=== PATIENT | female | born 1950 | race Caucasian/White ===

== ENCOUNTER 2022-03-05 09:06 | Outpatient (REF) | payer MEDICARE, SELFPAY ==
[2022-03-05 11:32] LABS: Hematocrit 40.9 % (37.0-47.0); Mean Corpuscular HGB Conc 34.2 g/dl (31.0-35.0); Mean Corpuscular Volume 93.4 fL (80.0-98.0); Mean Platelet Volume 10.5 fL (9.4-12.3); Platelet Count 145 X10*3/uL (160-400); Red Blood Count 4.38 X10*6/uL (4.20-5.50); Red Cell Distribution Width 16.1 % (11.0-16.0); White Blood Count 5.5 X10*3/uL (4.8-10.8)
[2022-03-05 11:57] LABS: Alanine Aminotransferase 27 U/L (0-31); Albumin Level 4.1 g/dL (3.5-5.0); Alkaline Phosphatase 74 U/L (39-117); Anion Gap 16 (12-20); Aspartate Amino Transferase 61 U/L (5-31); Bilirubin Direct 0.4 mg/dL (0.0-0.5); Bilirubin Total 0.9 mg/dL (0.0-1.0); Blood Urea Nitrogen 10 mg/dL (9-16); Carbon Dioxide 22 mmol/L (22-29); Chloride 100 mmol/L (96-108); Cholesterol 147 mg/dL; Estimated Glomerular Filt Rate 54; Glucose Random 136 mg/dL (60-115); HDL Cholesterol 63 mg/dL; LDL Cholesterol Calculated 70 mg/dl; Sodium 134 mmol/L (135-145); Total Protein 7.6 g/dL (6.5-8.0); Triglycerides 74 mg/dL
[2022-03-05 12:01] LABS: Estimated Average Glucose 108 mg/dL; Hemoglobin A1c % 5.4 %
== END 2022-03-05 09:07 | disposition home or self-care (01) ==
LOC: HO.HMGCLDS 09:06
PROVIDERS: Visit Provider Internal Medicine
DX: L40.9 Psoriasis, unspecified (principal)
CPT/HCPCS: 36415; 80048; 80061; 80076; 83036; 85027

== ENCOUNTER 2022-03-26 10:10 | Inpatient (IN) | payer MEDICARE, SELFPAY ==
--- NOTE | ~2022-03-26 | US_ITS ---
EXAMINATION: ULTRASOUND-GUIDED DRAINAGE, RIGHT BREAST ABSCESS CLINICAL INFORMATION: Abscess, right breast. COMPARISON: None TECHNIQUE: Following explaining right breast abscess drainage and catheter placement procedure, benefits and risks, a written consent was obtained. Patient was placed supine on ultrasound stretcher and preliminary ultrasound imaging was obtained. An optimal site was selected, marked and draped in usual sterile manner. 1% lidocaine was injected at the puncture site. Through a small skin incision a 5 [place] Yueh catheter was advanced into the abscess cavity. The stylet was withdrawn and abscess was withdrawn in a syringe for confirmation. Subsequently 0.035 J-wire was advanced through the sheath and the sheath was removed. A 8.5 [place] APD catheter with stiffener was advanced over the guidewire and placed in the right breast abscess. The guidewire and the stiffener was removed and a pigtail was formed by pulling the thread. The catheter was attached to the skin with 3-0 nylon sutures. The tip of the catheter was connected to a drainage bag to gravity. Sterile dressing was placed over the catheter incision and drainage place. Patient tolerated procedure extremely well. FINDINGS: Approximately 50 mL of fluid was drawn into a vacuum bottle. 2 mL of pus was withdrawn with a 10 mL syringe. An 8.5 [place] pigtail catheter was placed within the abscess which was connected to drainage bag. US/US drain soft tissue w imaging IMPRESSION: Successful fluoroscopy-guided right breast abscess drainage catheter placement without immediate complications.
--- NOTE | ~2022-03-26 | US_ITS ---
EXAMINATION: ULTRASOUND GUIDED RIGHT LATERAL BREAST ASPIRATION. CLINICAL INFORMATION: Lateral breast abscess. COMPARISON: Ultrasound breast performed earlier today. TECHNIQUE: Following explaining ultrasound-guided right breast abscess drainage procedure, benefits and risk, a written consent was obtained. Preliminary ultrasound imaging was performed through the right breast an optimal site was selected along the right anterolateral breast and marked. The marked site was cleaned and draped in usual sterile manner. 1% lidocaine was injected puncture site. Through a small skin incision 18-gauge regular needle and a spinal needle was advanced into the right breast abscess and aspirated with syringe as well as vacuum bottle. After obtaining almost all abscess and visualizing no more return, the needles were withdrawn and complete hemostasis achieved at puncture site. Sterile Band-Aid applied postprocedure. Repeat ultrasound imaging revealed significant improvement in the fluctuant abscess collection. FINDINGS: Preliminary ultrasound revealed fluctuant fluid collection/abscess in the upper outer quadrant of the right breast adjacent to the axilla. Approximately 100 mL of brownish-green, bloody fluid was drained from the collection. Fluid was sent to lab for further analysis as requested by referring physician. This was sent to lab for further analysis. Patient tolerated procedure extremely well. US/US drain soft tissue w imaging IMPRESSION: Successful ultrasound-guided right upper outer quadrant breast abscess drainage without immediate complications.
--- NOTE | ~2022-03-26 | US_ITS ---
EXAMINATION: US DIAGNOSTIC ULTRASOUND BREAST, RIGHT CLINICAL INFORMATION: 71-year-old female in emergency department with pain, swelling, erythema upper outer right breast near axilla. Family history breast cancer, sister. COMPARISON: None. TECHNIQUE: Ultrasound of the right breast is performed at the hospital and reviewed remotely. Case discussed with digital analytics manager. Grayscale imaging and color Doppler are performed. Imaging is targeted to the area of clinical concern upper outer right breast. FINDINGS: There is a macrolobulated fluid collection in the area clinical concern posterior upper outer right breast with overall dimensions approximately 3 x 3 x 6 cm. There is mild surrounding hyperemia on color Doppler. With transducer compression, there is swirling echogenicity in the area of involvement. Findings are most suggestive of an abscess. Results are discussed with Emergency Department provider Eboni Aguilar PA-C at time of imaging. Ultrasound-guided aspiration is recommended and appropriate clinical and imaging follow-up as usual. US/US breast RT limited IMPRESSION: Findings suggest abscess posterior upper outer right breast measuring approximately 3 x 3 x 6 cm. ASSESSMENT: BI-RADS 3: Probably Benign RECOMMENDATION: Ultrasound-guided aspiration and appropriate short-term clinical and imaging follow-up as usual. This patient's information was entered into a reminder system with a target due date for their next mammogram.
--- NOTE | ~2022-03-26 | US_ITS ---
EXAMINATION: US DIAGNOSTIC ULTRASOUND BREAST, RIGHT CLINICAL INFORMATION: Indication for follow-up abscess posterior upper outer right breast status post ultrasound-guided drainage 100 mL purulent fluid on 03/26/2022. COMPARISON: Diagnostic right breast ultrasound 03/26/2022, ultrasound-guided drainage 03/26/2022. TECHNIQUE: Ultrasound of the right breast is targeted to the posterior upper outer quadrant in area of known abscess and recent ultrasound-guided drainage. Grayscale imaging and color Doppler are performed without and with harmonics. FINDINGS: There is macrolobulated fluid collection again seen in the posterior upper outer right breast with mild surrounding hyperemia on color Doppler. The overall dimensions are 4.2 x 6.2 x 7.7 cm compared with prior measurements prior to aspiration of 3 x 3 x 6 cm. With transducer compression, there is internal swirling echogenicity within the collection predominantly superficial and central portion of the collection. There may be isoechoic granulation tissue that is not drainable in the total measured area. Results called and discussed with Dr. Rodriguez at 0925 hours. US/US breast RT limited IMPRESSION: -Abscess posterior upper outer right breast, overall dimensions 4 x 6 x 8 cm compared with prior pre-aspiration dimensions 3 x 3 x 6 cm. -Swirling echogenicity within the collection is predominantly superficial and central. There may be isoechoic granulation tissue that is not drainable in the total measured area. ASSESSMENT: BI-RADS 3: Probably Benign RECOMMENDATION: -Continue with clinical management plans. -Consider attempt at re-aspiration under ultrasound guidance if not planning surgical drainage. This patient's information was entered into a reminder system with a target due date for their next mammogram.
--- NOTE | ~2022-03-26 | CT_ITS ---
EXAMINATION: CT HEAD WITH CONTRAST CLINICAL INFORMATION: Metastatic breast cancer. COMPARISON: None TECHNIQUE: Contiguous axial imaging was performed from the skull base to vertex following intravenous administration of 85 mL of Omnipaque [address] examination was performed using dose optimization techniques as appropriate, variously including the following: *Automated exposure control *Adjustment of mA and/or kV according to patient size (this includes techniques or standardized protocols for targeted exams where dose is matched to indication/reason for exam; i.e. extremities or head) *Use of iterative reconstruction technique DLP: 650 mGy-cm FINDINGS: There is no evidence of acute intracranial hemorrhage or territorial infarction. No abnormal mass effect or midline shift is seen. Mancia to white matter differentiation is well preserved. No extra-axial fluid collections are identified. There is no abnormal enhancement. Moderate generalized parenchymal volume loss noted with mild chronic white matter microangiopathy. No imaging findings suspicious for hydrocephalus. The osseous structures and soft tissues are normal. There is mild mucosal thickening in the maxillary sinuses and right sphenoid sinus. The mastoid air cells are well aerated. CT/CT head/brain w con IMPRESSION: No acute intracranial pathology. No CT evidence of intracranial metastatic disease.
--- NOTE | ~2022-03-26 | CT_ITS ---
EXAMINATION: CT CHEST, ABDOMEN AND PELVIS WITH CONTRAST CLINICAL INFORMATION: Metastatic invasive lobular carcinoma of the breast. COMPARISON: No pertinent prior studies are available for comparison. TECHNIQUE: Multidetector volumetric imaging was performed from the thoracic inlet through the pubic symphysis following administration of 85 mL of Omnipaque 350 intravenous contrast. Sagittal and coronal reformatted images were obtained on the technologist workstation. This CT examination was performed using dose optimization techniques as appropriate, variously including the following: *Automated exposure control *Adjustment of mA and/or kV according to patient size (this includes techniques or standardized protocols for targeted exams where dose is matched to indication/reason for exam; i.e. extremities or head) *Use of iterative reconstruction technique DLP: 1159 mGy-cm FINDINGS: CHEST: Lungs: The central airways are patent. No bronchial wall thickening or bronchiectasis is appreciated. No confluent parenchymal disease. There are mild changes of centrilobular emphysema within the upper lobes bilaterally. There are a few scattered sub-4 mm densities present. There is a calcified granuloma seen within the left upper lobe. Within the left upper lobe laterally there is a subpleural 7 mm density on image 175 of 521 in series #15. Mediastinum: The left thyroid lobe is prominent and appears to contain a few nodular densities. The heart is mildly enlarged. There are minimal coronary artery calcifications present. There is a small pericardial effusion. No hilar or mediastinal lymphadenopathy is appreciated. There is a left upper extremity PICC line in place. Pleura: There is a trace left pleural effusion present. Chest Wall/Axilla: The left axilla appears unremarkable. Within the right breast and axilla there appears to be postsurgical change with some soft tissue and fluid being present with a dorsal axillary fluid collection measuring approximately 7.7 x 3.0 x 6.0 cm in size. There is a smaller anterior mixed fluid and soft tissue density region containing some air bubbles likely related to recent surgery or drainage. The more anterior fluid collection and soft tissue densities are adjacent with loss of fat planes between the lateral aspects of the pectoralis major and minor muscles as well as the right lateral chest wall musculature. There are a few enlarged and enhancing lymph nodes present with the largest measuring 1.6 x 1.3 cm in size and 1.3 x 1.1 cm in size. ABDOMEN/PELVIS: Liver, Gallbladder, Biliary Tree: There appears be a 1 cm low-density lesion seen within segment 7 of the liver. No intrahepatic bile duct dilatation is seen. The gallbladder wall appears a little thickened or with small amount of pericholecystic fluid within or adjacent to the wall. No radiopaque calculi identified. Pancreas: Unremarkable. Spleen: Unremarkable. Adrenal Glands: Unremarkable. Kidneys and Ureters: The kidneys are normal in size, shape, and attenuation. No hydronephrosis or hydroureter or calculi seen. No perinephric stranding. Bladder: Decompressed. Gastrointestinal Tract: No dilated loops of large or small bowel are evident. No free intra-abdominal air is seen. There is a small amount of free fluid seen about the pelvis. No significant pericolonic inflammatory change. The appendix is visualized and appears unremarkable. Within the mid right abdomen mesentery there is a 2.4 x 2.6 cm fluid density structure. Abdominal Wall: No hernia is demonstrated. Lymph Nodes: No intraperitoneal lymphadenopathy is appreciated. Vascular: Unremarkable. Pelvic Viscera: No abnormal mass appreciated. Small amount of free fluid. Osseous Structures: There are mixed lytic and sclerotic lesions seen throughout the skeleton. No definite acute fractures are identified. Multilevel degenerative disc disease most significant at the L5-S1 level. CT/CT abdomen pelvis w con IMPRESSION: Postsurgical change about the right axilla as described with soft tissue and fluid density. There are a few enlarged abnormal-appearing lymph nodes in this region. Left thyroid abnormality. 7 mm left upper lobe lung nodule. Diffuse bony metastases throughout the skeleton. Trace left pleural effusion, pericardial effusion, and free fluid within the pelvis. 1 cm low-density region within the liver which may represent a cyst.
[2022-03-26 10:51] VITALS: BP 157/84; PULSE 119; RESP 16; O2SAT 98; BMI 37.8
--- NOTE | 2022-03-26 14:57 | ED_ITS ---
HPI - General Adult General Chief complaint: Skin/Abscess/Foreign Body Stated complaint: arm infection Time Seen by Provider: 03/26/22 14:56 Source: patient and family Mode of arrival: ambulatory Limitations: no limitations History of Present Illness HPI narrative: 71 y/o female with history of psoriasis, former drinker (quit March 05) who presents to the ER with 3 weeks of worsening right breast pain, redness and swelling since middle of February. She reports the pain started after she lifted a heavy bag of trash and carried it out to the garbage. A few days later she started having pain in the right breast and chest and figured she pulled a muscle. She used ice and heat with no relief. She noticed redness a few days later and over the last few weeks it has gotten worse. She reports subjective fevers at home, decreased appetite and generally not feeling well. She denies rigors, chills, nausea, vomiting. No history of abscess in the past. Not diabetic. Unknown when last mammogram was. Her sister has history of breast cancer. MD complaint: right breast redness, swelling and pain Onset (ago): week(s) (2-3) Location: chest Radiation: extremity (right axilla) Severity: severe Severity scale (1-10): 8 Quality: aching and sharp Pain Consistency: constant Relieving factors: none Exacerbating factors: movement Associated symptoms: fever/chills, loss of appetite and malaise Treatments prior to arrival: none Related Data Home Medications Medication Instructions Recorded Confirmed carboxymethylcellulose sodium 1 % 1 drp OPHTHALMIC (EYE) QID PRN 03/26/22 03/26/22 eye drops (Artificial Tears (carboxymethylcellulose)) glucosamine 750 dl-[id number]-[id number] 1 tab PO Q2D 03/26/22 03/26/22 no1 644 mg-C 30 mg-brendan 1 mg tablet Allergies Allergy/AdvReac Type Severity Reaction Status Date / Time latex Allergy Mild Rash Verified 03/26/22 09:26 Review of Systems 2 Review of Systems: Constitutional: + Fever, No Chills ENT/Mouth: No sore throat, No Rhinorrhea, No Swallowing Difficulty Cardiovascular: No Chest Pain, No SOB, No Orthopnea, No Edema Respiratory: No Cough, No Sputum, No Wheezing, No dyspnea Gastrointestinal: No Nausea, No Vomiting, No Diarrhea, No abdominal Pain Genitourinary: No Dysuria, No Urinary Frequency, No Hematuria Musculoskeletal: + joint pain, + Myalgias Skin: + Skin Lesions, + rash Neuro: No Weakness, No Numbness, No Dizziness, No Headache Psych: No Anxiety/Panic, No Depression Heme/Lymph: No Bruising, No Lymphadenopathy Endocrine: No Polyuria, No Polydipsia [facility] Past Medical History Medical History (Updated 03/26/22 @ 18:11 by KIMBERLY Toscano) Psoriasis Social History Social History Advance Directives: No Advance Directives Information Provided: No Physical Exam ED Vital Signs: Vital Signs - 24 hr 03/26/22 10:51 03/26/22 17:35 03/26/22 17:54 Temperature 99.0 F Pulse Rate 119 H 109 H Respiratory Rate 16 18 Blood Pressure 157/84 H 149/73 H Pulse Oximetry 98 97 BMI result Body Mass Index 37.8 Appearance: Alert. Oriented X3. No acute distress. Head: normocephalic, atraumatic, dry, flakey rash along scalp/hairline Eyes: Pupils equal, round and reactive to light. ENT: Pharynx normal. Neck: Normal inspection. Neck supple. CVS: Normal heart rate and rhythm. Pulses normal. Chest: right upper and outer quadrant of the right breast with moderate erythema and tenderness with 2-3 cm area of fluctuance superiorly. significant induration extending down into the breast and up into the right axilla. Respiratory: No respiratory distress. Breath sounds normal. Abdomen: Soft and nontender. +BS x4 Skin: Skin warm and dry. Normal skin color. Normal skin turgor. No rashes. Extremities: No lower extremity edema. Neuro: Oriented X 3. No motor deficit. No sensory deficit. Course Course Course Narrative: 71 y/o female with history of psoriasis, former drinker who presents to the ER wtih 2-3 weeks of an evolving right upper breast abscess and cellulitis after lifting a heavy trash bag. On arrival she is tachycardic 119, BP stable 150s systolic and afebrile. Will get breast U/S to further assess, labs including cultures and coags. Reevaluation(s) Reevaluation #1: US showing 3 x3 x 6cm complex abscess of the right breast - spoke with Dr. Luna Radiologist [facility] - recommending IR needle aspiration. Dr. Aleman aware and will drain via US guidance. Patient updated on plan of care. Reevaluation #2: Patient with significant leukocytosis 19.7K, lactic acid normal. Patient meets sepsis criteria, no evidence of severe sepsis at this time. She is getting Rocephin, will add Vanco for MRSA coverage as well. Culture sent. H/H now anemic, 08/21 from less than one month ago. She denies signs and symptoms of GI bleed but reports her usually dark brown because of a chocolate protein shake she drinks. She has been taking Aleve for her breast pain. Last ETOH was March 05. Discussed with the patient concern for GI bleeding and recommendation for rectal exam but she declined. Will plan to heme + stool once she has a bowel movement. Will plan for admission for IV abx, follow up culture and monitoring. She has poor outpatient follow up with no PCP. Dr. Larios TT for admission. Patient agrees with plan. Medical Decision Making Lab Data Result diagrams: 03/26/22 16:54 03/26/22 17:25 Labs: Lab Results 03/26/22 03/26/22 03/26/22 Range/Units 16:43 16:53 16:53 WBC (4.8-10.8) X10*3/uL RBC (4.20-5.50) X10*6/uL Hgb (12.0-16.0) g/dl Hct (37.0-47.0) % MCV (80.0-98.0) fL MCH (27.0-33.0) pg MCHC (31.0-35.0) g/dl RDW (11.0-16.0) % Plt Count (160-400) X10*3/uL MPV (9.4-12.3) fL Immature Gran % (Auto) Neut % (Auto) Lymph % (Auto) Collier % (Auto) Eos % (Auto) Baso % (Auto) Lymph # (Auto) Collier # (Auto) Eos # (Auto) Baso # (Auto) Abs Immat Gran (auto) Absolute Neuts (auto) Absolute Nucleated RBC (0.0-0.012) X10*3/uL Nucleated RBC % (auto) (0.0-0.2) /100WBC Neutrophils % (Manual) (45-73) % Band Neutrophils % (3-5) % Lymphocytes % (Manual) (20-40) % Monocytes % (Manual) (2-11) % Abs Neuts (Manual) (2.0-8.3) X10*3/uL Lymphocytes # (Manual) (1.2-4.9) X10*3/uL Monocytes # (Manual) (0.1-1.2) X10*3/uL Toxic Vacuolation Platelet Estimate (NORMAL) Plt Morphology Comment RBC Morphology ESR 109 H (0-20) MM/HR PT INR APTT Sodium (135-145) mmol/L Potassium (3.3-5.1) mmol/L Chloride (96-108) mmol/L Carbon Dioxide (22-29) mmol/L Anion Gap (12-20) BUN (9-16) mg/dL Creatinine (0.5-1.4) mg/dL Estim Creat Clear Calc Estimated GFR Random Glucose (60-115) mg/dL Lactic Acid 1.8 (0.5-2.0) mmol/L Calcium (8.4-10.2) mg/dL Magnesium (1.6-2.6) mg/dL Total Bilirubin (0.0-1.0) mg/dL Direct Bilirubin (0.0-0.5) mg/dL AST (5-31) U/L ALT (0-31) U/L Alkaline Phosphatase (39-117) U/L C-Reactive Protein (< or = 0.50) mg/dL Total Protein (6.5-8.0) g/dL Albumin (3.5-5.0) g/dL Urine Color Urine Appearance Urine pH (5.0-8.0) Ur Specific [place] (1.005-1.025) Urine Protein (NEG-TRACE) MG/DL Urine Glucose (UA) (NEG) MG/DL Urine Ketones (NEG) MG/DL Urine Blood (NEG) Urine Nitrite (NEG) Ur Leukocyte Esterase (NEG) Urine RBC (0) /HPF Urine WBC (0-4) /HPF Ur Squamous Epith Cells /LPF Urine Bacteria /LPF Hyaline Casts /LPF Urine Mucus /LPF COVID-19 (COURTNEY) Negative (Negative) COVID-19 Clin Com See Note 03/26/22 03/26/22 03/26/22 Range/Units 16:54 16:54 17:25 WBC 19.7 H (4.8-10.8) X10*3/uL RBC 2.95 L D (4.20-5.50) X10*6/uL Hgb 9.1 L D (12.0-16.0) g/dl Hct 27.7 L D (37.0-47.0) % MCV 93.9 (80.0-98.0) fL MCH 30.8 (27.0-33.0) pg MCHC 32.9 (31.0-35.0) g/dl RDW 15.7 (11.0-16.0) % Plt Count 253 D (160-400) X10*3/uL MPV 9.6 (9.4-12.3) fL Immature Gran % (Auto) Cancelled Neut % (Auto) Cancelled Lymph % (Auto) Cancelled Collier % (Auto) Cancelled Eos % (Auto) Cancelled Baso % (Auto) Cancelled Lymph # (Auto) Cancelled Collier # (Auto) Cancelled Eos # (Auto) Cancelled Baso # (Auto) Cancelled Abs Immat Gran (auto) Cancelled Absolute Neuts (auto) Cancelled Absolute Nucleated RBC 0.030 H (0.0-0.012) X10*3/uL Nucleated RBC % (auto) 0.2 (0.0-0.2) /100WBC Neutrophils % (Manual) 77 H (45-73) % Band Neutrophils % 6 H (3-5) % Lymphocytes % (Manual) 9 L (20-40) % Monocytes % (Manual) 8 (2-11) % Abs Neuts (Manual) 16.4 H (2.0-8.3) X10*3/uL Lymphocytes # (Manual) 1.8 (1.2-4.9) X10*3/uL Monocytes # (Manual) 1.6 H (0.1-1.2) X10*3/uL Toxic Vacuolation PRESENT Platelet Estimate NORMAL (NORMAL) Plt Morphology Comment NORMAL RBC Morphology NORMAL ESR (0-20) MM/HR PT Cancelled INR Cancelled APTT Cancelled Sodium 136 (135-145) mmol/L Potassium 4.1 (3.3-5.1) mmol/L Chloride 103 (96-108) mmol/L Carbon Dioxide 22 (22-29) mmol/L Anion Gap 15 (12-20) BUN 10 (9-16) mg/dL Creatinine 0.69 (0.5-1.4) mg/dL Estim Creat Clear Calc 83.3 Estimated GFR > 60 Random Glucose 102 (60-115) mg/dL Lactic Acid (0.5-2.0) mmol/L Calcium 8.1 L D (8.4-10.2) mg/dL Magnesium 2.2 (1.6-2.6) mg/dL Total Bilirubin 0.8 (0.0-1.0) mg/dL Direct Bilirubin 0.5 (0.0-0.5) mg/dL AST 39 H (5-31) U/L ALT 42 H (0-31) U/L Alkaline Phosphatase 174 H D (39-117) U/L C-Reactive Protein 17.83 H (< or = 0.50) mg/dL Total Protein 6.2 L (6.5-8.0) g/dL Albumin 2.9 L D (3.5-5.0) g/dL Urine Color Urine Appearance Urine pH (5.0-8.0) Ur Specific [place] (1.005-1.025) Urine Protein (NEG-TRACE) MG/DL Urine Glucose (UA) (NEG) MG/DL Urine Ketones (NEG) MG/DL Urine Blood (NEG) Urine Nitrite (NEG) Ur Leukocyte Esterase (NEG) Urine RBC (0) /HPF Urine WBC (0-4) /HPF Ur Squamous Epith Cells /LPF Urine Bacteria /LPF Hyaline Casts /LPF Urine Mucus /LPF COVID-19 (COURTNEY) (Negative) COVID-19 Clin Com 03/26/22 Range/Units 17:39 WBC (4.8-10.8) X10*3/uL RBC (4.20-5.50) X10*6/uL Hgb (12.0-16.0) g/dl Hct (37.0-47.0) % MCV (80.0-98.0) fL MCH (27.0-33.0) pg MCHC (31.0-35.0) g/dl RDW (11.0-16.0) % Plt Count (160-400) X10*3/uL MPV (9.4-12.3) fL Immature Gran % (Auto) Neut % (Auto) Lymph % (Auto) Collier % (Auto) Eos % (Auto) Baso % (Auto) Lymph # (Auto) Collier # (Auto) Eos # (Auto) Baso # (Auto) Abs Immat Gran (auto) Absolute Neuts (auto) Absolute Nucleated RBC (0.0-0.012) X10*3/uL Nucleated RBC % (auto) (0.0-0.2) /100WBC Neutrophils % (Manual) (45-73) % Band Neutrophils % (3-5) % Lymphocytes % (Manual) (20-40) % Monocytes % (Manual) (2-11) % Abs Neuts (Manual) (2.0-8.3) X10*3/uL Lymphocytes # (Manual) (1.2-4.9) X10*3/uL Monocytes # (Manual) (0.1-1.2) X10*3/uL Toxic Vacuolation Platelet Estimate (NORMAL) Plt Morphology Comment RBC Morphology ESR (0-20) MM/HR PT INR APTT Sodium (135-145) mmol/L Potassium (3.3-5.1) mmol/L Chloride (96-108) mmol/L Carbon Dioxide (22-29) mmol/L Anion Gap (12-20) BUN (9-16) mg/dL Creatinine (0.5-1.4) mg/dL Estim Creat Clear Calc Estimated GFR Random Glucose (60-115) mg/dL Lactic Acid (0.5-2.0) mmol/L Calcium (8.4-10.2) mg/dL Magnesium (1.6-2.6) mg/dL Total Bilirubin (0.0-1.0) mg/dL Direct Bilirubin (0.0-0.5) mg/dL AST (5-31) U/L ALT (0-31) U/L Alkaline Phosphatase (39-117) U/L C-Reactive Protein (< or = 0.50) mg/dL Total Protein (6.5-8.0) g/dL Albumin (3.5-5.0) g/dL Urine Color DK YELLOW Urine Appearance CLEAR Urine pH 5.5 (5.0-8.0) Ur Specific [place] >= 1.030 H (1.005-1.025) Urine Protein 1+ H (NEG-TRACE) MG/DL Urine Glucose (UA) NEG (NEG) MG/DL Urine Ketones 40 (NEG) MG/DL Urine Blood TRACE (NEG) Urine Nitrite NEG (NEG) Ur Leukocyte Esterase NEG (NEG) Urine RBC 0-2 (0) /HPF Urine WBC 1-4 (0-4) /HPF Ur Squamous Epith Cells 3+ /LPF Urine Bacteria 2+ /LPF Hyaline Casts 0-2 /LPF Urine Mucus 2+ /LPF COVID-19 (COURTNEY) (Negative) COVID-19 Clin Com Critical Care Time Critical Care Time Critical Care Time: Yes Total Critical Care Time: 35 Attestation: I have personally provided critical care time exclusive of time spent on separately billable procedures. Time includes review of lab data, radiology results, discussion with consultants, and monitoring for potential decompe nsation. Intervention performed as documented. Discharge Plan Discharge Clinical Impression: Sepsis, Abscess of breast, right, Cellulitis of breast, Anemia Patient Disposition: Admitted As Inpatient
--- NOTE | 2022-03-26 15:04 | ECG_ITS ---
Test Reason : breast pain Blood Pressure : / mmHG Vent. Rate : 112 BPM Atrial Rate : 112 BPM P-R Int : 140 ms QRS Dur : 082 ms QT Int : 346 ms P-R-T Axes : 048 -07 037 degrees QTc Int : 472 ms Sinus tachycardia Inferior infarct , age undetermined Cannot rule out Anterior infarct , age undetermined Abnormal ECG No previous ECGs available Referred By: Eboni Aguilar Electronically Signed By:JOSSELINE YU MD
--- NOTE | 2022-03-26 16:40 | PHA.MEDREC ---
Pharmacy Consult ? Medication Reconciliation Pharmacy has completed the medication reconciliation.
[2022-03-26] MEDS: Lidocaine HCl 1 % MPF 5 ML VIAL SUBCUT (16:43)
[2022-03-26 17:01] LABS: Hematocrit 27.7 % (37.0-47.0); Hemoglobin 9.1 g/dl (12.0-16.0); Mean Corpuscular HGB Conc 32.9 g/dl (31.0-35.0); Mean Corpuscular Hemoglobin 30.8 pg (27.0-33.0); Mean Corpuscular Volume 93.9 fL (80.0-98.0); Mean Platelet Volume 9.6 fL (9.4-12.3); NRBC Pct Auto 0.2 /100WBC (0.0-0.2); Platelet Count 253 X10*3/uL (160-400); Red Blood Count 2.95 X10*6/uL (4.20-5.50); Red Cell Distribution Width 15.7 % (11.0-16.0); White Blood Count 19.7 X10*3/uL (4.8-10.8)
[2022-03-26 17:12] LABS: Lactic Acid 1.8 mmol/L (0.5-2.0)
[2022-03-26 17:19] LABS: COVID-19 Test Negative (Negative); IDNOW Serial# 16C4AD1C
[2022-03-26 17:35] VITALS: BP 149/73
[2022-03-26 17:41] LABS: Band Neutrophils Percent 6 % (3-5); Lymphocytes Absolute Manual 1.8 X10*3/uL (1.2-4.9); Lymphocytes Percent Manual 9 % (20-40); Monocytes Absolute Manual 1.6 X10*3/uL (0.1-1.2); Monocytes Percent Manual 8 % (2-11); Neutrophils Absolute Manual 16.4 X10*3/uL (2.0-8.3); Neutrophils Percent Manual 77 % (45-73)
[2022-03-26 17:43] LABS: Toxic Vacuolation PRESENT
[2022-03-26 17:53] LABS: RBC Morphology NORMAL
[2022-03-26 17:54] VITALS: PULSE 109; RESP 18; TEMP 37.2; O2SAT 97
[2022-03-26] MEDS: cefTRIAXone sodium 1 GM in 0.9 % Sodium Chloride 50 ML IV (17:55)
[2022-03-26] MEDS: 0.9 % Sodium Chloride 1,000 ML 999 ML IVCONT ×2 (17:55→21:13)
[2022-03-26 17:56] LABS: Alanine Aminotransferase 42 U/L (0-31); Albumin Level 2.9 g/dL (3.5-5.0); Alkaline Phosphatase 174 U/L (39-117); Anion Gap 15 (12-20); Aspartate Amino Transferase 39 U/L (5-31); Bilirubin Direct 0.5 mg/dL (0.0-0.5); Bilirubin Total 0.8 mg/dL (0.0-1.0); Blood Urea Nitrogen 10 mg/dL (9-16); Calcium 8.1 mg/dL (8.4-10.2); Carbon Dioxide 22 mmol/L (22-29); Chloride 103 mmol/L (96-108); Creatinine Clr Calc Pharmacy 83.3; Estimated Glomerular Filt Rate > 60; Glucose Random 102 mg/dL (60-115); Magnesium 2.2 mg/dL (1.6-2.6); Potassium 4.1 mmol/L (3.3-5.1); Sodium 136 mmol/L (135-145); Total Protein 6.2 g/dL (6.5-8.0)
[2022-03-26 17:58] LABS: Appearance Urine CLEAR; Color Urine DK YELLOW; Glucose Urine UA NEG (NEG); Leukocyte Esterase Urine NEG (NEG); Nitrite Urine NEG (NEG); PH 5.5 (5.0-8.0); Specific Gravity - Urine >= 1.030 (1.005-1.025); UACC Culture Trigger NO; Urine Blood TRACE (NEG); Urine Ketones 40 MG/DL (NEG); Urine Protein 1+ MG/DL (NEG-TRACE)
[2022-03-26 18:00] LABS: Platelet Estimate NORMAL (NORMAL); Platelet Morphology Comment NORMAL
[2022-03-26 18:12] LABS: Hyaline Casts Urine 0-2 /LPF; Mucus Urine 2+ /LPF; Squamous Epithelial Cell Urine 3+ /LPF
[2022-03-26 18:14] LABS: Bacteria Urine 2+ /LPF; RBC Urine 0-2 /HPF (0)
[2022-03-26 18:17] LABS: C Reactive Protein 17.83 mg/dL (< or = 0.50)
[2022-03-26 18:41] LABS: Erythrocyte Sedimentation Rate 109 MM/HR (0-20)
[2022-03-26] MEDS: vancomycin HCL 1,250 MG in 0.9 % Sodium Chloride 250 ML 166.67 MG IV (19:03)
--- NOTE | 2022-03-26 19:26 | PM.IMHP ---
History of Present Illness Date of Service: 03/26/22 Chief Complaint: Right breast pain redness and swelling 71-year-old female with a past medical history of psoriasis presented to the hospital with a chief complaint of right breast pain redness and swelling for about a month. Reported that her symptoms started after she lifted rash about a month ago and has been gradually worsening; Lately complaint of generalized weakness, malaise; subjective fevers. Denies any nausea vomiting or diarrhea. Denies any chest pain or palpitations. Denies any blood in the stool. Patient reported that she was started on prednisone about 3 days ago for her so reassess. Denies taking any medications for her so reassess. Review of all other systems is negative except mentioned above ER course: Per ER team patient noted to have right upper quadrant of the right breast warm, indurated-ultrasound showed 3x3x6 cm abscess. Status post IR guided drainage of 100 cc of the PA's. Sent for cultures. Patient started on IV vancomycin and ceftriaxone. On the labs noted to have leukocytosis; Also noted to have hemoglobin of 9.1 dropped from 14.5 about a month ago. Patient refused guaiac test. But patient denied any signs of bleeding. [facility] Medical History (Updated 03/26/22 @ 18:11 by KIMBERLY Toscano) Psoriasis Pertinent family history: Reviewed Social History Advance Directives: No Advance Directives Information Provided: No Meds Allergies Allergy/AdvReac Type Severity Reaction Status Date / Time latex Allergy Mild Rash Verified 03/26/22 09:26 Active Medications: Current Medications Vancomycin HCl 1,250 mg/ (Sodium Chloride) 250 mls @ 166.667 mls/hr IV ONCE ONE Stop: 03/26/22 19:28 Last Admin: 03/26/22 19:03 Dose: 166.67 mls/hr Documented by: Pharmacy Consult (Consult Rx Perform Med Rec) 1 each MISCELLANE ONCE PRN PRN Reason: Consult order Home Medications Medication Instructions Recorded Confirmed Last Taken Type carboxymethylcellulose sodium 1 % 1 drp OPHTHALMIC (EYE) QID PRN 03/26/22 03/26/22 Unknown History eye drops (Artificial Tears (carboxymethylcellulose)) glucosamine 750 dq-uejjswxmvee-umn 1 tab PO Q2D 03/26/22 03/26/22 Unknown History no1 644 mg-C 30 mg-brendan 1 mg tablet Physical Exam Vital Signs and Narrative: Vital Signs: Last Vital Signs Temp 99.0 F 03/26/22 17:54 Pulse 109 H 03/26/22 17:54 Resp 18 03/26/22 17:54 BP 149/73 H 03/26/22 17:35 Pulse Ox 97 03/26/22 17:54 BMI result Body Mass Index 37.8 Gen: Appears be in no acute distress HEENT: NCAT, Moist mucosa. Pulmonary: Vesicular breath sounds, fair air entry CVS: Normal S1-S2 Abdomen: BS+, Soft, Nontender Extremities: Warm well perfused Neuro: Alert and awake. Breast exam: Examined along with the RN at bedside. Noted to have right upper outer quadrant of the right breast is warm tender; Results Labs CBC and Chem 7: 03/26/22 16:54 03/26/22 17:25 Labs: Laboratory Results - last 24 hr 03/26/22 03/26/22 03/26/22 16:43 16:53 16:53 MCV MCH MCHC RDW Plt Count MPV Immature Gran % (Auto) Neut % (Auto) Lymph % (Auto) Maury % (Auto) Eos % (Auto) Baso % (Auto) Lymph # (Auto) Maury # (Auto) Eos # (Auto) Baso # (Auto) Abs Immat Gran (auto) Absolute Neuts (auto) Absolute Nucleated RBC Nucleated RBC % (auto) Neutrophils % (Manual) Band Neutrophils % Lymphocytes % (Manual) Monocytes % (Manual) Abs Neuts (Manual) Lymphocytes # (Manual) Monocytes # (Manual) Toxic Vacuolation Platelet Estimate Plt Morphology Comment RBC Morphology ESR 109 H PT INR APTT Anion Gap Estim Creat Clear Calc Estimated GFR Random Glucose Lactic Acid 1.8 Calcium Magnesium Total Bilirubin Direct Bilirubin AST ALT Alkaline Phosphatase C-Reactive Protein Total Protein Albumin Urine Color Urine Appearance Urine pH Ur Specific Richardson Urine Protein Urine Glucose (UA) Urine Ketones Urine Blood Urine Nitrite Ur Leukocyte Esterase Urine RBC Urine WBC Ur Squamous Epith Cells Urine Bacteria Hyaline Casts Urine Mucus COVID-19 (COURTNEY) Negative COVID-19 Clin Com See Note 03/26/22 03/26/22 03/26/22 16:54 16:54 17:25 MCV 93.9 MCH 30.8 MCHC 32.9 RDW 15.7 Plt Count 253 D MPV 9.6 Immature Gran % (Auto) Cancelled Neut % (Auto) Cancelled Lymph % (Auto) Cancelled Maury % (Auto) Cancelled Eos % (Auto) Cancelled Baso % (Auto) Cancelled Lymph # (Auto) Cancelled Maury # (Auto) Cancelled Eos # (Auto) Cancelled Baso # (Auto) Cancelled Abs Immat Gran (auto) Cancelled Absolute Neuts (auto) Cancelled Absolute Nucleated RBC 0.030 H Nucleated RBC % (auto) 0.2 Neutrophils % (Manual) 77 H Band Neutrophils % 6 H Lymphocytes % (Manual) 9 L Monocytes % (Manual) 8 Abs Neuts (Manual) 16.4 H Lymphocytes # (Manual) 1.8 Monocytes # (Manual) 1.6 H Toxic Vacuolation PRESENT Platelet Estimate NORMAL Plt Morphology Comment NORMAL RBC Morphology NORMAL ESR PT Cancelled INR Cancelled APTT Cancelled Anion Gap 15 Estim Creat Clear Calc 83.3 Estimated GFR > 60 Random Glucose 102 Lactic Acid Calcium 8.1 L D Magnesium 2.2 Total Bilirubin 0.8 Direct Bilirubin 0.5 AST 39 H ALT 42 H Alkaline Phosphatase 174 H D C-Reactive Protein 17.83 H Total Protein 6.2 L Albumin 2.9 L D Urine Color Urine Appearance Urine pH Ur Specific Richardson Urine Protein Urine Glucose (UA) Urine Ketones Urine Blood Urine Nitrite Ur Leukocyte Esterase Urine RBC Urine WBC Ur Squamous Epith Cells Urine Bacteria Hyaline Casts Urine Mucus COVID-19 (COURTNEY) COVID-19 Clin Com 03/26/22 17:39 MCV MCH MCHC RDW Plt Count MPV Immature Gran % (Auto) Neut % (Auto) Lymph % (Auto) Maury % (Auto) Eos % (Auto) Baso % (Auto) Lymph # (Auto) Maury # (Auto) Eos # (Auto) Baso # (Auto) Abs Immat Gran (auto) Absolute Neuts (auto) Absolute Nucleated RBC Nucleated RBC % (auto) Neutrophils % (Manual) Band Neutrophils % Lymphocytes % (Manual) Monocytes % (Manual) Abs Neuts (Manual) Lymphocytes # (Manual) Monocytes # (Manual) Toxic Vacuolation Platelet Estimate Plt Morphology Comment RBC Morphology ESR PT INR APTT Anion Gap Estim Creat Clear Calc Estimated GFR Random Glucose Lactic Acid Calcium Magnesium Total Bilirubin Direct Bilirubin AST ALT Alkaline Phosphatase C-Reactive Protein Total Protein Albumin Urine Color DK YELLOW Urine Appearance CLEAR Urine pH 5.5 Ur Specific Richardson >= 1.030 H Urine Protein 1+ H Urine Glucose (UA) NEG Urine Ketones 40 Urine Blood TRACE Urine Nitrite NEG Ur Leukocyte Esterase NEG Urine RBC 0-2 Urine WBC 1-4 Ur Squamous Epith Cells 3+ Urine Bacteria 2+ Hyaline Casts 0-2 Urine Mucus 2+ COVID-19 (COURTNEY) COVID-19 Clin Com Imaging Radiologist's Impressions: Impressions Breast Ultrasound 03/26/22 15:18 IMPRESSION: Findings suggest abscess posterior upper outer right breast measuring approximately 3 x 3 x 6 cm. ASSESSMENT: BI-RADS 3: Probably Benign RECOMMENDATION: Ultrasound-guided aspiration and appropriate short-term clinical and imaging follow-up as usual. This patient's information was entered into a reminder system with a target due date for their next mammogram. Fluid Drainage 03/26/22 16:44 IMPRESSION: Successful ultrasound-guided right upper outer quadrant breast abscess drainage without immediate complications. Assessment and Plan (1) Abscess of breast, right: Status: Acute (2) Cellulitis of breast: Status: Acute (3) Anemia: Status: Acute (4) Psoriasis: Status: Acute Plan 71-year-old female with a past medical history of psoriasis presented to the hospital with a chief complaint of right breast pain redness and swelling for about a month. Noted to have right breast cellulitis/abscess. Admitted for further management. Right breast cellulitis/abscess: Status post IR guided drainage of the abscess. Continue IV ceftriaxone and vancomycin Follow-up cultures Pain control Will consult ID and General surgery for further recommendations Anemia: Normocytic. Patient denies any signs of bleeding. Refused bedside stool guaiac test. Will obtain in stool guaiac. Will also obtain iron studies, folate B12 and TSH. Will also obtain a CT abdomen to rule out any retroperitoneal hemorrhage. History of psoriasis: Patient on prednisone started 3 days ago. Will hold for now. Recommended outpatient dermatology follow-up DVT prophylaxis: Lovenox Code status: Full code Quality Stroke Does the patient have a stroke diagnosis?: No VTE Prior VTE?: No VTE Risk Level:: Medical - moderate - high VTE Device Contraindication: Treatment Not Indicated VTE Drug Contraindication: N/A - Med Ordered
[2022-03-26 19:41] VITALS: BMI 30.2
[2022-03-26 19:51] LABS: Iron 23 mcg/dL (30-160); Percent Iron Saturation 15 % (15-50); Total Iron Binding Capacity 149 mcg/dL (228-428); Unsaturated Iron Binding 126 ug/dL
--- NOTE | 2022-03-26 20:00 | PHA.PROG ---
Admission Date/Time: March 26, 2022 19:23 Indication: Skin Weight in k kg Adjusted body weight in Kg: [place] body weight in K.7 Obesity Dosing Indication % IBW: 46% Serum Creatinine - Last 168 Hours 03/26/22 17:25 Creatinine 0.69 Estimated CrCl and GFR - Last 168 Hours 03/26/22 17:25 Estim Creat Clear Calc 83.3 Estimated GFR > 60 Vancomycin Loading Dose: 1250mg x 1 Current Vancomycin Dosing Regimen: 1250mg Q24H Vancomycin Monitoring using AUC goal of 400 - 600 range with trough as surrogate marker: 443mg/L Date and Time for next Vancomycin Level to be drawn: 03/28/22 @1700 Pharmacist Comments on Vancomycin Plan: Using obese model; will continue to monitor renal function Vancomycin dosing will take advantage of Logan as a clinical decision support tool that uses Bayesian modeling to calculate individual patient's pharmacokinetic parameters and forecast the patient's drug concentration time course with the target goal AUC 24 range of 400 - 600 mg/L/hr.
--- NOTE | 2022-03-26 20:51 | PC.NURSE ---
PT REFUSED CT OF ABD/PELVIS. DR MO AWARE.
[2022-03-26 20:53] LABS: Ferritin 1869 ng/mL (10-250)
[2022-03-26] MEDS: Dextrose 5 % and 0.9 % NaCl 1,000 ML 50 ML IVCONT (21:06)
[2022-03-26 21:07] VITALS: BP 134/70; PULSE 117; RESP 18; O2SAT 97
[2022-03-26 22:26] VITALS: BP 146/67; PULSE 114; RESP 18; TEMP 36.1; O2SAT 98
[2022-03-26 22:51] VITALS: BMI 29.8
[2022-03-26] MEDS: Enoxaparin Sodium 40 MG/0.4 ML SYRINGE SUBCUT (23:03)
[2022-03-26 23:43] VITALS: BP 140/62; PULSE 95; RESP 16; TEMP 37; O2SAT 95
[2022-03-27 03:20] VITALS: BP 145/59; PULSE 97; RESP 16; TEMP 37; O2SAT 96
--- NOTE | 2022-03-27 03:20 | PC.NURSE ---
Assumed care around 2300, alert and oriented, claimed mild discomfort on the right breast, noted right breast as swollen with redness on the outer upper side, IVF maintained, needs met.
[2022-03-27 06:27] LABS: Hematocrit 25.1 % (37.0-47.0); Hemoglobin 8.3 g/dl (12.0-16.0); Mean Corpuscular HGB Conc 33.1 g/dl (31.0-35.0); Mean Corpuscular Hemoglobin 30.6 pg (27.0-33.0); Mean Corpuscular Volume 92.6 fL (80.0-98.0); Mean Platelet Volume 9.3 fL (9.4-12.3); NRBC Pct Auto 0.2 /100WBC (0.0-0.2); Platelet Count 215 X10*3/uL (160-400); Red Blood Count 2.71 X10*6/uL (4.20-5.50); Red Cell Distribution Width 15.7 % (11.0-16.0); White Blood Count 17.8 X10*3/uL (4.8-10.8)
[2022-03-27 06:55] LABS: Anion Gap 14 (12-20); Blood Urea Nitrogen 8 mg/dL (9-16); Calcium 7.4 mg/dL (8.4-10.2); Carbon Dioxide 21 mmol/L (22-29); Chloride 106 mmol/L (96-108); Estimated Glomerular Filt Rate > 60; Glucose Random 105 mg/dL (60-115); Potassium 3.5 mmol/L (3.3-5.1); Sodium 137 mmol/L (135-145)
[2022-03-27 06:58] LABS: Band Neutrophils Percent 13 % (3-5); Lymphocytes Absolute Manual 0.9 X10*3/uL (1.2-4.9); Lymphocytes Percent Manual 5 % (20-40); Metamyelocytes Absolute 0.7 X10*3/uL; Metamyelocytes Percent 4 %; Monocytes Absolute Manual 2.1 X10*3/uL (0.1-1.2); Monocytes Percent Manual 12 % (2-11); Neutrophils Absolute Manual 14.1 X10*3/uL (2.0-8.3); Neutrophils Percent Manual 66 % (45-73)
[2022-03-27 07:02] LABS: Platelet Estimate NORMAL (NORMAL); Platelet Morphology Comment NORMAL; RBC Morphology NORMAL
[2022-03-27 07:08] VITALS: BP 156/65; PULSE 105; RESP 18; TEMP 36.6; O2SAT 97
--- NOTE | 2022-03-27 07:58 | PM.CNGS ---
History of Present Illness Consult details Consult date: 03/27/22 Narrative: 71-year-old female patient with a recent diagnosis of anemia and a long history of psoriasis presenting to the emergency department with 3 week history of pain in the right upper outer quadrant of the right breast. Pain was associated with an area of redness and swelling which she initially thought was due to a muscle injury after lifting a heavy bag of trash. She subsequently developed an area of redness which increased in size and pain. She subsequent presented to the emergency department and was found to have an abscess in the upper outer quadrant of the right breast. She underwent ultrasound-guided aspiration of 100 mL of green bloody fluid. Cultures are pending at this time. She was also found to have an elevated WBC and subsequently admitted to the hospitalist service for IV antibiotics. She denies a prior history of breast infections. Her last mammogram was many years ago. Family history is significant for her sister developing breast cancer at a young age. She never underwent genetic testing. Patient also denies a prior history of colonoscopy. Review of Systems Constitutional: Constitutional: Denies chills, Denies fever(s), Denies headache(s) and Denies poor appetite ENT: Denies dizziness and Denies headache(s) Cardiovascular: Cardiovascular: Denies chest pain, Denies rapid heart rate, Denies palpitations and Denies slow heart rate Respiratory: Respiratory: Denies chest congestion, Denies cough, Denies pain on inspiration and Denies wheezing Gastrointestinal: Gastrointestinal: Denies abdominal pain, Denies bloating, Denies change in stool character, Denies constipation, Denies diarrhea, Denies nausea, Denies vomiting and Denies hematemesis Musculoskeletal: Musculoskeletal: Denies back pain, Denies arthralgias, Denies joint swelling and Denies numbness Integumentary/Breasts: Skin/Breast: Reports as per HPI, Reports breast swelling, Reports breast skin changes, Reports breast pain, Reports breast mass, Denies change in pigmentation, Reports erythema and Reports rash Neurologic: Denies dizziness, Denies headache(s) and Denies numbness Psychiatric: Psychiatric: Denies anxiety and Denies depression Endocrine: Endocrine: Denies palpitations Hematologic/Lymphatic: Hematologic/Lymphatic: Denies easy bleeding, Denies easy bruising and Denies lymphadenopathy Allergic/Immunologic: Allergic/Immunologic: Denies wheezing PMFSH Past Medical History Medical History Psoriasis Social History Social History Household Members: Family Housing: Apartment Patient Tobacco Use Status: Never used Tobacco Use of substances other than those prescribed or required for medical reasons: No Currently Displaying Signs/Symptoms of Drug Intoxication Withdrawal: No Have you been hit, kicked, punched, or otherwise hurt by someone within the past year? If so, by whom?: No Do you feel safe in your current relationship?: No Is there a partner from a previous relationship who is making you feel unsafe now?: No Are you made to feel afraid or neglected: No Advance Directives: No Advance Directives Information Provided: No Do you have thoughts of harming others: None Do you have a plan to hurt others: No Plan Recently lost weight without trying: Yes How much weight loss: 2-13 pounds Eating poorly because of decreased appetite: Yes Nutrition screen score: 4 Nutrition Risks: No Nutritional Risk Patient : No : No Poor oral hygiene: No Meds Allergies Allergy/AdvReac Type Severity Reaction Status Date / Time latex Allergy Mild Rash Verified 03/26/22 09:26 Active Medications: Current Medications Acetaminophen (Acetaminophen 325 Mg Tablet) 650 mg PO Q6H PRN PRN Reason: Pain, Mild (Pain Scale 1-3) Enoxaparin Sodium (Enoxaparin Sodium 40 Mg/0.4 Ml Syringe) 40 mg SUBCUT Q24H [facility] Last Admin: 03/26/22 23:03 Dose: 40 mg Documented by: Hydromorphone HCl (Hydromorphone Hcl 1 Mg/Ml Syringe) 0.5 mg IVPUSH Q4H PRN; Protocol PRN Reason: Pain, Severe (Pain Scale 7-10) Dextrose/Sodium Chloride (D5ns) 1,000 mls @ 50 mls/hr IVCONT .Q20H [facility] Last Admin: 03/26/22 21:06 Dose: 50 mls/hr Documented by: Ceftriaxone Sodium 1 gm/ (Sodium Chloride) 50 mls @ 100 mls/hr IV Q24H [facility] Vancomycin HCl 1,250 mg/ (Sodium Chloride) 250 mls @ 166.667 mls/hr IV Q24H [facility] Melatonin (Melatonin 3 Mg Tablet) 6 mg PO BEDTIME PRN PRN Reason: Insomnia Pharmacy Consult (Consult Rx Perform Med Rec) 1 each MISCELLANE ONCE PRN PRN Reason: Consult order Pharmacy Consult (Consult Rx Vancomycin Dosing) 1 each MISCELLANE DAILY PRN PRN Reason: Consult order Sodium Chloride (0.9 % Sodium Chloride Flush 3 Ml Syringe) 3 ml IVFLUSH QSHIFT [facility] Last Admin: 03/26/22 23:05 Dose: Not Given Documented by: Home Medications Medication Instructions Recorded Confirmed Last Taken Type carboxymethylcellulose sodium 1 % 1 drp OPHTHALMIC (EYE) QID PRN 03/26/22 03/26/22 Unknown History eye drops (Artificial Tears (carboxymethylcellulose)) glucosamine 750 [id number] 1 tab PO Q2D 03/26/22 03/26/22 Unknown History no1 644 mg-C 30 mg-brendan 1 mg tablet Physical Exam Vital Signs: Vital Signs: Last Vital Signs Temp 97.9 F 03/27/22 07:08 Pulse 105 H 03/27/22 07:08 Resp 18 03/27/22 07:08 BP 156/65 H 03/27/22 07:08 Pulse Ox 97 03/27/22 07:08 BMI result Body Mass Index 29.8 Const: General: cooperative, comfortable and well developed Nutritional Appearance: well nourished Orientation/consciousness: patient oriented x3 Eyes: Sclerae: sclerae normal EOM: EOMs intact bilaterally Neck: Neck: Yes normal visual inspection Chest: Other: Right breast with a wide area of redness in the upper outer quadrant extending to the anterior axilla measuring at least 4 cm in diameter. Area is hard/indurated without evidence of fluctuance. There is tenderness to light palpation. No other palpable mass is appreciated within the right breast. Examination of the axilla is difficult due to the area inflammation. Chest/axillae images: 1. Site of inflammation/abscess Resp: Effort & Inspection: normal respiratory effort, no cough, no respiratory distress and no stridor Cardio: Jugular venous distension: no JVD GI: Inspection: Yes normal to inspection Palpation (GI): Soft to palpation, nontender, no guarding and not rigid Skin: Other: Breast as noted above General skin exam: dry skin Neuro: General: patient oriented x3 and no focal motor deficits Extrem: General: Yes full ROM and Yes no clubbing, cyanosis or edema Psych: Appearance: grossly normal Results Labs Result diagrams: 03/27/22 05:27 03/27/22 05:27 Labs: Abnormal lab results 03/26/22 03/26/22 03/26/22 Range/Units 16:53 16:54 17:25 WBC 19.7 H (4.8-10.8) X10*3/uL RBC 2.95 L D (4.20-5.50) X10*6/uL Hgb 9.1 L D (12.0-16.0) g/dl Hct 27.7 L D (37.0-47.0) % MPV (9.4-12.3) fL Absolute Nucleated RBC 0.030 H (0.0-0.012) X10*3/uL Neutrophils % (Manual) 77 H (45-73) % Band Neutrophils % 6 H (3-5) % Lymphocytes % (Manual) 9 L (20-40) % Monocytes % (Manual) (2-11) % Abs Neuts (Manual) 16.4 H (2.0-8.3) X10*3/uL Lymphocytes # (Manual) (1.2-4.9) X10*3/uL Monocytes # (Manual) 1.6 H (0.1-1.2) X10*3/uL ESR 109 H (0-20) MM/HR Carbon Dioxide (22-29) mmol/L BUN (9-16) mg/dL Calcium 8.1 L D (8.4-10.2) mg/dL Iron 23 L (30-160) mcg/dL TIBC 149 L (228-428) mcg/dL Ferritin 1869 H (10-250) ng/mL AST 39 H (5-31) U/L ALT 42 H (0-31) U/L Alkaline Phosphatase 174 H D (39-117) U/L C-Reactive Protein 17.83 H (< or = 0.50) mg/dL Total Protein 6.2 L (6.5-8.0) g/dL Albumin 2.9 L D (3.5-5.0) g/dL Ur Specific [place] (1.005-1.025) Urine Protein (NEG-TRACE) MG/DL 03/26/22 03/27/22 03/27/22 Range/Units 17:39 05:27 05:27 WBC 17.8 H (4.8-10.8) X10*3/uL RBC 2.71 L (4.20-5.50) X10*6/uL Hgb 8.3 L (12.0-16.0) g/dl Hct 25.1 L (37.0-47.0) % MPV 9.3 L (9.4-12.3) fL Absolute Nucleated RBC 0.030 H (0.0-0.012) X10*3/uL Neutrophils % (Manual) (45-73) % Band Neutrophils % 13 H (3-5) % Lymphocytes % (Manual) 5 L (20-40) % Monocytes % (Manual) 12 H (2-11) % Abs Neuts (Manual) 14.1 H (2.0-8.3) X10*3/uL Lymphocytes # (Manual) 0.9 L (1.2-4.9) X10*3/uL Monocytes # (Manual) 2.1 H (0.1-1.2) X10*3/uL ESR (0-20) MM/HR Carbon Dioxide 21 L (22-29) mmol/L BUN 8 L (9-16) mg/dL Calcium 7.4 L D (8.4-10.2) mg/dL Iron (30-160) mcg/dL TIBC (228-428) mcg/dL Ferritin (10-250) ng/mL AST (5-31) U/L ALT (0-31) U/L Alkaline Phosphatase (39-117) U/L C-Reactive Protein (< or = 0.50) mg/dL Total Protein (6.5-8.0) g/dL Albumin (3.5-5.0) g/dL Ur Specific [place] >= 1.030 H (1.005-1.025) Urine Protein 1+ H (NEG-TRACE) MG/DL Short CBC 03/26/22 03/27/22 Range/Units 16:54 05:27 WBC 19.7 H 17.8 H (4.8-10.8) X10*3/uL Hgb 9.1 L D 8.3 L (12.0-16.0) g/dl Hct 27.7 L D 25.1 L (37.0-47.0) % Plt Count 253 D 215 (160-400) X10*3/uL BMP 03/26/22 03/27/22 17:25 05:27 Sodium 136 137 Potassium 4.1 3.5 Chloride 103 106 Carbon Dioxide 22 21 L BUN 10 8 L Creatinine 0.69 0.62 Calcium 8.1 L D 7.4 L D Liver Function 03/26/22 Range/Units 17:25 Total Bilirubin 0.8 (0.0-1.0) mg/dL Direct Bilirubin 0.5 (0.0-0.5) mg/dL AST 39 H (5-31) U/L ALT 42 H (0-31) U/L Alkaline Phosphatase 174 H D (39-117) U/L Albumin 2.9 L D (3.5-5.0) g/dL Urine 03/26/22 Range/Units 17:39 Urine Color DK YELLOW Urine Appearance CLEAR Urine pH 5.5 (5.0-8.0) Ur Specific [place] >= 1.030 H (1.005-1.025) Urine Protein 1+ H (NEG-TRACE) MG/DL Urine Glucose (UA) NEG (NEG) MG/DL All other labs normal. Assessment and Plan (1) Abscess of breast, right: Status: Acute Plan 71-year-old female patient presenting with a large abscess of the right axilla/tail of the breast, s/p needle aspiration in Radiology yesterday. Site remains hard and red non fluctuant. Wound cultures are pending however Gram stain does reveal 4+ Gram-positive cocci. Patient currently on ceftriaxone and vancomycin. Recommend continuing the antibiotics as prescribed. Repeat ultrasound in 1-2 days if no improvement in the erythema/cellulitis. May need repeat aspiration if abscess has reaccumulated. Patient will need mammogram once infection has settled. Patient could be evaluated with genetic testing as an outpatient as well. Will follow along with you during this hospitalization and as an outpatient once discharged. Procedures Date of Service Date of Service: 03/27/22
[2022-03-27 08:23] LABS: Folate 4.5 ng/mL (> or = 4.0); Vitamin B12 > 2000 pg/mL (200-900)
[2022-03-27 11:55] VITALS: BP 143/72; PULSE 94; RESP 18; TEMP 37.2; O2SAT 99
--- NOTE | 2022-03-27 13:30 | MHC.CM.PN ---
nurse case manage note electronic medical record reviewed , met with patient she was admitted for right breast abscess pain and swelling s/p ultra sound , in it drained 100cc of fluids , patient is now on iv abx she reported she is active , independent in all adls and mobility and has no vna , no dme services in the home , she lives with her son and would like to make out a hcp. she confirmed she hasd two doses of the pfzier vacination in nov 2021 , she has no pxcp but has been going to the [facility] walk in clinic , i gave the patient the list of [facility] associated to chose a pcp so as we can get her seen sooner for post hospitla discharge . completed health care proxy naming her son camden as her agent , original and copies gibven to her one placed in the hard chrt and one uploaded to [facility] discharge plan home no services transportation her son pcp patient to choose one at the [facility] new hcp completed covid vaccinations
--- NOTE | 2022-03-27 14:16 | MHC.CM.PN ---
nurse case folder note electronic medical record reviewed along with case discussed with staff nurse and hospitalist , met with patient she is employed and plans on returning back to work on with her surgeon permission, she is active , independent in all adls and mobility with out any equipment needs, she lives with her family. she was active with the [facility] since her initial surgery for perforated diverticulitis and colostomy and now with reverrsale of colostomy. she reported she feels much better than her after her first surgery and does not feel she will need the hvna back and declined for me to make any referrals at this time . confirmed pcp and covid vacinations x3 pfzier. educated about the importance of completing hcp on this admission, discharge plan home 1-2 days with family transportation family pcp dr debra noel patient instructed to call for appointment to be seen for post op assessment surgical follow up per d/c instructions
--- NOTE | 2022-03-27 14:33 | P.PNIM_ITS ---
Subjective Subjective Date of Service: 03/28/22 Interval History: No acute issues overnight. No complaints of pain Review of Systems Denies chest pain Denies shortness of breath Denies nausea vomiting diarrhea Denies fever chills Physical Exam Vital Signs: Vital Signs: Last Vital Signs Temp 99.0 F 03/27/22 11:55 Pulse 94 03/27/22 11:55 Resp 18 03/27/22 11:55 BP 143/72 H 03/27/22 11:55 Pulse Ox 99 03/27/22 11:55 BMI result Body Mass Index 29.8 Const: Other: Awake alert oriented x3 no acute distress Chest: Other: Right lateral breast with erythematous indurated area into axilla no fluctuance noted Resp: Other: Clear to auscultation bilaterally no rales rhonchi or wheezes Cardio: Other: No S4; positive S1-S2; no S3 murmurs rubs gallops GI: Other: Soft nontender and nondistended with normoactive bowel sounds Extrem: Other: No edema bilaterally Objective Data Active Medications Acetaminophen (Acetaminophen 325 Mg Tablet) 650 mg PO Q6H PRN PRN Reason: Pain, Mild (Pain Scale 1-3) Enoxaparin Sodium (Enoxaparin Sodium 40 Mg/0.4 Ml Syringe) 40 mg SUBCUT Q24H [facility] Last Admin: 03/26/22 23:03 Dose: 40 mg Documented by: TRISHA Hydromorphone HCl (Hydromorphone Hcl 1 Mg/Ml Syringe) 0.5 mg IVPUSH Q4H PRN; Protocol PRN Reason: Pain, Severe (Pain Scale 7-10) Dextrose/Sodium Chloride (D5ns) 1,000 mls @ 50 mls/hr IVCONT .Q20H [facility] Last Admin: 03/26/22 21:06 Dose: 50 mls/hr Documented by: HARDEEP Ceftriaxone Sodium 1 gm/ (Sodium Chloride) 50 mls @ 100 mls/hr IV Q24H [facility] Vancomycin HCl 1,250 mg/ (Sodium Chloride) 250 mls @ 166.667 mls/hr IV Q24H [facility] Melatonin (Melatonin 3 Mg Tablet) 6 mg PO BEDTIME PRN PRN Reason: Insomnia Pharmacy Consult (Consult Rx Perform Med Rec) 1 each MISCELLANE ONCE PRN PRN Reason: Consult order Pharmacy Consult (Consult Rx Vancomycin Dosing) 1 each MISCELLANE DAILY PRN PRN Reason: Consult order Sodium Chloride (0.9 % Sodium Chloride Flush 3 Ml Syringe) 3 ml IVFLUSH QSHIFT [facility] Last Admin: 03/27/22 10:10 Dose: Not Given Documented by: LYNN Non-Admin Reason: IV Running Labs CBC & Chem 7: 03/28/22 05:22 03/28/22 05:22 Labs: Laboratory Results - last 24 hr 03/26/22 03/26/22 03/26/22 16:43 16:53 16:53 MCV MCH MCHC RDW Plt Count MPV Immature Gran % (Auto) Neut % (Auto) Lymph % (Auto) [place] % (Auto) Eos % (Auto) Baso % (Auto) Lymph # (Auto) [place] # (Auto) Eos # (Auto) Baso # (Auto) Abs Immat Gran (auto) Absolute Neuts (auto) Absolute Nucleated RBC Nucleated RBC % (auto) Neutrophils % (Manual) Band Neutrophils % Lymphocytes % (Manual) Monocytes % (Manual) Metamyelocytes % Abs Neuts (Manual) Lymphocytes # (Manual) Monocytes # (Manual) Metamyelocytes # Toxic Vacuolation Platelet Estimate Plt Morphology Comment RBC Morphology ESR 109 H PT INR APTT Anion Gap Estim Creat Clear Calc Estimated GFR Random Glucose Lactic Acid 1.8 Calcium Magnesium Iron TIBC % Saturation Unsat Iron Binding Ferritin Total Bilirubin Direct Bilirubin AST ALT Alkaline Phosphatase C-Reactive Protein Total Protein Albumin Vitamin B12 Folate Urine Color Urine Appearance Urine pH Ur Specific [place] Urine Protein Urine Glucose (UA) Urine Ketones Urine Blood Urine Nitrite Ur Leukocyte Esterase Urine RBC Urine WBC Ur Squamous Epith Cells Urine Bacteria Hyaline Casts Urine Mucus COVID-19 (COURTNEY) Negative COVID-19 Clin Com See Note 03/26/22 03/26/22 03/26/22 16:54 16:54 17:25 MCV 93.9 MCH 30.8 MCHC 32.9 RDW 15.7 Plt Count 253 D MPV 9.6 Immature Gran % (Auto) Cancelled Neut % (Auto) Cancelled Lymph % (Auto) Cancelled [place] % (Auto) Cancelled Eos % (Auto) Cancelled Baso % (Auto) Cancelled Lymph # (Auto) Cancelled [place] # (Auto) Cancelled Eos # (Auto) Cancelled Baso # (Auto) Cancelled Abs Immat Gran (auto) Cancelled Absolute Neuts (auto) Cancelled Absolute Nucleated RBC 0.030 H Nucleated RBC % (auto) 0.2 Neutrophils % (Manual) 77 H Band Neutrophils % 6 H Lymphocytes % (Manual) 9 L Monocytes % (Manual) 8 Metamyelocytes % Abs Neuts (Manual) 16.4 H Lymphocytes # (Manual) 1.8 Monocytes # (Manual) 1.6 H Metamyelocytes # Toxic Vacuolation PRESENT Platelet Estimate NORMAL Plt Morphology Comment NORMAL RBC Morphology NORMAL ESR PT Cancelled INR Cancelled APTT Cancelled Anion Gap 15 Estim Creat Clear Calc 83.3 Estimated GFR > 60 Random Glucose 102 Lactic Acid Calcium 8.1 L D Magnesium 2.2 Iron 23 L TIBC 149 L % Saturation 15 Unsat Iron Binding 126 Ferritin 1869 H Total Bilirubin 0.8 Direct Bilirubin 0.5 AST 39 H ALT 42 H Alkaline Phosphatase 174 H D C-Reactive Protein 17.83 H Total Protein 6.2 L Albumin 2.9 L D Vitamin B12 Folate Urine Color Urine Appearance Urine pH Ur Specific [place] Urine Protein Urine Glucose (UA) Urine Ketones Urine Blood Urine Nitrite Ur Leukocyte Esterase Urine RBC Urine WBC Ur Squamous Epith Cells Urine Bacteria Hyaline Casts Urine Mucus COVID-19 (COURTNEY) COVID-19 Clin Com 03/26/22 03/26/22 03/27/22 17:25 17:39 05:27 MCV 92.6 MCH 30.6 MCHC 33.1 RDW 15.7 Plt Count 215 MPV 9.3 L Immature Gran % (Auto) Cancelled Neut % (Auto) Cancelled Lymph % (Auto) Cancelled [place] % (Auto) Cancelled Eos % (Auto) Cancelled Baso % (Auto) Cancelled Lymph # (Auto) Cancelled [place] # (Auto) Cancelled Eos # (Auto) Cancelled Baso # (Auto) Cancelled Abs Immat Gran (auto) Cancelled Absolute Neuts (auto) Cancelled Absolute Nucleated RBC 0.030 H Nucleated RBC % (auto) 0.2 Neutrophils % (Manual) 66 Band Neutrophils % 13 H Lymphocytes % (Manual) 5 L Monocytes % (Manual) 12 H Metamyelocytes % 4 Abs Neuts (Manual) 14.1 H Lymphocytes # (Manual) 0.9 L Monocytes # (Manual) 2.1 H Metamyelocytes # 0.7 Toxic Vacuolation Platelet Estimate NORMAL Plt Morphology Comment NORMAL RBC Morphology NORMAL ESR PT INR APTT Anion Gap Estim Creat Clear Calc Estimated GFR Random Glucose Lactic Acid Calcium Magnesium Iron TIBC % Saturation Unsat Iron Binding Ferritin Total Bilirubin Direct Bilirubin AST ALT Alkaline Phosphatase C-Reactive Protein Total Protein Albumin Vitamin B12 > 2000 H Folate 4.5 Urine Color DK YELLOW Urine Appearance CLEAR Urine pH 5.5 Ur Specific [place] >= 1.030 H Urine Protein 1+ H Urine Glucose (UA) NEG Urine Ketones 40 Urine Blood TRACE Urine Nitrite NEG Ur Leukocyte Esterase NEG Urine RBC 0-2 Urine WBC 1-4 Ur Squamous Epith Cells 3+ Urine Bacteria 2+ Hyaline Casts 0-2 Urine Mucus 2+ COVID-19 (COURTNEY) COVID-19 [employer] Com 03/27/22 05:27 MCV MCH MCHC RDW Plt Count MPV Immature Gran % (Auto) Neut % (Auto) Lymph % (Auto) [place] % (Auto) Eos % (Auto) Baso % (Auto) Lymph # (Auto) [place] # (Auto) Eos # (Auto) Baso # (Auto) Abs Immat Gran (auto) Absolute Neuts (auto) Absolute Nucleated RBC Nucleated RBC % (auto) Neutrophils % (Manual) Band Neutrophils % Lymphocytes % (Manual) Monocytes % (Manual) Metamyelocytes % Abs Neuts (Manual) Lymphocytes # (Manual) Monocytes # (Manual) Metamyelocytes # Toxic Vacuolation Platelet Estimate Plt Morphology Comment RBC Morphology ESR PT INR APTT Anion Gap 14 Estim Creat Clear Calc 82.0 Estimated GFR > 60 Random Glucose 105 Lactic Acid Calcium 7.4 L D Magnesium Iron TIBC % Saturation Unsat Iron Binding Ferritin Total Bilirubin Direct Bilirubin AST ALT Alkaline Phosphatase C-Reactive Protein Total Protein Albumin Vitamin B12 Folate Urine Color Urine Appearance Urine pH Ur Specific [place] Urine Protein Urine Glucose (UA) Urine Ketones Urine Blood Urine Nitrite Ur Leukocyte Esterase Urine RBC Urine WBC Ur Squamous Epith Cells Urine Bacteria Hyaline Casts Urine Mucus COVID-19 (COURTNEY) COVID-19 Clin Com Microbiology Microbiology Results: Microbiology 03/26/22 17:02 Blood Culture - Preliminary Blood - Venous Prelim: GPC Gram Stain only 03/26/22 16:52 Blood Culture - Preliminary Blood - Venous Prelim: GPC Gram Stain only 03/26/22 16:15 Gram Stain - Final Breast Right Routine Culture - Preliminary Staphylococcus aureus Assessment and Plan (1) Cellulitis of breast: Status: Acute (2) Anemia: Status: Acute (3) Psoriasis: Status: Acute Plan 71-year-old female with a past medical history of psoriasis presented to the hospital with a chief complaint of right breast pain redness and swelling for about a month. Noted to have right breast cellulitis/abscess. Admitted for further management. 1.Right breast cellulitis/abscess: -ceftriaxone and vancomycin -follow-up cultures -as per surgery; will follow clinically over the next 48 hours. If no improvement will recheck ultrasound to look for fluid accumulation 2.Anemia -CBC in a.m. -occult blood and hematological studies pending 3.Psoriasis -restart prednisone on discharge -treat as clinically indicated DVT prophylaxis: Lovenox Code status: Full code Will require ongoing hospitalization for IV treatment of right breast cellulitis pending culture and sensitivities Quality Stroke Does the patient have a stroke diagnosis?: No VTE Prior VTE?: No VTE Risk Level:: Medical - moderate - high VTE Device Contraindication: Treatment Not Indicated VTE Drug Contraindication: N/A - Med Ordered
--- NOTE | 2022-03-27 14:34 | P.CNID_ITS ---
History of Present Illness Data of Consult Service Date: 03/27/22 Requesting physician: Bartolome Carr Primary Care Provider: None Physician HPI Reason for consult: bacteremia,sepsis,abscess She presents with reddened right axilla area about three weeks after discomfort in area started and patient thought had boil. She has chills and felt poorly. WBC is 17.8 and heart rate elevated. She has psoriasis and sometimes has skin irritation. Review of Systems Review of Systems: Yes all other systems are reviewed and are negative PMFSH Past Medical History Medical History Psoriasis Family History Family history: reviewed and not pertinent Social History Social History Household Members: Family Housing: Apartment Patient Tobacco Use Status: Never used Tobacco Use of substances other than those prescribed or required for medical reasons: No Currently Displaying Signs/Symptoms of Drug Intoxication Withdrawal: No Have you been hit, kicked, punched, or otherwise hurt by someone within the past year? If so, by whom?: No Do you feel safe in your current relationship?: No Is there a partner from a previous relationship who is making you feel unsafe now?: No Are you made to feel afraid or neglected: No Advance Directives: No Advance Directives Information Provided: No Do you have thoughts of harming others: None Do you have a plan to hurt others: No Plan Recently lost weight without trying: Yes How much weight loss: 2-13 pounds Eating poorly because of decreased appetite: Yes Nutrition screen score: 4 Nutrition Risks: No Nutritional Risk Patient : No : No Poor oral hygiene: No service: No Current occupational status: unemployed Meds Allergies Allergy/AdvReac Type Severity Reaction Status Date / Time latex Allergy Mild Rash Verified 03/26/22 09:26 Active Medications: Current Medications Acetaminophen (Acetaminophen 325 Mg Tablet) 650 mg PO Q6H PRN PRN Reason: Pain, Mild (Pain Scale 1-3) Enoxaparin Sodium (Enoxaparin Sodium 40 Mg/0.4 Ml Syringe) 40 mg SUBCUT Q24H [facility] Last Admin: 03/26/22 23:03 Dose: 40 mg Documented by: Hydromorphone HCl (Hydromorphone Hcl 1 Mg/Ml Syringe) 0.5 mg IVPUSH Q4H PRN; Protocol PRN Reason: Pain, Severe (Pain Scale 7-10) Dextrose/Sodium Chloride (D5ns) 1,000 mls @ 50 mls/hr IVCONT .Q20H [facility] Last Admin: 03/26/22 21:06 Dose: 50 mls/hr Documented by: Ceftriaxone Sodium 1 gm/ (Sodium Chloride) 50 mls @ 100 mls/hr IV Q24H [facility] Vancomycin HCl 1,250 mg/ (Sodium Chloride) 250 mls @ 166.667 mls/hr IV Q24H [facility] Melatonin (Melatonin 3 Mg Tablet) 6 mg PO BEDTIME PRN PRN Reason: Insomnia Pharmacy Consult (Consult Rx Perform Med Rec) 1 each MISCELLANE ONCE PRN PRN Reason: Consult order Pharmacy Consult (Consult Rx Vancomycin Dosing) 1 each MISCELLANE DAILY PRN PRN Reason: Consult order Sodium Chloride (0.9 % Sodium Chloride Flush 3 Ml Syringe) 3 ml IVFLUSH QSHIFT [facility] Last Admin: 03/27/22 10:10 Dose: Not Given Documented by: Home Medications Medication Instructions Recorded Confirmed Last Taken Type carboxymethylcellulose sodium 1 % 1 drp OPHTHALMIC (EYE) QID PRN 03/26/22 03/26/22 Unknown History eye drops (Artificial Tears (carboxymethylcellulose)) glucosamine 750 [id number] 1 tab PO Q2D 03/26/22 03/26/22 Unknown History no1 644 mg-C 30 mg-brendan 1 mg tablet Physical Exam Vital Signs: Vital Signs: Last Vital Signs Temp 99.0 F 03/27/22 11:55 Pulse 94 03/27/22 11:55 Resp 18 03/27/22 11:55 BP 143/72 H 03/27/22 11:55 Pulse Ox 99 03/27/22 11:55 BMI result Body Mass Index 29.8 Const: General: cooperative HEENT: Head: Yes normal to inspection Mouth: Normal oral and palatal mucosa present Resp: Effort & Inspection: normal respiratory effort Cardio: Rate: regular rate Rhythm: regular rhythm GI: Palpation (GI): Soft to palpation and nontender Skin: General skin exam: no rashes or lesions noted Extrem: Other: right axilla reddened and swollen Results Labs CBC & Chem 7: 03/27/22 05:27 03/27/22 05:27 Labs: Short CBC 03/26/22 03/27/22 Range/Units 16:54 05:27 WBC 19.7 H 17.8 H (4.8-10.8) X10*3/uL Hgb 9.1 L D 8.3 L (12.0-16.0) g/dl Hct 27.7 L D 25.1 L (37.0-47.0) % Plt Count 253 D 215 (160-400) X10*3/uL BMP 03/26/22 03/27/22 17:25 05:27 Sodium 136 137 Potassium 4.1 3.5 Chloride 103 106 Carbon Dioxide 22 21 L BUN 10 8 L Creatinine 0.69 0.62 Calcium 8.1 L D 7.4 L D Liver Function 03/26/22 Range/Units 17:25 Total Bilirubin 0.8 (0.0-1.0) mg/dL Direct Bilirubin 0.5 (0.0-0.5) mg/dL AST 39 H (5-31) U/L ALT 42 H (0-31) U/L Alkaline Phosphatase 174 H D (39-117) U/L Albumin 2.9 L D (3.5-5.0) g/dL Urine 03/26/22 Range/Units 17:39 Urine Color DK YELLOW Urine Appearance CLEAR Urine pH 5.5 (5.0-8.0) Ur Specific [place] >= 1.030 H (1.005-1.025) Urine Protein 1+ H (NEG-TRACE) MG/DL Urine Glucose (UA) NEG (NEG) MG/DL Microbiology Microbiology Results: Microbiology 03/26/22 17:02 Blood - Venous Blood Culture - Preliminary Prelim: GPC Gram Stain only 03/26/22 16:52 Blood - Venous Blood Culture - Preliminary Prelim: GPC Gram Stain only 03/26/22 16:15 Breast Right Gram Stain - Final 03/26/22 16:15 Breast Right Routine Culture - Preliminary Staphylococcus aureus Assessment and Plan (1) Sepsis: Status: Acute (2) Abscess of breast, right: Status: Acute Likely source of bacteremia is right abscess /cellulitis axilla. This is possible MRSA or MSSA Plan Continue Vancomycin and change Ceftriaxone to Kefzol pending results. She will likely need 4 weeks IV antibiotics Would check echo evaluate endocarditis.
[2022-03-27 15:32] VITALS: BP 171/77; PULSE 100; RESP 18; TEMP 36.8; O2SAT 98
[2022-03-27] MEDS: ceFAZolin Sodium/Dextrose,Iso 2 GM/50 ML PIGGYBACK IV ×2 (16:05→23:23)
[2022-03-27] MEDS: vancomycin HCL 1,250 MG in 0.9 % Sodium Chloride 250 ML 166.67 MG IV (19:57)
[2022-03-27 20:00] VITALS: BP 151/67; PULSE 95; RESP 18; TEMP 36.9; O2SAT 98
[2022-03-27 23:30] VITALS: BP 148/71; PULSE 91; RESP 18; TEMP 37.2; O2SAT 97
[2022-03-28] MEDS: Dextrose 5 % and 0.9 % NaCl 1,000 ML 50 ML IVCONT ×2 (00:32→19:48)
[2022-03-28 03:29] VITALS: BP 125/60; PULSE 91; RESP 18; TEMP 36.9; O2SAT 96
[2022-03-28] MEDS: ceFAZolin Sodium/Dextrose,Iso 2 GM/50 ML PIGGYBACK IV ×3 (06:11→22:40)
[2022-03-28 06:19] LABS: Hematocrit 23.7 % (37.0-47.0); Hemoglobin 7.9 g/dl (12.0-16.0); Mean Corpuscular HGB Conc 33.3 g/dl (31.0-35.0); Mean Corpuscular Hemoglobin 31.2 pg (27.0-33.0); Mean Corpuscular Volume 93.7 fL (80.0-98.0); Mean Platelet Volume 9.6 fL (9.4-12.3); NRBC Pct Auto 0.2 /100WBC (0.0-0.2); Platelet Count 205 X10*3/uL (160-400); Red Blood Count 2.53 X10*6/uL (4.20-5.50); Red Cell Distribution Width 15.7 % (11.0-16.0); White Blood Count 17.2 X10*3/uL (4.8-10.8)
[2022-03-28 06:58] LABS: Alanine Aminotransferase 22 U/L (0-31); Albumin Level 2.4 g/dL (3.5-5.0); Alkaline Phosphatase 141 U/L (39-117); Anion Gap 12 (12-20); Aspartate Amino Transferase 22 U/L (5-31); Bilirubin Total 0.7 mg/dL (0.0-1.0); Blood Urea Nitrogen 6 mg/dL (9-16); Calcium 7.4 mg/dL (8.4-10.2); Carbon Dioxide 21 mmol/L (22-29); Chloride 103 mmol/L (96-108); Estimated Glomerular Filt Rate > 60; Glucose Fasting 104 mg/dL (60-99); Potassium 3.3 mmol/L (3.3-5.1); Sodium 133 mmol/L (135-145); Total Protein 5.2 g/dL (6.5-8.0)
[2022-03-28 07:35] LABS: Band Neutrophils Percent 12 % (3-5); Lymphocytes Absolute Manual 0.7 X10*3/uL (1.2-4.9); Lymphocytes Percent Manual 4 % (20-40); Metamyelocytes Absolute 0.2 X10*3/uL; Metamyelocytes Percent 1 %; Monocytes Absolute Manual 1.4 X10*3/uL (0.1-1.2); Monocytes Percent Manual 8 % (2-11); Neutrophils Percent Manual 75 % (45-73)
[2022-03-28 07:42] LABS: RBC Morphology NOTED
[2022-03-28 07:45] LABS: Hypochromasia 2+ (15-30) /OIF; Ovalocytes 1+ (5-14) /OIF; Platelet Estimate NORMAL (NORMAL); Platelet Morphology Comment NORMAL
[2022-03-28 08:00] VITALS: BP 118/60; PULSE 95; RESP 18; TEMP 36.9; O2SAT 97
--- NOTE | 2022-03-28 09:58 | PM.PNGS ---
Subjective Subjective Date of Service: 03/28/22 Interval history: Feeling better this morning. Was able to eat a little. Pain at breast/axilla improved. Physical Exam Vital Signs: Vital Signs: Last Vital Signs Temp 98.4 F 03/28/22 08:00 Pulse 95 03/28/22 08:00 Resp 18 03/28/22 08:00 BP 118/60 03/28/22 08:00 Pulse Ox 97 03/28/22 08:00 BMI result Body Mass Index 29.8 Const: General: comfortable, no acute distress and alert Orientation/consciousness: patient oriented x3 Chest: Other: right breast with deep erythema and surrounding induration at 10-11 o clock area- erythema extends into the axilla and right upper back but lightens significantly, edema also extends into right back, no palpable mass or fluctuance appreciated Resp: Effort & Inspection: normal respiratory effort Neuro: General: patient oriented x3 Objective Data Active Medications Acetaminophen (Acetaminophen 325 Mg Tablet) 650 mg PO Q6H PRN PRN Reason: Pain, Mild (Pain Scale 1-3) Enoxaparin Sodium (Enoxaparin Sodium 40 Mg/0.4 Ml Syringe) 40 mg SUBCUT Q24H [facility] Last Admin: 03/27/22 20:06 Dose: Not Given Documented by: LYNN Non-Admin Reason: Patient Refused Hydromorphone HCl (Hydromorphone Hcl 1 Mg/Ml Syringe) 0.5 mg IVPUSH Q4H PRN; Protocol PRN Reason: Pain, Severe (Pain Scale 7-10) Dextrose/Sodium Chloride (D5ns) 1,000 mls @ 50 mls/hr IVCONT .Q20H [facility] Last Admin: 03/28/22 00:32 Dose: 50 mls/hr Documented by: ROBYN Vancomycin HCl 1,250 mg/ (Sodium Chloride) 250 mls @ 166.667 mls/hr IV Q24H [facility] Last Infusion: 03/27/22 21:38 Dose: 0 mls/hr Documented by: LYNN Cefazolin Sodium/Dextrose (Ancef) 2 gm in 50 mls @ 100 mls/hr IV Q8H [facility] Last Infusion: 03/28/22 06:42 Dose: 0 mls/hr Documented by: ROBYN Melatonin (Melatonin 3 Mg Tablet) 6 mg PO BEDTIME PRN PRN Reason: Insomnia Pharmacy Consult (Consult Rx Perform Med Rec) 1 each MISCELLANE ONCE PRN PRN Reason: Consult order Pharmacy Consult (Consult Rx Vancomycin Dosing) 1 each MISCELLANE DAILY PRN PRN Reason: Consult order Sodium Chloride (0.9 % Sodium Chloride Flush 3 Ml Syringe) 3 ml IVFLUSH QSHIFT [facility] Last Admin: 03/28/22 07:32 Dose: Not Given Documented by: LEONIE Non-Admin Reason: IV Running Labs CBC & Chem 7: 03/28/22 05:22 03/28/22 05:22 Labs: Laboratory Results - last 24 hr 03/28/22 03/28/22 05:22 05:22 MCV 93.7 MCH 31.2 MCHC 33.3 RDW 15.7 Plt Count 205 MPV 9.6 Immature Gran % (Auto) Cancelled Neut % (Auto) Cancelled Lymph % (Auto) Cancelled [place] % (Auto) Cancelled Eos % (Auto) Cancelled Baso % (Auto) Cancelled Lymph # (Auto) Cancelled [place] # (Auto) Cancelled Eos # (Auto) Cancelled Baso # (Auto) Cancelled Abs Immat Gran (auto) Cancelled Absolute Neuts (auto) Cancelled Absolute Nucleated RBC 0.030 H Nucleated RBC % (auto) 0.2 Neutrophils % (Manual) 75 H Band Neutrophils % 12 H Lymphocytes % (Manual) 4 L Monocytes % (Manual) 8 Metamyelocytes % 1 Abs Neuts (Manual) 15.0 H Lymphocytes # (Manual) 0.7 L Monocytes # (Manual) 1.4 H Metamyelocytes # 0.2 Platelet Estimate NORMAL Plt Morphology Comment NORMAL RBC Morphology NOTED Hypochromasia 2+ (15-30) Ovalocytes 1+ (5-14) Anion Gap 12 Estim Creat Clear Calc 82.0 Estimated GFR > 60 Fasting Glucose 104 H Calcium 7.4 L Total Bilirubin 0.7 AST 22 D ALT 22 Alkaline Phosphatase 141 H Total Protein 5.2 L Albumin 2.4 L Microbiology Microbiology Results: Microbiology 03/26/22 16:15 Gram Stain - Final Breast Right Routine Culture - Final Staphylococcus aureus 03/26/22 17:02 Blood Culture - Preliminary Blood - Venous Prelim: GPC Gram Stain only 03/26/22 16:52 Blood Culture - Preliminary Blood - Venous Prelim: GPC Gram Stain only Procedures Date of Service Date of Service: 03/28/22 Progress Note: A&P Assessment and plan (1) Sepsis: Status: Acute (2) Abscess of breast, right: Status: Acute Plan 71-year-old female patient presenting with a large abscess of the right axilla/tail of the breast, s/p needle aspiration in Radiology 03/26/22. Abscess cx positive for Staph, blood cultures pending but gram stain positive. Feels improved but still with significant induration of the right breast/axilla and WBC remains elevated. Cont current plan of IV abx- will need longer course due to bacteremia, ID following. If WBC remains elevated without much improvement in exam over the next 1-2 days, repeat US would be warranted to reassess for abscess reaccumulation. Time Spent With Patient Time: Total time spent is greater than 50% in coordination of care (as documented) at patient's floor/unit and/or counseling patient: Quality Stroke Does the patient have a stroke diagnosis?: No VTE Prior VTE?: No VTE Risk Level:: Medical - moderate - high VTE Device Contraindication: Treatment Not Indicated VTE Drug Contraindication: N/A - Med Ordered
--- NOTE | 2022-03-28 10:24 | P.PNIM_ITS ---
Subjective Subjective Date of Service: 03/28/22 Interval History: No acute issues overnight. States pain has markedly improved since starting antibiotics Review of Systems Denies chest pain Denies shortness of breath Denies nausea vomiting diarrhea Denies fever chills Physical Exam Vital Signs: Vital Signs: Last Vital Signs Temp 98.4 F 03/28/22 08:00 Pulse 95 03/28/22 08:00 Resp 18 03/28/22 08:00 BP 118/60 03/28/22 08:00 Pulse Ox 97 03/28/22 08:00 BMI result Body Mass Index 29.8 Const: Other: Awake alert oriented x3 no acute distress Chest: Other: Right lateral breast with erythematous indurated area into axilla no fluctuance noted Resp: Other: Clear to auscultation bilaterally no rales rhonchi or wheezes Cardio: Other: No S4; positive S1-S2; no S3 murmurs rubs gallops GI: Other: Soft nontender and nondistended with normoactive bowel sounds Extrem: Other: No edema bilaterally Objective Data Active Medications Acetaminophen (Acetaminophen 325 Mg Tablet) 650 mg PO Q6H PRN PRN Reason: Pain, Mild (Pain Scale 1-3) Enoxaparin Sodium (Enoxaparin Sodium 40 Mg/0.4 Ml Syringe) 40 mg SUBCUT Q24H [facility] Last Admin: 03/27/22 20:06 Dose: Not Given Documented by: LYNN Non-Admin Reason: Patient Refused Hydromorphone HCl (Hydromorphone Hcl 1 Mg/Ml Syringe) 0.5 mg IVPUSH Q4H PRN; Protocol PRN Reason: Pain, Severe (Pain Scale 7-10) Dextrose/Sodium Chloride (D5ns) 1,000 mls @ 50 mls/hr IVCONT .Q20H [facility] Last Admin: 03/28/22 00:32 Dose: 50 mls/hr Documented by: ROBYN Vancomycin HCl 1,250 mg/ (Sodium Chloride) 250 mls @ 166.667 mls/hr IV Q24H [facility] Last Infusion: 03/27/22 21:38 Dose: 0 mls/hr Documented by: LYNN Cefazolin Sodium/Dextrose (Ancef) 2 gm in 50 mls @ 100 mls/hr IV Q8H [facility] Last Infusion: 03/28/22 06:42 Dose: 0 mls/hr Documented by: ROBYN Melatonin (Melatonin 3 Mg Tablet) 6 mg PO BEDTIME PRN PRN Reason: Insomnia Pharmacy Consult (Consult Rx Perform Med Rec) 1 each MISCELLANE ONCE PRN PRN Reason: Consult order Pharmacy Consult (Consult Rx Vancomycin Dosing) 1 each MISCELLANE DAILY PRN PRN Reason: Consult order Sodium Chloride (0.9 % Sodium Chloride Flush 3 Ml Syringe) 3 ml IVFLUSH QSHIFT [facility] Last Admin: 03/28/22 07:32 Dose: Not Given Documented by: LEONIE Non-Admin Reason: IV Running Labs CBC & Chem 7: 03/28/22 05:22 03/28/22 05:22 Labs: Laboratory Results - last 24 hr 03/28/22 03/28/22 05:22 05:22 MCV 93.7 MCH 31.2 MCHC 33.3 RDW 15.7 Plt Count 205 MPV 9.6 Immature Gran % (Auto) Cancelled Neut % (Auto) Cancelled Lymph % (Auto) Cancelled Ward % (Auto) Cancelled Eos % (Auto) Cancelled Baso % (Auto) Cancelled Lymph # (Auto) Cancelled Ward # (Auto) Cancelled Eos # (Auto) Cancelled Baso # (Auto) Cancelled Abs Immat Gran (auto) Cancelled Absolute Neuts (auto) Cancelled Absolute Nucleated RBC 0.030 H Nucleated RBC % (auto) 0.2 Neutrophils % (Manual) 75 H Band Neutrophils % 12 H Lymphocytes % (Manual) 4 L Monocytes % (Manual) 8 Metamyelocytes % 1 Abs Neuts (Manual) 15.0 H Lymphocytes # (Manual) 0.7 L Monocytes # (Manual) 1.4 H Metamyelocytes # 0.2 Platelet Estimate NORMAL Plt Morphology Comment NORMAL RBC Morphology NOTED Hypochromasia 2+ (15-30) Ovalocytes 1+ (5-14) Anion Gap 12 Estim Creat Clear Calc 82.0 Estimated GFR > 60 Fasting Glucose 104 H Calcium 7.4 L Total Bilirubin 0.7 AST 22 D ALT 22 Alkaline Phosphatase 141 H Total Protein 5.2 L Albumin 2.4 L Microbiology Microbiology Results: Microbiology 03/26/22 16:15 Gram Stain - Final Breast Right Routine Culture - Final Staphylococcus aureus 03/26/22 17:02 Blood Culture - Preliminary Blood - Venous Prelim: GPC Gram Stain only 03/26/22 16:52 Blood Culture - Preliminary Blood - Venous Prelim: GPC Gram Stain only Assessment and Plan (1) Abscess of breast, right: Status: Acute (2) Anemia: Status: Acute (3) Psoriasis: Status: Acute Plan 71-year-old female with a past medical history of psoriasis presented to the hospital with a chief complaint of right breast pain redness and swelling for about a month. Noted to have right breast cellulitis/abscess. Admitted for further management. 1.Right breast cellulitis/abscess: -ceftriaxone and vancomycin -follow-up cultures ....2/2GPC awaiting ID/SS. -ID recommendations noted... Will repeat blood cultures x2 today as patient will need PICC line 2.Anemia -CBC in a.m....slow downward trend -occult blood and hematological studies pending 3.Psoriasis -restart prednisone on discharge -treat as clinically indicated DVT prophylaxis: Lovenox Code status: Full code Will require ongoing hospitalization for IV treatment of right breast cellulitis pending culture and sensitivities Quality Stroke Does the patient have a stroke diagnosis?: No VTE Prior VTE?: No VTE Risk Level:: Medical - moderate - high VTE Device Contraindication: Treatment Not Indicated VTE Drug Contraindication: N/A - Med Ordered
--- NOTE | 2022-03-28 11:16 | MHC.CM.PN ---
Addendum entered by Suri Brar RN 03/28/22 11:49: PT NOT ACTIVE W/PCP, CM HAS REQUESTED [facility] FOR PT. Original Note: EM REVIEWED, PT + FOR STAPH A BACTEREMIA, PER HOSPITALIST PT WILL NEED 4 WKS IV ABX, CM MET W/PT WHO REPORTS SHE PREFERS TO DO THIS AT HOME, PT REPORTS HAVING NO PREFERENCE OF [facility] OR HOME INFUSION COMPANY, CM WILL PLACE REFERRALS, ANTIC PT WILL REMAIN INPT ANOTHER 2 DAYS WILL NEED NEW BC'S DRAWN. CM WILL CONT TO FOLLOW.
[2022-03-28 12:00] VITALS: BP 140/67; PULSE 88; RESP 18; TEMP 36.6; O2SAT 96
[2022-03-28 15:33] VITALS: BP 134/65; PULSE 89; RESP 18; TEMP 36.8; O2SAT 96
[2022-03-28 18:28] LABS: Vancomycin Trough 6.2 mcg/mL (10.0-20.0)
--- NOTE | 2022-03-28 18:52 | PHA.PROG ---
Admission Date/Time: March 26, 2022 19:23 Indication: Weight in k.8 kg Adjusted body weight in Kg: [place] body weight in Kg: Obesity Dosing Indication % IBW: Serum Creatinine - Last 168 Hours 03/26/22 03/27/22 03/28/22 17:25 05: 05: Creatinine 0.69 0.62 0.62 Estimated CrCl and GFR - Last 168 Hours 03/26/22 03/27/22 03/28/22 17:25 05: 05: Estim Creat Clear Calc 83.3 82.0 82.0 Estimated GFR > 60 > 60 > 60 Vancomycin Loading Dose: Current Vancomycin Dosing Regimen: Vancomycin Monitoring using AUC goal of 400 - 600 range with trough as surrogate marker: Date and Time for next Vancomycin Level to be drawn: Vancomycin Trough 6.2 mcg/mL (10.0-20.0) L 03/28/22 17:14 Pharmacist Comments on Vancomycin Plan: changed to 1gm q12h to reach optimal AUC quicker, made need to adjust dose after trough on 03/29/22 Vancomycin dosing will take advantage of [employer] as a clinical decision support tool that uses Bayesian modeling to calculate individual patient's pharmacokinetic parameters and forecast the patient's drug concentration time course with the target goal AUC 24 range of 400 - 600 mg/L/hr.
[2022-03-28] MEDS: Enoxaparin Sodium 40 MG/0.4 ML SYRINGE SUBCUT (19:44)
[2022-03-28] MEDS: vancomycin HCL 1,000 MG in 0.9 % Sodium Chloride 250 ML 270 MG IV (19:45)
[2022-03-28 20:00] VITALS: BP 134/60; PULSE 97; RESP 18; TEMP 36.8; O2SAT 99
[2022-03-28 23:23] VITALS: BP 135/62; PULSE 93; RESP 16; TEMP 37; O2SAT 97
[2022-03-29] VITALS (14 sets, daily range): BP systolic 126–180; BP diastolic 58–76; PULSE 84–100; RESP 16–20; TEMP 36.3–37.3; O2SAT 96–98
[2022-03-29] MEDS: HYDROmorphone HCl 1 MG/ML SYRINGE 0.5 MG IVPUSH ×2 (00:14→21:00)
[2022-03-29] MEDS: 0.9 % Sodium Chloride Flush 3 ML SYRINGE IVFLUSH ×2 (00:17→19:08)
[2022-03-29 05:45] LABS: Hematocrit 22.7 % (37.0-47.0); Hemoglobin 7.5 g/dl (12.0-16.0); Mean Corpuscular Hemoglobin 30.9 pg (27.0-33.0); Mean Corpuscular Volume 93.4 fL (80.0-98.0); Mean Platelet Volume 9.4 fL (9.4-12.3); NRBC Pct Auto 0.1 /100WBC (0.0-0.2); Platelet Count 199 X10*3/uL (160-400); Red Blood Count 2.43 X10*6/uL (4.20-5.50); Red Cell Distribution Width 15.8 % (11.0-16.0); White Blood Count 15.5 X10*3/uL (4.8-10.8)
[2022-03-29 06:04] LABS: Alanine Aminotransferase 14 U/L (0-31); Albumin Level 2.2 g/dL (3.5-5.0); Alkaline Phosphatase 123 U/L (39-117); Anion Gap 12 (12-20); Aspartate Amino Transferase 18 U/L (5-31); Bilirubin Total 0.6 mg/dL (0.0-1.0); Blood Urea Nitrogen 5 mg/dL (9-16); Calcium 7.6 mg/dL (8.4-10.2); Carbon Dioxide 23 mmol/L (22-29); Chloride 105 mmol/L (96-108); Creatinine Clr Calc Pharmacy 84.7; Estimated Glomerular Filt Rate > 60; Glucose Fasting 101 mg/dL (60-99); Potassium 3.7 mmol/L (3.3-5.1); Sodium 136 mmol/L (135-145); Total Protein 4.9 g/dL (6.5-8.0)
[2022-03-29 06:28] LABS: Band Neutrophils Percent 10 % (3-5); Lymphocytes Absolute Manual 0.5 X10*3/uL (1.2-4.9); Lymphocytes Percent Manual 3 % (20-40); Metamyelocytes Absolute 0.5 X10*3/uL; Metamyelocytes Percent 3 %; Monocytes Absolute Manual 1.1 X10*3/uL (0.1-1.2); Monocytes Percent Manual 7 % (2-11); Neutrophils Absolute Manual 13.5 X10*3/uL (2.0-8.3); Neutrophils Percent Manual 77 % (45-73); RBC Morphology NORMAL
[2022-03-29 06:29] LABS: Platelet Estimate NORMAL (NORMAL); Platelet Morphology Comment NORMAL; Toxic Vacuolation PRESENT
[2022-03-29] MEDS: ceFAZolin Sodium/Dextrose,Iso 2 GM/50 ML PIGGYBACK IV ×3 (06:30→22:40)
[2022-03-29 06:31] LABS: Nucleated Red Blood Cells 1 /100WBC (0-0)
[2022-03-29] MEDS: vancomycin HCL 1,000 MG in 0.9 % Sodium Chloride 250 ML 270 MG IV (07:19)
--- NOTE | 2022-03-29 07:26 | P.PNGS_ITS ---
Subjective Subjective Date of Service: 03/29/22 Interval history: Overall patient feels improved this morning with decreased pain and redness in the right breast at the upper outer quadrant. Denies any new complaints. Physical Exam Vital Signs: Vital Signs: Last Vital Signs Temp 97.7 F 03/29/22 03:14 Pulse 89 03/29/22 03:14 Resp 17 03/29/22 03:14 BP 139/61 03/29/22 03:14 Pulse Ox 96 03/29/22 03:14 BMI result Body Mass Index 29.8 Const: General: comfortable and no acute distress Nutritional Appearance: well nourished Orientation/consciousness: patient oriented x3 Limitations: no limitations Chest: Other: Right breast decreased redness however area below previous needle aspiration site appears more fluctuant today with surrounding inflammation. Chest/axillae images: 1. ? Fluctuant area in upper outer quadrant, tail of breast Resp: Effort & Inspection: normal respiratory effort, no audible wheezes, no cough and no respiratory distress Skin: Other: Erythema right breast as noted above Neuro: General: patient oriented x3 Extrem: Other: No upper extremity edema Objective Data Active Medications Acetaminophen (Acetaminophen 325 Mg Tablet) 650 mg PO Q6H PRN PRN Reason: Pain, Mild (Pain Scale 1-3) Enoxaparin Sodium (Enoxaparin Sodium 40 Mg/0.4 Ml Syringe) 40 mg SUBCUT Q24H [facility] Last Admin: 03/28/22 19:44 Dose: 40 mg Documented by: ARIANA Hydromorphone HCl (Hydromorphone Hcl 1 Mg/Ml Syringe) 0.5 mg IVPUSH Q4H PRN; Protocol PRN Reason: Pain, Severe (Pain Scale 7-10) Last Admin: 03/29/22 00:14 Dose: 0.5 mg Documented by: JYOTI Cefazolin Sodium/Dextrose (Ancef) 2 gm in 50 mls @ 100 mls/hr IV Q8H [facility] Last Infusion: 03/29/22 07:22 Dose: 0 mls/hr Documented by: JONATHON Vancomycin HCl 1,000 mg/ (Sodium Chloride) 270 mls @ 270 mls/hr IV Q12H [facility] Last Admin: 03/29/22 07:19 Dose: 270 mls/hr Documented by: HO.BOURQC Melatonin (Melatonin 3 Mg Tablet) 6 mg PO BEDTIME PRN PRN Reason: Insomnia Pharmacy Consult (Consult Rx Perform Med Rec) 1 each MISCELLANE ONCE PRN PRN Reason: Consult order Pharmacy Consult (Consult Rx Vancomycin Dosing) 1 each MISCELLANE DAILY PRN PRN Reason: Consult order Sodium Chloride (0.9 % Sodium Chloride Flush 3 Ml Syringe) 3 ml IVFLUSH QSHIFT [facility] Last Admin: 03/29/22 07:20 Dose: Not Given Documented by: JONATHON Non-Admin Reason: IV Running Labs CBC & Chem 7: 03/29/22 05:25 03/29/22 05:25 Labs: Laboratory Results - last 24 hr 03/28/22 03/28/22 03/29/22 05:22 17:14 05:25 MCV 93.4 MCH 30.9 MCHC 33.0 RDW 15.8 Plt Count 199 MPV 9.4 Immature Gran % (Auto) Cancelled Neut % (Auto) Cancelled Lymph % (Auto) Cancelled Foster % (Auto) Cancelled Eos % (Auto) Cancelled Baso % (Auto) Cancelled Lymph # (Auto) Cancelled Foster # (Auto) Cancelled Eos # (Auto) Cancelled Baso # (Auto) Cancelled Abs Immat Gran (auto) Cancelled Absolute Neuts (auto) Cancelled Absolute Nucleated RBC 0.020 H Nucleated RBC % (auto) 0.1 Neutrophils % (Manual) 75 H 77 H Band Neutrophils % 12 H 10 H Lymphocytes % (Manual) 4 L 3 L Monocytes % (Manual) 8 7 Metamyelocytes % 1 3 Abs Neuts (Manual) 15.0 H 13.5 H Lymphocytes # (Manual) 0.7 L 0.5 L Monocytes # (Manual) 1.4 H 1.1 Metamyelocytes # 0.2 0.5 Nucleated RBCs 1 H Toxic Vacuolation PRESENT Platelet Estimate NORMAL NORMAL Plt Morphology Comment NORMAL NORMAL RBC Morphology NOTED NORMAL Hypochromasia 2+ (15-30) Ovalocytes 1+ (5-14) Anion Gap Estim Creat Clear Calc Estimated GFR Fasting Glucose Calcium Total Bilirubin AST ALT Alkaline Phosphatase Total Protein Albumin Vancomycin Trough 6.2 L 03/29/22 05:25 MCV MCH MCHC RDW Plt Count MPV Immature Gran % (Auto) Neut % (Auto) Lymph % (Auto) Foster % (Auto) Eos % (Auto) Baso % (Auto) Lymph # (Auto) Foster # (Auto) Eos # (Auto) Baso # (Auto) Abs Immat Gran (auto) Absolute Neuts (auto) Absolute Nucleated RBC Nucleated RBC % (auto) Neutrophils % (Manual) Band Neutrophils % Lymphocytes % (Manual) Monocytes % (Manual) Metamyelocytes % Abs Neuts (Manual) Lymphocytes # (Manual) Monocytes # (Manual) Metamyelocytes # Nucleated RBCs Toxic Vacuolation Platelet Estimate Plt Morphology Comment RBC Morphology Hypochromasia Ovalocytes Anion Gap 12 Estim Creat Clear Calc 84.7 Estimated GFR > 60 Fasting Glucose 101 H Calcium 7.6 L Total Bilirubin 0.6 AST 18 ALT 14 Alkaline Phosphatase 123 H Total Protein 4.9 L Albumin 2.2 L Vancomycin Trough Microbiology Microbiology Results: Microbiology 03/26/22 17:02 Blood Culture - Preliminary Blood - Venous Staphylococcus aureus 03/26/22 16:52 Blood Culture - Preliminary Blood - Venous Staphylococcus aureus 03/26/22 16:15 Gram Stain - Final Breast Right Routine Culture - Final Staphylococcus aureus Procedures Date of Service Date of Service: 03/29/22 Progress Note: A&P Assessment and plan (1) Abscess of breast, right: Status: Acute (2) Cellulitis of breast: Status: Acute Plan Overall patient does feel improved with decreased redness. The white blood cell count remains elevated but is trending downward. Examination does reveal decreased redness for possible area of fluctuance at the tail of the breast. I will check a repeat ultrasound; the fluid has reaccumulated recommend repeat needle aspiration. Time Spent With Patient Time: Total time spent is greater than 50% in coordination of care (as documented) at patient's floor/unit and/or counseling patient: Quality Stroke Does the patient have a stroke diagnosis?: No VTE Prior VTE?: No VTE Risk Level:: Medical - moderate - high VTE Device Contraindication: Treatment Not Indicated VTE Drug Contraindication: N/A - Med Ordered
--- NOTE | 2022-03-29 11:52 | HO.PM.IMPN ---
Subjective Subjective Date of Service: 03/29/22 Interval History: No acute issues overnight. States pain has markedly improved since starting antibiotics...increasing activity Review of Systems Denies chest pain Denies shortness of breath Denies nausea vomiting diarrhea Denies fever chills Physical Exam Vital Signs: Vital Signs: Last Vital Signs Temp 97.3 F 03/29/22 11:16 Pulse 84 03/29/22 11:16 Resp 17 03/29/22 11:16 BP 148/63 H 03/29/22 11:16 Pulse Ox 97 03/29/22 11:16 BMI result Body Mass Index 29.8 Const: Other: Awake alert oriented x3 no acute distress Chest: Other: Right lateral breast with erythematous indurated area into axilla no fluctuance noted Resp: Other: Clear to auscultation bilaterally no rales rhonchi or wheezes Cardio: Other: No S4; positive S1-S2; no S3 murmurs rubs gallops GI: Other: Soft nontender and nondistended with normoactive bowel sounds Extrem: Other: No edema bilaterally Objective Data Active Medications Acetaminophen (Acetaminophen 325 Mg Tablet) 650 mg PO Q6H PRN PRN Reason: Pain, Mild (Pain Scale 1-3) Enoxaparin Sodium (Enoxaparin Sodium 40 Mg/0.4 Ml Syringe) 40 mg SUBCUT Q24H [facility] Last Admin: 03/28/22 19:44 Dose: 40 mg Documented by: ARIANA Hydromorphone HCl (Hydromorphone Hcl 1 Mg/Ml Syringe) 0.5 mg IVPUSH Q4H PRN; Protocol PRN Reason: Pain, Severe (Pain Scale 7-10) Last Admin: 03/29/22 00:14 Dose: 0.5 mg Documented by: JYOTI Cefazolin Sodium/Dextrose (Ancef) 2 gm in 50 mls @ 100 mls/hr IV Q8H [facility] Last Infusion: 03/29/22 07:22 Dose: 0 mls/hr Documented by: JONATHON Vancomycin HCl 1,000 mg/ (Sodium Chloride) 270 mls @ 270 mls/hr IV Q12H [facility] Last Infusion: 03/29/22 08:24 Dose: 0 mls/hr Documented by: JONATHON Melatonin (Melatonin 3 Mg Tablet) 6 mg PO BEDTIME PRN PRN Reason: Insomnia Pharmacy Consult (Consult Rx Perform Med Rec) 1 each MISCELLANE ONCE PRN PRN Reason: Consult order Pharmacy Consult (Consult Rx Vancomycin Dosing) 1 each MISCELLANE DAILY PRN PRN Reason: Consult order Sodium Chloride (0.9 % Sodium Chloride Flush 3 Ml Syringe) 3 ml IVFLUSH QSHIFT [facility] Last Admin: 03/29/22 07:20 Dose: Not Given Documented by: JONATHON Non-Admin Reason: IV Running Labs CBC & Chem 7: 03/29/22 05:25 03/29/22 05:25 Labs: Laboratory Results - last 24 hr 03/28/22 03/29/22 03/29/22 17:14 05:25 05:25 MCV 93.4 MCH 30.9 MCHC 33.0 RDW 15.8 Plt Count 199 MPV 9.4 Immature Gran % (Auto) Cancelled Neut % (Auto) Cancelled Lymph % (Auto) Cancelled [place] % (Auto) Cancelled Eos % (Auto) Cancelled Baso % (Auto) Cancelled Lymph # (Auto) Cancelled [place] # (Auto) Cancelled Eos # (Auto) Cancelled Baso # (Auto) Cancelled Abs Immat Gran (auto) Cancelled Absolute Neuts (auto) Cancelled Absolute Nucleated RBC 0.020 H Nucleated RBC % (auto) 0.1 Neutrophils % (Manual) 77 H Band Neutrophils % 10 H Lymphocytes % (Manual) 3 L Monocytes % (Manual) 7 Metamyelocytes % 3 Abs Neuts (Manual) 13.5 H Lymphocytes # (Manual) 0.5 L Monocytes # (Manual) 1.1 Metamyelocytes # 0.5 Nucleated RBCs 1 H Toxic Vacuolation PRESENT Platelet Estimate NORMAL Plt Morphology Comment NORMAL RBC Morphology NORMAL Smear Path Review SEE NOTE Anion Gap 12 Estim Creat Clear Calc 84.7 Estimated GFR > 60 Fasting Glucose 101 H Calcium 7.6 L Total Bilirubin 0.6 AST 18 ALT 14 Alkaline Phosphatase 123 H Total Protein 4.9 L Albumin 2.2 L Vancomycin Trough 6.2 L Microbiology Microbiology Results: Microbiology 03/26/22 17:02 Blood Culture - Final Blood - Venous Staphylococcus aureus 03/26/22 16:52 Blood Culture - Final Blood - Venous Staphylococcus aureus 03/26/22 16:15 Gram Stain - Final Breast Right Routine Culture - Final Staphylococcus aureus Assessment and Plan (1) Cellulitis of breast: Status: Acute (2) Anemia: Status: Acute (3) Psoriasis: Status: Acute Plan 71-year-old female with a past medical history of psoriasis presented to the hospital with a chief complaint of right breast pain redness and swelling for about a month. Noted to have right breast cellulitis/abscess. Admitted for further management. 1.Right breast cellulitis/abscess: -US drainage today -switched Kefzol 2 g IV Q 8 for MSSA -follow-up cultures ....2/2GPC awaiting ID/SS. -Will repeat blood cultures x2 today as patient will need PICC line 2.Anemia -CBC in a.m....slow downward trend -occult blood and hematological studies pending 3.Psoriasis -restart prednisone on discharge -treat as clinically indicated DVT prophylaxis: Lovenox Code status: Full code Will require ongoing hospitalization for IV treatment of right breast cellulitis pending culture and sensitivities Quality Stroke Does the patient have a stroke diagnosis?: No VTE Prior VTE?: No VTE Risk Level:: Medical - moderate - high VTE Device Contraindication: Treatment Not Indicated VTE Drug Contraindication: N/A - Med Ordered
--- NOTE | 2022-03-29 14:51 | MHC.CM.PN ---
nurse caseworker protective services note electronic medical record reviewed along with case discssed with staff nurse and navjot updated clinicals to [facility] they reported to me that patient does not have medicare part d insurance which pays for the iv abx and supplies patient would be responsible for this as well as firts initial vist $90:00 and each visit there after $45.:00 informed hospitlaist , he is still waiting for cultures to come back before placing pic line , called to [facility] at short stay, they can take qd iv abx , but would have to get surpervisor au5h for bid iv abx administration , will check with her tomorrow reagrding fianllized medication
--- NOTE | 2022-03-29 15:21 | PM.GICN ---
History of Present Illness Data of Consult Service Date: 03/29/22 Requesting physician: Bartolome Carr Primary Care Provider: None Physician HPI Reason for consult: worsening anemia 71 YF admitted to [facility] on 03/26/22 with right breast pain redness and swelling and diagnosed to have an abscess. 71-year-old female with a past medical history of psoriasis presented to the hospital with a chief complaint of right breast pain redness and swelling for about a month.? Reported that her symptoms started after she lifted trash about a month ago and has been gradually worsening; Lately complaint of generalized weakness, malaise; subjective fevers.? Denies any nausea vomiting or diarrhea.? Denies any chest pain or palpitations.? Denies any blood in the stool. Patient reported that she was started on prednisone about 3 days ago for her so reassess.? Denies taking any medications for her so reassess. ER course: Per ER team patient noted to have right upper quadrant of the right breast warm, indurated-ultrasound showed 3x3x6 cm abscess.? Status post IR guided drainage of 100 cc of the PA's.? Sent for cultures.? Patient started on IV vancomycin and ceftriaxone.? On the labs noted to have leukocytosis; H & H of 9.1 & 27.7 (decreased from 14.5 & 40.9 on 03/05/22).? Patient denied any signs of bleeding and refused guaiac test. Repeat H & H today was 7.5 & 22.7 Patient denies abdominal pain, heartburn, dysphagia, nausea, vomiting> She notes a poor appetite for the past several weeks associated with some weight loss. She noted self limited diarrhea 2 days ago with darker stool. Patient denies major cardiac or pulmonary problems, loud snoring or sleep apnea. Patient is a nonsmoker. She was drinking 1 glass of wine with dinner with which she discontinued a month ago. Denies being on chronic anticoagulation. Patient is a and has 4 children and lives with her youngest son. 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 Patient denies known family history of colon polyps, colon cancer or other GI malignancies. PAST EGD/COLONOSCOPY: Patient denies having an upper endoscopy or colonoscopy in the past. Review of Systems Review of Systems: Yes all other systems are reviewed and are negative Constitutional: Constitutional: Reports fatigue, Reports poor appetite and Reports weight loss Endocrine: Endocrine: Reports fatigue [facility] Past Medical History Medical History Psoriasis Family History Family history: reviewed and not pertinent Social History Social History Household Members: Family Housing: Apartment Patient Tobacco Use Status: Never used Tobacco Use of substances other than those prescribed or required for medical reasons: No Currently Displaying Signs/Symptoms of Drug Intoxication Withdrawal: No Have you been hit, kicked, punched, or otherwise hurt by someone within the past year? If so, by whom?: No Do you feel safe in your current relationship?: No Is there a partner from a previous relationship who is making you feel unsafe now?: No Are you made to feel afraid or neglected: No Advance Directives: No Advance Directives Information Provided: No Do you have thoughts of harming others: None Do you have a plan to hurt others: No Plan Recently lost weight without trying: Yes How much weight loss: 2-13 pounds Eating poorly because of decreased appetite: Yes Nutrition screen score: 4 Nutrition Risks: No Nutritional Risk Patient : No : No Poor oral hygiene: No service: No Current occupational status: unemployed Meds Allergies Allergy/AdvReac Type Severity Reaction Status Date / Time latex Allergy Mild Rash Verified 03/26/22 09:26 Active Medications: Current Medications Acetaminophen (Acetaminophen 325 Mg Tablet) 650 mg PO Q6H PRN PRN Reason: Pain, Mild (Pain Scale 1-3) Enoxaparin Sodium (Enoxaparin Sodium 40 Mg/0.4 Ml Syringe) 40 mg SUBCUT Q24H [facility] Last Admin: 03/28/22 19:44 Dose: 40 mg Documented by: Hydromorphone HCl (Hydromorphone Hcl 1 Mg/Ml Syringe) 0.5 mg IVPUSH Q4H PRN; Protocol PRN Reason: Pain, Severe (Pain Scale 7-10) Last Admin: 03/29/22 00:14 Dose: 0.5 mg Documented by: Cefazolin Sodium/Dextrose (Ancef) 2 gm in 50 mls @ 100 mls/hr IV Q8H [facility] Last Infusion: 03/29/22 07:22 Dose: Infused Documented by: Melatonin (Melatonin 3 Mg Tablet) 6 mg PO BEDTIME PRN PRN Reason: Insomnia Pharmacy Consult (Consult Rx Perform Med Rec) 1 each MISCELLANE ONCE PRN PRN Reason: Consult order Pharmacy Consult (Consult Rx Vancomycin Dosing) 1 each MISCELLANE DAILY PRN PRN Reason: Consult order Sodium Chloride (0.9 % Sodium Chloride Flush 3 Ml Syringe) 3 ml IVFLUSH QSHIFT [facility] Last Admin: 03/29/22 07:20 Dose: Not Given Documented by: Home Medications Medication Instructions Recorded Confirmed Last Taken Type carboxymethylcellulose sodium 1 % 1 drp OPHTHALMIC (EYE) QID PRN 03/26/22 03/26/22 Unknown History eye drops (Artificial Tears (carboxymethylcellulose)) glucosamine 750 [id number] 1 tab PO Q2D 03/26/22 03/26/22 Unknown History no1 644 mg-C 30 mg-brendan 1 mg tablet Physical Exam Vital Signs: Vital Signs: Last Vital Signs Temp 99 F 03/29/22 14:48 Pulse 92 03/29/22 14:48 Resp 20 03/29/22 14:48 BP 166/73 H 03/29/22 14:48 Pulse Ox 97 03/29/22 11:16 BMI result Body Mass Index 29.8 Const: General: healthy appearing and no acute distress Nutritional Appearance: average body habitus Orientation/consciousness: patient oriented x3 Limitations: no limitations HEENT: Head: Yes normal to inspection Ears: hearing grossly normal bilaterally Eyes: Sclerae: sclerae normal Pupils: Equal, round and reactive pupils present Neck: Neck: Yes normal visual inspection Chest: Chest palpation & inspection: normal inspection of the chest Resp: Effort & Inspection: normal respiratory effort Auscultation: clear to auscultation bilaterally Cardio: Palpation: normal PMI Rate: regular rate Rhythm: regular rhythm Heart sounds: S1 normal heart sound present, S2 normal heart sound present and no murmurs GI: Palpation (GI): Soft to palpation, nontender and No hepatosplenomegaly present Auscultation: normal bowel sounds Rectal Exam - Female: deferred Skin: General skin exam: no rashes or lesions noted Neuro: General: patient oriented x3, gait normal and moves all extremities Cranial nerves: Yes Equal, round and reactive pupils present Psych: Appearance: grossly normal Mental Status: mental status grossly normal Results Labs CBC & Chem 7: 03/29/22 05:25 03/29/22 05:25 Labs: Short CBC 03/29/22 Range/Units 05:25 WBC 15.5 H (4.8-10.8) X10*3/uL Hgb 7.5 L (12.0-16.0) g/dl Hct 22.7 L (37.0-47.0) % Plt Count 199 (160-400) X10*3/uL BMP 03/29/22 05:25 Sodium 136 Potassium 3.7 Chloride 105 Carbon Dioxide 23 BUN 5 L Creatinine 0.60 Calcium 7.6 L Liver Function 03/29/22 Range/Units 05:25 Total Bilirubin 0.6 (0.0-1.0) mg/dL AST 18 (5-31) U/L ALT 14 (0-31) U/L Alkaline Phosphatase 123 H (39-117) U/L Albumin 2.2 L (3.5-5.0) g/dL Microbiology Microbiology Results: Microbiology 03/28/22 10:45 Blood - Venous Blood Culture - Preliminary No growth after 24 hours. 03/28/22 10:45 Blood - Venous Blood Culture - Preliminary No growth after 24 hours. 03/26/22 17:02 Blood - Venous Blood Culture - Final Staphylococcus aureus 03/26/22 16:52 Blood - Venous Blood Culture - Final Staphylococcus aureus 03/26/22 16:15 Breast Right Gram Stain - Final 03/26/22 16:15 Breast Right Routine Culture - Final Staphylococcus aureus Assessment and Plan (1) Anemia: Status: Acute Plan 71 YF with psoriasis admitted to [facility] with right breast pain redness and swelling due to an abscess for about a month.? Pt admits to taking advil for a few days earlier this week. She reports poor appetite for the past several weeks and noted self limited diarrhea containing darker stools 2 days ago. H & H of 9.1 & 27.7 (decreased from 14.5 & 40.9 on 03/05/22).? Patient denied any signs of bleeding and refused guaiac test. Repeat H & H today was 7.5 & 22.7 and pt was transfused 1 U PRBC and 2nd unit is planned for later today. Anemia can be due to upper versus lower GI source. RECOMMENDATIONS: 1. Monitor H & H daily. 2. IV Pantoprazole twice a day 3. Proceed with EGD tomorrow - procedure reviewed with the patient. She will need a colonoscopy - can be performed as an outpatient or on 04/02/22 if pt is still hoapitalized Procedures Date of Service Date of Service: 03/29/22
--- NOTE | 2022-03-29 18:09 | PC.NURSE ---
Patient received firt unit of PRBCs , transfused from 1420 pm to 1543 pm, unable to complete documentation due to notice stating blocked by BBK. BB called and supervisor vacuum metalizing called, no solution to fixing documentation issues. Jaky ALY able to complete documentation of infusion. Patient tolerated infusion well. No signs of reaction. Pt is hypertensive but states is worried about having Upper endoscopy done. MD notified of elevated BP.
[2022-03-29 18:38] LABS: Vancomycin Trough 11.4 mcg/mL (10.0-20.0)
[2022-03-29] MEDS: Pantoprazole Sodium 40 MG/10 ML VIAL IVPUSH (21:00)
--- NOTE | 2022-03-29 22:56 | PC.NURSE ---
BP 170/74. Patient states she is having pain and anxious about procedures tomorrow. Medicated with dilaudid and room darkened for relaxation. BP 126/58 1/2 hour after dilaudid administered.
[2022-03-30] VITALS (10 sets, daily range): BP systolic 97–168; BP diastolic 49–82; PULSE 82–100; RESP 14–18; TEMP 35.8–37; O2SAT 94–100
[2022-03-30] MEDS: 0.9 % Sodium Chloride Flush 3 ML SYRINGE IVFLUSH ×3 (01:09→16:26)
[2022-03-30] MEDS: Pantoprazole Sodium 40 MG/10 ML VIAL IVPUSH ×2 (06:05→16:27)
[2022-03-30] MEDS: ceFAZolin Sodium/Dextrose,Iso 2 GM/50 ML PIGGYBACK IV ×3 (06:08→22:28)
[2022-03-30 06:23] LABS: Hematocrit 30.8 % (37.0-47.0); Hemoglobin 10.5 g/dl (12.0-16.0); Mean Corpuscular HGB Conc 34.1 g/dl (31.0-35.0); Mean Corpuscular Hemoglobin 30.9 pg (27.0-33.0); Mean Corpuscular Volume 90.6 fL (80.0-98.0); Mean Platelet Volume 9.2 fL (9.4-12.3); NRBC Pct Auto 0.1 /100WBC (0.0-0.2); Platelet Count 190 X10*3/uL (160-400); Red Cell Distribution Width 14.6 % (11.0-16.0); White Blood Count 14.6 X10*3/uL (4.8-10.8)
[2022-03-30 06:55] LABS: Alanine Aminotransferase 7 U/L (0-31); Albumin Level 2.3 g/dL (3.5-5.0); Alkaline Phosphatase 119 U/L (39-117); Anion Gap 12 (12-20); Aspartate Amino Transferase 16 U/L (5-31); Blood Urea Nitrogen 5 mg/dL (9-16); Calcium 7.6 mg/dL (8.4-10.2); Carbon Dioxide 23 mmol/L (22-29); Chloride 103 mmol/L (96-108); Creatinine Clr Calc Pharmacy 92.5; Estimated Glomerular Filt Rate > 60; Glucose Fasting 88 mg/dL (60-99); Sodium 135 mmol/L (135-145); Total Protein 5.1 g/dL (6.5-8.0)
[2022-03-30 07:03] LABS: Band Neutrophils Percent 22 % (3-5); Lymphocytes Absolute Manual 0.9 X10*3/uL (1.2-4.9); Lymphocytes Percent Manual 6 % (20-40); Metamyelocytes Absolute 0.6 X10*3/uL; Metamyelocytes Percent 4 %; Monocytes Absolute Manual 0.4 X10*3/uL (0.1-1.2); Monocytes Percent Manual 3 % (2-11); Neutrophils Absolute Manual 12.7 X10*3/uL (2.0-8.3); Neutrophils Percent Manual 65 % (45-73)
[2022-03-30 07:04] LABS: Platelet Estimate NORMAL (NORMAL); Platelet Morphology Comment NORMAL; RBC Morphology NORMAL
--- NOTE | 2022-03-30 08:24 | P.PNGS_ITS ---
Subjective Subjective Date of Service: 03/30/22 <Simran Hall PA-C - Last Filed: 03/30/22 08:34> 03/30/22 <Moe Rodriguez MD - Last Filed: 03/30/22 09:44> Interval history: Continues to feel better overall. No new complaints. Was supposed to have US guided drainage yesterday following imaging but did not occur. Wondering when drainage will occur. <Simran Hall PA-C - Last Filed: 03/30/22 08:34> Physical Exam Vital Signs: Vital Signs: Last Vital Signs Temp 98.1 F 03/30/22 07:23 Pulse 89 03/30/22 07:23 Resp 18 03/30/22 07:23 BP 153/69 H 03/30/22 07:23 Pulse Ox 97 03/30/22 07:23 BMI result Body Mass Index 29.8 <Simran Hall PA-C - Last Filed: 03/30/22 08:34> Const: General: comfortable, no acute distress and alert <Simran Hall PA-C - Last Filed: 03/30/22 08:34> Orientation/consciousness: patient oriented x3 <Simran Hall PA-C - Last Filed: 03/30/22 08:34> Chest: Other: right breast/axilla with worsening erythema, edema and induration, ?small area of fluctuance superficially in tail of watts- erythema and edema extend into right mid back; site remains very tender <Simran Hall PA-C - Last Filed: 03/30/22 08:34> Chest/axillae images: 1. centralized area of erythema/induration <Simran Hall PA-C - Last Filed: 03/30/22 08:34> Resp: Effort & Inspection: normal respiratory effort <GILLES Shah Last Filed: 03/30/22 08:34> Neuro: General: patient oriented x3 and moves all extremities <GILLES Shah Last Filed: 03/30/22 08:34> Extrem: General: Yes no clubbing, cyanosis or edema <Simran Hall PA-C - Last Filed: 03/30/22 08:34> Objective Data Active Medications Acetaminophen (Acetaminophen 325 Mg Tablet) 650 mg PO Q6H PRN PRN Reason: Pain, Mild (Pain Scale 1-3) Enoxaparin Sodium (Enoxaparin Sodium 40 Mg/0.4 Ml Syringe) 40 mg SUBCUT Q24H [facility] Last Admin: 03/29/22 21:01 Dose: Not Given Documented by: ALEC Non-Admin Reason: hold per md for drop in h&h Hydromorphone HCl (Hydromorphone Hcl 1 Mg/Ml Syringe) 0.5 mg IVPUSH Q4H PRN; Protocol PRN Reason: Pain, Severe (Pain Scale 7-10) Last Admin: 03/29/22 21:00 Dose: 0.5 mg Documented by: ALEC Cefazolin Sodium/Dextrose (Ancef) 2 gm in 50 mls @ 100 mls/hr IV Q8H [facility] Last Infusion: 03/30/22 06:50 Dose: 0 mls/hr Documented by: SHERRELL Melatonin (Melatonin 3 Mg Tablet) 6 mg PO BEDTIME PRN PRN Reason: Insomnia Pantoprazole Sodium (Pantoprazole Sodium 40 Mg/10 Ml Vial) 40 mg IVPUSH BID@0630,1630 [facility] Last Admin: 03/30/22 06:05 Dose: 40 mg Documented by: SHERRELL Pharmacy Consult (Consult Rx Perform Med Rec) 1 each MISCELLANE ONCE PRN PRN Reason: Consult order Pharmacy Consult (Consult Rx Vancomycin Dosing) 1 each MISCELLANE DAILY PRN PRN Reason: Consult order Sodium Chloride (0.9 % Sodium Chloride Flush 3 Ml Syringe) 3 ml IVFLUSH QSHIFT [facility] Last Admin: 03/30/22 07:39 Dose: 3 ml Documented by: DANIELLE <Simran Hall PA-C - Last Filed: 03/30/22 08:34> Labs CBC & Chem 7: : 03/30/22 05:47 03/30/22 05:47 <Simran Hall PA-C - Last Filed: 03/30/22 08:34> Labs: Laboratory Results - last 24 hr 03/29/22 03/29/22 03/29/22 05:25 12:55 18:03 MCV MCH MCHC RDW Plt Count MPV Immature Gran % (Auto) Neut % (Auto) Lymph % (Auto) [place] % (Auto) Eos % (Auto) Baso % (Auto) Lymph # (Auto) [place] # (Auto) Eos # (Auto) Baso # (Auto) Abs Immat Gran (auto) Absolute Neuts (auto) Absolute Nucleated RBC Nucleated RBC % (auto) Neutrophils % (Manual) Band Neutrophils % Lymphocytes % (Manual) Monocytes % (Manual) Metamyelocytes % Abs Neuts (Manual) Lymphocytes # (Manual) Monocytes # (Manual) Metamyelocytes # Platelet Estimate Plt Morphology Comment RBC Morphology Smear Path Review SEE NOTE Anion Gap Estim Creat Clear Calc Estimated GFR Fasting Glucose Calcium Total Bilirubin AST ALT Alkaline Phosphatase Total Protein Albumin Vancomycin Trough 11.4 Blood Type A Positive Antibody Screen NEGATIVE Crossmatch See Detail 03/30/22 03/30/22 05:47 05:47 MCV 90.6 MCH 30.9 MCHC 34.1 RDW 14.6 Plt Count 190 MPV 9.2 L Immature Gran % (Auto) Cancelled Neut % (Auto) Cancelled Lymph % (Auto) Cancelled [place] % (Auto) Cancelled Eos % (Auto) Cancelled Baso % (Auto) Cancelled Lymph # (Auto) Cancelled [place] # (Auto) Cancelled Eos # (Auto) Cancelled Baso # (Auto) Cancelled Abs Immat Gran (auto) Cancelled Absolute Neuts (auto) Cancelled Absolute Nucleated RBC 0.020 H Nucleated RBC % (auto) 0.1 Neutrophils % (Manual) 65 Band Neutrophils % 22 H Lymphocytes % (Manual) 6 L Monocytes % (Manual) 3 Metamyelocytes % 4 Abs Neuts (Manual) 12.7 H Lymphocytes # (Manual) 0.9 L Monocytes # (Manual) 0.4 Metamyelocytes # 0.6 Platelet Estimate NORMAL Plt Morphology Comment NORMAL RBC Morphology NORMAL Smear Path Review Anion Gap 12 Estim Creat Clear Calc 92.5 Estimated GFR > 60 Fasting Glucose 88 Calcium 7.6 L Total Bilirubin 1.0 AST 16 ALT 7 Alkaline Phosphatase 119 H Total Protein 5.1 L Albumin 2.3 L Vancomycin Trough Blood Type Antibody Screen Crossmatch <Simran Hall PA-C - Last Filed: 03/30/22 08:34> Microbiology Microbiology Results: Microbiology 03/28/22 10:45 Blood Culture - Preliminary Blood - Venous No growth after 24 hours. 03/28/22 10:45 Blood Culture - Preliminary Blood - Venous No growth after 24 hours. 03/26/22 17:02 Blood Culture - Final Blood - Venous Staphylococcus aureus 03/26/22 16:52 Blood Culture - Final Blood - Venous Staphylococcus aureus <Simran Hall PA-C - Last Filed: 03/30/22 08:34> Procedures Date of Service Date of Service: 03/30/22 <Simran Hall PA-C - Last Filed: 03/30/22 08:34> Progress Note: A&P Assessment and plan (1) Abscess of breast, right: Status: Acute <Simran Hall PA-C - Last Filed: 03/30/22 08:34> Plan 71 year old female admitted with abscess of right breast with US guided drainage of 100cc fluid on 03/26/22. Repeat US yesterday revealed larger abscess. She does feel improved however WBC remains elevated and examination this morning reveals increasing erythema, induration and edema. Repeat US guided drainage has been ordered. Continue IV abx. If no further improvement following, may need surgical drainage. <Simran Hall PA-C - Last Filed: 03/30/22 08:34> 71 year old female admitted with abscess of right breast with US guided drainage of 100cc fluid on 03/26/22. Repeat US yesterday revealed larger abscess. She does feel improved however WBC remains elevated and examination this morning reveals increasing erythema, induration and edema. Repeat US guided drainage has been ordered. Continue IV abx. If no further improvement following, may need surgical drainage. Drainage of abscess apparently was held because of blood transfusion. Patient now has EGD scheduled for today. Hopefully IR drainage of abscess will also be performed today as of redness does appear increased. Patient expressed understanding and agrees with the plan. <Moe Rodriguez MD - Last Filed: 03/30/22 09:44> Time Spent With Patient Time: Total time spent is greater than 50% in coordination of care (as documented) at patient's floor/unit and/or counseling patient: <Simran Hall PA-C - Last Filed: 03/30/22 08:34> Quality Stroke Does the patient have a stroke diagnosis?: No <Simran Hall PA-C - Last Filed: 03/30/22 08:34> VTE Prior VTE?: No <Simran Hall PA-C - Last Filed: 03/30/22 08:34> VTE Risk Level:: Medical - moderate - high <Simran Hall PA-C - Last Filed: 03/30/22 08:34> VTE Device Contraindication: Treatment Not Indicated <Simran Hall PA-C - Last Filed: 03/30/22 08:34> VTE Drug Contraindication: N/A - Med Ordered <Simran Hall PA-C - Last Filed: 03/30/22 08:34>
[2022-03-30] MEDS: HYDROmorphone HCl 1 MG/ML SYRINGE 0.5 MG IVPUSH ×2 (10:39→21:20)
[2022-03-30] MEDS: Lactated Ringers 1,000 ML 100 ML IVCONT ×2 (12:18→22:28)
[2022-03-30] MEDS: Potassium Chloride/H20 10 MEQ/100 ML PIGGYBACK 100 MEQ IV ×4 (12:29→20:21)
[2022-03-30 12:36] LABS: INTERNATIONAL NORM RATIO 1.4 (0.9-1.1)
--- NOTE | 2022-03-30 13:33 | HO.ANESPROP2 ---
[facility] Active Problems Active Problems: All Active Problems (Updated 03/26/22 @ 18:11 by KIMBERLY Toscano) Sepsis (Acute) Abscess of breast, right (Acute) Cellulitis of breast (Acute) Anemia (Acute) Psoriasis (Acute) Past Medical History Medical History Psoriasis Family History Family history of problems with anesthesia: No Surgical History History of Problems with Anesthesia: No Social History Social History Household Members: Family Housing: Apartment Patient Tobacco Use Status: Never used Tobacco Use of substances other than those prescribed or required for medical reasons: No Currently Displaying Signs/Symptoms of Drug Intoxication Withdrawal: No Have you been hit, kicked, punched, or otherwise hurt by someone within the past year? If so, by whom?: No Do you feel safe in your current relationship?: No Is there a partner from a previous relationship who is making you feel unsafe now?: No Are you made to feel afraid or neglected: No Are you DNR?: No Advance Directives: No Advance Directives Information Provided: No Do you have thoughts of harming others: None Do you have a plan to hurt others: No Plan Recently lost weight without trying: Yes How much weight loss: 2-13 pounds Eating poorly because of decreased appetite: Yes Nutrition screen score: 4 Nutrition Risks: No Nutritional Risk Patient : No : No Poor oral hygiene: No service: No Current occupational status: unemployed Meds Allergies Allergy/AdvReac Type Severity Reaction Status Date / Time latex Allergy Mild Rash Verified 03/26/22 09:26 Active Medications: Current Medications Acetaminophen (Acetaminophen 325 Mg Tablet) 650 mg PO Q6H PRN PRN Reason: Pain, Mild (Pain Scale 1-3) Enoxaparin Sodium (Enoxaparin Sodium 40 Mg/0.4 Ml Syringe) 40 mg SUBCUT Q24H OSMAR Last Admin: 03/29/22 21:01 Dose: Not Given Documented by: Hydromorphone HCl (Hydromorphone Hcl 1 Mg/Ml Syringe) 0.5 mg IVPUSH Q4H PRN; Protocol PRN Reason: Pain, Severe (Pain Scale 7-10) Last Admin: 03/30/22 10:39 Dose: 0.5 mg Documented by: Cefazolin Sodium/Dextrose (Ancef) 2 gm in 50 mls @ 100 mls/hr IV Q8H [facility] Last Infusion: 03/30/22 06:50 Dose: Infused Documented by: Lactated Ringer's (Lr) 1,000 mls @ 100 mls/hr IVCONT .Q10H [facility] Last Admin: 03/30/22 12:18 Dose: 100 mls/hr Documented by: Potassium Chloride () 10 meq in 100 mls @ 100 mls/hr IV Q1H [facility] Stop: 03/30/22 15:59 Last Admin: 03/30/22 12:29 Dose: 100 mls/hr Documented by: Melatonin (Melatonin 3 Mg Tablet) 6 mg PO BEDTIME PRN PRN Reason: Insomnia Pantoprazole Sodium (Pantoprazole Sodium 40 Mg/10 Ml Vial) 40 mg IVPUSH BID@0630,1630 [facility] Last Admin: 03/30/22 06:05 Dose: 40 mg Documented by: Pharmacy Consult (Consult Rx Perform Med Rec) 1 each MISCELLANE ONCE PRN PRN Reason: Consult order Pharmacy Consult (Consult Rx Vancomycin Dosing) 1 each MISCELLANE DAILY PRN PRN Reason: Consult order Sodium Chloride (0.9 % Sodium Chloride Flush 3 Ml Syringe) 3 ml IVFLUSH QSHIFT [facility] Last Admin: 03/30/22 07:39 Dose: 3 ml Documented by: Home Medications Medication Instructions Recorded Confirmed Last Taken Type carboxymethylcellulose sodium 1 % 1 drp OPHTHALMIC (EYE) QID PRN 03/26/22 03/26/22 Unknown History eye drops (Artificial Tears (carboxymethylcellulose)) glucosamine 750 [id number] 1 tab PO Q2D 03/26/22 03/26/22 Unknown History no1 644 mg-C 30 mg-brendan 1 mg tablet Exam Exam Date and Time: March 30, 2022 1333 Height,Weight and Vital Signs: Height 5 ft 4 in Weight 78.8 kg Last Vital Signs Temp 98.6 F 03/30/22 10:51 Pulse 88 03/30/22 10:51 Resp 18 03/30/22 10:51 BP 149/72 H 03/30/22 10:51 Pulse Ox 95 03/30/22 10:51 Pertinent Lab Results Pertinent Lab Results: Laboratory Tests 03/26/22 03/26/2203/26/22 16:43 16:53 16:53 WBC RBC Hgb Hct MCV MCH MCHC RDW Plt Count MPV Immature Gran % (Auto) Neut % (Auto) Lymph % (Auto) [place] % (Auto) Eos % (Auto) Baso % (Auto) Lymph # (Auto) [place] # (Auto) Eos # (Auto) Baso # (Auto) Abs Immat Gran (auto) Absolute Neuts (auto) Absolute Nucleated RBC Nucleated RBC % (auto) Neutrophils % (Manual) Band Neutrophils % Lymphocytes % (Manual) Monocytes % (Manual) Metamyelocytes % Abs Neuts (Manual) Lymphocytes # (Manual) Monocytes # (Manual) Metamyelocytes # Nucleated RBCs Toxic Vacuolation Platelet Estimate Plt Morphology Comment RBC Morphology Hypochromasia Ovalocytes Smear Path Review ESR 109 H PT INR APTT Sodium Potassium Chloride Carbon Dioxide Anion Gap BUN Creatinine Estim Creat Clear Calc Estimated GFR Random Glucose Fasting Glucose Lactic Acid 1.8 Calcium Magnesium Iron TIBC % Saturation Unsat Iron Binding Ferritin Total Bilirubin Direct Bilirubin AST ALT Alkaline Phosphatase C-Reactive Protein Total Protein Albumin Vitamin B12 Folate Urine Color Urine Appearance Urine pH Ur Specific [place] Urine Protein Urine Glucose (UA) Urine Ketones Urine Blood Urine Nitrite Ur Leukocyte Esterase Urine RBC Urine WBC Ur Squamous Epith Cells Urine Bacteria Hyaline Casts Urine Mucus Vancomycin Trough COVID-19 (COURTNEY) Negative COVID-19 Clin Com See Note Blood Type Antibody Screen Crossmatch 03/26/22 03/26/22 03/26/22 16:54 16:54 17:25 WBC 19.7 H RBC 2.95 L D Hgb 9.1 L D Hct 27.7 L D MCV 93.9 MCH 30.8 MCHC 32.9 RDW 15.7 Plt Count 253 D MPV 9.6 Immature Gran % (Auto) Cancelled Neut % (Auto) Cancelled Lymph % (Auto) Cancelled [place] % (Auto) Cancelled Eos % (Auto) Cancelled Baso % (Auto) Cancelled Lymph # (Auto) Cancelled [place] # (Auto) Cancelled Eos # (Auto) Cancelled Baso # (Auto) Cancelled Abs Immat Gran (auto) Cancelled Absolute Neuts (auto) Cancelled Absolute Nucleated RBC 0.030 H Nucleated RBC % (auto) 0.2 Neutrophils % (Manual) 77 H Band Neutrophils % 6 H Lymphocytes % (Manual) 9 L Monocytes % (Manual) 8 Metamyelocytes % Abs Neuts (Manual) 16.4 H Lymphocytes # (Manual) 1.8 Monocytes # (Manual) 1.6 H Metamyelocytes # Nucleated RBCs Toxic Vacuolation PRESENT Platelet Estimate NORMAL Plt Morphology Comment NORMAL RBC Morphology NORMAL Hypochromasia Ovalocytes Smear Path Review ESR PT Cancelled INR Cancelled APTT Cancelled Sodium 136 Potassium 4.1 Chloride 103 Carbon Dioxide 22 Anion Gap 15 BUN 10 Creatinine 0.69 Estim Creat Clear Calc 83.3 Estimated GFR > 60 Random Glucose 102 Fasting Glucose Lactic Acid Calcium 8.1 L D Magnesium 2.2 Iron 23 L TIBC 149 L % Saturation 15 Unsat Iron Binding 126 Ferritin 1869 H Total Bilirubin 0.8 Direct Bilirubin 0.5 AST 39 H ALT 42 H Alkaline Phosphatase 174 H D C-Reactive Protein 17.83 H Total Protein 6.2 L Albumin 2.9 L D Vitamin B12 Folate Urine Color Urine Appearance Urine pH Ur Specific [place] Urine Protein Urine Glucose (UA) Urine Ketones Urine Blood Urine Nitrite Ur Leukocyte Esterase Urine RBC Urine WBC Ur Squamous Epith Cells Urine Bacteria Hyaline Casts Urine Mucus Vancomycin Trough COVID-19 (COURTNEY) COVID-19 Clin Com Blood Type Antibody Screen Crossmatch 03/26/22 03/26/22 03/27/22 17:25 17:39 05:27 WBC 17.8 H RBC 2.71 L Hgb 8.3 L Hct 25.1 L MCV 92.6 MCH 30.6 MCHC 33.1 RDW 15.7 Plt Count 215 MPV 9.3 L Immature Gran % (Auto) Cancelled Neut % (Auto) Cancelled Lymph % (Auto) Cancelled [place] % (Auto) Cancelled Eos % (Auto) Cancelled Baso % (Auto) Cancelled Lymph # (Auto) Cancelled [place] # (Auto) Cancelled Eos # (Auto) Cancelled Baso # (Auto) Cancelled Abs Immat Gran (auto) Cancelled Absolute Neuts (auto) Cancelled Absolute Nucleated RBC 0.030 H Nucleated RBC % (auto) 0.2 Neutrophils % (Manual) 66 Band Neutrophils % 13 H Lymphocytes % (Manual) 5 L Monocytes % (Manual) 12 H Metamyelocytes % 4 Abs Neuts (Manual) 14.1 H Lymphocytes # (Manual) 0.9 L Monocytes # (Manual) 2.1 H Metamyelocytes # 0.7 Nucleated RBCs Toxic Vacuolation Platelet Estimate NORMAL Plt Morphology Comment NORMAL RBC Morphology NORMAL Hypochromasia Ovalocytes Smear Path Review ESR PT INR APTT Sodium Potassium Chloride Carbon Dioxide Anion Gap BUN Creatinine Estim Creat Clear Calc Estimated GFR Random Glucose Fasting Glucose Lactic Acid Calcium Magnesium Iron TIBC % Saturation Unsat Iron Binding Ferritin Total Bilirubin Direct Bilirubin AST ALT Alkaline Phosphatase C-Reactive Protein Total Protein Albumin Vitamin B12 > 2000 H Folate 4.5 Urine Color DK YELLOW Urine Appearance CLEAR Urine pH 5.5 Ur Specific [place] >= 1.030 H Urine Protein 1+ H Urine Glucose (UA) NEG Urine Ketones 40 Urine Blood TRACE Urine Nitrite NEG Ur Leukocyte Esterase NEG Urine RBC 0-2 Urine WBC 1-4 Ur Squamous Epith Cells 3+ Urine Bacteria 2+ Hyaline Casts 0-2 Urine Mucus 2+ Vancomycin Trough COVID-19 (COURTNEY) COVID-19 Clin Com Blood Type Antibody Screen Crossmatch 03/27/22 03/28/22 03/28/22 05:27 05:22 05:22 WBC 17.2 H RBC 2.53 L Hgb 7.9 L Hct 23.7 L MCV 93.7 MCH 31.2 MCHC 33.3 RDW 15.7 Plt Count 205 MPV 9.6 Immature Gran % (Auto) Cancelled Neut % (Auto) Cancelled Lymph % (Auto) Cancelled [place] % (Auto) Cancelled Eos % (Auto) Cancelled Baso % (Auto) Cancelled Lymph # (Auto) Cancelled [place] # (Auto) Cancelled Eos # (Auto) Cancelled Baso # (Auto) Cancelled Abs Immat Gran (auto) Cancelled Absolute Neuts (auto) Cancelled Absolute Nucleated RBC 0.030 H Nucleated RBC % (auto) 0.2 Neutrophils % (Manual) 75 H Band Neutrophils % 12 H Lymphocytes % (Manual) 4 L Monocytes % (Manual) 8 Metamyelocytes % 1 Abs Neuts (Manual) 15.0 H Lymphocytes # (Manual) 0.7 L Monocytes # (Manual) 1.4 H Metamyelocytes # 0.2 Nucleated RBCs Toxic Vacuolation Platelet Estimate NORMAL Plt Morphology Comment NORMAL RBC Morphology NOTED Hypochromasia 2+ (15-30) Ovalocytes 1+ (5-14) Smear Path Review ESR PT INR APTT Sodium 137 133 L Potassium 3.5 3.3 Chloride 106 103 Carbon Dioxide 21 L 21 L Anion Gap 14 12 BUN 8 L 6 L Creatinine 0.62 0.62 Estim Creat Clear Calc 82.0 82.0 Estimated GFR > 60 > 60 Random Glucose 105 Fasting Glucose 104 H Lactic Acid Calcium 7.4 L D 7.4 L Magnesium Iron TIBC % Saturation Unsat Iron Binding Ferritin Total Bilirubin 0.7 Direct Bilirubin AST 22 D ALT 22 Alkaline Phosphatase 141 H C-Reactive Protein Total Protein 5.2 L Albumin 2.4 L Vitamin B12 Folate Urine Color Urine Appearance Urine pH Ur Specific [place] Urine Protein Urine Glucose (UA) Urine Ketones Urine Blood Urine Nitrite Ur Leukocyte Esterase Urine RBC Urine WBC Ur Squamous Epith Cells Urine Bacteria Hyaline Casts Urine Mucus Vancomycin Trough COVID-19 (COURTNEY) COVID-19 Clin Com Blood Type Antibody Screen Crossmatch 03/28/22 03/29/22 03/29/22 17:14 05:25 05:25 WBC 15.5 H RBC 2.43 L Hgb 7.5 L Hct 22.7 L MCV 93.4 MCH 30.9 MCHC 33.0 RDW 15.8 Plt Count 199 MPV 9.4 Immature Gran % (Auto) Cancelled Neut % (Auto) Cancelled Lymph % (Auto) Cancelled [place] % (Auto) Cancelled Eos % (Auto) Cancelled Baso % (Auto) Cancelled Lymph # (Auto) Cancelled [place] # (Auto) Cancelled Eos # (Auto) Cancelled Baso # (Auto) Cancelled Abs Immat Gran (auto) Cancelled Absolute Neuts (auto) Cancelled Absolute Nucleated RBC 0.020 H Nucleated RBC % (auto) 0.1 Neutrophils % (Manual) 77 H Band Neutrophils % 10 H Lymphocytes % (Manual) 3 L Monocytes % (Manual) 7 Metamyelocytes % 3 Abs Neuts (Manual) 13.5 H Lymphocytes # (Manual) 0.5 L Monocytes # (Manual) 1.1 Metamyelocytes # 0.5 Nucleated RBCs 1 H Toxic Vacuolation PRESENT Platelet Estimate NORMAL Plt Morphology Comment NORMAL RBC Morphology NORMAL Hypochromasia Ovalocytes Smear Path Review SEE NOTE ESR PT INR APTT Sodium 136 Potassium 3.7 Chloride 105 Carbon Dioxide 23 Anion Gap 12 BUN 5 L Creatinine 0.60 Estim Creat Clear Calc 84.7 Estimated GFR > 60 Random Glucose Fasting Glucose 101 H Lactic Acid Calcium 7.6 L Magnesium Iron TIBC % Saturation Unsat Iron Binding Ferritin Total Bilirubin 0.6 Direct Bilirubin AST 18 ALT 14 Alkaline Phosphatase 123 H C-Reactive Protein Total Protein 4.9 L Albumin 2.2 L Vitamin B12 Folate Urine Color Urine Appearance Urine pH Ur Specific [place] Urine Protein Urine Glucose (UA) Urine Ketones Urine Blood Urine Nitrite Ur Leukocyte Esterase Urine RBC Urine WBC Ur Squamous Epith Cells Urine Bacteria Hyaline Casts Urine Mucus Vancomycin Trough 6.2 L COVID-19 (COURTNEY) COVID-19 Clin Com Blood Type Antibody Screen Crossmatch 03/29/22 03/29/22 03/30/22 12:55 18:03 05:47 WBC 14.6 H RBC 3.40 L D Hgb 10.5 L D Hct 30.8 L D MCV 90.6 MCH 30.9 MCHC 34.1 RDW 14.6 Plt Count 190 MPV 9.2 L Immature Gran % (Auto) Cancelled Neut % (Auto) Cancelled Lymph % (Auto) Cancelled [place] % (Auto) Cancelled Eos % (Auto) Cancelled Baso % (Auto) Cancelled Lymph # (Auto) Cancelled [place] # (Auto) Cancelled Eos # (Auto) Cancelled Baso # (Auto) Cancelled Abs Immat Gran (auto) Cancelled Absolute Neuts (auto) Cancelled Absolute Nucleated RBC 0.020 H Nucleated RBC % (auto) 0.1 Neutrophils % (Manual) 65 Band Neutrophils % 22 H Lymphocytes % (Manual) 6 L Monocytes % (Manual) 3 Metamyelocytes % 4 Abs Neuts (Manual) 12.7 H Lymphocytes # (Manual) 0.9 L Monocytes # (Manual) 0.4 Metamyelocytes # 0.6 Nucleated RBCs Toxic Vacuolation Platelet Estimate NORMAL Plt Morphology Comment NORMAL RBC Morphology NORMAL Hypochromasia Ovalocytes Smear Path Review ESR PT INR APTT Sodium Potassium Chloride Carbon Dioxide Anion Gap BUN Creatinine Estim Creat Clear Calc Estimated GFR Random Glucose Fasting Glucose Lactic Acid Calcium Magnesium Iron TIBC % Saturation Unsat Iron Binding Ferritin Total Bilirubin Direct Bilirubin AST ALT Alkaline Phosphatase C-Reactive Protein Total Protein Albumin Vitamin B12 Folate Urine Color Urine Appearance Urine pH Ur Specific [place] Urine Protein Urine Glucose (UA) Urine Ketones Urine Blood Urine Nitrite Ur Leukocyte Esterase Urine RBC Urine WBC Ur Squamous Epith Cells Urine Bacteria Hyaline Casts Urine Mucus Vancomycin Trough 11.4 COVID-19 (COURTNEY) COVID-19 Clin Com Blood Type A Positive Antibody Screen NEGATIVE Crossmatch See Detail 03/30/22 03/30/22 05:47 12:11 WBC RBC Hgb Hct MCV MCH MCHC RDW Plt Count MPV Immature Gran % (Auto) Neut % (Auto) Lymph % (Auto) [place] % (Auto) Eos % (Auto) Baso % (Auto) Lymph # (Auto) [place] # (Auto) Eos # (Auto) Baso # (Auto) Abs Immat Gran (auto) Absolute Neuts (auto) Absolute Nucleated RBC Nucleated RBC % (auto) Neutrophils % (Manual) Band Neutrophils % Lymphocytes % (Manual) Monocytes % (Manual) Metamyelocytes % Abs Neuts (Manual) Lymphocytes # (Manual) Monocytes # (Manual) Metamyelocytes # Nucleated RBCs Toxic Vacuolation Platelet Estimate Plt Morphology Comment RBC Morphology Hypochromasia Ovalocytes Smear Path Review ESR PT 16.0 H INR 1.4 H APTT Sodium 135 Potassium 3.0 L Chloride 103 Carbon Dioxide 23 Anion Gap 12 BUN 5 L Creatinine 0.55 Estim Creat Clear Calc 92.5 Estimated GFR > 60 Random Glucose Fasting Glucose 88 Lactic Acid Calcium 7.6 L Magnesium Iron TIBC % Saturation Unsat Iron Binding Ferritin Total Bilirubin 1.0 Direct Bilirubin AST 16 ALT 7 Alkaline Phosphatase 119 H C-Reactive Protein Total Protein 5.1 L Albumin 2.3 L Vitamin B12 Folate Urine Color Urine Appearance Urine pH Ur Specific [place] Urine Protein Urine Glucose (UA) Urine Ketones Urine Blood Urine Nitrite Ur Leukocyte Esterase Urine RBC Urine WBC Ur Squamous Epith Cells Urine Bacteria Hyaline Casts Urine Mucus Vancomycin Trough COVID-19 (COURTNEY) COVID-19 Clin Com Blood Type Antibody Screen Crossmatch Airway Mallampati Class: II (Cap upper right) TM Dist: >3cm Neck ROM: Full Heart: rrr Lungs: cta Assessment and Plan Assessment Anesthesia Assessment: Anesthesia Plan Discussed and Chart Reviewed Final Anesthetic Review Family History of Problems with Anesthesia: No History of Problems with Anesthesia: No NPO: Yes ASA Class: II Final Preanesthetic Review: No Changes in Pt Med Stat, Meds/Allgs Chart Reviewed and Consent Obtained/Reviewed Patient Risk: Intermediate Anesthetic Plan Anesthetic Plan: MAC: Disposition: Standard PACU
[2022-03-30] MEDS: Lactated Ringers 1,000 ML 50 ML IVCONT (13:43)
--- NOTE | 2022-03-30 13:46 | PM.OP ---
Brief Operative Note Date of Service: 03/30/22 Pre-op diagnosis: Anemia, decreased appetite with poor Po intake Post-op diagnosis: other (Gerd, esophageal nodule, gastritis) Procedure: FLEXIBLE TRANSORAL UPPER GASTROINTESTINAL ENDOSCOPY WITH BIOPSIES Consent: Indications for the procedure and potential complications of bleeding, perforation, reaction to medications and missed diagnosis were discussed with the patient and informed consent was obtained. Instrument: Olympus GIF H 190 mid size upper endoscope Monitoring: Vital signs and clinical assessment, continuous EKG monitoring, Pulse oximetry, Carbon Dioxide monitoring and blood pressure monitoring were done throughout the procedure. Procedure: The patient was placed in the left lateral decubitis position and pre-procedure medications were administered and a bite block was placed. The endoscope was inserted into the mouth and advanced under direct vision to the third part of duodenum. A careful inspection was made as the upper endoscope was withdrawn including a retroflexed examination of the proximal stomach; Findings and interventions are described below. Findings: Larynx: Normal Esophagus: GE junction at 35 cms. Friable appearing mucosa from 33 to 35 cms with a 1 cms benign appearing nodule - biopsied. Irregular Z line - biopsied to check for Queen's. Stomach: Moderate diffuse gastric erythema with nodular appearing mucosa and prominent gastric folds in the fundus and body of the stomach. Biopsies were obtained from the body and antrum. Multiple scars of ? past ulcers in the distal body. Grade 2 flap valve on retroflexed examination of the cardia. Duodenum: Normal bulb and descending duodenum. Biopsies were obtained from 3rd part of the duodenum to check for celiac sprue Intervention: Biopsies as noted above Impression and Post Procedure Diagnosis: Endoscopy Findings: ESOPHAGUS: GE junction at 35 cms. Friable appearing mucosa from 33 to 35 cms with a 1 cms benign appearing nodule - biopsied. Irregular Z line - biopsied to check for Queen's. STOMACH: Moderate diffuse gastric erythema with nodular appearing mucosa and prominent gastric folds in the fundus and body of the stomach. Biopsies were obtained from the body and antrum. Multiple scars of ? past ulcers in the distal body. No clear source found for anemia. Poor PO intake likely related to gastritis and breast abscess. Plan: Await pathology results. Pt can be switched to PO PPI twice daily for gastritis Patient is scheduled for a colonoscopy on 04/02/22. Discussed this with the patient and she prefers to schedule the colonoscopy as an outpatient after the breast infection has resolved. Above findings were reviewed with the patient. Surgeon: Terrence Issa MD Anesthesia: MAC (Dr Lester) Was an Staff Development Manager used for this Procedure?: Yes Staff Development Manager: Tammy De La Rosa Estimated blood loss (mL): 0 Pathology: other (A. SMALL BOWEL BIOPSIES B. GASTRIC ANTRUM C. GASTRIC BODY D. NODULE GE JUNCTION E. GE JUNCTION R/O BARRETTS) Condition: stable Disposition: PACU
--- NOTE | 2022-03-30 13:46 | W.PM.OPN ---
Operative Note Operative Note Date of Service: 03/30/22 Narrative: Pre-op diagnosis: Anemia, decreased appetite with poor Po intake Post-op diagnosis:?other (Gerd, esophageal nodule, gastritis) Procedure: FLEXIBLE TRANSORAL UPPER GASTROINTESTINAL ENDOSCOPY WITH BIOPSIES Consent:?Indications for the procedure and potential complications of bleeding, perforation, reaction to medications and missed diagnosis were discussed with the patient and informed consent was obtained. Instrument:?Olympus GIF H 190 mid size upper endoscope Monitoring: Vital signs and clinical assessment, continuous EKG monitoring, Pulse oximetry, Carbon Dioxide monitoring and blood pressure monitoring were done throughout the procedure. Procedure:?The patient was placed in the left lateral decubitis position and pre-procedure medications were administered and a bite block was placed. The endoscope was inserted into the mouth and advanced under direct vision to the third part of duodenum. A careful inspection was made as the upper endoscope was withdrawn including a retroflexed examination of the proximal stomach; Findings and interventions are described below. Findings: Larynx:? Normal Esophagus: GE junction at 35 cms.? Friable appearing mucosa from 33 to 35 cms with a 1 cms benign appearing nodule - biopsied.? Irregular Z line - biopsied to check for Queen's. Stomach: Moderate diffuse gastric erythema with nodular appearing mucosa and prominent gastric folds in the fundus and body of the stomach. Biopsies were obtained from the body and antrum. Multiple scars of ? past ulcers in the distal body. Grade 2 flap? valve on retroflexed examination of the cardia. Duodenum: Normal bulb and descending duodenum.? Biopsies were obtained from 3rd part of the duodenum to check for celiac sprue Intervention: Biopsies as noted above Impression and Post Procedure Diagnosis: Endoscopy Findings: ESOPHAGUS: GE junction at 35 cms.? Friable appearing mucosa from 33 to 35 cms with a 1 cms benign appearing nodule - biopsied.? Irregular Z line - biopsied to check for Queen's. STOMACH:? Moderate diffuse gastric erythema with nodular appearing mucosa and prominent gastric folds in the fundus and body of the stomach. Biopsies were obtained from the body and antrum. Multiple scars of ? past ulcers in the distal body. No clear source found for anemia.? Poor PO intake likely related to gastritis and breast abscess. Plan: Await pathology results. Pt can be switched to PO PPI twice daily for gastritis Patient is scheduled for a colonoscopy on 04/02/22.? Discussed this with the patient and she prefers to schedule the colonoscopy as an outpatient after the breast infection has resolved. Above findings were reviewed with the patient. Surgeon: Terrence Issa MD Anesthesia:?MAC (Dr Lester) Was an Guyline Operator used for this Procedure?:?Yes Guyline Operator:?Tammy De La Rosa Estimated blood loss (mL):?0 Pathology:?other (A. SMALL BOWEL BIOPSIES? B. GASTRIC ANTRUM? C. GASTRIC BODY? D. NODULE GE JUNCTION? E. GE JUNCTION R/O BARRETTS) Condition:?stable Disposition:?PACU
--- NOTE | 2022-03-30 15:10 | HO.PM.IMPN ---
Subjective Subjective Date of Service: 03/31/22 Interval History: Feels much better today after blood. Scheduled for endoscopy this afternoon. Review of Systems Denies chest pain Denies shortness of breath Denies nausea vomiting diarrhea Denies fever chills Physical Exam Vital Signs: Vital Signs: Last Vital Signs Temp 97.6 F 03/30/22 14:20 Pulse 95 03/30/22 14:35 Resp 16 03/30/22 14:35 BP 163/82 H 03/30/22 14:35 Pulse Ox 97 03/30/22 14:35 BMI result Body Mass Index 29.8 Const: Other: Awake alert oriented x3 no acute distress Chest: Other: Right lateral breast with erythematous indurated area into axilla no fluctuance noted Resp: Other: Clear to auscultation bilaterally no rales rhonchi or wheezes Cardio: Other: No S4; positive S1-S2; no S3 murmurs rubs gallops GI: Other: Soft nontender and nondistended with normoactive bowel sounds Extrem: Other: No edema bilaterally Objective Data Active Medications Acetaminophen (Acetaminophen 325 Mg Tablet) 650 mg PO Q6H PRN PRN Reason: Pain, Mild (Pain Scale 1-3) Enoxaparin Sodium (Enoxaparin Sodium 40 Mg/0.4 Ml Syringe) 40 mg SUBCUT Q24H [facility] Last Admin: 03/29/22 21:01 Dose: Not Given Documented by: ALEC Non-Admin Reason: hold per md for drop in h&h Hydromorphone HCl (Hydromorphone Hcl 1 Mg/Ml Syringe) 0.5 mg IVPUSH Q4H PRN; Protocol PRN Reason: Pain, Severe (Pain Scale 7-10) Last Admin: 03/30/22 10:39 Dose: 0.5 mg Documented by: DANIELLE Cefazolin Sodium/Dextrose (Ancef) 2 gm in 50 mls @ 100 mls/hr IV Q8H [facility] Last Infusion: 03/30/22 06:50 Dose: 0 mls/hr Documented by: SHERRELL Lactated Ringer's (Lr) 1,000 mls @ 100 mls/hr IVCONT .Q10H [facility] Last Admin: 03/30/22 12:18 Dose: 100 mls/hr Documented by: DANIELLE Potassium Chloride () 10 meq in 100 mls @ 100 mls/hr IV Q1H [facility] Stop: 03/30/22 15:59 Last Infusion: 03/30/22 13:42 Dose: 0 mls/hr Documented by: DANIELLE Lactated Ringer's (Lr) 1,000 mls @ 50 mls/hr IVCONT .Q20H [facility] Last Admin: 03/30/22 13:43 Dose: 50 mls/hr Documented by: FEDERICA Melatonin (Melatonin 3 Mg Tablet) 6 mg PO BEDTIME PRN PRN Reason: Insomnia Pantoprazole Sodium (Pantoprazole Sodium 40 Mg/10 Ml Vial) 40 mg IVPUSH BID@0630,1630 [facility] Last Admin: 03/30/22 06:05 Dose: 40 mg Documented by: SHERRELL Pharmacy Consult (Consult Rx Perform Med Rec) 1 each MISCELLANE ONCE PRN PRN Reason: Consult order Pharmacy Consult (Consult Rx Vancomycin Dosing) 1 each MISCELLANE DAILY PRN PRN Reason: Consult order Sodium Chloride (0.9 % Sodium Chloride Flush 3 Ml Syringe) 3 ml IVFLUSH QSHIFT [facility] Last Admin: 03/30/22 07:39 Dose: 3 ml Documented by: DANIELLE Labs CBC & Chem 7: 03/31/22 05:33 03/31/22 05:33 Labs: Laboratory Results - last 24 hr 03/29/22 03/29/22 03/30/22 12:55 18:03 05:47 MCV 90.6 MCH 30.9 MCHC 34.1 RDW 14.6 Plt Count 190 MPV 9.2 L Immature Gran % (Auto) Cancelled Neut % (Auto) Cancelled Lymph % (Auto) Cancelled Burt % (Auto) Cancelled Eos % (Auto) Cancelled Baso % (Auto) Cancelled Lymph # (Auto) Cancelled Burt # (Auto) Cancelled Eos # (Auto) Cancelled Baso # (Auto) Cancelled Abs Immat Gran (auto) Cancelled Absolute Neuts (auto) Cancelled Absolute Nucleated RBC 0.020 H Nucleated RBC % (auto) 0.1 Neutrophils % (Manual) 65 Band Neutrophils % 22 H Lymphocytes % (Manual) 6 L Monocytes % (Manual) 3 Metamyelocytes % 4 Abs Neuts (Manual) 12.7 H Lymphocytes # (Manual) 0.9 L Monocytes # (Manual) 0.4 Metamyelocytes # 0.6 Platelet Estimate NORMAL Plt Morphology Comment NORMAL RBC Morphology NORMAL PT INR Anion Gap Estim Creat Clear Calc Estimated GFR Fasting Glucose Calcium Total Bilirubin AST ALT Alkaline Phosphatase Total Protein Albumin Vancomycin Trough 11.4 Blood Type A Positive Antibody Screen NEGATIVE Crossmatch See Detail 03/30/22 03/30/22 05:47 12:11 MCV MCH MCHC RDW Plt Count MPV Immature Gran % (Auto) Neut % (Auto) Lymph % (Auto) Burt % (Auto) Eos % (Auto) Baso % (Auto) Lymph # (Auto) Burt # (Auto) Eos # (Auto) Baso # (Auto) Abs Immat Gran (auto) Absolute Neuts (auto) Absolute Nucleated RBC Nucleated RBC % (auto) Neutrophils % (Manual) Band Neutrophils % Lymphocytes % (Manual) Monocytes % (Manual) Metamyelocytes % Abs Neuts (Manual) Lymphocytes # (Manual) Monocytes # (Manual) Metamyelocytes # Platelet Estimate Plt Morphology Comment RBC Morphology PT 16.0 H INR 1.4 H Anion Gap 12 Estim Creat Clear Calc 92.5 Estimated GFR > 60 Fasting Glucose 88 Calcium 7.6 L Total Bilirubin 1.0 AST 16 ALT 7 Alkaline Phosphatase 119 H Total Protein 5.1 L Albumin 2.3 L Vancomycin Trough Blood Type Antibody Screen Crossmatch Microbiology Microbiology Results: Microbiology 03/28/22 10:45 Blood Culture - Preliminary Blood - Venous No growth after 48 hours. 03/28/22 10:45 Blood Culture - Preliminary Blood - Venous No growth after 48 hours. Assessment and Plan (1) Abscess of breast, right: Status: Acute (2) Anemia: Status: Acute (3) Psoriasis: Status: Acute Plan 71-year-old female with a past medical history of psoriasis presented to the hospital with a chief complaint of right breast pain redness and swelling for about a month. Noted to have right breast cellulitis/abscess. Admitted for further management. 1.Right breast cellulitis/abscess: -US drainage rescheduled for today -switched Kefzol 2 g IV Q 8 for MSSA; will discuss dapsone with ID -follow-up cultures ....2/2GPC awaiting ID/SS. -cultures negative times 48 hours. . . PICC line at IR discretion 2.Anemia -hemoglobin stable post transfusion -EGD results reviewed -for colonoscopy on Saturday 3.Psoriasis -restart prednisone on discharge -treat as clinically indicated DVT prophylaxis: Lovenox Code status: Full code Will require ongoing hospitalization for IV treatment of right breast cellulitis pending culture and sensitivities Quality Stroke Does the patient have a stroke diagnosis?: No VTE Prior VTE?: No VTE Risk Level:: Medical - moderate - high VTE Device Contraindication: Treatment Not Indicated VTE Drug Contraindication: N/A - Med Ordered
--- NOTE | 2022-03-30 15:55 | MHC.CM.PN ---
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 electronic medical record reviewed along with case discussed with staff nurse and hospitlaist , patient received prbc transfusion today , EGD ( done see abnormalities and bx taken in gi report), PLAN FOR COLONOSCOPY 04/02/22, FOR IR VS SURGICAL BREAST ABSCESS DRAINAGE WILL NEED PIC LINE PLACEMENT , AWAITING FINAL CULTURE REPORTS IF NEGATIVE WLL HAVE IR PLACE PIC LINE FOR IV ABX FOR 4 WEEKS , PATIENT HAS NO MEDICACRE PART D THUS NOT ELIGEABLE FOR COVERAGE FOR HOME IV ABX WITH INFUSION CO AND NO PAYRMENT FOR INDFUSION CO NURSE , PATIENT REPORTED SHE COULD NOT SELF PAY FOR THIS , NEXT PLAN WOULD BE TO SEE IF SHE CAN BE PLACED ON IV ABX X1 QD FOR FOUR WEEKS IN [facility] [place] HER SON WOULD BE ABLE TO BE ABLE TO PROIVDE TRANSPORTATION QD, ( HE WILL TAKE FAMILY LEAVE FROM WORK ) EDUCATED THE PATIENT ABOUT THE IMPORTANCE OF HAVING A PCP AND THE H;IST OF THE [facility] GIVEN TO HER , SHE t this time is not willing to make any decisions until after being out of the hospital . educated about the importance of getting medicare part d for prescription drug coverage , patient was not intersted in hearing about this or contacting medicare at 1-800-medicare or via computer for medicaregiov.com to find out about eligeability and medicare d information , she reported she does not have the money for this (she is on a fixed income and share all expenses with her son) i wanted to explore [employer] eligeability with her and she reported to me she did not want to hear anymore and that she needed to preapre for her proceudres today hospitlais tplan to remain hospitlaiszed for iv abx treatment q8hrs for right breast abscess, elevated wbc and pending culture report and sensativities m, consult with id to poonamze abx for qd administration , case packer and sealer to follow up,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
[2022-03-30] MEDS: Enoxaparin Sodium 40 MG/0.4 ML SYRINGE SUBCUT (20:18)
[2022-03-31] VITALS (7 sets, daily range): BP systolic 125–166; BP diastolic 58–77; PULSE 90–106; RESP 17–20; TEMP 36.5–37.7; O2SAT 92–99
[2022-03-31] MEDS: Lactated Ringers 1,000 ML 100 ML IVCONT ×2 (02:46→17:24)
[2022-03-31 05:47] LABS: Hematocrit 33.2 % (37.0-47.0); Hemoglobin 11.1 g/dl (12.0-16.0); Mean Corpuscular HGB Conc 33.4 g/dl (31.0-35.0); Mean Corpuscular Hemoglobin 30.7 pg (27.0-33.0); Mean Platelet Volume 9.3 fL (9.4-12.3); NRBC Pct Auto 0.3 /100WBC (0.0-0.2); Platelet Count 196 X10*3/uL (160-400); Red Blood Count 3.61 X10*6/uL (4.20-5.50); Red Cell Distribution Width 14.7 % (11.0-16.0); White Blood Count 15.7 X10*3/uL (4.8-10.8)
[2022-03-31 06:12] LABS: Alanine Aminotransferase 9 U/L (0-31); Albumin Level 2.5 g/dL (3.5-5.0); Alkaline Phosphatase 142 U/L (39-117); Anion Gap 14 (12-20); Aspartate Amino Transferase 24 U/L (5-31); Bilirubin Total 0.8 mg/dL (0.0-1.0); Blood Urea Nitrogen 5 mg/dL (9-16); Calcium 7.8 mg/dL (8.4-10.2); Carbon Dioxide 23 mmol/L (22-29); Chloride 102 mmol/L (96-108); Creatinine Clr Calc Pharmacy 87.7; Estimated Glomerular Filt Rate > 60; Glucose Fasting 91 mg/dL (60-99); Potassium 3.7 mmol/L (3.3-5.1); Sodium 135 mmol/L (135-145); Total Protein 5.5 g/dL (6.5-8.0)
[2022-03-31 06:17] LABS: Band Neutrophils Percent 18 % (3-5); Lymphocytes Absolute Manual 0.8 X10*3/uL (1.2-4.9); Lymphocytes Percent Manual 5 % (20-40); Monocytes Absolute Manual 0.9 X10*3/uL (0.1-1.2); Monocytes Percent Manual 6 % (2-11); Neutrophils Percent Manual 71 % (45-73)
[2022-03-31] MEDS: ceFAZolin Sodium/Dextrose,Iso 2 GM/50 ML PIGGYBACK IV ×3 (06:18→22:30)
[2022-03-31 06:19] LABS: Burr Cells 1+ (0-2) /OIF; Ovalocytes 1+ (5-14) /OIF; RBC Morphology NOTED
[2022-03-31 06:20] LABS: Platelet Estimate NORMAL (NORMAL); Platelet Morphology Comment NORMAL; Smudge Cells PRESENT
[2022-03-31] MEDS: Pantoprazole Sodium 40 MG/10 ML VIAL IVPUSH ×2 (06:22→16:37)
[2022-03-31] MEDS: 0.9 % Sodium Chloride Flush 3 ML SYRINGE IVFLUSH ×2 (08:51→15:14)
[2022-03-31] MEDS: traMADoL HCL 50 MG TABLET 25 MG PO (11:49)
--- NOTE | 2022-03-31 13:28 | P.PNIM_ITS ---
Subjective Subjective Date of Service: 03/31/22 Interval History: Feels much better today .... I and D done yesterday afternoon without incident Review of Systems Denies chest pain Denies shortness of breath Denies nausea vomiting diarrhea Denies fever chills Physical Exam Vital Signs: Vital Signs: Last Vital Signs Temp 98.2 F 03/31/22 12:00 Pulse 98 03/31/22 12:00 Resp 18 03/31/22 12:00 BP 144/71 H 03/31/22 12:00 Pulse Ox 99 03/31/22 12:00 BMI result Body Mass Index 29.8 Const: Other: Awake alert oriented x3 no acute distress Chest: Other: Right lateral breast with erythematous indurated area into axilla no fluctuance noted Resp: Other: Clear to auscultation bilaterally no rales rhonchi or wheezes Cardio: Other: No S4; positive S1-S2; no S3 murmurs rubs gallops GI: Other: Soft nontender and nondistended with normoactive bowel sounds Extrem: Other: No edema bilaterally Objective Data Active Medications Acetaminophen (Acetaminophen 325 Mg Tablet) 650 mg PO Q6H PRN PRN Reason: Pain, Mild (Pain Scale 1-3) Enoxaparin Sodium (Enoxaparin Sodium 40 Mg/0.4 Ml Syringe) 40 mg SUBCUT Q24H [facility] Last Admin: 03/30/22 20:18 Dose: 40 mg Documented by: YOANNA Hydromorphone HCl (Hydromorphone Hcl 1 Mg/Ml Syringe) 0.5 mg IVPUSH Q4H PRN; Protocol PRN Reason: Pain, Severe (Pain Scale 7-10) Last Admin: 03/30/22 21:20 Dose: 0.5 mg Documented by: YOANNA Cefazolin Sodium/Dextrose (Ancef) 2 gm in 50 mls @ 100 mls/hr IV Q8H [facility] Last Infusion: 03/31/22 07:12 Dose: 0 mls/hr Documented by: YOANNA Lactated Ringer's (Lr) 1,000 mls @ 100 mls/hr IVCONT .Q10H [facility] Last Infusion: 03/31/22 10:25 Dose: 0 mls/hr Documented by: ALEC Melatonin (Melatonin 3 Mg Tablet) 6 mg PO BEDTIME PRN PRN Reason: Insomnia Pantoprazole Sodium (Pantoprazole Sodium 40 Mg/10 Ml Vial) 40 mg IVPUSH BID @4845,3560 [facility] Last Admin: 03/31/22 06:22 Dose: 40 mg Documented by: YOANNA Pharmacy Consult (Consult Rx Perform Med Rec) 1 each MISCELLANE ONCE PRN PRN Reason: Consult order Pharmacy Consult (Consult Rx Vancomycin Dosing) 1 each MISCELLANE DAILY PRN PRN Reason: Consult order Sodium Chloride (0.9 % Sodium Chloride Flush 3 Ml Syringe) 3 ml IVFLUSH QSHIFT [facility] Last Admin: 03/31/22 08:51 Dose: 3 ml Documented by: ALEC Tramadol HCl (Tramadol Hcl 50 Mg Tablet) 25 mg PO Q6H PRN PRN Reason: Pain, Moderate (Pain Scale 4-6 Last Admin: 03/31/22 11:49 Dose: 25 mg Documented by: ALEC Labs CBC & Chem 7: 03/31/22 05:33 03/31/22 05:33 Labs: Laboratory Results - last 24 hr 03/26/22 03/27/22 03/28/22 16:54 05:27 05:22 WBC 19.7 H 17.8 H 17.2 H MCV MCH MCHC RDW Plt Count MPV Immature Gran % (Auto) Neut % (Auto) Lymph % (Auto) Owen % (Auto) Eos % (Auto) Baso % (Auto) Lymph # (Auto) Owen # (Auto) Eos # (Auto) Baso # (Auto) Abs Immat Gran (auto) Absolute Neuts (auto) Absolute Nucleated RBC Nucleated RBC % (auto) Neutrophils % (Manual) Band Neutrophils % Lymphocytes % (Manual) Monocytes % (Manual) Abs Neuts (Manual) Lymphocytes # (Manual) Monocytes # (Manual) Smudge Cells Platelet Estimate Plt Morphology Comment RBC Morphology Ovalocytes Novi Cells Anion Gap Estim Creat Clear Calc Estimated GFR Fasting Glucose Calcium Total Bilirubin AST ALT Alkaline Phosphatase Total Protein Albumin 03/29/22 03/30/22 03/31/22 05:25 05:47 05:33 WBC 15.5 H 14.6 H 15.7 H MCV 92.0 MCH 30.7 MCHC 33.4 RDW 14.7 Plt Count 196 MPV 9.3 L Immature Gran % (Auto) Cancelled Neut % (Auto) Cancelled Lymph % (Auto) Cancelled Owen % (Auto) Cancelled Eos % (Auto) Cancelled Baso % (Auto) Cancelled Lymph # (Auto) Cancelled Owen # (Auto) Cancelled Eos # (Auto) Cancelled Baso # (Auto) Cancelled Abs Immat Gran (auto) Cancelled Absolute Neuts (auto) Cancelled Absolute Nucleated RBC 0.040 H Nucleated RBC % (auto) 0.3 H Neutrophils % (Manual) 71 Band Neutrophils % 18 H Lymphocytes % (Manual) 5 L Monocytes % (Manual) 6 Abs Neuts (Manual) 14.0 H Lymphocytes # (Manual) 0.8 L Monocytes # (Manual) 0.9 Smudge Cells PRESENT Platelet Estimate NORMAL Plt Morphology Comment NORMAL RBC Morphology NOTED Ovalocytes 1+ (5-14) Novi Cells 1+ (0-2) Anion Gap Estim Creat Clear Calc Estimated GFR Fasting Glucose Calcium Total Bilirubin AST ALT Alkaline Phosphatase Total Protein Albumin 03/31/22 05:33 WBC MCV MCH MCHC RDW Plt Count MPV Immature Gran % (Auto) Neut % (Auto) Lymph % (Auto) Owen % (Auto) Eos % (Auto) Baso % (Auto) Lymph # (Auto) Owen # (Auto) Eos # (Auto) Baso # (Auto) Abs Immat Gran (auto) Absolute Neuts (auto) Absolute Nucleated RBC Nucleated RBC % (auto) Neutrophils % (Manual) Band Neutrophils % Lymphocytes % (Manual) Monocytes % (Manual) Abs Neuts (Manual) Lymphocytes # (Manual) Monocytes # (Manual) Smudge Cells Platelet Estimate Plt Morphology Comment RBC Morphology Ovalocytes Novi Cells Anion Gap 14 Estim Creat Clear Calc 87.7 Estimated GFR > 60 Fasting Glucose 91 Calcium 7.8 L Total Bilirubin 0.8 AST 24 D ALT 9 Alkaline Phosphatase 142 H Total Protein 5.5 L Albumin 2.5 L Microbiology Microbiology Results: Microbiology 03/28/22 10:45 Blood Culture - Preliminary Blood - Venous No growth after 48 hours. 03/28/22 10:45 Blood Culture - Preliminary Blood - Venous No growth after 48 hours. Assessment and Plan (1) Abscess of breast, right: Status: Acute (2) Anemia: Status: Acute (3) Psoriasis: Status: Acute Plan 71-year-old female with a past medical history of psoriasis presented to the hospital with a chief complaint of right breast pain redness and swelling for about a month. Noted to have right breast cellulitis/abscess. Admitted for further management. 1.Right breast cellulitis/abscess: -US drainage done 03/30 without issue. Minimal drainage thus far -switched Kefzol 2 g IV Q 8 for MSSA; will discuss dapsone with ID -follow-up cultures ....MSSA -cultures negative times 48 hours. . . PICC line 04/02/22 2.Anemia -hemoglobin stable post transfusion -EGD ... Moderate diffuse gastritis. Oral PPI -for colonoscopy on Saturday 3.Psoriasis -restart prednisone on discharge -treat as clinically indicated DVT prophylaxis: Lovenox Code status: Full code Will require ongoing hospitalization for IV treatment of right breast cellulitis pending culture and sensitivities Quality Stroke Does the patient have a stroke diagnosis?: No VTE Prior VTE?: No VTE Risk Level:: Medical - moderate - high VTE Device Contraindication: Treatment Not Indicated VTE Drug Contraindication: N/A - Med Ordered
--- NOTE | 2022-03-31 15:34 | PC.NURSE ---
Right breast abscess drain with no drainage in bag. Purulent drainage in tubing. Area around drain red, warm, edema.
--- NOTE | 2022-03-31 16:34 | HO.POSTANES ---
Post Anesthesia Evaluation Post Anesthesia Evaluation Vital Signs: Vital Signs Temp Pulse Resp BP Pulse Ox 03/31/22 15:28 98.3 F 94 17 153/72 H 95 03/31/22 12:00 98.2 F 98 18 144/71 H 99 03/31/22 07:34 97.7 F 106 H 18 125/69 97 Anesthesia: Monitored Mental Status: Awake Pain Control: Satisfactory Nausea/Vomiting: None Hydration: Adequate Anesthesia-Related Issues: No Anes. Related Issues
[2022-03-31] MEDS: Acetaminophen 325 MG TABLET 650 MG PO (22:29)
[2022-03-31] MEDS: Enoxaparin Sodium 40 MG/0.4 ML SYRINGE SUBCUT (22:37)
[2022-04-01 03:41] VITALS: BP 159/71; PULSE 82; RESP 16; TEMP 36.4; O2SAT 98
[2022-04-01 05:38] LABS: Hematocrit 30.6 % (37.0-47.0); Hemoglobin 10.2 g/dl (12.0-16.0); Mean Corpuscular HGB Conc 33.3 g/dl (31.0-35.0); Mean Corpuscular Hemoglobin 30.6 pg (27.0-33.0); Mean Corpuscular Volume 91.9 fL (80.0-98.0); Mean Platelet Volume 9.3 fL (9.4-12.3); Platelet Count 180 X10*3/uL (160-400); Red Blood Count 3.33 X10*6/uL (4.20-5.50); Red Cell Distribution Width 14.9 % (11.0-16.0)
[2022-04-01 05:49] LABS: Alanine Aminotransferase < 6 U/L (0-31); Albumin Level 2.3 g/dL (3.5-5.0); Alkaline Phosphatase 118 U/L (39-117); Anion Gap 12 (12-20); Aspartate Amino Transferase 20 U/L (5-31); Bilirubin Total 0.6 mg/dL (0.0-1.0); Blood Urea Nitrogen 4 mg/dL (9-16); Calcium 7.6 mg/dL (8.4-10.2); Carbon Dioxide 24 mmol/L (22-29); Chloride 103 mmol/L (96-108); Estimated Glomerular Filt Rate > 60; Glucose Fasting 99 mg/dL (60-99); Potassium 3.2 mmol/L (3.3-5.1); Sodium 136 mmol/L (135-145); Total Protein 5.2 g/dL (6.5-8.0)
[2022-04-01 06:00] LABS: Band Neutrophils Percent 14 % (3-5); Lymphocytes Absolute Manual 1.4 X10*3/uL (1.2-4.9); Lymphocytes Percent Manual 10 % (20-40); Metamyelocytes Absolute 0.4 X10*3/uL; Metamyelocytes Percent 3 %; Monocytes Absolute Manual 0.7 X10*3/uL (0.1-1.2); Monocytes Percent Manual 5 % (2-11); Neutrophils Absolute Manual 11.5 X10*3/uL (2.0-8.3); Neutrophils Percent Manual 68 % (45-73)
[2022-04-01 06:01] LABS: RBC Morphology NOTED
[2022-04-01 06:02] LABS: Burr Cells 1+ (0-2) /OIF; Ovalocytes 1+ (5-14) /OIF; Platelet Estimate NORMAL (NORMAL); Platelet Morphology Comment NORMAL
[2022-04-01 06:03] LABS: Toxic Vacuolation PRESENT
[2022-04-01] MEDS: Lactated Ringers 1,000 ML 100 ML IVCONT ×2 (06:03→14:54)
[2022-04-01] MEDS: Pantoprazole Sodium 40 MG/10 ML VIAL IVPUSH (06:08)
[2022-04-01] MEDS: ceFAZolin Sodium/Dextrose,Iso 2 GM/50 ML PIGGYBACK IV ×3 (06:10→22:08)
[2022-04-01 07:24] VITALS: BP 172/76; PULSE 95; RESP 18; TEMP 37.1; O2SAT 97
[2022-04-01] MEDS: Potassium Chloride/H20 10 MEQ/100 ML PIGGYBACK 100 MEQ IV ×4 (08:40→12:00)
[2022-04-01 12:00] VITALS: BP 177/80; PULSE 98; RESP 20; TEMP 38; O2SAT 97
--- NOTE | 2022-04-01 12:35 | HO.PM.IMPN ---
Subjective Subjective Date of Service: 04/01/22 Interval History: Voices no complaints today. Remains afebrile. Minimal drainage in back Review of Systems Denies chest pain Denies shortness of breath Denies nausea vomiting diarrhea Denies fever chills Physical Exam Vital Signs: Vital Signs: Last Vital Signs Temp 100.4 F 04/01/22 12:00 Pulse 98 04/01/22 12:00 Resp 20 04/01/22 12:00 BP 177/80 H 04/01/22 12:00 Pulse Ox 97 04/01/22 12:00 BMI result Body Mass Index 29.8 Const: Other: Awake alert oriented x3 no acute distress Chest: Other: Right lateral breast with erythematous indurated area into axilla no fluctuance noted Resp: Other: Clear to auscultation bilaterally no rales rhonchi or wheezes Cardio: Other: No S4; positive S1-S2; no S3 murmurs rubs gallops GI: Other: Soft nontender and nondistended with normoactive bowel sounds Extrem: Other: No edema bilaterally Objective Data Active Medications Acetaminophen (Acetaminophen 325 Mg Tablet) 650 mg PO Q6H PRN PRN Reason: Pain, Mild (Pain Scale 1-3) Last Admin: 03/31/22 22:29 Dose: 650 mg Documented by: YOANNA Enoxaparin Sodium (Enoxaparin Sodium 40 Mg/0.4 Ml Syringe) 40 mg SUBCUT Q24H [facility] Last Admin: 03/31/22 22:37 Dose: 40 mg Documented by: YOANNA Cefazolin Sodium/Dextrose (Ancef) 2 gm in 50 mls @ 100 mls/hr IV Q8H [facility] Last Infusion: 04/01/22 07:12 Dose: 0 mls/hr Documented by: YOANNA Lactated Ringer's (Lr) 1,000 mls @ 100 mls/hr IVCONT .Q10H [facility] Last Admin: 04/01/22 06:03 Dose: 100 mls/hr Documented by: YOANNA Melatonin (Melatonin 3 Mg Tablet) 6 mg PO BEDTIME PRN PRN Reason: Insomnia Pharmacy Consult (Consult Rx Perform Med Rec) 1 each MISCELLANE ONCE PRN PRN Reason: Consult order Pharmacy Consult (Consult Rx Vancomycin Dosing) 1 each MISCELLANE DAILY PRN PRN Reason: Consult order Sodium Chloride (0.9 % Sodium Chloride Flush 3 Ml Syringe) 3 ml IVFLUSH QSHIFT [facility] Last Admin: 04/01/22 09:51 Dose: Not Given Documented by: BERNARD Non-Admin Reason: IV Running Tramadol HCl (Tramadol Hcl 50 Mg Tablet) 25 mg PO Q6H PRN PRN Reason: Pain, Moderate (Pain Scale 4-6 Last Admin: 03/31/22 11:49 Dose: 25 mg Documented by: ALEC Labs CBC & Chem 7: 04/01/22 05:23 04/01/22 05:23 Labs: Laboratory Results - last 24 hr 03/29/22 04/01/22 04/01/22 12:55 05:23 05:23 MCV 91.9 MCH 30.6 MCHC 33.3 RDW 14.9 Plt Count 180 MPV 9.3 L Immature Gran % (Auto) Cancelled Neut % (Auto) Cancelled Lymph % (Auto) Cancelled Cochran % (Auto) Cancelled Eos % (Auto) Cancelled Baso % (Auto) Cancelled Lymph # (Auto) Cancelled Cochran # (Auto) Cancelled Eos # (Auto) Cancelled Baso # (Auto) Cancelled Abs Immat Gran (auto) Cancelled Absolute Neuts (auto) Cancelled Absolute Nucleated RBC 0.000 Nucleated RBC % (auto) 0.0 Neutrophils % (Manual) 68 Band Neutrophils % 14 H Lymphocytes % (Manual) 10 L Monocytes % (Manual) 5 Metamyelocytes % 3 Abs Neuts (Manual) 11.5 H Lymphocytes # (Manual) 1.4 Monocytes # (Manual) 0.7 Metamyelocytes # 0.4 Toxic Vacuolation PRESENT Platelet Estimate NORMAL Plt Morphology Comment NORMAL RBC Morphology NOTED Ovalocytes 1+ (5-14) Elmer Cells 1+ (0-2) Anion Gap 12 Estim Creat Clear Calc 96.0 Estimated GFR > 60 Fasting Glucose 99 Calcium 7.6 L Total Bilirubin 0.6 AST 20 ALT < 6 Alkaline Phosphatase 118 H Total Protein 5.2 L Albumin 2.3 L Crossmatch See Detail Assessment and Plan (1) Cellulitis of breast: Status: Acute (2) Anemia: Status: Acute (3) Psoriasis: Status: Acute Plan 71-year-old female with a past medical history of psoriasis presented to the hospital with a chief complaint of right breast pain redness and swelling for about a month. Noted to have right breast cellulitis/abscess. Admitted for further management. 1.Right breast cellulitis/abscess: -switched Kefzol 2 g IV Q 8 for MSSA(06/21); will discuss dapsone with ID -follow-up cultures ....MSSA -cultures negative times 48 hours. . . PICC line 04/02/22 2.Anemia -hemoglobin stable post transfusion -EGD ... Moderate diffuse gastritis. Oral PPI -patient declines colonoscopy at this time. Wishes to wait till outpatient 3.Psoriasis -restart prednisone on discharge -treat as clinically indicated DVT prophylaxis: Lovenox Code status: Full code Will require ongoing hospitalization for IV treatment of right breast cellulitis pending culture and sensitivities Quality Stroke Does the patient have a stroke diagnosis?: No VTE Prior VTE?: No VTE Risk Level:: Medical - moderate - high VTE Device Contraindication: Treatment Not Indicated VTE Drug Contraindication: N/A - Med Ordered
[2022-04-01] MEDS: Potassium Chloride Packet 20 MEQ PACKET 40 MEQ PO (14:50)
[2022-04-01 15:25] VITALS: BP 154/76; PULSE 94; RESP 18; TEMP 37.3; O2SAT 98
[2022-04-01 18:57] VITALS: BP 176/75; PULSE 93; RESP 17; TEMP 37.2; O2SAT 95
[2022-04-01] MEDS: Enoxaparin Sodium 40 MG/0.4 ML SYRINGE SUBCUT (21:37)
[2022-04-01] MEDS: Acetaminophen 325 MG TABLET 650 MG PO (22:15)
--- NOTE | 2022-04-01 22:57 | PC.NURSE ---
P patient refused potassium dose I Dr. Bullard notified E will monitor
[2022-04-01] MEDS: Artificial Tears 15 ML DROPS 1 DROP EYE-BOTH (23:00)
[2022-04-02] VITALS: BP 155/68; PULSE 90; RESP 18; TEMP 36.5; O2SAT 97
[2022-04-02] MEDS: Lactated Ringers 1,000 ML 100 ML IVCONT ×2 (01:29→18:12)
[2022-04-02 04:00] VITALS: BP 163/72; PULSE 83; RESP 18; TEMP 36.5; O2SAT 98
[2022-04-02 06:10] LABS: Hematocrit 29.6 % (37.0-47.0); Mean Corpuscular HGB Conc 33.8 g/dl (31.0-35.0); Mean Corpuscular Hemoglobin 31.3 pg (27.0-33.0); Mean Corpuscular Volume 92.5 fL (80.0-98.0); Mean Platelet Volume 9.7 fL (9.4-12.3); Platelet Count 184 X10*3/uL (160-400); Red Cell Distribution Width 14.8 % (11.0-16.0); White Blood Count 12.1 X10*3/uL (4.8-10.8)
[2022-04-02 06:27] LABS: Alanine Aminotransferase 6 U/L (0-31); Albumin Level 2.1 g/dL (3.5-5.0); Alkaline Phosphatase 106 U/L (39-117); Anion Gap 14 (12-20); Aspartate Amino Transferase 21 U/L (5-31); Bilirubin Total 0.3 mg/dL (0.0-1.0); Blood Urea Nitrogen 4 mg/dL (9-16); Calcium 7.6 mg/dL (8.4-10.2); Carbon Dioxide 23 mmol/L (22-29); Chloride 103 mmol/L (96-108); Creatinine Clr Calc Pharmacy 103.8; Estimated Glomerular Filt Rate > 60; Glucose Fasting 79 mg/dL (60-99); Potassium 3.3 mmol/L (3.3-5.1); Sodium 137 mmol/L (135-145); Total Protein 4.8 g/dL (6.5-8.0)
[2022-04-02] MEDS: ceFAZolin Sodium/Dextrose,Iso 2 GM/50 ML PIGGYBACK IV (06:39)
[2022-04-02 06:44] LABS: Band Neutrophils Percent 15 % (3-5); Lymphocytes Percent Manual 8 % (20-40); Metamyelocytes Absolute 0.4 X10*3/uL; Metamyelocytes Percent 3 %; Monocytes Absolute Manual 0.6 X10*3/uL (0.1-1.2); Monocytes Percent Manual 5 % (2-11); Myelocytes Absolute 0.1 X10*/uL; Myelocytes Percent 1 %; Neutrophils Percent Manual 68 % (45-73)
[2022-04-02 06:46] LABS: Burr Cells 1+ (0-2) /OIF; Ovalocytes 1+ (5-14) /OIF; RBC Morphology NOTED
[2022-04-02 06:47] LABS: Platelet Estimate NORMAL (NORMAL); Platelet Morphology Comment NORMAL
[2022-04-02 07:23] VITALS: BP 158/72; PULSE 88; RESP 18; TEMP 36.4; O2SAT 97
[2022-04-02 11:23] VITALS: BP 131/82; PULSE 99; RESP 18; TEMP 36.6; O2SAT 98
--- NOTE | 2022-04-02 14:52 | MHC.CM.PN ---
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 discharge plan home with her son whom will bring her back to the [facility] [place] short stay daily for iv antibiotic administrqtion lab draws and pic line dressing changes weekly f/u with dr hannah dey id specialist who will be following her appointments date time and address transportation family no vna ordered as patient does not have A PCP NOR WILL SHE CALL FOR ONE ON THIS HOSPITAL ADMISSION) FINALIZING IV ANTIBIOITC ADMINISTRATION S LABS , [place] WITH [place] [facility] [place]
--- NOTE | 2022-04-02 15:51 | HO.PICC ---
PICC Line Insertion NPICC Diagnosis: [Bacteremia] Indication: [shelter antibiotics needed] Pertinent Labs: [reviewed] Technique: Following informed consent including risks, benefits and alternatives and using sterile technique including cap and mask, sterile gown, glove and drape, the [left] arm was prepped and draped in the usual sterile fashion of full barrier technique with CHG. Following completion of [place] Protocol the skin and soft tissues were anesthetized with 1% Lidocaine plain. Using ultrasound guidance, [left basilic] vein access was obtained by Gisselle Chavis RN, but unable to advance guidewire. Left Brachial vein access was attempted unsuccessfully by Gisselle Chavis RN. Left Basilic vein was accessed on first attempt by John Tate RN. Over an 0.018 wire through peel-away sheath, a [4FR single lumen] PICC line was positioned. Catheter length is [42 CM] internal length, [0 CM] external length, for a total trimmed length of [42 CM]. The procedure was performed in [S272]. Tip verification was performed by Sierra Canales with Cabrera 3CG. Tip located in SVC. Ultrasound was used to document vein patency and for needle entry. A formal ultrasound picture and cardiac rhythm strip was recorded. Vascular Mechanical Engineering Technologist has released the line for use and it is currently dressed with a StatLock, Tegaderm, and CHG disc. Verification has been performed for blood return and line patency. Arm Circumference: [28 CM] Equipment: [Friend[employer] App Power PICC SOLO] Catheter Type: [4FR single lumen PICC] Lot #: [[id number]]
[2022-04-02] MEDS: 0.9 % Sodium Chloride Flush 3 ML SYRINGE IVFLUSH (16:24)
[2022-04-02] MEDS: cefTRIAXone sodium 2 GM in 0.9 % Sodium Chloride 50 ML IV (16:25)
--- NOTE | 2022-04-02 17:54 | HO.PM.IMPN ---
Subjective Subjective Date of Service: 04/02/22 Interval History: Feels better overall. PICC line inserted today without issue. States appetite increasing Review of Systems Denies chest pain Denies shortness of breath Denies nausea vomiting diarrhea Denies fever chills Physical Exam Vital Signs: Vital Signs: Last Vital Signs Temp 97.8 F 04/02/22 11:23 Pulse 99 04/02/22 11:23 Resp 18 04/02/22 11:23 BP 131/82 04/02/22 11:23 Pulse Ox 98 04/02/22 11:23 BMI result Body Mass Index 29.8 Const: Other: Awake alert oriented x3 no acute distress Chest: Other: Right lateral breast with erythematous indurated area into axilla no fluctuance noted Resp: Other: Clear to auscultation bilaterally no rales rhonchi or wheezes Cardio: Other: No S4; positive S1-S2; no S3 murmurs rubs gallops GI: Other: Soft nontender and nondistended with normoactive bowel sounds Extrem: Other: No edema bilaterally Objective Data Active Medications Acetaminophen (Acetaminophen 325 Mg Tablet) 650 mg PO Q6H PRN PRN Reason: Pain, Mild (Pain Scale 1-3) Last Admin: 04/01/22 22:15 Dose: 325 mg Documented by: STEFAN Comments: patient requested 1 tablet only Artificial Tears (Artificial Tears 15 Ml Drops) 1 drop EYE-BOTH Q4H PRN PRN Reason: Dry Eyes Last Admin: 04/01/22 23:00 Dose: 1 drop Documented by: STEFAN Enoxaparin Sodium (Enoxaparin Sodium 40 Mg/0.4 Ml Syringe) 40 mg SUBCUT Q24H [facility] Last Admin: 04/01/22 21:37 Dose: 40 mg Documented by: STEFAN Lactated Ringer's (Lr) 1,000 mls @ 100 mls/hr IVCONT .Q10H [facility] Last Infusion: 04/02/22 11:40 Dose: 100 mls/hr Documented by: BERNARD Ceftriaxone Sodium 2 gm/ (Sodium Chloride) 50 mls @ 100 mls/hr IV Q24H [facility] Last Admin: 04/02/22 16:25 Dose: 100 mls/hr Documented by: STEFAN Melatonin (Melatonin 3 Mg Tablet) 6 mg PO BEDTIME PRN PRN Reason: Insomnia Pharmacy Consult (Consult Rx Perform Med Rec) 1 each MISCELLANE ONCE PRN PRN Reason: Consult order Pharmacy Consult (Consult Rx Vancomycin Dosing) 1 each MISCELLANE DAILY PRN PRN Reason: Consult order Sodium Chloride (0.9 % Sodium Chloride Flush 3 Ml Syringe) 3 ml IVFLUSH QSHIFT [facility] Last Admin: 04/02/22 16:24 Dose: 3 ml Documented by: STEFAN Tramadol HCl (Tramadol Hcl 50 Mg Tablet) 25 mg PO Q6H PRN PRN Reason: Pain, Moderate (Pain Scale 4-6 Last Admin: 03/31/22 11:49 Dose: 25 mg Documented by: ALEC Labs CBC & Chem 7: 04/02/22 05:22 04/02/22 05:22 Labs: Laboratory Results - last 24 hr 04/02/22 04/02/22 05:22 05:22 MCV 92.5 MCH 31.3 MCHC 33.8 RDW 14.8 Plt Count 184 MPV 9.7 Immature Gran % (Auto) Cancelled Neut % (Auto) Cancelled Lymph % (Auto) Cancelled [place] % (Auto) Cancelled Eos % (Auto) Cancelled Baso % (Auto) Cancelled Lymph # (Auto) Cancelled [place] # (Auto) Cancelled Eos # (Auto) Cancelled Baso # (Auto) Cancelled Abs Immat Gran (auto) Cancelled Absolute Neuts (auto) Cancelled Absolute Nucleated RBC 0.000 Nucleated RBC % (auto) 0.0 Neutrophils % (Manual) 68 Band Neutrophils % 15 H Lymphocytes % (Manual) 8 L Monocytes % (Manual) 5 Metamyelocytes % 3 Myelocytes % 1 Abs Neuts (Manual) 10.0 H Lymphocytes # (Manual) 1.0 L Monocytes # (Manual) 0.6 Metamyelocytes # 0.4 Myelocytes # 0.1 Platelet Estimate NORMAL Plt Morphology Comment NORMAL RBC Morphology NOTED Ovalocytes 1+ (5-14) Cutler Cells 1+ (0-2) Anion Gap 14 Estim Creat Clear Calc 103.8 Estimated GFR > 60 Fasting Glucose 79 Calcium 7.6 L Total Bilirubin 0.3 AST 21 ALT 6 Alkaline Phosphatase 106 Total Protein 4.8 L Albumin 2.1 L Microbiology Microbiology Results: Microbiology 03/28/22 10:45 Blood Culture - Final Blood - Venous No growth after 5 days. 03/28/22 10:45 Blood Culture - Final Blood - Venous No growth after 5 days. Assessment and Plan (1) Cellulitis of breast: Status: Acute (2) Anemia: Status: Acute (3) Psoriasis: Status: Acute Plan 71-year-old female with a past medical history of psoriasis presented to the hospital with a chief complaint of right breast pain redness and swelling for about a month. Noted to have right breast cellulitis/abscess. Recent EGD done for anemia. 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 Issa/Mariposa..... Patient aware of diagnosis. -Dr. Rodriguez will care for drain -ultrasound right breast -consult Dr. Gonzalez 2.Anemia -hemoglobin stable post transfusion -EGD ... Moderate diffuse gastritis. Oral PPI 3.Psoriasis -restart prednisone on discharge -treat as clinically indicated DVT prophylaxis: Lovenox Code status: Full code Will require ongoing hospitalization for IV treatment of right breast cellulitis pending culture and sensitivities Quality Stroke Does the patient have a stroke diagnosis?: No VTE Prior VTE?: No VTE Risk Level:: Medical - moderate - high VTE Device Contraindication: Treatment Not Indicated VTE Drug Contraindication: N/A - Med Ordered
[2022-04-02 19:39] VITALS: BP 179/82; PULSE 91; RESP 18; TEMP 36.6; O2SAT 98
[2022-04-02] MEDS: Enoxaparin Sodium 40 MG/0.4 ML SYRINGE SUBCUT (20:49)
[2022-04-02 20:50] VITALS: BP 162/73; PULSE 85
[2022-04-03] VITALS: BP 168/78; PULSE 87; RESP 18; TEMP 36.5; O2SAT 97
[2022-04-03 03:37] VITALS: BP 153/69; PULSE 87; RESP 18; TEMP 36.3; O2SAT 97
[2022-04-03] MEDS: Lactated Ringers 1,000 ML 100 ML IVCONT (03:40)
[2022-04-03 06:35] LABS: Hematocrit 29.2 % (37.0-47.0); Hemoglobin 9.8 g/dl (12.0-16.0); Mean Corpuscular HGB Conc 33.6 g/dl (31.0-35.0); Mean Corpuscular Hemoglobin 31.1 pg (27.0-33.0); Mean Corpuscular Volume 92.7 fL (80.0-98.0); Mean Platelet Volume 9.3 fL (9.4-12.3); Platelet Count 171 X10*3/uL (160-400); Red Blood Count 3.15 X10*6/uL (4.20-5.50); White Blood Count 9.3 X10*3/uL (4.8-10.8)
[2022-04-03 07:02] LABS: Alanine Aminotransferase 10 U/L (0-31); Albumin Level 2.2 g/dL (3.5-5.0); Alkaline Phosphatase 108 U/L (39-117); Anion Gap 13 (12-20); Aspartate Amino Transferase 27 U/L (5-31); Bilirubin Total 0.3 mg/dL (0.0-1.0); Blood Urea Nitrogen 4 mg/dL (9-16); Calcium 7.5 mg/dL (8.4-10.2); Carbon Dioxide 24 mmol/L (22-29); Chloride 102 mmol/L (96-108); Creatinine Clr Calc Pharmacy 101.7; Estimated Glomerular Filt Rate > 60; Glucose Fasting 90 mg/dL (60-99); Potassium 3.3 mmol/L (3.3-5.1); Sodium 136 mmol/L (135-145); Total Protein 4.9 g/dL (6.5-8.0)
[2022-04-03 07:12] VITALS: BP 162/74; PULSE 85; RESP 18; TEMP 36.2; O2SAT 98
[2022-04-03 07:31] LABS: Band Neutrophils Percent 6 % (3-5); Lymphocytes Absolute Manual 0.7 X10*3/uL (1.2-4.9); Lymphocytes Percent Manual 7 % (20-40); Metamyelocytes Absolute 0.1 X10*3/uL; Metamyelocytes Percent 1 %; Monocytes Absolute Manual 0.6 X10*3/uL (0.1-1.2); Monocytes Percent Manual 6 % (2-11); Neutrophils Percent Manual 80 % (45-73); Nucleated Red Blood Cells 1 /100WBC (0-0)
[2022-04-03 07:33] LABS: Acanthocytes 1+ (0-2) /OIF; Macrocytosis 1+ (5-14) /OIF; Ovalocytes 1+ (5-14) /OIF; Platelet Estimate NORMAL (NORMAL); Platelet Morphology Comment NORMAL; RBC Morphology NOTED
[2022-04-03 07:34] LABS: Hypochromasia 1+ (5-14) /OIF; Polychromasia 1+ (0-2) /OIF; Tear Drop Cells 1+ (0-2) /OIF
--- NOTE | 2022-04-03 08:01 | PM.PNGS ---
Subjective Subjective Date of Service: 04/03/22 Interval history: Patient continues to have soreness in the right axilla but does feel somewhat improved. IR drain is producing thick foul-smelling discharge. A 2nd blister opened and is draining more pus. Not interested in talking about cancer at this time. Physical Exam Vital Signs: Vital Signs: Last Vital Signs Temp 97.2 F 04/03/22 07:12 Pulse 85 04/03/22 07:12 Resp 18 04/03/22 07:12 BP 162/74 H 04/03/22 07:12 Pulse Ox 98 04/03/22 07:12 BMI result Body Mass Index 29.8 Chest: Other: Erythema remains in the upper outer quadrant of the right breast. IR drain using purulence material. Located just below the drain location is producing thick foul-smelling purulence discharge. I was able to express a large collection. Dressings changed and covered with paper tape. Skin: Other: Erythema of right breast as noted above Objective Data Active Medications Acetaminophen (Acetaminophen 325 Mg Tablet) 650 mg PO Q6H PRN PRN Reason: Pain, Mild (Pain Scale 1-3) Last Admin: 04/01/22 22:15 Dose: 325 mg Documented by: STEFAN Comments: patient requested 1 tablet only Artificial Tears (Artificial Tears 15 Ml Drops) 1 drop EYE-BOTH Q4H PRN PRN Reason: Dry Eyes Last Admin: 04/01/22 23:00 Dose: 1 drop Documented by: STEFAN Enoxaparin Sodium (Enoxaparin Sodium 40 Mg/0.4 Ml Syringe) 40 mg SUBCUT Q24H [facility] Last Admin: 04/02/22 20:49 Dose: 40 mg Documented by: STEFAN Lactated Ringer's (Lr) 1,000 mls @ 100 mls/hr IVCONT .Q10H [facility] Last Admin: 04/03/22 03:40 Dose: 100 mls/hr Documented by: SHERRELL Ceftriaxone Sodium 2 gm/ (Sodium Chloride) 50 mls @ 100 mls/hr IV Q24H [facility] Last Infusion: 04/02/22 18:13 Dose: 0 mls/hr Documented by: STEFAN Melatonin (Melatonin 3 Mg Tablet) 6 mg PO BEDTIME PRN PRN Reason: Insomnia Pharmacy Consult (Consult Rx Perform Med Rec) 1 each MISCELLANE ONCE PRN PRN Reason: Consult order Sodium Chloride (0.9 % Sodium Chloride Flush 3 Ml Syringe) 3 ml IVFLUSH QSHIFT [facility] Last Admin: 04/03/22 00:25 Dose: Not Given Documented by: SHERRELL Non-Admin Reason: IV Running Tramadol HCl (Tramadol Hcl 50 Mg Tablet) 25 mg PO Q6H PRN PRN Reason: Pain, Moderate (Pain Scale 4-6 Last Admin: 03/31/22 11:49 Dose: 25 mg Documented by: ALEC Labs CBC & Chem 7: 04/03/22 06:26 04/03/22 06:26 Labs: Laboratory Results - last 24 hr 04/03/22 04/03/22 06:26 06:26 MCV 92.7 MCH 31.1 MCHC 33.6 RDW 15.0 Plt Count 171 MPV 9.3 L Immature Gran % (Auto) Cancelled Neut % (Auto) Cancelled Lymph % (Auto) Cancelled [place] % (Auto) Cancelled Eos % (Auto) Cancelled Baso % (Auto) Cancelled Lymph # (Auto) Cancelled [place] # (Auto) Cancelled Eos # (Auto) Cancelled Baso # (Auto) Cancelled Abs Immat Gran (auto) Cancelled Absolute Neuts (auto) Cancelled Absolute Nucleated RBC 0.000 Nucleated RBC % (auto) 0.0 Neutrophils % (Manual) 80 H Band Neutrophils % 6 H Lymphocytes % (Manual) 7 L Monocytes % (Manual) 6 Metamyelocytes % 1 Abs Neuts (Manual) 8.0 Lymphocytes # (Manual) 0.7 L Monocytes # (Manual) 0.6 Metamyelocytes # 0.1 Nucleated RBCs 1 H Platelet Estimate NORMAL Plt Morphology Comment NORMAL RBC Morphology NOTED Polychromasia 1+ (0-2) Hypochromasia 1+ (5-14) Macrocytosis 1+ (5-14) Tear Drop Cells 1+ (0-2) Ovalocytes 1+ (5-14) Acanthocytes (Spur) 1+ (0-2) Anion Gap 13 Estim Creat Clear Calc 101.7 Estimated GFR > 60 Fasting Glucose 90 Calcium 7.5 L Total Bilirubin 0.3 AST 27 ALT 10 Alkaline Phosphatase 108 Total Protein 4.9 L Albumin 2.2 L Microbiology Microbiology Results: Microbiology 03/28/22 10:45 Blood Culture - Final Blood - Venous No growth after 5 days. 05/04/22 10:45 Blood Culture - Final Blood - Venous No growth after 5 days. Procedures Date of Service Date of Service: 04/03/22 Progress Note: A&P Assessment and plan (1) Abscess of breast, right: Status: Acute Plan 71-year-old female patient presenting with a persistent abscess of the right breast in the axilla. Patient is S/P IR drainage for any evening. Drain continues to produce purulence discharge. Second opening is now draining purulence fluid as well. Was able to express a large collection this morning. WBC is normalized. Will continue with the current drain but if no improvement may need surgical drainage with biopsy. Awaiting final pathology from gastric biopsies. Patient may need further imaging of breast, possibly CT chest abdomen pelvis. Will continue to monitor drain output. Time Spent With Patient Time: Total time spent is greater than 50% in coordination of care (as documented) at patient's floor/unit and/or counseling patient: Quality Stroke Does the patient have a stroke diagnosis?: No VTE Prior VTE?: No VTE Risk Level:: Medical - moderate - high VTE Device Contraindication: Treatment Not Indicated VTE Drug Contraindication: N/A - Med Ordered
[2022-04-03 11:04] VITALS: BP 164/77; PULSE 87; RESP 18; TEMP 36.5; O2SAT 98
[2022-04-03] MEDS: cefTRIAXone sodium 2 GM in 0.9 % Sodium Chloride 50 ML IV (13:19)
--- NOTE | 2022-04-03 15:10 | P.PNIM_ITS ---
Subjective Subjective Date of Service: 04/03/22 Interval History: Purulent drainage in R breast abscess drain; a 2nd area opened up and is also draining spontaneously Does not want to discuss her CA diagnosis No fever/chills Review of Systems Review of Systems: Yes all other systems are reviewed and are negative Physical Exam Vital Signs: Vital Signs: Last Vital Signs Temp 97.7 F 04/03/22 11:04 Pulse 87 04/03/22 11:04 Resp 18 04/03/22 11:04 BP 164/77 H 04/03/22 11:04 Pulse Ox 98 04/03/22 11:04 BMI result Body Mass Index 29.8 Gen: in no acute distress HEENT: sclera anicteric, moist mucus membranes Neck: supple Lungs: clear to auscultation bilaterally Heart: regular rate and rhythm, no murmurs Abd: soft, non-tender, non-distended Ext: no edema, LUE PICC Skin: warm/well-perfused, erythema R breast UOQ, IR with purulent liquid Neuro: alert and oriented x3, no focal findings Psych: appropriate affect Objective Data Active Medications Acetaminophen (Acetaminophen 325 Mg Tablet) 650 mg PO Q6H PRN PRN Reason: Pain, Mild (Pain Scale 1-3) Last Admin: 04/01/22 22:15 Dose: 325 mg Documented by: STEFAN Comments: patient requested 1 tablet only Artificial Tears (Artificial Tears 15 Ml Drops) 1 drop EYE-BOTH Q4H PRN PRN Reason: Dry Eyes Last Admin: 04/01/22 23:00 Dose: 1 drop Documented by: STEFAN Enoxaparin Sodium (Enoxaparin Sodium 40 Mg/0.4 Ml Syringe) 40 mg SUBCUT Q24H [facility] Last Admin: 04/02/22 20:49 Dose: 40 mg Documented by: STEFAN Ceftriaxone Sodium 2 gm/ (Sodium Chloride) 50 mls @ 100 mls/hr IV Q24H [facility] Last Infusion: 04/03/22 13:59 Dose: 0 mls/hr Documented by: DAVIE Melatonin (Melatonin 3 Mg Tablet) 6 mg PO BEDTIME PRN PRN Reason: Insomnia Pharmacy Consult (Consult Rx Perform Med Rec) 1 each MISCELLANE ONCE PRN PRN Reason: Consult order Sodium Chloride (0.9 % Sodium Chloride Flush 3 Ml Syringe) 3 ml IVFLUSH QSHIFT [facility] Last Admin: 04/03/22 08:52 Dose: Not Given Documented by: DAVIE Non-Admin Reason: IV Running Tramadol HCl (Tramadol Hcl 50 Mg Tablet) 25 mg PO Q6H PRN PRN Reason: Pain, Moderate (Pain Scale 4-6 Last Admin: 03/31/22 11:49 Dose: 25 mg Documented by: ALEC Labs CBC & Chem 7: 04/03/22 06:26 04/03/22 06:26 Labs: Laboratory Results - last 24 hr 04/03/22 04/03/22 06:26 06:26 MCV 92.7 MCH 31.1 MCHC 33.6 RDW 15.0 Plt Count 171 MPV 9.3 L Immature Gran % (Auto) Cancelled Neut % (Auto) Cancelled Lymph % (Auto) Cancelled [place] % (Auto) Cancelled Eos % (Auto) Cancelled Baso % (Auto) Cancelled Lymph # (Auto) Cancelled [place] # (Auto) Cancelled Eos # (Auto) Cancelled Baso # (Auto) Cancelled Abs Immat Gran (auto) Cancelled Absolute Neuts (auto) Cancelled Absolute Nucleated RBC 0.000 Nucleated RBC % (auto) 0.0 Neutrophils % (Manual) 80 H Band Neutrophils % 6 H Lymphocytes % (Manual) 7 L Monocytes % (Manual) 6 Metamyelocytes % 1 Abs Neuts (Manual) 8.0 Lymphocytes # (Manual) 0.7 L Monocytes # (Manual) 0.6 Metamyelocytes # 0.1 Nucleated RBCs 1 H Platelet Estimate NORMAL Plt Morphology Comment NORMAL RBC Morphology NOTED Polychromasia 1+ (0-2) Hypochromasia 1+ (5-14) Macrocytosis 1+ (5-14) Tear Drop Cells 1+ (0-2) Ovalocytes 1+ (5-14) Acanthocytes (Spur) 1+ (0-2) Anion Gap 13 Estim Creat Clear Calc 101.7 Estimated GFR > 60 Fasting Glucose 90 Calcium 7.5 L Total Bilirubin 0.3 AST 27 ALT 10 Alkaline Phosphatase 108 Total Protein 4.9 L Albumin 2.2 L Microbiology Microbiology Results: Microbiology 03/28/22 10:45 Blood Culture - Final Blood - Venous No growth after 5 days. 03/28/22 10:45 Blood Culture - Final Blood - Venous No growth after 5 days. Assessment and Plan (1) Cellulitis of breast: Status: Acute (2) Anemia: Status: Acute (3) Psoriasis: Status: Acute Plan hospital d#9 71yo F with psoriasis, no PCP presenting with R breast pain/redness/swelling, admitted for cellulitis with abscess and found to have MSSA bacteremia EGD done for anemia, found to have likely metastatic breast adenoCA # MSSA bacteremia - IV ceftriaxone d#7 from 1st negative BCx (03/28), total 28d, PICC line in place, no VNA since no PCP so will need to come to [facility] daily for IV ABX - TTE to assess for IE - ID following # breast abscess - Gen Surg following. IR drain placed 03/30/22. may need definitive operative d rainage. # possible metastatic breast adenoCA - final pathology pending then will likely need Oncology consult and CT C/A/P # anemia of chronic disease- - transfused 2u pRBCs 03/29 with appropriate response - EGD with moderate diffuse gastritis, on PPI # VTE ppx - LMWH Quality Stroke Does the patient have a stroke diagnosis?: No VTE Prior VTE?: No VTE Risk Level:: Medical - moderate - high VTE Device Contraindication: Treatment Not Indicated VTE Drug Contraindication: N/A - Med Ordered
--- NOTE | 2022-04-03 15:13 | MHC.CM.PN ---
nurse briefcase sewer note electronic medical record refiewed along with case disucssed with staff [facility] with patient ans with her don,, 1.gave her information on [facility] eligeability rquirements and the name , number of the [facility] financial counselors to assit her with this application, 2 again gave her a endoscopy registered nurse[y of the [facility] , she ws interested in the [facility] [address] i storngly encourage her to call and chhose a physician or pa , and that we could call and get her a appointment soonwr post hospitla discharge . 3/. no meduciare part d thuis not eligeable for hoime iv abx instead she will be coming to [facility] short stY FOR IV CEFERTRIAXONE 2 GMS QD FOR TOATL OF 4 WEEKS , THIS PAPERWORK NOT FINALIZED PATIENT NOW NEEDS TO STAY HERE A LITTLE LONGER , PER SURGICAL DOCUMANETATION PATIENT PERSISTS TO HAVE SORENSS IN THE RIGHT AXILA IR DRAINAGE X2 AND NOW PRODUCING THICK FOUL SMELLING DISCHARGE AND SECOND BLISTER HAS OPEND AND DRAINING PER DOPCUIMENTATION (CONTINUE WITH CURRENT PIGTAIL DRAIN IF NO IMPROVEMENT MAY NEED SURGIUCAL DRAINAGE WITH BIOPSY, PATIENT IS AWAITING FINAL PATHOLOGY GASTRIC BIOPSIES AWAITIN HEMATOLOGY CONSULT . DISCHARGE PLAQN 1. COMPLETED NEW HCP UPLOADED TO [employer] 2, OBTAIN PCP ENCOURAGE HER TO CHOSE ONE AND WE CAN MAKE APPT. GIVEN THE [facility] BOOKLET TO CHOOSE 3 INFORMATION GHANDOUT ON WHAT IS NEED TO APPLY FOR [facility]IG[facility] AND THE NAMES AND NUMBERS OF THE [facility] FINANCIAL COUNSELOT[facility] , ALSO REFERRAL WAS MADFE TO THEM YESTERDAY (PATIENT HAS NOLY MEDICARE A AND B AND OPTED OUT OF MEDICARE D PRESCRIPTION COVERAGE BECAUSE OF ITS COST . ONCE BALE TO GO HOME NEED TO COMPLETE SHORT STAY IV ABX DISCHAGRE PAERWORK MEDICAREIMM UPDATED
[2022-04-03 15:22] VITALS: BP 186/82; PULSE 91; RESP 18; TEMP 36.6; O2SAT 97
[2022-04-03] MEDS: 0.9 % Sodium Chloride Flush 3 ML SYRINGE IVFLUSH (17:37)
[2022-04-03] MEDS: Artificial Tears 15 ML DROPS 1 DROP EYE-BOTH (17:50)
[2022-04-03 19:40] VITALS: BP 167/83; PULSE 85; RESP 18; TEMP 36.4; O2SAT 97
[2022-04-03] MEDS: Enoxaparin Sodium 40 MG/0.4 ML SYRINGE SUBCUT (20:39)
[2022-04-03] MEDS: Acetaminophen 325 MG TABLET 650 MG PO (20:45)
[2022-04-04] VITALS: BP 151/68; PULSE 81; RESP 18; TEMP 36.6; O2SAT 97
[2022-04-04 04:00] VITALS: BP 160/74; PULSE 81; RESP 18; TEMP 36.1; O2SAT 96
[2022-04-04 06:05] LABS: Alanine Aminotransferase 17 U/L (0-31); Albumin Level 2.5 g/dL (3.5-5.0); Alkaline Phosphatase 127 U/L (39-117); Anion Gap 14 (12-20); Aspartate Amino Transferase 41 U/L (5-31); Bilirubin Total 0.4 mg/dL (0.0-1.0); Blood Urea Nitrogen 3 mg/dL (9-16); Carbon Dioxide 27 mmol/L (22-29); Chloride 103 mmol/L (96-108); Estimated Glomerular Filt Rate > 60; Glucose Fasting 86 mg/dL (60-99); Potassium 3.6 mmol/L (3.3-5.1); Sodium 140 mmol/L (135-145); Total Protein 5.7 g/dL (6.5-8.0)
--- NOTE | 2022-04-04 07:00 | CA_ITS ---
Transthoracic Echocardiogram Patient (Last, First, Middle): Minna Knight, Gender: Female Date of : 1950 Age: 71 Procedure Date: 04/04/2022 Procedure Type: Transthoracic Echocardiogram Location: S3E Height: 162.56 cm Weight: 78.47 kg BSA: 1.84 m2 Heart Rate: bpm BP: 162 / 74 mmHg Payment Manager: Referring MD: Vikki Thompson MD Mushroom Packer: Brodie Self MD Symptoms: mssa bacteremia Study Quality: Fair ECG Rhythm: Sinus Conclusions: - 1. Normal LV systolic function with LVEF of 60 65% with impaired relaxation filling pattern 2. Trivial aortic regurgitation 3. Vegetations cannot be entirely ruled out on this study 4. Normal RV systolic pressure 5. Small circumferential pericardial effusion Findings Left Ventricle Normal left ventricular size, thickness, and systolic function. The visually estimated ejection fraction is between 60-65%. Spectral Doppler is indicative of an impaired relaxation filling pattern. E/E prime ratio is between 8 and 15 consistent with indeterminate filling pressures. Right Ventricle Normal right ventricular cavity size and systolic function. Atria The left atrium is likely dilated. Interatrial shunt cannot be excluded. The right atrium is normal in size. Aortic Valve There is mild thickening of the aortic valve. There is no aortic valve stenosis. There is trace (trivial) aortic valve regurgitation. Mitral Valve There is mild anterior and posterior mitral leaflet thickening. There is trace mitral valve regurgitation. There is no mitral valve stenosis. Pulmonic Valve The pulmonic valve was not well visualized. Tricuspid Valve There is trace tricuspid valve regurgitation. Normal right atrial pressure. There is no evidence of pulmonary hypertension. Great Vessels All visible segments of the aorta are normal in size. The pulmonary artery was not well visualized. Venous The inferior vena cava is normal in size and collapses greater than 50% with inspiration. Pericardium/Pleural There is a small circumferential pericardial effusion. Prior Study Comparison No prior study available for comparison. Recommendations, Care & Conclusions Consider a HAN if clinically appropriate. Measurements 2D Linear Measurements IVSd: 1.09 0.6-0.9/0.6-1.0 cm LVIDd: 4.15 3.9-5.3/4.2-5.9 cm LVIDd Index: 2.26 2.4-3.2/2.2-3.1 cm/m2 LVIDs: 2.64 2.0-3.6 cm LVPWd: 1.12 0.7-1.1 cm Ao Root: 2.90 2.1-3.5 cm LA Diam: 3.80 2.7-3.8/3.0-4.0 cm LAIDs Index: 2.07 1.5-2.3 cm/m2 LV Mass: 193.22 67-162/88-224 g LV Mass Index: 105.01 43-95/49-115 g/m2 LVOT Diam: 2.00 3.0+(-)1.3 cm Mitral Valve MV Pk E: 0.83 MV PK A: 1.09 MV Decel Time: 90.00 E/A: 0.80 E'Lateral: 7.18 E'Medial: 9.03 E/E' Med: 9.10 E/E' Lat: 11.50 PHT: 26.00 MVA PHT: 8.46 Decel Preston: 9.13 Aortic Valve AoV Pk Osvaldo: 1.71 AoV Mn Osvaldo: 1.07 AoV VTI: 0.31 AoV Pk Grad: 12.00 Aov Mn Grad: 6.00 GIA Cont.VTI: 3.10 LVOT LVOT Pk Osvaldo: 1.45 LVOT Mn Osvaldo: 1.04 LVOT VTI: 0.31 LVOT Pk Grad: 8.00 LVOT Mn Grad: 5.00 LVOT Diam: 2.00 LVOT Area: 3.14 Diastolic Function MV Pk E: 0.83 MV Pk A: 1.09 E/A: 0.80 E'Medial: 9.03 E/E' Med: 9.10 E' Laterial: 7.18 E/E' Lat: 11.50 Tricuspid Valve TR Pk Osvaldo: 1.96 TR Pk Grad: 15.00 RA Press: 3.00 RVSP: 18.00 Great Vessels Aorta Ao Root-2D: 2.90 2.0-3.7 cm Ao Asc: 3.40 2.1-3.4 cm Pulmonary Valve PV Pk Osvaldo: 1.10 Peak PV Grad: 5.00 Updated in Other Vendor System with Status of Final Brodie Self MD electronically signed on 04/04/2022 5:26:26 PM with status of Final
[2022-04-04 07:55] VITALS: BP 196/77; PULSE 86; RESP 18; TEMP 37.4; O2SAT 97
--- NOTE | 2022-04-04 11:12 | MHC.CM.PN ---
Per ROUNDS discussion, Patient is not yet medically cleared for dc (IV Ceftriaxone, purulent drainage in (R) Breast abscess drain);[facility] Short Stay for LT IVABT is the goal and CM will follow for possible need to adjust the dc plan.
[2022-04-04 11:30] VITALS: BP 177/80; PULSE 88; RESP 18; TEMP 36.8; O2SAT 98
--- NOTE | 2022-04-04 11:38 | PC.NURSE ---
Dr. Thompson notified at 0835 of high blood pressure, noting that patient is not on any blood pressure medication.
--- NOTE | 2022-04-04 12:31 | P.PNIM_ITS ---
Subjective Subjective Date of Service: 04/04/22 Interval History: Less drainage from breast abscess catheter No fever/chills Review of Systems Review of Systems: Yes all other systems are reviewed and are negative Physical Exam Vital Signs: Vital Signs: Last Vital Signs Temp 98.3 F 04/04/22 11:30 Pulse 88 04/04/22 11:30 Resp 18 04/04/22 11:30 BP 177/80 H 04/04/22 11:30 Pulse Ox 98 04/04/22 11:30 BMI result Body Mass Index 29.8 Gen: in no acute distress HEENT: sclera anicteric, moist mucus membranes Neck: supple Lungs: clear to auscultation bilaterally Heart: regular rate and rhythm, no murmurs Abd: soft, non-tender, non-distended Ext: no edema, LUE PICC Skin: warm/well-perfused, erythema R breast UOQ, IR drain with purulent liquid Neuro: alert and oriented x3, no focal findings Psych: appropriate affect Objective Data Active Medications Acetaminophen (Acetaminophen 325 Mg Tablet) 650 mg PO Q6H PRN PRN Reason: Pain, Mild (Pain Scale 1-3) Last Admin: 04/03/22 20:45 Dose: 650 mg Documented by: STEFAN Artificial Tears (Artificial Tears 15 Ml Drops) 1 drop EYE-BOTH Q4H PRN PRN Reason: Dry Eyes Last Admin: 04/03/22 17:50 Dose: 1 drop Documented by: STEFAN Enoxaparin Sodium (Enoxaparin Sodium 40 Mg/0.4 Ml Syringe) 40 mg SUBCUT Q24H [facility] Last Admin: 04/03/22 20:39 Dose: 40 mg Documented by: STEFAN Ceftriaxone Sodium 2 gm/ (Sodium Chloride) 50 mls @ 100 mls/hr IV Q24H [facility] Last Infusion: 04/03/22 13:59 Dose: 0 mls/hr Documented by: DAVIE Melatonin (Melatonin 3 Mg Tablet) 6 mg PO BEDTIME PRN PRN Reason: Insomnia Pharmacy Consult (Consult Rx Perform Med Rec) 1 each MISCELLANE ONCE PRN PRN Reason: Consult order Sodium Chloride (0.9 % Sodium Chloride Flush 3 Ml Syringe) 3 ml IVFLUSH QSHIFT [facility] Last Admin: 04/04/22 08:40 Dose: Not Given Documented by: MERLYN Non-Admin Reason: No Access Tramadol HCl (Tramadol Hcl 50 Mg Tablet) 25 mg PO Q6H PRN PRN Reason: Pain, Moderate (Pain Scale 4-6 Last Admin: 03/31/22 11:49 Dose: 25 mg Documented by: ALEC Labs CBC & Chem 7: 04/03/22 06:26 04/04/22 05:31 Labs: Laboratory Results - last 24 hr 04/04/22 05:31 Anion Gap 14 Estim Creat Clear Calc 96.0 Estimated GFR > 60 Fasting Glucose 86 Calcium 8.0 L D Total Bilirubin 0.4 AST 41 H D ALT 17 Alkaline Phosphatase 127 H Total Protein 5.7 L Albumin 2.5 L Assessment and Plan (1) Cellulitis of breast: Status: Acute (2) Anemia: Status: Acute (3) Psoriasis: Status: Acute Plan hospital d#9 71yo F with psoriasis, no PCP presenting with R breast pain/redness/swelling, admitted for cellulitis with abscess and found to have MSSA bacteremia EGD done for anemia, found to have 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 IR drain placed 03/30/22. bedside drainage today by Gen Surg with likely removal of IR cathter. # possible metastatic breast adenoCA - final pathology pending then will likely need Oncology consult and CT C/A/P # anemia of chronic disease- - transfused 2u pRBCs 03/29 with appropriate response - EGD with moderate diffuse gastritis, on PPI - Hb stable # VTE ppx - LMWH In my clinical judgment, the patient requires continued hospitalization for the following reasons: IV ABX, breast abscess drainage Quality Stroke Does the patient have a stroke diagnosis?: No VTE Prior VTE?: No VTE Risk Level:: Medical - moderate - high VTE Device Contraindication: Treatment Not Indicated VTE Drug Contraindication: N/A - Med Ordered
--- NOTE | 2022-04-04 14:15 | PM.PNGS ---
Subjective Subjective Date of Service: 04/04/22 Interval history: Patient feels improved and denies any breast pain. Physical Exam Vital Signs: Vital Signs: Last Vital Signs Temp 98.3 F 04/04/22 11:30 Pulse 88 04/04/22 11:30 Resp 18 04/04/22 11:30 BP 177/80 H 04/04/22 11:30 Pulse Ox 98 04/04/22 11:30 BMI result Body Mass Index 29.8 Const: General: alert and awake Nutritional Appearance: well nourished Orientation/consciousness: patient oriented x3 Limitations: no limitations Chest: Other: Increased erythema and induration involving the right breast with some blistering of skin. Persistent discharge from secondary opening with the axilla. Minimal tenderness to palpation. Chest/axillae images: 1. Site of erythema right breast Resp: Effort & Inspection: normal respiratory effort GI: Inspection: Yes normal to inspection Skin: General skin exam: erythema and induration Neuro: General: patient oriented x3 Extrem: General: No edema Objective Data Active Medications Acetaminophen (Acetaminophen 325 Mg Tablet) 650 mg PO Q6H PRN PRN Reason: Pain, Mild (Pain Scale 1-3) Last Admin: 04/03/22 20:45 Dose: 650 mg Documented by: STEFAN Artificial Tears (Artificial Tears 15 Ml Drops) 1 drop EYE-BOTH Q4H PRN PRN Reason: Dry Eyes Last Admin: 04/03/22 17:50 Dose: 1 drop Documented by: STEFAN Enoxaparin Sodium (Enoxaparin Sodium 40 Mg/0.4 Ml Syringe) 40 mg SUBCUT Q24H [facility] Last Admin: 04/03/22 20:39 Dose: 40 mg Documented by: STEFAN Ceftriaxone Sodium 2 gm/ (Sodium Chloride) 50 mls @ 100 mls/hr IV Q24H [facility] Last Infusion: 04/03/22 13:59 Dose: 0 mls/hr Documented by: DAVIE Melatonin (Melatonin 3 Mg Tablet) 6 mg PO BEDTIME PRN PRN Reason: Insomnia Pharmacy Consult (Consult Rx Perform Med Rec) 1 each MISCELLANE ONCE PRN PRN Reason: Consult order Sodium Chloride (0.9 % Sodium Chloride Flush 3 Ml Syringe) 3 ml IVFLUSH QSHIFT [facility] Last Admin: 04/04/22 08:40 Dose: Not Given Documented by: MERLYN Non-Admin Reason: No Access Tramadol HCl (Tramadol Hcl 50 Mg Tablet) 25 mg PO Q6H PRN PRN Reason: Pain, Moderate (Pain Scale 4-6 Last Admin: 03/31/22 11:49 Dose: 25 mg Documented by: ALEC Labs CBC & Chem 7: 04/03/22 06:26 04/04/22 05:31 Labs: Laboratory Results - last 24 hr 04/04/22 05:31 Anion Gap 14 Estim Creat Clear Calc 96.0 Estimated GFR > 60 Fasting Glucose 86 Calcium 8.0 L D Total Bilirubin 0.4 AST 41 H D ALT 17 Alkaline Phosphatase 127 H Total Protein 5.7 L Albumin 2.5 L Procedures Date of Service Date of Service: 04/04/22 Abscess I/D Consent for Procedure: Elective - informed consent obtained Site: chest (Right breast/axilla) Side (if applicable): right Sedation/analgesia: none Anesthetic used: lidocaine 2% Technique: incised with #11 blade Amount of fluid (mL): 50 Irrigation: No Packing used?: plain (1/2 in) Progress Note: A&P Assessment and plan (1) Abscess of breast, right: Status: Acute Plan 71-year-old female patient with a new onset right breast abscess, status post IR drainage now with increased redness and swelling. Patient will require incision and drainage as the fluid is quite thick and inadequately drained with the IR tubing. I recommended incision and drainage which can be performed under local anesthesia at the bedside or in the operating room. After discussion of the procedure, risks, and alternatives, patient consented to incision and drainage at the bedside under local anesthesia. The pigtail IR drain was removed prior to performance of the incision and drainage. A large purulent collection was encountered during the procedure and the wounds packed with plain gauze. Patient tolerated the procedure very well. Patient will need dressing changes 2-3 times daily. Time Spent With Patient Time: Total time spent is greater than 50% in coordination of care (as documented) at patient's floor/unit and/or counseling patient: Quality Stroke Does the patient have a stroke diagnosis?: No VTE Prior VTE?: No VTE Risk Level:: Medical - moderate - high VTE Device Contraindication: Treatment Not Indicated VTE Drug Contraindication: N/A - Med Ordered
[2022-04-04] MEDS: cefTRIAXone sodium 2 GM in 0.9 % Sodium Chloride 50 ML IV (15:39)
[2022-04-04 15:51] VITALS: BP 187/85; PULSE 93; RESP 17; TEMP 36.7; O2SAT 98
--- NOTE | 2022-04-04 17:12 | P.CNHO_ITS ---
Subjective - Subjective Chief complaint: Right breast pain and swelling Patient: new to practice Consult date: 04/04/22 Primary Care Provider: None Physician HPI - Consult Narrative Reason for consult: Metastatic breast cancer Narrative: Minna Knight is a 71 year old woman who has just been diagnosed with metastatic breast cancer. She presented with redness and swelling of the right breast. She was diagnosed with cellulitis, abscess and MSSA bacteremia. She has been on IV antibiotics. Because of microcytic anemia, she had an EGD which unfortunately revealed a nodular mucosa with diffuse gastric erythema. Multiple biopsies were obtained and 1 of the biopsy confirmed breast cancer. There is family history of breast cancer with her mother having had it. She has not had any routine healthcare for many years. Her recently of lung cancer. In fact, patient did not want to talk today about her cancer diagnosis. Her son who was at the bedside was the main historian. Review of Systems - Constitutional Reports as per HPI - Neurologic Denies dizziness, Denies headache(s), Denies numbness PMFSH Medical History: Medical History (Last Reviewed 03/27/22 @ 14:38 by Kimberley Zavaleta MD) Psoriasis Family history: reviewed and not pertinent Social History: Social History (Last Reviewed 03/27/22 @ 14:38 by Kimberley Zavaleta MD) Living Situation History: Household Members: Family Housing: Apartment Tobacco History: Patient Tobacco Use Status: Never used Tobacco Occupation Assessmet: service: No Current occupational status: unemployed Home Medications and Allergies Current Medications: Current Medications Acetaminophen (Acetaminophen 325 Mg Tablet) 650 mg PO Q6H PRN PRN Reason: Pain, Mild (Pain Scale 1-3) Last Admin: 04/03/22 20:45 Dose: 650 mg Documented by: Artificial Tears (Artificial Tears 15 Ml Drops) 1 drop EYE-BOTH Q4H PRN PRN Reason: Dry Eyes Last Admin: 04/03/22 17:50 Dose: 1 drop Documented by: Enoxaparin Sodium (Enoxaparin Sodium 40 Mg/0.4 Ml Syringe) 40 mg SUBCUT Q24H [facility] Last Admin: 04/03/22 20:39 Dose: 40 mg Documented by: Ceftriaxone Sodium 2 gm/ (Sodium Chloride) 50 mls @ 100 mls/hr IV Q24H [facility] Last Infusion: 04/04/22 16:11 Dose: Infused Documented by: Melatonin (Melatonin 3 Mg Tablet) 6 mg PO BEDTIME PRN PRN Reason: Insomnia Pharmacy Consult (Consult Rx Perform Med Rec) 1 each MISCELLANE ONCE PRN PRN Reason: Consult order Sodium Chloride (0.9 % Sodium Chloride Flush 3 Ml Syringe) 3 ml IVFLUSH QSHIFT [facility] Last Admin: 04/04/22 16:06 Dose: Not Given Documented by: Tramadol HCl (Tramadol Hcl 50 Mg Tablet) 25 mg PO Q6H PRN PRN Reason: Pain, Moderate (Pain Scale 4-6 Last Admin: 03/31/22 11:49 Dose: 25 mg Documented by: Home Medications Medication Instructions Recorded Confirmed Type carboxymethylcellulose sodium 1 % 1 drp OPHTHALMIC (EYE) QID PRN 03/26/22 03/26/22 History eye drops (Artificial Tears (carboxymethylcellulose)) glucosamine 750 [id number] 1 tab PO Q2D 03/26/22 03/26/22 History no1 644 mg-C 30 mg-brendan 1 mg tablet Allergies Allergy/AdvReac Type Severity Reaction Status Date / Time latex Allergy Mild Rash Verified 03/26/22 09:26 Physical Exam Vital signs: Vital Signs Temp 98.0 F 04/04/22 15:51 Pulse 93 04/04/22 15:51 Resp 17 04/04/22 15:51 BP 187/85 H 04/04/22 15:51 Pulse Ox 98 04/04/22 15:51 Intake & Output 04/03/22 04/04/22 04/04/22 18:59 06:59 18:59 Intake Total 1430 / 2090 660 / 2090 350 / 350 Output Total Balance 1415 / 2065 650 / 2065 350 / 350 Intake: Intake, Oral Amount 380 / 1040 660 / 1040 300 / 300 Intake, IV Amount 1050 / 1050 50 / 50 cefTRIAXone sodium 2 gm In 0.9 50 / 50 50 / 50 % Sodium Chloride 50 ml @ 100 mls/hr IV Q24H [facility] Rx#: [id number] Lactated Ringers 1,000 ml @ 100 1000 / 1000 mls/hr IVCONT .Q10H [facility] Rx#: [id number] Output: Output, Drainage Amount Right Chest Other: Meal Refused No No NPO No No Breakfast % Eaten 100% 25% Lunch % Eaten 100% 25% Dinner % Eaten 75% Number of Unmeasured Voids 5 2 3 Urine Bathroom Bathroom Bathroom Last Bowel Movement 04/03/22 Stool Bathroom Bathroom Stool Amount Small Weight 78.8 kg Narrative: Patient appeared rather anxious. She was tearful at times. - Routine HEENT Exam Eye: Present: normal appearance, conjunctivae pale - Routine Neck Exam Present: supple - Routine Respiratory Exam Absent: respiratory distress - Routine Cardiovascular Exam Cardiovascular: Present: S1, S2 Hem/Onc Consult Result - Labs CBC & Chem 7: 04/05/22 05:42 04/05/22 05:42 Labs: BMP 04/04/22 05:31 Sodium 140 Potassium 3.6 Chloride 103 Carbon Dioxide 27 BUN 3 L Creatinine 0.53 Calcium 8.0 L D Liver Function 04/04/22 Range/Units 05:31 Total Bilirubin 0.4 (0.0-1.0) mg/dL AST 41 H D (5-31) U/L ALT 17 (0-31) U/L Alkaline Phosphatase 127 H (39-117) U/L Albumin 2.5 L (3.5-5.0) g/dL Assessment and Plan Patient Active problem list reviewed?: Yes (1) Metastatic breast cancer Status: Acute Assessment and plan: 1. This is a 71-year-old woman diagnosed with metastatic invasive lobular carcinoma involving stomach, probably originating from right breast. She presented with redness and swelling of the right breast, ultrasound performed 03/26/2022 revealed macro lobulated fluid collection in the upper outer right breast measuring 3 x 6 cm. This was read as abscess. She underwent EGD on 03/30/2022 because of microcytic anemia. Biopsy of body of stomach revealed metastatic invasive lobular carcinoma, ER positive 100% CO negative and HER2 negative. She has had staging scans, CT chest/abdomen and pelvis with contrast was reviewed with radiologist. The shows a nodule in the left lung but widespread metastatic involvement of bones. I was unable to have a detailed conversation with the patient as she was very distraught, did not want to talk about her cancer diagnosis or treatment at this time. Based on stage of cancer and phenotype, she is a candidate for palliative hormonal/chemotherapy as well as bone strengthening therapy. Aromatase inhibitor along with CDK4/6 inhibitor would be initiated in the first-line setting. I could not get a detailed family history but there appears to be family history of breast cancer as well. Genetic testing will be offered on a subsequent visit. A bone strengthening therapy with denosumab to prevent skeletal related events would be initiated. At this time she is in need of surgical management of breast abscess. I will be happy to follow up with her upon discharge to discuss all of the above and initiate therapy. I thank you very much for this referral. - Time Spent With Patient Time Spent with Patient (in minutes): 15
[2022-04-04 19:13] VITALS: BP 175/80; PULSE 89; RESP 18; TEMP 36.7; O2SAT 96
[2022-04-04] MEDS: iohexoL 350 MG/ML 100 ML INFUS..BTL IV (20:12)
[2022-04-04] MEDS: Enoxaparin Sodium 40 MG/0.4 ML SYRINGE SUBCUT (20:53)
[2022-04-04] MEDS: 0.9 % Sodium Chloride Flush 3 ML SYRINGE IVFLUSH (20:53)
[2022-04-05 00:16] VITALS: BP 175/82; PULSE 87
[2022-04-05] MEDS: Melatonin 3 MG TABLET 6 MG PO (00:19)
[2022-04-05 04:00] VITALS: BP 163/73; PULSE 85; RESP 18; TEMP 36.6; O2SAT 97
--- NOTE | 2022-04-05 05:16 | PC.NURSE ---
Pt verbalized feeling anxious about her diagnosis and also noted with mostly high BP, deneis any pain, c/o upset stomach, pt is requesting for med for upset stomach and for her anxiety, Dr. Taylor was made aware, pt encouraged to rest, prn melatonin given, dressing on the right breast was reinforced.
[2022-04-05 06:27] LABS: Hematocrit 27.5 % (37.0-47.0); Hemoglobin 9.2 g/dl (12.0-16.0); Mean Corpuscular HGB Conc 33.5 g/dl (31.0-35.0); Mean Corpuscular Hemoglobin 31.1 pg (27.0-33.0); Mean Corpuscular Volume 92.9 fL (80.0-98.0); Mean Platelet Volume 10.3 fL (9.4-12.3); Platelet Count 166 X10*3/uL (160-400); Red Blood Count 2.96 X10*6/uL (4.20-5.50); Red Cell Distribution Width 15.1 % (11.0-16.0)
[2022-04-05 06:50] LABS: Alanine Aminotransferase 18 U/L (0-31); Albumin Level 2.3 g/dL (3.5-5.0); Alkaline Phosphatase 117 U/L (39-117); Anion Gap 13 (12-20); Aspartate Amino Transferase 32 U/L (5-31); Bilirubin Total 0.3 mg/dL (0.0-1.0); Blood Urea Nitrogen 3 mg/dL (9-16); C Reactive Protein 4.55 mg/dL (< or = 0.50); Calcium 7.5 mg/dL (8.4-10.2); Carbon Dioxide 26 mmol/L (22-29); Chloride 103 mmol/L (96-108); Estimated Glomerular Filt Rate > 60; Glucose Fasting 88 mg/dL (60-99); Potassium 3.1 mmol/L (3.3-5.1); Sodium 139 mmol/L (135-145)
--- NOTE | 2022-04-05 07:13 | P.CDIC_ITS ---
CDI Concurrent Query Documentation Clarification: PHYSICIAN'S DOCUMENTATION REQUEST Date of Query: 04/05/22 0713 Patient Name: Minna Knight Admit Date: 03/26/22 Dear Doctor, A review of the medical record indicates additional documentation may be needed. Please review below and update the documentation accordingly. Risk Factors/Clinical Indicators/Treatments heart rate 119 WBC 19.7 R breast pain, red, swelling US breast: complex abscess R breast IR Needle Aspiration 03/26/22: culture:staph aureus Per ED: Sepsis ID 03/27: likely needs 4 weeks antibiotic MD progress note 04/03/22: ?MSSA bacteremia - IV ceftriaxone Recognized standard criteria for this condition and other infectious definitions includes: Bacteremia Abnormal laboratory test - does not indicate a clinically ill patient Sepsis Systemic manifestations of infection, with 2 or more SIRS criteria which include: * Fever > 100.4?F or hypothermia < 96.8?F * Leukocytosis ? WBC > 12,000 or leukopenia, WBC < 4,000, or > 10% bands * Tachycardia- > 90 beats/minute * Tachypnea- RR > 20 breaths/minute or PaCO2 < 32mmHg Source: [employer] Manual 2013 Documentation should include the known or suspected organism, and the underlying infection, such as UTI or pneumonia Based on the above information and the recognized standard for sepsis, could you please clarify in the Progress Notes if this diagnoses is still accurate and reflective of the patient's condition to ensure quality of the medical record. * Sepsis is/was present and is a clinical diagnosis (please include this additional support in the medical record) * After Sepsis has been ruled out * Other (please specify) * Unable to determine Use of terms such as suspected, likely, concern for, or probable (associated with a specific diagnosis that is being evaluated, monitored, or treated as if it exists) are acceptable and can be coded in the inpatient setting, when documented at the time of discharge. Thank you, Cindy Madden RN Extension: [phone] Please use your independent medical judgment in providing your response. THIS QUERY IS PART OF THE PERMANENT MEDICAL RECORD Provider Response: Other Other Diagnosis: sepsis was present on admit
[2022-04-05 07:37] VITALS: BP 178/87; PULSE 86; RESP 20; TEMP 36.2; O2SAT 97
--- NOTE | 2022-04-05 08:21 | P.PNGS_ITS ---
Subjective Subjective Date of Service: 04/05/22 Interval history: Underwent I&D at bedside yesterday. Dressing did not need to be changed/reinforced overnight. Reports anxiety yesterday and inability to sleep. Spoke to oncologist yesterday. Still refusing to talk about breast CA. Denies p ain this morning. Reports right breast/axilla sore. Physical Exam Vital Signs: Vital Signs: Last Vital Signs Temp 97.1 F 04/05/22 07:37 Pulse 86 04/05/22 07:37 Resp 20 04/05/22 07:37 BP 178/87 H 04/05/22 07:37 Pulse Ox 97 04/05/22 07:37 BMI result Body Mass Index 29.8 Const: General: comfortable, no acute distress and alert Orientation/consciousness: patient oriented x3 Chest: Other: right breast/axillary dressing changed this morning by Dr. Rodriguez- surrounding erythema improved, breast still remains edematous. Less tender overall. Skin: Other: no rash Neuro: General: patient oriented x3 Extrem: General: Yes no clubbing, cyanosis or edema Objective Data Active Medications Acetaminophen (Acetaminophen 325 Mg Tablet) 650 mg PO Q6H PRN PRN Reason: Pain, Mild (Pain Scale 1-3) Last Admin: 04/03/22 20:45 Dose: 650 mg Documented by: STEFAN Artificial Tears (Artificial Tears 15 Ml Drops) 1 drop EYE-BOTH Q4H PRN PRN Reason: Dry Eyes Last Admin: 04/03/22 17:50 Dose: 1 drop Documented by: STEFAN Enoxaparin Sodium (Enoxaparin Sodium 40 Mg/0.4 Ml Syringe) 40 mg SUBCUT Q24H [facility] Last Admin: 04/04/22 20:53 Dose: 40 mg Documented by: ALEX Ceftriaxone Sodium 2 gm/ (Sodium Chloride) 50 mls @ 100 mls/hr IV Q24H [facility] Last Infusion: 04/04/22 16:11 Dose: 0 mls/hr Documented by: JONATHON Melatonin (Melatonin 3 Mg Tablet) 6 mg PO BEDTIME PRN PRN Reason: Insomnia Last Admin: 04/05/22 00:19 Dose: 6 mg Documented by: ALEX Pharmacy Consult (Consult Rx Perform Med Rec) 1 each MISCELLANE ONCE PRN PRN Reason: Consult order Potassium Chloride (Potassium Chloride Er 20 Meq Tab.Er.Prt) 40 meq PO ONCE ONE Stop: 04/05/22 08:21 Sodium Chloride (0.9 % Sodium Chloride Flush 3 Ml Syringe) 3 ml IVFLUSH QSHIFT [facility] Last Admin: 04/04/22 20:53 Dose: 3 ml Documented by: ALEX Tramadol HCl (Tramadol Hcl 50 Mg Tablet) 25 mg PO Q6H PRN PRN Reason: Pain, Moderate (Pain Scale 4-6 Last Admin: 03/31/22 11:49 Dose: 25 mg Documented by: ALEC Labs CBC & Chem 7: 04/05/22 05:42 04/05/22 05:42 Labs: Laboratory Results - last 24 hr 04/05/22 04/05/22 05:42 05:42 MCV 92.9 MCH 31.1 MCHC 33.5 RDW 15.1 Plt Count 166 MPV 10.3 Absolute Nucleated RBC 0.000 Nucleated RBC % (auto) 0.0 Anion Gap 13 Estim Creat Clear Calc 106.0 Estimated GFR > 60 Fasting Glucose 88 Calcium 7.5 L D Total Bilirubin 0.3 AST 32 H ALT 18 Alkaline Phosphatase 117 C-Reactive Protein 4.55 H Total Protein 5.0 L Albumin 2.3 L Procedures Date of Service Date of Service: 04/05/22 Progress Note: A&P Assessment and plan (1) Abscess of breast, right: Status: Acute Plan 71-year-old female patient with a new onset right breast abscess, status post IR drainage with drain placement however had worsening redness and swelling.?S/p I &D of abscess at bedside yesterday, drain removal. Packing placed. Abscess site improved this morning- dressing changed this morning by Dr. Rodriguez. Decreasing erythema, tenderness but breast still edematous. Continue daily wound care with dressing changes TID and PRN with dry sterile dressings. Cont IV abx. Newly dx breast CA- was seen by oncology yesterday. Underwent abd/chest/head CT yesterday. Results pending. Time Spent With Patient Time: Total time spent is greater than 50% in coordination of care (as documented) at patient's floor/unit and/or counseling patient: Quality Stroke Does the patient have a stroke diagnosis?: No VTE Prior VTE?: No VTE Risk Level:: Medical - moderate - high VTE Device Contraindication: Treatment Not Indicated VTE Drug Contraindication: N/A - Med Ordered
[2022-04-05] MEDS: Potassium Chloride ER 20 MEQ TAB.ER.PRT 40 MEQ PO (10:48)
[2022-04-05] MEDS: 0.9 % Sodium Chloride Flush 3 ML SYRINGE IVFLUSH ×3 (10:51→19:56)
[2022-04-05 11:43] VITALS: BP 158/90; PULSE 79; RESP 20; TEMP 36.2; O2SAT 97
[2022-04-05] MEDS: cefTRIAXone sodium 2 GM in 0.9 % Sodium Chloride 50 ML IV (14:07)
--- NOTE | 2022-04-05 14:11 | HO.PM.IMPN ---
Subjective Subjective Date of Service: 04/05/22 Interval History: Surgeon drained breast abscess at bedside yesterday, removed catheter, cavity packed Pt states pain controlled Aware of metastatic CA diagnosis Review of Systems Review of Systems: Yes all other systems are reviewed and are negative Physical Exam Vital Signs: Vital Signs: Last Vital Signs Temp 97.1 F 04/05/22 11:43 Pulse 79 04/05/22 11:43 Resp 20 04/05/22 11:43 BP 158/90 H 04/05/22 11:43 Pulse Ox 97 04/05/22 11:43 BMI result Body Mass Index 29.8 Gen: in no acute distress HEENT: sclera anicteric, moist mucus membranes Neck: supple Lungs: clear to auscultation bilaterally Heart: regular rate and rhythm, no murmurs Abd: soft, non-tender, non-distended Ext: no edema, LUE PICC Skin: warm/well-perfused, improved, erythema R breast UOQ, dressing in place Neuro: alert and oriented x3, no focal findings Psych: appropriate affect Objective Data Active Medications Acetaminophen (Acetaminophen 325 Mg Tablet) 650 mg PO Q6H PRN PRN Reason: Pain, Mild (Pain Scale 1-3) Last Admin: 04/03/22 20:45 Dose: 650 mg Documented by: STEFAN Artificial Tears (Artificial Tears 15 Ml Drops) 1 drop EYE-BOTH Q4H PRN PRN Reason: Dry Eyes Last Admin: 04/03/22 17:50 Dose: 1 drop Documented by: STEFAN Enoxaparin Sodium (Enoxaparin Sodium 40 Mg/0.4 Ml Syringe) 40 mg SUBCUT Q24H [facility] Last Admin: 04/04/22 20:53 Dose: 40 mg Documented by: ALEX Ceftriaxone Sodium 2 gm/ (Sodium Chloride) 50 mls @ 100 mls/hr IV Q24H [facility] Last Infusion: 04/04/22 16:11 Dose: 0 mls/hr Documented by: JONATHON Melatonin (Melatonin 3 Mg Tablet) 6 mg PO BEDTIME PRN PRN Reason: Insomnia Last Admin: 04/05/22 00:19 Dose: 6 mg Documented by: ALEX Pharmacy Consult (Consult Rx Perform Med Rec) 1 each MISCELLANE ONCE PRN PRN Reason: Consult order Sodium Chloride (0.9 % Sodium Chloride Flush 3 Ml Syringe) 3 ml IVFLUSH QSHIFT [facility] Last Admin: 04/05/22 10:51 Dose: 3 ml Documented by: LYNN Labs CBC & Chem 7: 04/05/22 05:42 04/05/22 05:42 Labs: Laboratory Results - last 24 hr 04/05/22 04/05/22 05:42 05:42 MCV 92.9 MCH 31.1 MCHC 33.5 RDW 15.1 Plt Count 166 MPV 10.3 Absolute Nucleated RBC 0.000 Nucleated RBC % (auto) 0.0 Anion Gap 13 Estim Creat Clear Calc 106.0 Estimated GFR > 60 Fasting Glucose 88 Calcium 7.5 L D Total Bilirubin 0.3 AST 32 H ALT 18 Alkaline Phosphatase 117 C-Reactive Protein 4.55 H Total Protein 5.0 L Albumin 2.[address] 04/04/22 20:00 IMPRESSION: No acute intracranial pathology. No CT evidence of intracranial metastatic disease. Assessment and Plan (1) Cellulitis of breast: Status: Acute (2) Anemia: Status: Acute (3) Psoriasis: Status: Acute Plan hospital d#10 71yo F with psoriasis, no PCP presenting with R breast pain/redness/swelling, admitted for cellulitis with abscess and found to have MSSA bacteremia EGD done for anemia, found to have likely metastatic breast adenoCA # MSSA bacteremia - IV ceftriaxone d#08/22 from 1st negative BCx (03/28), PICC line in place, no VNA since no PCP so will need to come to [facility] daily for IV ABX - TTE to assess for IE: mild thickening of AoV + MV, cannot exclude vegetation, discuss with ID # breast abscess - Gen Surg following. 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
--- NOTE | 2022-04-05 14:23 | MHC.CM.PN ---
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 CASE DISCUSSED W/HOSPITALIST AND CONFERENCED W/[facility] AND [facility], ALTHOUGH PT DOES HAVE APPT NEXT WEEK PT WILL STILL COMPLETE HER LAST 20 DAYS OF IV ABX AT [facility] SHE DOES NOT HAVE MEDICARE B AND PER CONVERSATION W/SON TODAY PT ISN'T QUALIFYING FOR [employer] SO SHE WOULD HAVE TO PAY OUT OF POCKET FOR MEDICATION WHICH PT REPORTED SHE COULD NOT AFFORD. PT'S SON HE WILL FURTHER DISCUSS W/PT. CM ATTEMPTED TO CONTACT [facility]OLLE'S NURSE/MED FINANCIAL SERVICES INTERN AT 2:15PM TO LET THEM KNOW PT WILL NEED A DIRECT REFERRAL FOR VNA AND POSSIBLY HI FOR IV ABX HOWEVER THERE WAS NO ANSWER AND NO ABILITY TO LEAVE MESSAGE, CM WILL REVISIT. CHINYERE HAS REQUESTED RN ANS SURGICAL PA DO TEACHING W/PT PRIOR TO HER D/C.
--- NOTE | 2022-04-05 15:46 | MHC.CM.PN ---
CM CONTACTED PT'S SON JEIMY TO DISCUSS PT'S DISPO, JEIMY VERBALIZES HE UNDERSTANDS THAT IF PT COMES IN FOR [facility] FOR DAILY IV ABX THERE WILL NOT BE AN OUT OF POCKET COST, JEIMY WAS GIVEN BENNETT OF IV CEFTRIAXONE WHICH IS 276.22 PER 7 DAY SUPPLY AND FIRST TWO NSG VISITS WOULD BE $90 AND AFTER THAT $45 PER HR. JEIMY REQUESTING VNA FOR WOUND CARE HOWEVER CM REMINDED JEIMY THAT HE WOULD HAVE TO PAY OUT OF POCKET FOR VNA SERVICES AND PCP APPT NEXT WEEK, JEIMY REPORTS HE IS WORKING W/FS AND HAD REPORTED EARLIER PT ISN'T QUALIFYING AT THIS TIME AND WILL NEED TO DO A SPEND DOWN. JEIMY BELIEVES HIS MOTHER BERT BE OKAY W/HIM ASSISTING IN WOUND CARE AND IS AGREEABLE TO COME IN TO BE TAUGHT DRESSING CHANGE, JEIMY ANXIOUS TO GET OFF PHONE AND HUNG UP BEFORE CM COULD CONFIRM A TIME.
[2022-04-05 15:55] VITALS: BP 184/82; PULSE 84; RESP 18; TEMP 36.2; O2SAT 97
[2022-04-05] MEDS: Enoxaparin Sodium 40 MG/0.4 ML SYRINGE SUBCUT (19:55)
[2022-04-05 20:00] VITALS: BP 178/88; PULSE 81; RESP 18; TEMP 36.4; O2SAT 98
[2022-04-06] VITALS: BP 178/85; PULSE 92; RESP 18; TEMP 36.4; O2SAT 97
[2022-04-06 03:36] VITALS: BP 181/78; PULSE 87; RESP 18; TEMP 36.7; O2SAT 97
[2022-04-06 06:11] LABS: Anion Gap 11 (12-20); Blood Urea Nitrogen 3 mg/dL (9-16); C Reactive Protein 3.59 mg/dL (< or = 0.50); Calcium 7.8 mg/dL (8.4-10.2); Carbon Dioxide 27 mmol/L (22-29); Chloride 103 mmol/L (96-108); Estimated Glomerular Filt Rate > 60; Glucose Random 92 mg/dL (60-115); Potassium 3.4 mmol/L (3.3-5.1); Sodium 138 mmol/L (135-145)
[2022-04-06 07:38] VITALS: BP 188/104; PULSE 96; RESP 18; TEMP 36.3; O2SAT 98
[2022-04-06 07:58] VITALS: BP 178/98
[2022-04-06] MEDS: 0.9 % Sodium Chloride Flush 3 ML SYRINGE IVFLUSH ×2 (08:03→15:07)
[2022-04-06] MEDS: amLODIPine Besylate 5 MG TABLET PO (08:03)
--- NOTE | 2022-04-06 09:03 | P.PNGS_ITS ---
Subjective Subjective Date of Service: 04/06/22 Interval history: Patient feels improved with decreased breast pain. She feels anxious about her cancer diagnosis. Physical Exam Vital Signs: Vital Signs: Last Vital Signs Temp 97.3 F 04/06/22 07:38 Pulse 96 04/06/22 07:38 Resp 18 04/06/22 07:38 BP 178/98 H 04/06/22 07:58 Pulse Ox 98 04/06/22 07:38 BMI result Body Mass Index 29.8 Chest: Other: Erythema is much improved and breast appears softer. Dressings changed to the right breast and oleg advanced. Continues to have mucopurulent discharge. Continue Q shift dressing changes ( not sure dressings are being changed however ). Extrem: Other: Mild edema right arm. Objective Data Active Medications Acetaminophen (Acetaminophen 325 Mg Tablet) 650 mg PO Q6H PRN PRN Reason: Pain, Mild (Pain Scale 1-3) Last Admin: 04/03/22 20:45 Dose: 650 mg Documented by: STEFAN Amlodipine Besylate (Amlodipine Besylate 5 Mg Tablet) 5 mg PO DAILY [facility]; Protocol Last Admin: 04/06/22 08:03 Dose: 5 mg Documented by: ALCON Artificial Tears (Artificial Tears 15 Ml Drops) 1 drop EYE-BOTH Q4H PRN PRN Reason: Dry Eyes Last Admin: 04/03/22 17:50 Dose: 1 drop Documented by: STEFAN Enoxaparin Sodium (Enoxaparin Sodium 40 Mg/0.4 Ml Syringe) 40 mg SUBCUT Q24H [facility] Last Admin: 04/05/22 19:55 Dose: 40 mg Documented by: JESUS Daptomycin 630 mg/ Sodium (Chloride) 62.6 mls @ 99.982 mls/hr IV Q24H [facility] Last Infusion: 04/05/22 18:24 Dose: 0 mls/hr Documented by: LYNN Melatonin (Melatonin 3 Mg Tablet) 6 mg PO BEDTIME PRN PRN Reason: Insomnia Last Admin: 04/05/22 00:19 Dose: 6 mg Documented by: ALEX Pharmacy Consult (Consult Rx Perform Med Rec) 1 each MISCELLANE ONCE PRN PRN Reason: Consult order Sodium Chloride (0.9 % Sodium Chloride Flush 3 Ml Syringe) 3 ml IVFLUSH QSHIFT [facility] Last Admin: 04/06/22 08:03 Dose: 3 ml Documented by: COTEMA Labs CBC & Chem 7: 04/05/22 05:42 04/06/22 05:08 Labs: Laboratory Results - last 24 hr 04/05/22 04/06/22 05:42 05:08 Anion Gap 11 L Estim Creat Clear Calc 106.0 Estimated GFR > 60 Random Glucose 92 Calcium 7.8 L Total Creatine Kinase 31 C-Reactive Protein 3.59 H Procedures Date of Service Date of Service: 04/06/22 Progress Note: A&P Assessment and plan (1) Metastatic breast cancer: Status: Acute (2) Sepsis: Status: Acute (3) Abscess of breast, right: Status: Acute Plan Overall the right breast abscess is improving but continues to drain mucopurulent discharge. She will need continued dressing changes to the right breast. Perhaps these dressing changes can be performed in short-stay surgery when she returns for IV antibiotics. CT of chest abdomen pelvis indicate diffuse bony metastasis and left lung nodule. Medical oncology evaluating For neoadjuvant treatment. Time Spent With Patient Time: Total time spent is greater than 50% in coordination of care (as documented) at patient's floor/unit and/or counseling patient: Quality Stroke Does the patient have a stroke diagnosis?: No VTE Prior VTE?: No VTE Risk Level:: Medical - moderate - high VTE Device Contraindication: Treatment Not Indicated VTE Drug Contraindication: N/A - Med Ordered
[2022-04-06 10:05] VITALS: BMI 29.8
--- NOTE | 2022-04-06 10:13 | MHC.CLN ---
NUTRITION CONSULT FOR SKIN INTEGRITY. DRAINING ABSCESS TO RIGHT BREAST. NO PRESSURE INJURIES NOTED. NEW DX METASTATIC BREAST CANCER. ADDING ENSURE BID TO PROVIDE ADDITIONAL 700 KCALS, 40 G PROTEIN. SEE CLINICAL NUTRITION ASSESSMENT.
[2022-04-06 11:57] VITALS: BP 189/105; PULSE 88; RESP 18; TEMP 36.4; O2SAT 98
[2022-04-06 12:12] VITALS: BP 176/78
--- NOTE | 2022-04-06 12:13 | PM.DS ---
DS: Providers Provider Date of Service: 04/06/22 Date of admission: 03/26/22 19:23 Date of discharge: 04/06/22 Primary care physician: None Physician Consults: 03/26/22 19:23 Consult to General Surgery Routine Consulting Provider: Moe Rodriguez Reason for consultation: Breast abscess/cellulitis Consult to Infectious Diseases Routine Consulting Provider: Kimberley Zavaleta Reason for consultation: Breast abscess/cellulitis 03/29/22 12:11 Consult to Gastroenterology Routine Consulting Provider: Terrence Issa Reason for consultation: worsening anemia Has provider been notified: No 04/04/22 14:03 Consult to Hematology / Oncology Routine Consulting Provider: [facility] [place] Oncology/Hematology Reason for consultation: Metastatic invasive lobular carcinoma of breast primary ER + 04/05/22 15:05 Consult to Infectious Diseases Stat Consulting Provider: Kimberley Zavaleta Reason for consultation: restricted antibiotic DS: Diagnosis Discharge Diagnosis (1) Metastatic breast cancer: Status: Acute (2) Sepsis: Status: Acute (3) Abscess of breast, right: Status: Acute (4) MSSA bacteremia: Status: Acute (5) Anemia, chronic disease: Status: Acute (6) Essential hypertension: Status: Acute DS: Summary Hospital Course Hospital Course: from admission H+P by Arleen Mchugh, 03/26/22: 71-year-old female with a past medical history of psoriasis presented to the hospital with a chief complaint of right breast pain redness and swelling for about a month.? Reported that her symptoms started after she lifted rash about a month ago and has been gradually worsening; Lately complaint of generalized weakness, malaise; subjective fevers.? Denies any nausea vomiting or diarrhea.? Denies any chest pain or palpitations.? Denies any blood in the stool. Patient reported that she was started on prednisone about 3 days ago for her so reassess.? Denies taking any medications for her so reassess. Review of all other systems is negative except mentioned above ER course: Per ER team patient noted to have right upper quadrant of the right breast warm, indurated-ultrasound showed 3x3x6 cm abscess.? Status post IR guided drainage of 100 cc of the PA's.? Sent for cultures.? Patient started on IV vancomycin and ceftriaxone.? On the labs noted to have leukocytosis; Also noted to have hemoglobin of 9.1 dropped from 14.5 about a month ago.? Patient refused guaiac test.? But patient denied any signs of bleeding. This 71yo F with psoriasis and unfortunately, no PCP, presented with R breast pain, redness, and swelling. She was admitted for cellulitis with abscess and found to have MSSA bacteremia. She was also profoundly anemic and an EGD showed metastatic breast adenocarcinoma. By problem: 1. MSSA bacteremia Treated with IV ceftriaxone, then daptomycin, Plan for total 28 days from negative culture 03/28, end date 04/24/22. PICC line placed. No VNA would accept her since she hasn't yet seen a PCP, so she will come to Short Stay Surgery daily for IV daptomycin infusion. 2. Breast abscess Initially drained with catheter placed by IR on 03/30/22. Definitive bedside surgical drainage by General Surgery on 04/04/22. The wound was packed and the packing should be removed 04/09/22. She will need daily dressing changes and General Surgery follow-up next week. 3. 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 She will follow up as an outpatient with Dr Zambrano to discuss aromatase inhibitor and CDK4/6 inhibitor, along with denosumab to prevent skeletal fractures. 4. Anemia Due to chronic disease. She was transfused 2 units of packed red blood cells on 03/29/22 with appropriate response. She was discharged home with a new patient appointment with her chosen primary care provider, Nilda oCpe MD, on 04/10/22 at 7:30am. Time Spent with Patient Time attestation: Total time spent providing and/or coordinating discharge services: Discharge coordination time: Greater than 30 minutes Quality: Safe Use of Opioids Does Pt have an Active Cancer Diagnosis on the Problem List?: Yes Opioid Measure Date for [facility] Report: 03/07/22 Opioid Measure Time for [facility] Report: 12:15 Quality: Stroke Does the patient have a stroke diagnosis?: No Physical Exam Vital Signs: Vital Signs: Last Vital Signs Temp 97.5 F 04/06/22 11:57 Pulse 88 04/06/22 11:57 Resp 18 04/06/22 11:57 BP 176/78 H 04/06/22 12:12 Pulse Ox 98 04/06/22 11:57 BMI result Body Mass Index 29.8 Gen: in no acute distress HEENT: sclera anicteric, moist mucus membranes Neck: supple Lungs: clear to auscultation bilaterally Heart: regular rate and rhythm, no murmurs Abd: soft, non-tender, non-distended Ext: no edema, LUE PICC Skin: warm/well-perfused, improved erythema R breast UOQ, dressing in place Neuro: alert and oriented x3, no focal findings Psych: appropriate affect DS: Data Data Completed and Pending Completed studies during hospitalization [Text1]: Laboratory Results WBC 8.0 X10*3/uL (4.8-10.8) 04/05/22 05:42 RBC 2.96 X10*6/uL (4.20-5.50) L 04/05/22 05:42 Hgb 9.2 g/dl (12.0-16.0) L 04/05/22 05:42 Hct 27.5 % (37.0-47.0) L 04/05/22 05:42 MCV 92.9 fL (80.0-98.0) 04/05/22 05:42 MCH 31.1 pg (27.0-33.0) 04/05/22 05:42 MCHC 33.5 g/dl (31.0-35.0) 04/05/22 05:42 RDW 15.1 % (11.0-16.0) 04/05/22 05:42 Plt Count 166 X10*3/uL (160-400) 04/05/22 05:42 MPV 10.3 fL (9.4-12.3) 04/05/22 05:42 Immature Gran % (Auto) Cancelled 04/03/22 06:26 Neut % (Auto) Cancelled 04/03/22 06:26 Lymph % (Auto) Cancelled 04/03/22 06:26 [place] % (Auto) Cancelled 04/03/22 06:26 Eos % (Auto) Cancelled 04/03/22 06:26 Baso % (Auto) Cancelled 04/03/22 06:26 Lymph # (Auto) Cancelled 04/03/22 06:26 [place] # (Auto) Cancelled 04/03/22 06:26 Eos # (Auto) Cancelled 04/03/22 06:26 Baso # (Auto) Cancelled 04/03/22 06:26 Abs Immat Gran (auto) Cancelled 04/03/22 06:26 Absolute Neuts (auto) Cancelled 04/03/22 06:26 Absolute Nucleated RBC 0.000 X10*3/uL (0.0-0.012) 04/05/22 05:42 Nucleated RBC % (auto) 0.0 /100WBC (0.0-0.2) 04/05/22 05:42 Neutrophils % (Manual) 80 % (45-73) H 04/03/22 06:26 Band Neutrophils % 6 % (3-5) H 04/03/22 06:26 Lymphocytes % (Manual) 7 % (20-40) L 04/03/22 06:26 Monocytes % (Manual) 6 % (2-11) 04/03/22 06:26 Metamyelocytes % 1 % 04/03/22 06:26 Myelocytes % 1 % 04/02/22 05:22 Abs Neuts (Manual) 8.0 X10*3/uL (2.0-8.3) 04/03/22 06:26 Lymphocytes # (Manual) 0.7 X10*3/uL (1.2-4.9) L 04/03/22 06:26 Monocytes # (Manual) 0.6 X10*3/uL (0.1-1.2) 04/03/22 06:26 Metamyelocytes # 0.1 X10*3/uL 04/03/22 06:26 Myelocytes # 0.1 X10*/uL 04/02/22 05:22 Nucleated RBCs 1 /100WBC (0-0) H 04/03/22 06:26 Smudge Cells PRESENT 03/31/22 05:33 Toxic Vacuolation PRESENT 04/01/22 05:23 Platelet Estimate NORMAL (NORMAL) 04/03/22 06:26 Plt Morphology Comment NORMAL 04/03/22 06:26 RBC Morphology NOTED 04/03/22 06:26 Polychromasia 1+ (0-2) /OIF 04/03/22 06:26 Hypochromasia 1+ (5-14) /OIF 04/03/22 06:26 Macrocytosis 1+ (5-14) /OIF 04/03/22 06:26 Tear Drop Cells 1+ (0-2) /OIF 04/03/22 06:26 Ovalocytes 1+ (5-14) /OIF 04/03/22 06:26 Rodrigo Cells 1+ (0-2) /OIF 04/02/22 05:22 Acanthocytes (Spur) 1+ (0-2) /OIF 04/03/22 06:26 Smear Path Review SEE NOTE 03/29/22 05:25 ESR 109 MM/HR (0-20) H 03/26/22 16:53 PT 16.0 SEC (9.9-13.0) H 03/30/22 12:11 INR 1.4 (0.9-1.1) H 03/30/22 12:11 APTT Cancelled 03/26/22 16:54 Sodium 138 mmol/L (135-145) 04/06/22 05:08 Potassium 3.4 mmol/L (3.3-5.1) 04/06/22 05:08 Chloride 103 mmol/L (96-108) 04/06/22 05:08 Carbon Dioxide 27 mmol/L (22-29) 04/06/22 05:08 Anion Gap 11 (12-20) L 04/06/22 05:08 BUN 3 mg/dL (9-16) L 04/06/22 05:08 Creatinine 0.48 mg/dL (0.5-1.4) L 04/06/22 05:08 Estim Creat Clear Calc 106.0 04/06/22 05:08 Estimated GFR > 60 04/06/22 05:08 Random Glucose 92 mg/dL (60-115) 04/06/22 05:08 Fasting Glucose 88 mg/dL (60-99) 04/05/22 05:42 Lactic Acid 1.8 mmol/L (0.5-2.0) 03/26/22 16:53 Calcium 7.8 mg/dL (8.4-10.2) L 04/06/22 05:08 Magnesium 2.2 mg/dL (1.6-2.6) 03/26/22 17:25 Iron 23 mcg/dL (30-160) L 03/26/22 17:25 TIBC 149 mcg/dL (228-428) L 03/26/22 17:25 % Saturation 15 % (15-50) 03/26/22 17:25 Unsat Iron Binding 126 ug/dL 03/26/22 17:25 Ferritin 1869 ng/mL (10-250) H 03/26/22 17:25 Total Bilirubin 0.3 mg/dL (0.0-1.0) 04/05/22 05:42 Direct Bilirubin 0.5 mg/dL (0.0-0.5) 03/26/22 17:25 AST 32 U/L (5-31) H 04/05/22 05:42 ALT 18 U/L (0-31) 04/05/22 05:42 Alkaline Phosphatase 117 U/L (39-117) 04/05/22 05:42 Total Creatine Kinase 31 U/L (26-140) 04/05/22 05:42 C-Reactive Protein 3.59 mg/dL (< or = 0.50) H 04/06/22 05:08 Total Protein 5.0 g/dL (6.5-8.0) L 04/05/22 05:42 Albumin 2.3 g/dL (3.5-5.0) L 04/05/22 05:42 Vitamin B12 > 2000 pg/mL (200-900) H 03/26/22 17:25 Folate 4.5 ng/mL (> or = 4.0) 03/26/22 17:25 Urine Color DK YELLOW 03/26/22 17:39 Urine Appearance CLEAR 03/26/22 17:39 Urine pH 5.5 (5.0-8.0) 03/26/22 17:39 Ur Specific [place] >= 1.030 (1.005-1.025) H 03/26/22 17:39 Urine Protein 1+ MG/DL (NEG-TRACE) H 03/26/22 17:39 Urine Glucose (UA) NEG MG/DL (NEG) 03/26/22 17:39 Urine Ketones 40 MG/DL (NEG) 03/26/22 17:39 Urine Blood TRACE (NEG) 03/26/22 17:39 Urine Nitrite NEG (NEG) 03/26/22 17:39 Ur Leukocyte Esterase NEG (NEG) 03/26/22 17:39 Urine RBC 0-2 /HPF (0) 03/26/22 17:39 Urine WBC 1-4 /HPF (0-4) 03/26/22 17:39 Ur Squamous Epith Cells 3+ /LPF 03/26/22 17:39 Urine Bacteria 2+ /LPF 03/26/22 17:39 Hyaline Casts 0-2 /LPF 03/26/22 17:39 Urine Mucus 2+ /LPF 03/26/22 17:39 Vancomycin Trough 11.4 mcg/mL (10.0-20.0) 03/29/22 18:03 COVID-19 (COURTNEY) Negative (Negative) 03/26/22 16:43 COVID-19 Clin Com See Note 03/26/22 16:43 Blood Type A Positive 03/29/22 12:55 Antibody Screen NEGATIVE 03/29/22 12:55 Crossmatch See Detail 03/29/22 12:55 Impressions Breast Ultrasound 03/29/22 08:37 IMPRESSION: -Abscess posterior upper outer right breast, overall dimensions 4 x 6 x 8 cm compared with prior pre-aspiration dimensions 3 x 3 x 6 cm. -Swirling echogenicity within the collection is predominantly superficial and central. There may be isoechoic granulation tissue that is not drainable in the total measured area. ASSESSMENT: BI-RADS 3: Probably Benign RECOMMENDATION: -Continue with clinical management plans. -Consider attempt at re-aspiration under ultrasound guidance if not planning surgical drainage. This patient's information was entered into a reminder system with a target due date for their next mammogram. Fluid Drainage 03/30/22 16:05 IMPRESSION: Successful fluoroscopy-guided right breast abscess drainage catheter placement without immediate complications. Abdomen/Pelvis CT 04/04/22 20:00 IMPRESSION: Postsurgical change about the right axilla as described with soft tissue and fluid density. There are a few enlarged abnormal-appearing lymph nodes in this region. Left thyroid abnormality. 7 mm left upper lobe lung nodule. Diffuse bony metastases throughout the skeleton. Trace left pleural effusion, pericardial effusion, and free fluid within the pelvis. 1 cm low-density region within the liver which may represent a cyst. Chest CT 04/04/22 20:00 IMPRESSION: Postsurgical change about the right axilla as described with soft tissue and fluid density. There are a few enlarged abnormal-appearing lymph nodes in this region. Left thyroid abnormality. 7 mm left upper lobe lung nodule. Diffuse bony metastases throughout the skeleton. Trace left pleural effusion, pericardial effusion, and free fluid within the pelvis. 1 cm low-density region within the liver which may represent a cyst. Head CT 04/04/22 20:00 IMPRESSION: No acute intracranial pathology. No CT evidence of intracranial metastatic disease. Pathology from EGD, 03/30/22 A.? Small bowel, biopsy:? Small bowel mucosa within normal limits; preserved villous architecture and no increased intraepithelial lymphocytes seen.? B.? Stomach, antrum, biopsy:? Gastric antral mucosa with mild reactive gastropathy; negative for Helicobacter pylori, intestinal metaplasia and dysplasia. C.? Stomach, body, biopsy:??Metastatic invasive lobular carcinoma of breast primary?involving gastric body mucosa (see comment). D.? Gastroesophageal junction, nodule, biopsy:? Squamous and columnar junctional mucosa with mild chronic inactive inflammation; negative for intestinal metaplasia or dysplasia. E.? Gastroesophageal junction, biopsy:? Squamous and columnar junctional mucosa with mild chronic inactive inflammation and intestinal metaplasia consistent with Queen's esophagus; negative for dysplasia (see comment). COMMENT (C):? The immunohistochemical stain profile is consistent with a breast primary. See results of breast prognostic markers as follows: Estrogen Receptor: Positive?(100% tumor cells, strong intensity) Progesterone Receptor: Negative (<1% of tumor cells, weak intensity) HER-2 gene expression: Negative (no internal control present) COMMENT (E):? These findings are consistent with Queen's esophagus if the biopsies were taken above the anatomic gastroesophageal junction.? Clinical and endoscopic correlation is advised. Microbiology 03/28/22 10:45 Blood - Venous Blood Culture - Final No growth after 5 days. 03/28/22 10:45 Blood - Venous Blood Culture - Final No growth after 5 days. 03/26/22 17:02 Blood - Venous Blood Culture - Final Staphylococcus aureus 03/26/22 16:52 Blood - Venous Blood Culture - Final Staphylococcus aureus 03/26/22 16:15 Breast Right Gram Stain - Final 03/26/22 16:15 Breast Right Routine Culture - Final Staphylococcus aureus Discharge Plan Discharge Patient Disposition: Home, Self-Care Discharge Diagnosis: MSSA bacteremia, breast abscess/cellulitis, metastatic breast cancer, anemia of chronic disease, hypertension Ref[place]: [facility] [place] at [facility] [Other] - 1 Day ([facility] short stay for dialy iv antibioitc administration to start on 04/03/22 if for any reason yopu will be late please calll them at the above number) Nilda Cope MD [Physician] - 04/10/22 7:30 am (You have an appointment to establish care with Nilda Cope on April 10 at 7:30 am. ) Kimberley Zavaleta MD [Physician] - 2 Weeks Patti Gonzalez MD [Physician] - 2 Weeks Moe Rodriguez MD [Physician] - 1 Week Discharge Medications: New amlodipine 5 mg Tablet 5 mg PO DAILY Qty: 30 0RF Protocol: Hold for SBP< HOLD for SBP < : 90 daptomycin 350 mg Recon Soln 630 mg IV Q24H Qty: 18 0RF Continued [id number] 750 mg-644 mg- 30 mg-1 mg Tablet 1 tab PO Q2D 0RF Artificial Tears (cmc) 1 % Drops 1 drp ophthalmic (eye) QID PRN (Reason: Dry Eye(S)) 0RF Discharge Orders: Discharge Order (Routine); Ordered 04/06/22 Ordered By: Vikki Thompson Diet: advance to usual diet and low salt diet Activity on Discharge: As tolerated Stand Alone Forms: Patient Portal Discharge page Care Plan Goals: cure of bloodstream infection/cellulitis/abscess palliative treatment of breast cancer Health Concerns: MSSA bacteremia, breast abscess/cellulitis, metastatic breast cancer, anemia of chronic disease, hypertension Plan of Treatment: MSSA bacteremia: IV daptomycin 630 mg daily via PICC line, end date 04/24/22 then remove PICC. follow up with Dr Zavaleta in 2 weeks. Weekly labs while on daptomycin: CBCd, CMP, CPK beginning 04/12/22 breast abscess/cellulitis: remove packing on Saturday04/09/22. apply new ABD pad to wound daily Packing can be removed on Saturday. She will need an ABD pad applied to the wound stacie metastatic breast cancer [estrogen receptor positive, metastatic to stomach and bones]: follow up with Dr Zambrano in 2 weeks to plan for palliative chemotherapy hypertension: take amlodipine 5 mg daily Assessment: See Discharge Summary Patient Instructions: PICC (Peripherally Inserted Central Catheter) (DC)
--- NOTE | 2022-04-06 12:17 | MHC.CM.PN ---
Addendum entered by Henna Mcclain 04/06/22 13:20: i spoke with staff nurse abby in daystay he referred me to the [facility] quality assurance supervisor alice , i spoke with her and she reported she would accept patient up till april 18 for iv abx administrartin m pic line dressing changes and labs and no other dresings, on april 18 other alternate arrangements need to be made with pcp and id physicians and consult to case management for self pay for iv abx , spoke with abby again and patient will start tomorro mati 10;30 am per familia the [facility] quality assurance supervisor in [facility] Original Note: NURSE RN HEMO DIALYSIS NOTE ELECTRONINIC MEDICAL RECORD REVIEWED ALONG WITH CASE DISUCSSE ON MULTIPLE DISCIPLINARY ROUNDS , PATIENT S IV D/C ABX HAVE CHANGED NOW TO IV DAPTOMYCIN ORDEREDS UPDATED AND WILL BE FAXED TO [facility] IN SHORT STAY , PATIENT FAMILY ARE AWARE THAT THEY WILL NEED TO LEARN THE DRESSING CARE NO VNA WILL BE OUT STAFF NURSE TO PROVIDE TACHING AND GIVE PATIENT DDSUPPLIES FOR THE DRESING CHANGES AND PHYSICIAN TO WRITE SCRIPTS FOR THE NEEDED SUPPLIAEA. OPPCP DR PETERSON NEW PATIENT APPOINTMENT LISTED ON THE D/C INSTRUCTIUONS FOR SATURDAY FOLLOW UP WITH SURGEON LEE FOR SATURDAY FOLLOW UP MarchAPR 09 2022 AT 11 AM PATIENT TRISTIAN ALSO FOLLOW UP WITH HEM ONC PER DISCHARGE INSTRUCTIONS MEDICARE IMM UPDATED
[2022-04-10 12:17] LABS: CA 27.29 30 U/mL (<38)
== END 2022-04-06 16:22 | disposition home or self-care (01) | DRG 854 ==
LOC: HO.ED 17:43 → HO.EDOVER 19:32 → HO.S3 19:58
PROVIDERS: Hospitalist; Internal Medicine; Internal Medicine Gastroenterology; Physician Assistant; Radiology Diagnostic Radiology; Admitting Provider Hospitalist; Emergency Provider Internal Medicine; Visit Provider Family Medicine
PROC: 0H9T3ZZ Drainage of Right Breast, Percutaneous Approach (ICD-10-PCS; principal; 2022-03-26 16:00)
PROC: 0DJ08ZZ Inspection of Upper Intestinal Tract, Via Natural or Artificial Opening Endoscopic (ICD-10-PCS; CPT 43235; principal; 2022-03-30 14:10)
PROC: 0H9T30Z Drainage of Right Breast with Drainage Device, Percutaneous Approach (ICD-10-PCS; principal; 2022-03-30 15:00)
DX: A41.01 Sepsis due to Methicillin susceptible Staphylococcus aureus (principal); C78.89 Secondary malignant neoplasm of other digestive organs; C79.51 Secondary malignant neoplasm of bone; C50.911 Malignant neoplasm of unspecified site of right female breast; N61.1 Abscess of the breast and nipple; L40.9 Psoriasis, unspecified; Z20.822 Contact with and (suspected) exposure to COVID-19; D63.1 Anemia in chronic kidney disease; Z17.0 Estrogen receptor positive status [ER+]; Z91.040 Latex allergy status
CPT/HCPCS: 10030; 36415; 36573; 70460; 71260; 74177; 76642; 80048; 80053; 80076; 80202; 81001; 82550; 82607; 82728; 82746; 83540; 83605; 83735; 85007; 85025; 85027; 85610; 85652; 85730; 86140; 86300; 86850; 86900; 86901; 86923; 87040; 87071; 87077; 87186; 87205; 87635; 88305; 88341; 88342; 88360; 93005; 93306; 96361; 96365; 96367; 99024; 99285; 99291; C1729; C1751; C1769; J0690; J0696; J0878; J1170; J1650; J3370; P9016; Q9967

== ENCOUNTER 2022-04-07 09:43 | Outpatient (REF) | payer MEDICARE, SELFPAY | END 2022-04-07 09:44 | disposition home or self-care (01) | LOC: HO.MDS 09:43 | PROVIDERS: PCP Internal Medicine; Visit Provider Internal Medicine | DX: Z45.2 Encounter for adjustment and management of vascular access device (principal); R78.81 Bacteremia | CPT/HCPCS: 96365; J0878 ==

== ENCOUNTER 2022-04-08 10:16 | Outpatient (REF) | payer MEDICARE, SELFPAY | END 2022-04-08 10:17 | disposition home or self-care (01) | LOC: HO.MDS 10:16 | PROVIDERS: PCP Internal Medicine; Visit Provider Internal Medicine | DX: Z45.2 Encounter for adjustment and management of vascular access device (principal); R78.81 Bacteremia | CPT/HCPCS: 96365; J0878 ==

== ENCOUNTER 2022-04-09 11:29 | Outpatient (REF) | payer MEDICARE, SELFPAY ==
[2022-04-09 12:20] LABS: Hematocrit 30.9 % (37.0-47.0); Hemoglobin 10.1 g/dl (12.0-16.0); Mean Corpuscular HGB Conc 32.7 g/dl (31.0-35.0); Mean Corpuscular Volume 94.8 fL (80.0-98.0); Mean Platelet Volume 9.7 fL (9.4-12.3); Platelet Count 175 X10*3/uL (160-400); Red Blood Count 3.26 X10*6/uL (4.20-5.50); Red Cell Distribution Width 15.5 % (11.0-16.0); White Blood Count 6.5 X10*3/uL (4.8-10.8)
[2022-04-09 12:46] LABS: Alanine Aminotransferase 23 U/L (0-31); Alkaline Phosphatase 112 U/L (39-117); Anion Gap 13 (12-20); Aspartate Amino Transferase 37 U/L (5-31); Bilirubin Total 0.6 mg/dL (0.0-1.0); Blood Urea Nitrogen 6 mg/dL (9-16); Calcium 8.5 mg/dL (8.4-10.2); Carbon Dioxide 26 mmol/L (22-29); Chloride 103 mmol/L (96-108); Estimated Glomerular Filt Rate > 60; Glucose Random 98 mg/dL (60-115); Potassium 3.7 mmol/L (3.3-5.1); Sodium 138 mmol/L (135-145); Total Protein 6.4 g/dL (6.5-8.0)
[2022-04-09 13:04] LABS: Atypical Lymph Absolute Manual 0.1 x10*3/uL; Atypical Lymphs Percent Manual 2 % (0-6); Band Neutrophils Percent 3 % (3-5); Lymphocytes Absolute Manual 1.4 X10*3/uL (1.2-4.9); Lymphocytes Percent Manual 22 % (20-40); Metamyelocytes Absolute 0.1 X10*3/uL; Metamyelocytes Percent 2 %; Monocytes Absolute Manual 0.4 X10*3/uL (0.1-1.2); Monocytes Percent Manual 6 % (2-11); Neutrophils Absolute Manual 4.4 X10*3/uL (2.0-8.3); Neutrophils Percent Manual 65 % (45-73)
[2022-04-09 13:06] LABS: RBC Morphology NOTED
[2022-04-09 13:07] LABS: Macrocytosis 1+ (5-14) /OIF; Platelet Estimate NORMAL (NORMAL); Platelet Morphology Comment NORMAL; Polychromasia 1+ (0-2) /OIF
== END 2022-04-09 11:30 | disposition home or self-care (01) ==
LOC: HO.MDS 11:29
PROVIDERS: Visit Provider Internal Medicine
DX: Z45.2 Encounter for adjustment and management of vascular access device (principal); R78.81 Bacteremia
CPT/HCPCS: 36415; 80053; 82550; 85007; 85027; 96365; J0878

== ENCOUNTER 2022-04-10 09:14 | Outpatient (REF) | payer MEDICARE, MEDICAID, SELFPAY | END 2022-04-10 09:15 | disposition home or self-care (01) | LOC: HO.MDS 09:14 | PROVIDERS: Visit Provider Internal Medicine | DX: Z45.2 Encounter for adjustment and management of vascular access device (principal); R78.81 Bacteremia | CPT/HCPCS: 96365; J0878 ==

== ENCOUNTER 2022-04-11 10:47 | Outpatient (REF) | payer MEDICARE, MEDICAID, SELFPAY | END 2022-04-11 10:48 | disposition home or self-care (01) | LOC: HO.MDS 10:47 | PROVIDERS: Visit Provider Internal Medicine | DX: Z45.2 Encounter for adjustment and management of vascular access device (principal); R78.81 Bacteremia | CPT/HCPCS: 96365; J0878 ==

== ENCOUNTER 2022-04-12 10:27 | Outpatient (REF) | payer MEDICARE, MEDICAID, SELFPAY | END 2022-04-12 10:28 | disposition home or self-care (01) | LOC: HO.MDS 10:27 | PROVIDERS: Visit Provider Internal Medicine | DX: Z45.2 Encounter for adjustment and management of vascular access device (principal); R78.81 Bacteremia | CPT/HCPCS: 96365; J0878 ==

== ENCOUNTER 2022-04-13 10:24 | Outpatient (REF) | payer MEDICARE, MEDICAID, SELFPAY | END 2022-04-13 10:25 | disposition home or self-care (01) | LOC: HO.MDS 10:24 | PROVIDERS: Visit Provider Internal Medicine | DX: Z45.2 Encounter for adjustment and management of vascular access device (principal); R78.81 Bacteremia | CPT/HCPCS: 96365; J0878 ==

== ENCOUNTER 2022-04-14 09:44 | Outpatient (REF) | payer MEDICARE, MEDICAID, SELFPAY | END 2022-04-14 09:45 | disposition home or self-care (01) | LOC: HO.MDS 09:44 | PROVIDERS: Visit Provider Internal Medicine | DX: Z45.2 Encounter for adjustment and management of vascular access device (principal); R78.81 Bacteremia | CPT/HCPCS: 96365; J0878 ==

== ENCOUNTER 2022-04-15 09:44 | Outpatient (REF) | payer MEDICARE, MEDICAID, SELFPAY | END 2022-04-15 09:45 | disposition home or self-care (01) | LOC: HO.MDS 09:44 | PROVIDERS: Visit Provider Internal Medicine | DX: Z45.2 Encounter for adjustment and management of vascular access device (principal); R78.81 Bacteremia | CPT/HCPCS: 96365; J0696; J0878 ==

== ENCOUNTER 2022-04-16 11:44 | Outpatient (REF) | payer MEDICARE, MEDICAID, SELFPAY ==
[2022-04-16 13:06] LABS: MANUAL DIFF FLAG NO
[2022-04-16 13:07] LABS: Basophils Percent Auto 0.2 % (0-2); Hematocrit 32.5 % (37.0-47.0); Hemoglobin 10.3 g/dl (12.0-16.0); Imm Gran Abs Auto 0.09 X10*3/uL (0.00-0.03); Imm Gran Pct Auto 2.2 % (0.0-0.4); Lymphocytes Absolute Auto 1.3 X10*3/uL (1.2-4.9); Lymphocytes Percent Auto 32.5 % (20-40); Mean Corpuscular HGB Conc 31.7 g/dl (31.0-35.0); Mean Corpuscular Hemoglobin 30.5 pg (27.0-33.0); Mean Corpuscular Volume 96.2 fL (80.0-98.0); Mean Platelet Volume 9.2 fL (9.4-12.3); Monocytes Absolute Auto 0.6 X10*3/uL (0.1-1.2); Monocytes Percent Auto 14.6 % (2-11); NRBC Pct Auto 0.5 /100WBC (0.0-0.2); Neutrophils Percent Auto 49.5 % (45-73); Platelet Count 228 X10*3/uL (160-400); Red Blood Count 3.38 X10*6/uL (4.20-5.50); Red Cell Distribution Width 16.1 % (11.0-16.0)
[2022-04-16 13:25] LABS: Alanine Aminotransferase 21 U/L (0-31); Albumin Level 3.4 g/dL (3.5-5.0); Alkaline Phosphatase 99 U/L (39-117); Anion Gap 15 (12-20); Aspartate Amino Transferase 27 U/L (5-31); Bilirubin Total 0.4 mg/dL (0.0-1.0); Blood Urea Nitrogen 8 mg/dL (9-16); Calcium 8.8 mg/dL (8.4-10.2); Carbon Dioxide 24 mmol/L (22-29); Chloride 104 mmol/L (96-108); Estimated Glomerular Filt Rate > 60; Glucose Random 100 mg/dL (60-115); Potassium 4.3 mmol/L (3.3-5.1); Sodium 139 mmol/L (135-145); Total Protein 7.1 g/dL (6.5-8.0)
== END 2022-04-16 11:45 | disposition home or self-care (01) ==
LOC: HO.MDS 11:44
PROVIDERS: Visit Provider Internal Medicine
DX: Z45.2 Encounter for adjustment and management of vascular access device (principal); R78.81 Bacteremia
CPT/HCPCS: 36415; 80053; 82550; 85025; 96365; 99212; J0878

== ENCOUNTER 2022-04-17 10:49 | Outpatient (REF) | payer MEDICARE, MEDICAID, SELFPAY | END 2022-04-17 10:50 | disposition home or self-care (01) | LOC: HO.MDS 10:49 | PROVIDERS: Visit Provider Internal Medicine | DX: Z45.2 Encounter for adjustment and management of vascular access device (principal); R78.81 Bacteremia | CPT/HCPCS: 96365; J0878 ==

== ENCOUNTER 2022-04-18 10:21 | Outpatient (REF) | payer MEDICARE, MEDICAID, SELFPAY | END 2022-04-18 10:22 | disposition home or self-care (01) | LOC: HO.MDS 10:21 | PROVIDERS: Visit Provider Internal Medicine | DX: Z45.2 Encounter for adjustment and management of vascular access device (principal); R78.81 Bacteremia | CPT/HCPCS: 96365; J0878 ==

== ENCOUNTER 2022-04-19 09:12 | Outpatient (REF) | payer MEDICARE, MEDICAID, SELFPAY | END 2022-04-19 09:13 | disposition home or self-care (01) | LOC: HO.MDS 09:12 | PROVIDERS: Visit Provider Internal Medicine | DX: Z45.2 Encounter for adjustment and management of vascular access device (principal); R78.81 Bacteremia | CPT/HCPCS: 96365; J0878 ==

== ENCOUNTER 2022-04-20 12:16 | Outpatient (REF) | payer MEDICARE, MEDICAID, SELFPAY | END 2022-04-20 12:17 | disposition home or self-care (01) | LOC: HO.MDS 12:16 | PROVIDERS: Visit Provider Internal Medicine | DX: Z45.2 Encounter for adjustment and management of vascular access device (principal); R78.81 Bacteremia | CPT/HCPCS: 96365; J0878 ==

== ENCOUNTER → 2022-04-20 13:32 | Outpatient (BNV) | payer MEDICARE, MEDICAID, SELFPAY | PROVIDERS: Visit Provider Internal Medicine | DX: C50.911 Malignant neoplasm of unspecified site of right female breast (principal); C79.51 Secondary malignant neoplasm of bone; Z80.3 Family history of malignant neoplasm of breast | CPT/HCPCS: 99212; 99213; 99214; 99215; G2211 ==

== ENCOUNTER 2022-04-21 09:44 | Outpatient (REF) | payer MEDICARE, MEDICAID, SELFPAY | END 2022-04-21 09:45 | disposition home or self-care (01) | LOC: HO.MDS 09:44 | PROVIDERS: PCP Internal Medicine; Visit Provider Internal Medicine | DX: Z45.2 Encounter for adjustment and management of vascular access device (principal); R78.81 Bacteremia | CPT/HCPCS: 96365; J0878 ==

== ENCOUNTER 2022-04-22 10:00 | Outpatient (REF) | payer MEDICARE, MEDICAID, SELFPAY | END 2022-04-22 10:01 | disposition home or self-care (01) | LOC: HO.MDS 10:00 | PROVIDERS: PCP Internal Medicine; Visit Provider Internal Medicine | DX: Z45.2 Encounter for adjustment and management of vascular access device (principal); N61.1 Abscess of the breast and nipple | CPT/HCPCS: 96365; J0878 ==

== ENCOUNTER 2022-04-23 09:44 | Outpatient (REF) | payer MEDICARE, MEDICAID, SELFPAY | END 2022-04-23 09:45 | disposition home or self-care (01) | LOC: HO.MDS 09:44 | PROVIDERS: PCP Internal Medicine; Visit Provider Internal Medicine | DX: Z45.2 Encounter for adjustment and management of vascular access device (principal); N61.1 Abscess of the breast and nipple | CPT/HCPCS: 96365; J0878 ==

== ENCOUNTER 2022-04-24 09:45 | Outpatient (REF) | payer MEDICARE, MEDICAID, SELFPAY | END 2022-04-24 09:46 | disposition home or self-care (01) | LOC: HO.MDS 09:45 | PROVIDERS: Visit Provider Internal Medicine | DX: Z45.2 Encounter for adjustment and management of vascular access device (principal); N61.1 Abscess of the breast and nipple | CPT/HCPCS: 36415; 80053; 85025; 96365; J0878 ==

== ENCOUNTER 2022-04-24 15:27 | Outpatient (REF) | payer MEDICARE, SELFPAY ==
[2022-04-24 15:47] LABS: MANUAL DIFF FLAG NO
[2022-04-24 16:13] LABS: Basophils Percent Auto 0.3 % (0-2); Eosinophils Percent Auto 0.5 % (0-4); Hematocrit 30.7 % (37.0-47.0); Hemoglobin 9.9 g/dl (12.0-16.0); Imm Gran Abs Auto 0.03 X10*3/uL (0.00-0.03); Imm Gran Pct Auto 0.8 % (0.0-0.4); Lymphocytes Absolute Auto 1.2 X10*3/uL (1.2-4.9); Lymphocytes Percent Auto 31.3 % (20-40); Mean Corpuscular HGB Conc 32.2 g/dl (31.0-35.0); Mean Corpuscular Hemoglobin 30.6 pg (27.0-33.0); Mean Corpuscular Volume 94.8 fL (80.0-98.0); Mean Platelet Volume 10.1 fL (9.4-12.3); Monocytes Absolute Auto 0.6 X10*3/uL (0.1-1.2); Monocytes Percent Auto 16.3 % (2-11); Neutrophils Percent Auto 50.8 % (45-73); Platelet Count 182 X10*3/uL (160-400); Red Blood Count 3.24 X10*6/uL (4.20-5.50); Red Cell Distribution Width 16.5 % (11.0-16.0); White Blood Count 3.9 X10*3/uL (4.8-10.8)
[2022-04-24 16:45] LABS: Alanine Aminotransferase 14 U/L (0-31); Albumin Level 3.6 g/dL (3.5-5.0); Alkaline Phosphatase 94 U/L (39-117); Anion Gap 13 (12-20); Aspartate Amino Transferase 24 U/L (5-31); Bilirubin Total 0.7 mg/dL (0.0-1.0); Blood Urea Nitrogen 9 mg/dL (9-16); Calcium 9.2 mg/dL (8.4-10.2); Carbon Dioxide 22 mmol/L (22-29); Chloride 106 mmol/L (96-108); Estimated Glomerular Filt Rate > 60; Glucose Random 94 mg/dL (60-115); Sodium 137 mmol/L (135-145); Total Protein 7.3 g/dL (6.5-8.0)
== END 2022-04-24 15:28 | disposition home or self-care (01) ==
LOC: HO.LAB 15:27
PROVIDERS: PCP Internal Medicine; Visit Provider Internal Medicine
DX: C50.911 Malignant neoplasm of unspecified site of right female breast (principal)
CPT/HCPCS: 36415; 80053; 85025; 96365; J0878

== ENCOUNTER → 2022-04-27 10:36 | Outpatient (REF) | payer MEDICARE, MEDICAID, SELFPAY ==
--- NOTE | ~2022-04-27 | NM_ITS ---
EXAMINATION: NM BONE SCAN OF THE WHOLE BODY CLINICAL INFORMATION: Malignant neoplasm of breast. Bone metastases. COMPARISON: No previous bone scan or recent radiographs are available for comparison. The diagnostic CT scan of the chest, abdomen, and pelvis, dated 04/04/2022, is available for comparison. TECHNIQUE: Multiple gamma scintillation camera images of the whole body were performed 2.75 hours following the intravenous administration of 27 mCi Tc-99m MDP. FINDINGS: In the head, no significant abnormalities are present. In the thoracic cage and upper extremities, there is mildly increased activity in the acromioclavicular and sternoclavicular joints bilaterally and in a small mild focus in the lateral subacromial region of the right humeral head. Several periarticular foci of increased activity are present in both hands and wrists. There are very faint foci of increased activity in adjacent regions of the posterior aspects of the left sixth, seventh, and eighth ribs. In the spine, there is minimally increased activity in the right side of the lumbosacral junction and very faintly in the left side of L3. In the pelvis, there is minimally increased activity in the superior lip of the acetabula bilaterally. In the lower extremities, there is moderately increased activity in the lateral compartment of the right knee and minimally increased activity in the medial compartments bilaterally, more prominently on the left. Very minimally increased activity is present in the greater femoral trochanters bilaterally, likely due to an enthesopathy. No other definite bony abnormalities are noted. The urinary bladder and faint visualization of both kidneys are noted. The chest CT scan dated 04/04/2022 shows extensive mixed sclerotic and lytic abnormalities throughout the visualized bones, particularly prominently in the spine and sternum but also with multiple rib, sternal, and scapular abnormalities. The CT scan of the abdomen and pelvis also dated 04/04/2022 also shows extensive mixed sclerotic and lytic osseous abnormalities in the pelvis and proximal femurs. There is bilateral facet arthropathy at the lumbosacral junction, and this may account for the mild abnormality in the right side of the lumbosacral junction on this scan abnormality may not be in the posterior elements. NM/NM bone scan whole body IMPRESSION: Other than mild abnormalities in the lumbosacral spine and in a few posterior left-sided ribs, extensive abnormalities on the 04/04/2022 CT scans do not show corresponding abnormalities on this bone scan. This suggests these are not metabolically active. The mild abnormalities described above in the shoulders, sternoclavicular joints, knees, and both hands and wrists are more likely arthritic in etiology.
== END ==
LOC: HO.NUCMED 10:36
PROVIDERS: Visit Provider Internal Medicine
DX: C50.919 Malignant neoplasm of unspecified site of unspecified female breast (principal)
CPT/HCPCS: 78306; A9503

== ENCOUNTER 2022-07-31 12:52 | Outpatient (REF) | payer MEDICARE, SELFPAY ==
[2022-07-31 13:54] LABS: Prothrombin Time 11.8 SEC (10.0-13.1)
[2022-07-31 13:59] LABS: Anion Gap 15 (12-20); Blood Urea Nitrogen 19 mg/dL (9-16); Calcium 8.6 mg/dL (8.4-10.2); Carbon Dioxide 21 mmol/L (22-29); Chloride 106 mmol/L (96-108); Estimated Glomerular Filt Rate 35; Glucose Random 89 mg/dL (60-115); Potassium 4.2 mmol/L (3.3-5.1); Sodium 138 mmol/L (135-145)
[2022-07-31 15:29] LABS: Creatinine Urine 13.59 mg/dL; Total Protein Urine Random < 7 mg/dL (<12)
[2022-08-01 11:27] LABS: Complement C3 98 mg/dL (83-193)
[2022-08-03 00:22] LABS: Prot Elec - Albumin 4.3 g/dL (3.8-4.8); Prot Elec - Alpha1 0.3 g/dL (0.2-0.3); Prot Elec - Alpha2 0.7 g/dL (0.5-0.9); Prot Elec - Beta 1 0.4 g/dL (0.4-0.6); Prot Elec - Beta 2 0.4 g/dL (0.2-0.5); Prot Elec - Gamma 1.9 g/dL (0.8-1.7); Prot Elec - Total Protein 7.9 g/dL (6.1-8.1)
[2022-08-08 09:43] LABS: Neutrophil Cyto Ab Screen ATYP P-ANCA POS (NEGATIVE)
== END 2022-07-31 12:53 | disposition home or self-care (01) ==
LOC: HO.LAB 12:52
PROVIDERS: PCP Internal Medicine; Visit Provider Internal Medicine Hypertension Specialist
DX: N17.9 Acute kidney failure, unspecified (principal)
CPT/HCPCS: 36415; 80048; 84156; 84165; 85610; 86036; 86037; 86160

== ENCOUNTER 2022-08-28 10:05 | Outpatient (REF) | payer MEDICARE, MEDICAID, SELFPAY ==
--- NOTE | ~2022-08-28 | PE_ITS ---
EXAMINATION: Fluorine-18 FDG PET/CT Scan CLINICAL INDICATION: Subsequent treatment management. Restaging of breast cancer at upper outer quadrant of the right breast. PROCEDURE: 63 minutes following the intravenous administration of 14.1 mCi of fluorine 18 FDG, images from the base of the skull to the mid thighs were obtained using a combined PET/CT scanner with CT scan based attenuation correction. No intravenous contrast was administered. Transverse, coronal, sagittal, and volume reconstruction projections were obtained. The patient's blood glucose as determined by a finger stick, was 97 mg/dl immediately prior to injection. The radiotracer was injected intravenously through right hand superficial vein, without any complications. Total CT exam dose-length product 583.90 mGy-cm * These CT images were obtained using dose optimization techniques as appropriate, variously including the following: Automated exposure control * Adjustment of mA and/or kV according to patient size (this includes techniques or standardized protocols for targeted exams where dose is matched to indication/reason for exam; i.e. extremities or head) * Use of iterative reconstruction technique COMPARISON: Right breast ultrasound done on 03/26/2022, CT of the chest abdomen and pelvis and CT of the head done on 04/04/2022 and whole-body bone scan done on 04/27/2022. FINDINGS: NECK AND VISUALIZED HEAD: No FDG avid disease. Mild mucoperiosteal thickening at floor of both maxillary sinuses (greater than right). THORAX: No FDG avid disease. Specifically, previously documented subtle subcentimeter lung nodules show any FDG seen. No FDG avidity is noted thyroid gland. Cyst and trace simple appearing pericardial effusion without any FDG avidity. No evidence of any pleural effusion or mediastinal or hilar lymphadenopathy. Specifically, no metabolically active FDG avid the right breast or within the right axilla. There are multiple pathologically enlarged abnormal right axillary lymph nodes present, appear smaller as compared to the study dated 04/04/2022, without any FDG avidity. Previously documented heterogeneous mixed density mass with multiple air pockets and skin thickening involving the right breast as was seen on the study dated 04/04/2022 shows interval resolution. ABDOMEN AND PELVIS: No metabolically active disease. Especially, no metabolically active liver original disease is present. MUSCULOSKELETAL: Previously documented extensive mixed lytic, sclerotic abnormalities seen within the entire visualized axial and appendicular skeleton does not show any FDG avidity, discordant with prior CT studies. Note is however made of minimal bilateral posteromedial FDG avidity of few midthoracic ribs, may represent misregistration artifact from adjacent paraspinal muscle activity versus mild osseous disease. VASCULAR: No evidence of any aneurysm. PET/PET CT fusion skull to thigh IMPRESSION: 1. No FDG avid disease is identified within the right breast and right axilla. Previously documented heterogeneous density ill-defined mass/abscess involving the right breast documented on the study dated 04/04/2022, shows interval resolution. There are multiple right axillary non-FDG avid lymph nodes present, appears significantly smaller as compared to the study dated 04/04/2022. 2. Extensive presumed osseous metastatic disease as was documented on the CT study of the chest abdomen and pelvis done on 04/04/2022 is reidentified on the anatomical CT images however, do not show any FDG avidity. Image guided bone biopsy may be considered for definitive tissue diagnosis and to exclude alternative diagnosis, if clinically appropriate. 3. No evidence of any metabolically active soft tissue metastasis to the chest abdomen and pelvis and the visualized part of the head and neck.
== END 2022-08-28 10:06 | disposition home or self-care (01) ==
LOC: HO.PET 10:05
PROVIDERS: PCP Internal Medicine; Visit Provider Internal Medicine
DX: Z13.89 Encounter for screening for other disorder (principal)

== ENCOUNTER 2022-09-12 12:40 | Outpatient (REF) | payer MEDICARE, MEDICAID, SELFPAY ==
[2022-09-12 13:55] LABS: Alanine Aminotransferase 9 U/L (0-31); Albumin Level 4.3 g/dL (3.5-5.0); Alkaline Phosphatase 51 U/L (39-117); Anion Gap 15 (12-20); Aspartate Amino Transferase 19 U/L (5-31); Bilirubin Total 0.5 mg/dL (0.0-1.0); Blood Urea Nitrogen 18 mg/dL (9-16); Calcium 9.3 mg/dL (8.4-10.2); Carbon Dioxide 21 mmol/L (22-29); Chloride 107 mmol/L (96-108); Estimated Glomerular Filt Rate 37; Glucose Random 93 mg/dL (60-115); Phosphorus 3.9 mg/dL (2.7-4.5); Potassium 4.4 mmol/L (3.3-5.1); Sodium 139 mmol/L (135-145); Total Protein 7.8 g/dL (6.5-8.0)
[2022-09-13 07:48] LABS: EOS Counted 0 CELLS; EOS QC POS YES; EOS Stain Quality OK YES; WBC, Counted 0 CELLS
[2022-09-15 19:07] LABS: Kappa Light Chains Quant. RU 3.73 mg/dL (<2.00); Lambda Light Chains Quant. RU <1.00 mg/dL (<2.00)
[2022-09-15 22:18] LABS: Prot Elec - Albumin 4.3 g/dL (3.8-4.8); Prot Elec - Alpha1 0.3 g/dL (0.2-0.3); Prot Elec - Alpha2 0.7 g/dL (0.5-0.9); Prot Elec - Beta 1 0.4 g/dL (0.4-0.6); Prot Elec - Beta 2 0.4 g/dL (0.2-0.5); Prot Elec - Gamma 1.7 g/dL (0.8-1.7); Prot Elec - Total Protein 7.7 g/dL (6.1-8.1)
== END 2022-09-12 12:41 | disposition home or self-care (01) ==
LOC: HO.LAB 12:40
PROVIDERS: Visit Provider Internal Medicine Hypertension Specialist
DX: N18.31 Chronic kidney disease, stage 3a (principal)
CPT/HCPCS: 80053; 83883; 84100; 84165; 84550; 86335; 89190

== ENCOUNTER → 2022-12-26 10:46 | Outpatient (REF) | payer MEDICARE, MEDICAID, SELFPAY ==
--- NOTE | ~2022-12-26 | NM_ITS ---
EXAMINATION: NM BONE SCAN OF THE WHOLE BODY CLINICAL INFORMATION: Malignant neoplasm of female breast. COMPARISON: A previous bone scan dated 04/27/[address] scan dated 08/28/2022 are available for comparison. No recent radiographs are available for comparison. TECHNIQUE: Multiple gamma scintillation camera images of the whole body were performed 2.5 hours following the intravenous administration of 27 mCi Tc-99m MDP. FINDINGS: In the head, no significant abnormalities are present. In the thoracic cage and upper extremities, there is minimally increased activity in the acromioclavicular joints bilaterally, and in the right sternoclavicular joint. There is mildly increased activity in the radial side of both hands or wrists. In the spine, no significant abnormalities are present. In the pelvis, no significant abnormalities are present. In the lower extremities, there is mildly increased activity in the lateral compartment of the right knee. No other definite bony abnormalities are noted. The urinary bladder and faint visualization of both kidneys are noted. Compared to the previous bone scan dated 04/27/2022 mildly increased activity on the prior study in the right side of the lumbosacral junction is not present on the current study. The remainder the scan is not significantly changed. The 08/28/[address] scan and prior diagnostic CT scans show diffuse mixed sclerotic and lytic osseous lesions. No corresponding abnormalities are present on this bone scan. NM/NM bone scan whole body IMPRESSION: A few minimal nonspecific abnormalities are noted as described above and these are all likely arthritic or traumatic in etiology. None of these abnormalities is strongly suspicious for metastatic disease. The absence of more pronounced abnormalities on this bone scan suggests that extensive osseous lesions present on prior PET/CT and diagnostic CT scans are now healed metastases with no corresponding bony reaction. The bone scan is not significantly changed from
[2022-12-26 11:55] LABS: Hemoglobin 11.4 g/dl (12.0-16.0); Mean Corpuscular HGB Conc 34.5 g/dl (31.0-35.0); Mean Corpuscular Hemoglobin 34.9 pg (27.0-33.0); Mean Corpuscular Volume 100.9 fL (80.0-98.0); Mean Platelet Volume 9.8 fL (9.4-12.3); Platelet Count 135 X10*3/uL (160-400); Red Blood Count 3.27 X10*6/uL (4.20-5.50); Red Cell Distribution Width 16.3 % (11.0-16.0)
[2022-12-26 12:00] LABS: White Blood Count 1.7 X10*3/uL (4.8-10.8)
[2022-12-26 12:19] LABS: Anion Gap 15 (12-20); Blood Urea Nitrogen 18 mg/dL (9-16); Calcium 9.3 mg/dL (8.4-10.2); Carbon Dioxide 25 mmol/L (22-29); Chloride 105 mmol/L (96-108); Estimated Glomerular Filt Rate 48; Glucose Random 95 mg/dL (60-115); Potassium 3.8 mmol/L (3.3-5.1); Sodium 141 mmol/L (135-145)
== END ==
LOC: HO.NUCMED 10:46
PROVIDERS: Absent Provider Internal Medicine Hypertension Specialist; PCP Internal Medicine; Visit Provider Internal Medicine
DX: C50.919 Malignant neoplasm of unspecified site of unspecified female breast (principal); N18.32 Chronic kidney disease, stage 3b
CPT/HCPCS: 36415; 78306; 80048; 85027; A9503

== ENCOUNTER 2023-04-01 14:06 | Outpatient (REF) | payer MEDICARE, MEDICAID, SELFPAY ==
--- NOTE | ~2023-04-01 | XR_ITS ---
Examination: Left femur and KUB. CLINICAL INDICATION: Constipation. Question bone metastases left femur TECHNIQUE: KUB one view. Left femur 2 views. FINDINGS: KUB: There is moderate scattered stool and gas seen throughout the colon without distention. No organomegaly. No radiopaque calculi. No lytic or sclerotic process seen. There is mild ventral spondylosis L1-L2 disc level. No lytic or sclerotic process seen. SI joints are symmetrical. Left femur: There is no visible acute fracture, periosteal bone elevation/reaction or bone marrow abnormality. The soft tissues are normal. There is a small enthesophyte along the inferior greater trochanter. XR/XR femur LT 2V IMPRESSION: 1. Moderate constipation. No acute process seen in the KUB. 2. Small enthesophyte along the inferior left greater trochanter. No visible acute fracture or dislocation left femur. There is no lytic or sclerotic process.
== END 2023-04-01 14:07 | disposition home or self-care (01) ==
LOC: HO.XRAY 14:06
PROVIDERS: PCP Internal Medicine; Visit Provider Internal Medicine
DX: M79.605 Pain in left leg (principal)
CPT/HCPCS: 73552

== ENCOUNTER 2023-04-15 08:37 | Emergency (ER) | payer MEDICARE, MEDICAID, SELFPAY ==
--- NOTE | ~2023-04-15 | CT_ITS ---
EXAMINATION: CT FEMUR WITHOUT CONTRAST, LEFT INDICATION: Pain, history of metastatic breast cancer. COMPARISON: PET/CT dated 08/28/2022 TECHNIQUE: Multidetector volumetric CT images were obtained through the left femur without intravenous contrast material. Multiplanar reformatted images in coronal and sagittal orientations were submitted. This CT examination was performed using dose optimization techniques as appropriate, variously including the following: *Automated exposure control *Adjustment of mA and/or kV according to patient size (this includes techniques or standardized protocols for targeted exams where dose is matched to indication/reason for exam; i.e. extremities or head) *Use of iterative reconstruction technique DLP: 842 mGy-cm FINDINGS: Patchy, sclerotic foci are present in the medullary space of the left innominate bone, slightly less pronounced as compared to prior. A few subcentimeter patchy foci of sclerosis are also present in the left proximal femur, also less pronounced as compared to the prior study. No new lytic osseous lesions. No appreciable cortical breakthrough or acute periostitis. Bone mineralization is otherwise normal. There is mild osteoarthritis in the left hip. Xcit-fe-[id number] tricompartmental osteoarthritis is present in the left knee. Significant soft tissue swelling and fat stranding are evident anterior to the left hip around the sartorius and rectus femoris, new as compared to prior; this region of ill-defined soft tissue attenuation measures roughly 5.8 x 4.3 x 10 cm, obscuring the surrounding fascial planes. The proximal tendons of the rectus femoris is unremarkable. The iliopsoas/myotendinous junction is situated just deep to this region. Sartorius appears intact, though ill-defined. There is moderate fatty atrophy of the gluteus minimus, likely the result of an old partial tear. Left hip musculature is otherwise unremarkable. Significant edema signal is present in the subcutaneous fat. No acute intrapelvic abnormalities are identified. CT/CT femur LT wo IV con IMPRESSION: 1. Ill-defined soft tissue attenuation in the subcutaneous fat anterior to the left hip around the sartorius and rectus femoris myotendinous junction. This is new as compared to prior and is of uncertain etiology. A hematoma is possible, particularly one arising from an adjacent muscle as a result of a muscle strain/tear or contusion. A metastatic lesion is also on the differential given the history of cancer. Abscess is on the differential. Consider MRI of the left hip with and without contrast for further assessment. 2. Patchy sclerotic foci in the left innominate bone and left proximal femur are less pronounced as compared to prior. No new osseous lesions are identified. 3. Wepl-ix-jneskusx tricompartmental osteoarthritis in the left knee. Mild osteoarthritis in the left hip. 4. Moderate fatty atrophy of the gluteus minimus, likely the result of an old partial tear.
--- NOTE | ~2023-04-15 | XR_ITS ---
Examination: Left femur and KUB. CLINICAL INDICATION: Constipation. Question bone metastases left femur TECHNIQUE: KUB one view. Left femur 2 views. FINDINGS: KUB: There is moderate scattered stool and gas seen throughout the colon without distention. No organomegaly. No radiopaque calculi. No lytic or sclerotic process seen. There is mild ventral spondylosis L1-L2 disc level. No lytic or sclerotic process seen. SI joints are symmetrical. Left femur: There is no visible acute fracture, periosteal bone elevation/reaction or bone marrow abnormality. The soft tissues are normal. There is a small enthesophyte along the inferior greater trochanter. XR/XR KUB IMPRESSION: 1. Moderate constipation. No acute process seen in the KUB. 2. Small enthesophyte along the inferior left greater trochanter. No visible acute fracture or dislocation left femur. There is no lytic or sclerotic process.
--- NOTE | ~2023-04-15 | CT_ITS ---
EXAMINATION: CT ABDOMEN AND PELVIS WITHOUT CONTRAST CLINICAL INFORMATION: Constipation. History of cancer with metastatic disease to the bones. COMPARISON: Previous KUB from earlier the same day. CT of the abdomen and pelvis report March 2022. Images not available for comparison. TECHNIQUE: Multidetector volumetric imaging was performed from the superior aspect of the liver through the pubic symphysis. Sagittal and coronal reformatted images were obtained on the technologist's workstation. This CT examination was performed using dose optimization techniques as appropriate, variously including the following: *Automated exposure control *Adjustment of mA and/or kV according to patient size (this includes techniques or standardized protocols for targeted exams where dose is matched to indication/reason for exam; i.e. extremities or head) *Use of iterative reconstruction technique DLP: 488 mGy-cm FINDINGS: LUNG BASES: The visualized lung bases are clear. There is a small pericardial effusion. LIVER, GALLBLADDER, AND BILIARY TREE: The liver is normal in size, shape, and attenuation. No focal hepatic lesion or biliary ductal dilatation is present. The gallbladder is unremarkable with no evidence of radiopaque gallstones, gallbladder wall thickening, or obvious pericholecystic inflammatory changes. PANCREAS: Unremarkable. SPLEEN: Unremarkable. ADRENAL GLANDS: Unremarkable. KIDNEYS AND URETERS: The kidneys are normal in size, shape, and attenuation. No hydronephrosis, hydroureter, or calculi seen. No perinephric stranding. BLADDER: Unremarkable. GASTROINTESTINAL TRACT: There is stool in the colon suggestive of mild constipation. No dilated loops of bowel to suggest obstruction. The small and large bowel are otherwise unremarkable. The appendix is unremarkable. Small amount of fluid and fat stranding in the increased space. ABDOMINAL WALL: No significant hernia is appreciated. LYMPH NODES: Normal. VASCULAR: Unremarkable. PELVIC VISCERA: Unremarkable. OSSEOUS STRUCTURES: There is soft tissue mass in the left groin. There is a stranding of the surrounding fat all amount of fluid. This is heterogeneous in attenuation with high and low attenuation areas. Appearance is most suggestive of a hematoma. Clinical correlation recommended. Differential would include hemorrhagic soft tissue mass. There is diffuse mixed sclerotic and lytic bone disease. CT/CT abdomen pelvis wo IV con IMPRESSION: Amorphous soft tissue mass in the left groin most suggestive of a hematoma. Clinical correlation recommended i.e. has there been recent vascular access in the left groin. Differential would include a hemorrhagic soft tissue mass. Mild constipation. No evidence of obstruction. Diffuse bone disease. No fracture. Fleischner guidelines were followed.
[2023-04-15 08:57] VITALS: BP 131/78; PULSE 114; RESP 20; TEMP 36.8; O2SAT 99; BMI 23.1
--- NOTE | 2023-04-15 09:31 | ED.GENADULT ---
HPI - General Adult General Chief complaint: General Medical Stated complaint: pain upper r thigh constipation Time Seen by Provider: 04/15/23 09:09 Related Data Home Medications Medication Instructions Recorded Confirmed calcium carbonate 600 mg-vitamin 1 tab PO DAILY 12/10/22 04/01/23 D3 5 mcg (200 unit) tablet vitamin E (dl, acetate) 180 mg 180 mg PO DAILY 12/10/22 04/01/23 (400 unit) capsule ibuprofen 400 mg tablet 400 mg PO Q8H PRN Pain 04/01/23 04/01/23 Previous Rx's Medication Instructions Recorded amlodipine 5 mg tablet 5 mg PO DAILY #30 tabs 04/06/22 ondansetron HCl 4 mg tablet 4 mg PO Q6H PRN Nausea #60 tabs 05/02/22 ciprofloxacin HCl 500 mg tablet 500 mg PO BID #14 tabs 06/27/22 (Cipro) letrozole 2.5 mg tablet 2.5 mg PO DAILY #60 tabs 11/23/22 palbociclib 100 mg capsule 100 mg PO DAILY #21 caps 12/21/22 cyclobenzaprine 10 mg tablet 10 mg PO TID PRN Pain #30 tabs 04/02/23 tramadol 50 mg tablet 50 mg PO Q8H PRN Pain #60 tabs 04/03/23 Magic Mouthwash 5 ml PO 4-5XD #240 mL 04/11/23 Diphen/Lido/Antacid 1:1:1 240 mL suspension Allergies Allergy/AdvReac Type Severity Reaction Status Date / Time latex Allergy Mild Rash Verified 12/10/22 13:18 PMFSH Past Medical History Medical History Abscess of breast, right Breast CA Psoriasis Surgical History History of tubal ligation Family History Family History Sister Breast cancer Father Liver cancer Maternal Uncle Brain cancer Mother Congestive heart failure Social History Social History Household Members: Children Household Members Other:: son Housing: Apartment Are you a primary healthcare applications analyst to a significant other at home: No Do you presently have visiting nurse or other home services: No Alcohol intake: current Alcohol intake frequency: holidays/special occasions only Patient Tobacco Use Status: Never used Tobacco Smoked in Last 30 Days: No e-Cigarette/Vaping Use: Never Used Use of substances other than those prescribed or required for medical reasons: No Advance Directives: Yes Advance Directives on File: Yes Advance Directives Date on File: 04/02/23 service: No Current occupational status: retired Cognitive needs: No Hearing needs: No Vision needs: No Physical Exam ED Vital Signs: Vital Signs - 24 hr 04/15/23 08:57 Temperature 98.3 F Pulse Rate 114 H Respiratory Rate 20 Blood Pressure 131/78 Pulse Oximetry 99 Oxygen Delivery Method Room Air BMI result Body Mass Index 23.1 Medications Administered Discontinued Medications Generic Name Dose Route Start Last Admin Trade Name Freq PRN Reason Stop Dose Admin Al Hydroxide/Mg Hydroxide 30 ml 04/15/23 09:28 04/15/23 10:43 Magnesium Hydrox/Alum Hydrox 30 Ml Oral.Susp PO 04/15/23 09:29 30 ml ONCE ONE Administration Sodium Chloride 1,000 mls @ 999 mls/hr 04/15/23 09:30 04/15/23 10:44 Ns IVCONT 04/15/23 10:30 999 mls/hr .Q1H1M OSMAR Administration Lidocaine HCl 15 ml 04/15/23 09:28 04/15/23 10:43 Lidocaine Hcl Viscous 2 % 15 Ml Solution MUCOUS MEM 04/15/23 09:29 15 ml ONCE ONE Administration Medical Decision Making Lab Data 04/15/23 10:28 04/15/23 10:28 Labs: Lab Results 04/15/23 04/15/23 Range/Units 10:28 10:28 WBC 5.0 (4.8-10.8) X10*3/uL RBC 2.54 L (4.20-5.50) X10*6/uL Hgb 8.7 L (12.0-16.0) g/dl Hct 25.8 L (37.0-47.0) % MCV 101.6 H (80.0-98.0) fL MCH 34.3 H (27.0-33.0) pg MCHC 33.7 (31.0-35.0) g/dl RDW 14.6 (11.0-16.0) % Plt Count 176 (160-400) X10*3/uL MPV Not Reportable Immature Gran % (Auto) 1.2 H (0.0-0.4) % Neut % (Auto) 76.1 H (45-73) % Lymph % (Auto) 6.6 L (20-40) % [place] % (Auto) 15.7 H (2-11) % Eos % (Auto) 0.2 (0-4) % Baso % (Auto) 0.2 (0-2) % Lymph # (Auto) 0.3 L (1.2-4.9) X10*3/uL [place] # (Auto) 0.8 (0.1-1.2) X10*3/uL Eos # (Auto) 0.0 (0.0-0.4) X10*3/uL Baso # (Auto) 0.0 (0.0-0.2) X10*3/uL Abs Immat Gran (auto) 0.06 H (0.00-0.03) X10*3/uL Absolute Neuts (auto) 3.8 (2.0-8.3) x10*3/uL Absolute Nucleated RBC 0.000 (0.0-0.012) X10*3/uL Nucleated RBC % (auto) 0.0 (0.0-0.2) /100WBC Smear Tech's Comments VERIFIED Sodium 135 (135-145) mmol/L Potassium 5.4 H D (3.3-5.1) mmol/L Chloride 98 (96-108) mmol/L Carbon Dioxide 24 (22-29) mmol/L Anion Gap 18 (12-20) BUN 14 (9-16) mg/dL Creatinine 0.94 (0.5-1.4) mg/dL Estim Creat Clear Calc 45.3 Estimated GFR 58 Random Glucose 90 (60-115) mg/dL Calcium 8.5 (8.4-10.2) mg/dL Phosphorus 2.9 (2.7-4.5) mg/dL Magnesium 2.3 (1.6-2.6) mg/dL Total Bilirubin 0.7 (0.0-1.0) mg/dL Direct Bilirubin 0.1 (0.0-0.5) mg/dL AST 25 (5-31) U/L ALT 10 (0-31) U/L Alkaline Phosphatase 151 H (39-117) U/L Total Protein 7.1 (6.5-8.0) g/dL Albumin 3.3 L (3.5-5.0) g/dL Discharge Plan Discharge Prescriptions: No Action amlodipine 5 mg Tablet 5 mg PO DAILY Qty: 30 0RF Protocol: Hold for SBP< HOLD for SBP < : 90 ondansetron HCl 4 mg Tablet 4 mg PO Q6H PRN (Reason: Nausea) Qty: 60 3RF ciprofloxacin HCl [Cipro] 500 mg Tablet 500 mg PO BID Qty: 14 0RF letrozole 2.5 mg Tablet 2.5 mg PO DAILY Qty: 60 3RF calcium carbonate-vitamin D3 [Calcium + D] 600 mg-5 mcg (200 unit) Tablet 1 tab PO DAILY Patient Comments: pt states she takes 400mg vitamin E (dl, acetate) 180 mg (400 unit) Capsule 180 mg PO DAILY palbociclib 100 mg Capsule 100 mg PO DAILY Qty: 21 6RF Rx Instructions: administer on days 1 through 21 of a 28-day treatment cycle ibuprofen [Motrin] 400 mg Tablet 400 mg PO Q8H PRN (Reason: Pain) cyclobenzaprine 10 mg Tablet 10 mg PO TID PRN (Reason: Pain) Qty: 30 2RF tramadol 50 mg Tablet 50 mg PO Q8H PRN (Reason: Pain) Qty: 60 0RF Magic Mouthwash Diphen/Lido/Antacid 1:1:1 240 mL Suspension 5 ml PO 4-5XD Qty: 240 1RF Rx Instructions: Lidocaine Viscous 2 % 80mL; diphenhydramine 12.5 mg/5 mL 80mL; aluminum-mag hydrox-simeth [id number]-[id number]/5mL 80mL
--- NOTE | 2023-04-15 09:32 | ED.GENADULT ---
HPI - General Adult General Chief complaint: General Medical Stated complaint: pain upper r thigh constipation Time Seen by Provider: 04/15/23 09:09 Source: patient and old records reviewed Mode of arrival: ambulatory Limitations: no limitations History of Present Illness HPI narrative: 72 yo female with a PMH of metastatic breast cancer, and kidney disease here for three weeks of nontraumatic left upper thigh pain and loss of appetite, as well as 2 weeks of cough, sore throat, and canker sores. She also notes she has not had a bowel movement for 6 days. She recently completed a course of IBRANCE therapy last 04/11 and will start a new course this 04/18. She is followed by Dr. Zambrano here at [place]. She states she was walking up the stairs after doing laundry and put more pressure on her leg than usual on 03/31 when she first noticed the leg pain, and that it feels like a pulled muscle. Her pain is on her left lateral thigh, and has been having pain with ambulating, but able to walk. She used an ambulance coming into the hospital today. She also notes she noticed mild bruising on her upper thigh a few days ago. Her oncologist prescribed her pain meds, although she says she does not like to take them. She has also been taking Tyelnol which is no helping her pain. She has had a loss of appetite and feels like she may have lost weight although she has not gotten on the scale, and additionally has not stooled in 6 days, although she states she has been passing gas, and urinating regularly. She states she has been having chills, and may have had fevers, but has not taken her temperature. She has been feeling mildly SOB, but states that is a side effect of her IBRANCE. She denies, chest pain, headache, vision changes, abdominal pain, and back pain. MD complaint: left thigh pain, decreased PO intake Onset (ago): week(s) (3) Location: mouth, left and lower extremity Quality: aching Pain Consistency: intermittent Relieving factors: rest Exacerbating factors: movement Associated symptoms: cough, fever/chills and shortness of breath Treatments prior to arrival: other (tylenol) Related Data Home Medications Medication Instructions Recorded Confirmed calcium carbonate 600 mg-vitamin 1 tab PO DAILY 12/10/22 04/01/23 D3 5 mcg (200 unit) tablet vitamin E (dl, acetate) 180 mg 180 mg PO DAILY 12/10/22 04/01/23 (400 unit) capsule ibuprofen 400 mg tablet 400 mg PO Q8H PRN Pain 04/01/23 04/01/23 Previous Rx's Medication Instructions Recorded amlodipine 5 mg tablet 5 mg PO DAILY #30 tabs 04/06/22 ondansetron HCl 4 mg tablet 4 mg PO Q6H PRN Nausea #60 tabs 05/02/22 ciprofloxacin HCl 500 mg tablet 500 mg PO BID #14 tabs 06/27/22 (Cipro) letrozole 2.5 mg tablet 2.5 mg PO DAILY #60 tabs 11/23/22 palbociclib 100 mg capsule 100 mg PO DAILY #21 caps 12/21/22 cyclobenzaprine 10 mg tablet 10 mg PO TID PRN Pain #30 tabs 04/02/23 tramadol 50 mg tablet 50 mg PO Q8H PRN Pain #60 tabs 04/03/23 Magic Mouthwash 5 ml PO 4-5XD #240 mL 04/11/23 Diphen/Lido/Antacid 1:1:1 240 mL suspension hydrocodone 5 mg-acetaminophen 325 1 tab PO Q8H PRN severe pain 04/15/23 mg tablet (scale score 7-10) #7 tabs Allergies Allergy/AdvReac Type Severity Reaction Status Date / Time latex Allergy Mild Rash Verified 12/10/22 13:18 Review of Systems Review of Systems: Yes all other systems are reviewed and are negative PMFSH Past Medical History Medical History (Updated 04/15/23 @ 14:50 by KIMBERLY Toscano) Abscess of breast, right Breast CA Psoriasis Surgical History History of tubal ligation Family History Family History Sister Breast cancer Father Liver cancer Maternal Uncle Brain cancer Mother Congestive heart failure Social History Social History Household Members: Children Household Members Other:: son Housing: Apartment Are you a primary pharmacist critical care to a significant other at home: No Do you presently have visiting nurse or other home services: No Alcohol intake: current Alcohol intake frequency: holidays/special occasions only Patient Tobacco Use Status: Never used Tobacco Smoked in Last 30 Days: No e-Cigarette/Vaping Use: Never Used Use of substances other than those prescribed or required for medical reasons: No Advance Directives: Yes Advance Directives on File: Yes Advance Directives Date on File: 04/02/23 service: No Current occupational status: retired Cognitive needs: No Hearing needs: No Vision needs: No Physical Exam ED Vital Signs: Vital Signs - 24 hr 04/15/23 08:57 04/15/23 11:45 04/15/23 13:00 Temperature 98.3 F 98.3 F 98.8 F Pulse Rate 114 H 80 86 Respiratory Rate 20 16 16 Blood Pressure 131/78 126/55 L Pulse Oximetry 99 Oxygen Delivery Method Room Air 04/15/23 15:05 04/15/23 15:47 Temperature 98.5 F 98.5 F Pulse Rate 89 114 H Respiratory Rate 19 18 Blood Pressure 129/61 147/71 H Pulse Oximetry 97 96 Oxygen Delivery Method Room Air Room Air BMI result Body Mass Index 23.1 Appearance: Alert. Oriented X3. No acute distress. Head: normocephalic, atraumatic. Eyes: Pupils equal, round and reactive to light. ENT: Pharynx normal. No tonsillar swelling or exudate. Canker sore noted underneath her tounge. Neck: Normal inspection. CVS: Normal rhythm. Tachycardic. Pulses normal. Respiratory: No respiratory distress. Breath sounds normal. Abdomen: Soft and nontender. +BS x4 noted, but faint, and minimal. Skin: Skin warm and dry. Large bruising on her upper left thigh that feels hard to the touch. Extremities: No lower extremity edema. No joint swelling. left upper thigh with faint greenish ecchymosis anteriorly, tender to touch. Neuro/psych: Oriented X 3. No motor deficit. No sensory deficit. Normal speech and cognition. Course Reevaluation(s) Reevaluation #1: spoke w/ dr. zambrano - recommending CT scan of the lumbar spine, pelvis and thigh for possible mets to be causing her pain IV Morphine ordered for pain for her to tolerate the scan Time: 13:00 Reevaluation #2: CT scan with a hematoma of the left upper thigh. It is likely old given her pain is been present for 3 weeks. The area was marked with a pen and Aleksander wrap applied for compression. Case discussed with . Patient not interested in seeing physical therapy or considering short-term rehab. She is tolerating p.o. in the emergency department. She is stable for discharge home with pain control and outpatient follow-up. Time: 15:53 Medications Administered Discontinued Medications Generic Name Dose Route Start Last Admin Trade Name Martha PRN Reason Stop Dose Admin Al Hydroxide/Mg Hydroxide 30 ml 04/15/23 09:28 04/15/23 10:43 Magnesium Hydrox/Alum Hydrox 30 Ml Oral.Susp PO 04/15/23 09:29 30 ml ONCE ONE Administration Sodium Chloride 1,000 mls @ 999 mls/hr 04/15/23 09:30 04/15/23 12:33 Ns IVCONT 04/15/23 10:30 Infused .Q1H1M OSMAR Infusion Lidocaine HCl 15 ml 04/15/23 09:28 04/15/23 10:43 Lidocaine Hcl Viscous 2 % 15 Ml Solution MUCOUS MEM 04/15/23 09:29 15 ml ONCE ONE Administration Morphine Sulfate 4 mg 04/15/23 12:11 04/15/23 12:28 Morphine Sulfate 4 Mg/Ml Cartridge IVPUSH 04/15/23 12:12 4 mg ONCE ONE Administration Protocol Medical Decision Making Medical Decision Making [facility] Narrative: The patient presented with three weeks of leg pain x3 weeks and 6 days of constipation. We ordered a abdominal CT and US which ruled out a bowel obstruction, but demonstrated a hematoma in the left upper thigh. We also ordered routine labs which showed a decreased hemoglobin most likely related to her hematoma, doubt actively bleeding given duration. CT only showing mild constipation. She is ambulatory but has pain when walking. Declining PT eval or STR. Stable for d/c home with pain control and outpatient follow up. Differential Diagnosis Differential Diagnoses: The differential diagnosis associated with the presentation includes Hematoma Bowel obstruction anemia Disease progression/metastatic lesion DVT Admission/Observation Consideration of admission/observation: Escalation of care including admission/observation considered Consult Healthcare Provider Management of the patient was discussed with: Crime Lab Technician Dr. Zambrano Lab Data [facility] Lab Attestation statement: I reviewed the patient's lab results. worsening anemia 04/15/23 10:28 04/15/23 10:28 Labs: Lab Results 05/22/23 05/22/23 Range/Units 10:28 10:28 WBC 5.0 (4.8-10.8) X10*3/uL RBC 2.54 L (4.20-5.50) X10*6/uL Hgb 8.7 L (12.0-16.0) g/dl Hct 25.8 L (37.0-47.0) % MCV 101.6 H (80.0-98.0) fL MCH 34.3 H (27.0-33.0) pg MCHC 33.7 (31.0-35.0) g/dl RDW 14.6 (11.0-16.0) % Plt Count 176 (160-400) X10*3/uL MPV Not Reportable Immature Gran % (Auto) 1.2 H (0.0-0.4) % Neut % (Auto) 76.1 H (45-73) % Lymph % (Auto) 6.6 L (20-40) % [place] % (Auto) 15.7 H (2-11) % Eos % (Auto) 0.2 (0-4) % Baso % (Auto) 0.2 (0-2) % Lymph # (Auto) 0.3 L (1.2-4.9) X10*3/uL [place] # (Auto) 0.8 (0.1-1.2) X10*3/uL Eos # (Auto) 0.0 (0.0-0.4) X10*3/uL Baso # (Auto) 0.0 (0.0-0.2) X10*3/uL Abs Immat Gran (auto) 0.06 H (0.00-0.03) X10*3/uL Absolute Neuts (auto) 3.8 (2.0-8.3) x10*3/uL Absolute Nucleated RBC 0.000 (0.0-0.012) X10*3/uL Nucleated RBC % (auto) 0.0 (0.0-0.2) /100WBC Smear Tech's Comments VERIFIED Sodium 135 (135-145) mmol/L Potassium 5.4 H D (3.3-5.1) mmol/L Chloride 98 (96-108) mmol/L Carbon Dioxide 24 (22-29) mmol/L Anion Gap 18 (12-20) BUN 14 (9-16) mg/dL Creatinine 0.94 (0.5-1.4) mg/dL Estim Creat Clear Calc 45.3 Estimated GFR 58 Random Glucose 90 (60-115) mg/dL Calcium 8.5 (8.4-10.2) mg/dL Phosphorus 2.9 (2.7-4.5) mg/dL Magnesium 2.3 (1.6-2.6) mg/dL Total Bilirubin 0.7 (0.0-1.0) mg/dL Direct Bilirubin 0.1 (0.0-0.5) mg/dL AST 25 (5-31) U/L ALT 10 (0-31) U/L Alkaline Phosphatase 151 H (39-117) U/L Total Protein 7.1 (6.5-8.0) g/dL Albumin 3.3 L (3.5-5.0) g/dL Independent Interpretation I performed an independent interpretation of an: Plain X-Ray and CT Scan Interpretation: KUB without obstructive process Radiology Impression Discussion of test interpretation with radiology: I have reviewed the radiologist's reading. Radiologist Impression: Examination: Left femur and KUB. CLINICAL INDICATION: Constipation. Question bone metastases left femur TECHNIQUE: KUB one view. Left femur 2 views. FINDINGS: KUB: There is moderate scattered stool and gas seen throughout the colon without distention. No organomegaly. No radiopaque calculi. No lytic or sclerotic process seen. There is mild ventral spondylosis L1-L2 disc level. No lytic or sclerotic process seen. SI joints are symmetrical. Left femur: There is no visible acute fracture, periosteal bone elevation/reaction or bone marrow abnormality. The soft tissues are normal. There is a small enthesophyte along the inferior greater trochanter. XR/XR KUB IMPRESSION: 1.? Moderate constipation. No acute process seen in the KUB. 2.? Small enthesophyte along the inferior left greater trochanter. No visible acute fracture or dislocation left femur. There is no lytic or sclerotic process. ? Xr LEFT FEMUR 04/01: Left femur: There is no visible acute fracture, periosteal bone elevation/reaction or bone marrow abnormality. The soft tissues are normal. There is a small enthesophyte along the inferior greater trochanter. CT/CT abdomen pelvis wo IV con IMPRESSION: Amorphous soft tissue mass in the left groin most suggestive of a hematoma. Clinical correlation recommended i.e. has there been recent vascular access in the left groin. Differential would include a hemorrhagic soft tissue mass. Mild constipation. No evidence of obstruction. Diffuse bone disease. No fracture. CT/CT femur LT wo IV con IMPRESSION: 1. Ill-defined soft tissue attenuation in the subcutaneous fat anterior to the left hip around the sartorius and rectus femoris myotendinous junction. This is new as compared to prior and is of uncertain etiology. A hematoma is possible, particularly one arising from an adjacent muscle as a result of a muscle strain/tear or contusion. A metastatic lesion is also on the differential given the history of cancer. Abscess is on the differential. Consider MRI of the left hip with and without contrast for further assessment. 2. Patchy sclerotic foci in the left innominate bone and left proximal femur are less pronounced as compared to prior. No new osseous lesions are identified. 3. 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 Mild osteoarthritis in the left hip. 4. Moderate fatty atrophy of the gluteus minimus, likely the result of an old partial tear. Independent Historian Clinical information obtained from an independent historian. History obtained from or confirmed by: Other (adult son at the bedside ) External Record Review External record reviewed: Office record, Outpatient record, Prior outpatient labs and Prior outpatient radiology Prescription Management I considered prescription management with: Pain Medication Chronic Conditions Patient?s care impacted by: Other (breast cancer) Critical Care Time Critical Care Time Critical Care Time: No Discharge Plan Discharge Clinical Impression: Hematoma of left thigh Patient Disposition: Home, Self-Care Instructions: Hematoma (ED) Additional Instructions: CT results showed hematoma in the left thigh. Treatment includes compressing the leg wih aleksander bandage, elvation, ice, and hydrocodone for severe pain. DO not use tramadol while taking the hydrocodone. Hydrocodone can increase constipation so use an over the counter stool softener such as Miralax while taking. Try to increase caloric intake to prevent further weakness. Prescriptions: New hydrocodone-acetaminophen 5-325 mg tablet 1 tab PO Q8H PRN (Reason: severe pain (scale score 7-10)) Qty: 7 0RF Rx Instructions: Partial Fill upon patient request. No Action amlodipine 5 mg Tablet 5 mg PO DAILY Qty: 30 0RF Protocol: Hold for SBP< HOLD for SBP < : 90 ondansetron HCl 4 mg Tablet 4 mg PO Q6H PRN (Reason: Nausea) Qty: 60 3RF ciprofloxacin HCl [Cipro] 500 mg Tablet 500 mg PO BID Qty: 14 0RF letrozole 2.5 mg Tablet 2.5 mg PO DAILY Qty: 60 3RF calcium carbonate-vitamin D3 [Calcium + D] 600 mg-5 mcg (200 unit) Tablet 1 tab PO DAILY Patient Comments: pt states she takes 400mg vitamin E (dl, acetate) 180 mg (400 unit) Capsule 180 mg PO DAILY palbociclib 100 mg Capsule 100 mg PO DAILY Qty: 21 6RF Rx Instructions: administer on days 1 through 21 of a 28-day treatment cycle ibuprofen [Motrin] 400 mg Tablet 400 mg PO Q8H PRN (Reason: Pain) cyclobenzaprine 10 mg Tablet 10 mg PO TID PRN (Reason: Pain) Qty: 30 2RF tramadol 50 mg Tablet 50 mg PO Q8H PRN (Reason: Pain) Qty: 60 0RF Magic Mouthwash Diphen/Lido/Antacid 1:1:1 240 mL Suspension 5 ml PO 4-5XD Qty: 240 1RF Rx Instructions: Lidocaine Viscous 2 % 80mL; diphenhydramine 12.5 mg/5 mL 80mL; aluminum-mag hydrox-simeth 116kv-[id number]-60ql/5mL 80mL
[2023-04-15 10:35] LABS: Basophils Percent Auto 0.2 % (0-2); Eosinophils Percent Auto 0.2 % (0-4); Hematocrit 25.8 % (37.0-47.0); Hemoglobin 8.7 g/dl (12.0-16.0); Imm Gran Abs Auto 0.06 X10*3/uL (0.00-0.03); Imm Gran Pct Auto 1.2 % (0.0-0.4); Lymphocytes Absolute Auto 0.3 X10*3/uL (1.2-4.9); Lymphocytes Percent Auto 6.6 % (20-40); MANUAL DIFF FLAG SCAN; Mean Corpuscular HGB Conc 33.7 g/dl (31.0-35.0); Mean Corpuscular Hemoglobin 34.3 pg (27.0-33.0); Mean Corpuscular Volume 101.6 fL (80.0-98.0); Monocytes Absolute Auto 0.8 X10*3/uL (0.1-1.2); Monocytes Percent Auto 15.7 % (2-11); Neutrophils Absolute Auto 3.8 x10*3/uL (2.0-8.3); Neutrophils Percent Auto 76.1 % (45-73); PLT CLUMP 1; Red Blood Count 2.54 X10*6/uL (4.20-5.50); Red Cell Distribution Width 14.6 % (11.0-16.0); SCAN SMEAR FLAG 1
[2023-04-15] MEDS: Magnesium Hydrox/Alum Hydrox 30 ML ORAL.SUSP PO (10:43)
[2023-04-15] MEDS: Lidocaine HCl Viscous 2 % 15 ML SOLUTION MUCOUS MEM (10:43)
[2023-04-15] MEDS: 0.9 % Sodium Chloride 1,000 ML 999 ML IVCONT (10:44)
[2023-04-15 11:00] LABS: Platelet Count 176 X10*3/uL (160-400)
[2023-04-15 11:01] LABS: SLIDE REVIEW VERIFIED
[2023-04-15 11:03] LABS: Alanine Aminotransferase 10 U/L (0-31); Albumin Level 3.3 g/dL (3.5-5.0); Alkaline Phosphatase 151 U/L (39-117); Anion Gap 18 (12-20); Aspartate Amino Transferase 25 U/L (5-31); Bilirubin Direct 0.1 mg/dL (0.0-0.5); Bilirubin Total 0.7 mg/dL (0.0-1.0); Blood Urea Nitrogen 14 mg/dL (9-16); Calcium 8.5 mg/dL (8.4-10.2); Carbon Dioxide 24 mmol/L (22-29); Chloride 98 mmol/L (96-108); Creatinine Clr Calc Pharmacy 45.3; Estimated Glomerular Filt Rate 58; Glucose Random 90 mg/dL (60-115); Magnesium 2.3 mg/dL (1.6-2.6); Phosphorus 2.9 mg/dL (2.7-4.5); Potassium 5.4 mmol/L (3.3-5.1); Sodium 135 mmol/L (135-145); Total Protein 7.1 g/dL (6.5-8.0)
[2023-04-15 11:45] VITALS: PULSE 80; RESP 16; TEMP 36.8
[2023-04-15] MEDS: Morphine Sulfate 4 MG/ML CARTRIDGE IVPUSH (12:28)
[2023-04-15 13:00] VITALS: BP 126/55; PULSE 86; RESP 16; TEMP 37.1
[2023-04-15 15:05] VITALS: BP 129/61; PULSE 89; RESP 19; TEMP 36.9; O2SAT 97
[2023-04-15 15:47] VITALS: BP 147/71; PULSE 114; RESP 18; TEMP 36.9; O2SAT 96
[2023-04-15 15:53] LABS: Appearance Urine Clear; Color Urine Yellow; Glucose Urine UA Negative (Negative); Leukocyte Esterase Urine Large (3+) (Negative); Nitrite Urine Negative (Negative); UMIC TRIGGER UACC YES; Urine Blood Negative (Negative); Urine Ketones 15 mg/dL (Negative); Urine Protein Trace mg/dL (Neg-Trace)
[2023-04-15 16:34] LABS: Bacteria Urine 1+ (None Seen); Hyaline Casts Urine 0-2 /LPF (0-2); RBC Urine 0-2 /HPF (0-2); UACC Culture Trigger YES; WBC Urine 21-50 /HPF (0-5)
[2023-04-17 10:24] LABS: CA 27.29 42 U/mL (<38)
== END 2023-04-15 15:56 | disposition home or self-care (01) ==
PROVIDERS: Physician Assistant; Emergency Provider Emergency Medicine; PCP Internal Medicine
DX: S70.12XA Contusion of left thigh, initial encounter (principal); X58.XXXA Exposure to other specified factors, initial encounter; K59.00 Constipation, unspecified; R06.02 Shortness of breath; N28.9 Disorder of kidney and ureter, unspecified; C50.919 Malignant neoplasm of unspecified site of unspecified female breast; Y93.9 Activity, unspecified; Y92.9 Unspecified place or not applicable; Y99.9 Unspecified external cause status
CPT/HCPCS: 36415; 73700; 74018; 74176; 80048; 80076; 81001; 83735; 84100; 85025; 86300; 87086; 96361; 96374; 99284; J2270

== ENCOUNTER 2023-04-29 14:42 | Inpatient (IN) | payer MEDICARE, MEDICAID, SELFPAY ==
--- NOTE | ~2023-04-29 | CT_ITS ---
EXAMINATION: CT PELVIS WITH CONTRAST CLINICAL INFORMATION: Follow-up groin mass. History of breast cancer. COMPARISON: Previous CT of the abdomen and pelvis 04/15/2023 TECHNIQUE: Helical scanning was performed with submillimeter collimation through the pelvis with the use of oral contrast and during bolus intravenous injection of 85 mL of Omnipaque 350 intravenous contrast. Sagittal and coronal multiplanar 2-D reconstructions were obtained. This CT examination was performed using dose optimization techniques as appropriate, variously including the following: *Automated exposure control *Adjustment of mA and/or kV according to patient size (this includes techniques or standardized protocols for targeted exams where dose is matched to indication/reason for exam; i.e. extremities or head) *Use of iterative reconstruction technique DLP: 240 mGy-cm FINDINGS: There is a multiloculated complex cystic mass in the left groin with areas of wall enhancement. This is increased in size from recent exam March 2023. This measures 8 x 9 cm in AP and transverse dimension and 10 cm in longitudinal dimension. This abuts the left common femoral and superficial femoral vessels. No aneurysm or evidence of active arterial bleeding is seen. Given the rapid change in size, abscess should be considered. Differential would include hematoma and neoplasm. This would be amenable to ultrasound-guided aspiration clinically indicated. No hernia. Visualized bowel is unremarkable. No ascites or adenopathy. The bladder is normal. Uterus and adnexa are normal. There is diffuse mixed sclerotic and lytic bone disease. There is degenerative disc disease at L5 S1. CT/CT pelvis w IV con IMPRESSION: Interval increase in the complex multiloculated cystic mass in the left groin with areas of wall enhancement. Rapid change in size favors abscess. Differential would include liquefied hematoma and neoplasm. This would be amenable to ultrasound-guided aspiration. Stable diffuse bone disease.
--- NOTE | ~2023-04-29 | US_ITS ---
EXAMINATION: Ultrasound-guided drainage CLINICAL INFORMATION: Hematoma/abscess left groin COMPARISON: Previous CT scans most recent 04/29/2023 TECHNIQUE: Procedure and risks and benefits including bleeding and infection were discussed with the patient and informed consent was obtained. The left groin was prepped and draped in the usual sterile fashion. The skin and soft tissues were anesthetized with 1% lidocaine plain. Using ultrasound guidance and a 5 [place]grin 1 6 system, access to the complex fluid collection in the left groin was obtained. 10 to 20 mL of thick. What appearing fluid was aspirated. Over an 035 guidewire, a 5 [place]in catheter was exchanged for an 8.5 [place] pigtail drain. A total of 100 mL of.-appearing fluid was aspirated. Catheter was attached to bulb suction. Specimen was sent for Gram stain culture and cytology. Patient received Versed 1 mg and seminal 55 mcg intravenously during the procedure. Conscious sedation was provided by a reduced or nurse under my direct supervision with continuous hemodynamic monitoring and total zoer-la-jgze contact time of 27 minutes. FINDINGS: There is a lobulated multiloculated complex fluid collection with low-level internal echoes and multiple septations. This measures approximately 5 x 3 x 6 cm. US/US guided punture aspiration IMPRESSION: Ultrasound-guided left groin soft tissue drainage.
[2023-04-29 15:00] VITALS: BP 117/49; PULSE 90; RESP 20; TEMP 37.2; O2SAT 97; BMI 24.0
--- NOTE | 2023-04-29 15:06 | ED_ITS ---
HPI - General Adult General Chief complaint: General Medical Stated complaint: Abscess Groin Area Time Seen by Provider: 04/29/23 14:57 Source: patient, RN notes reviewed and old records reviewed Limitations: no limitations History of Present Illness HPI narrative: 72 year old female with a history of anemia, HTN, and metastatic breast CA presenting to the ED from Oncology c/o worsening hematoma/suspected abscess of the left groin/thigh x2 weeks. patient was seen in ED 2 weeks ago for similar symptoms, diagnosed with hematoma on CT and d/c w/QUOC bandage. Admits to worsening redness, pain, and swelling to left groin. Also reports generalized fatigue/weakness, decreased p.o. intake and intermittent lightheadedness. Admits was recently treated for thrush/oral canker sores with oral rinses which is mildly improving. Denies fever, chest pain, SOB, N/V, diarrhea, constipation, dysuria, or frequency. Onset (ago): day(s) Related Data Home Medications Medication Instructions Recorded Confirmed calcium carbonate 600 mg-vitamin 1 tab PO DAILY 12/10/22 04/01/23 D3 5 mcg (200 unit) tablet vitamin E (dl, acetate) 180 mg 180 mg PO DAILY 12/10/22 04/01/23 (400 unit) capsule ibuprofen 400 mg tablet 400 mg PO Q8H PRN Pain 04/01/23 04/01/23 Previous Rx's Medication Instructions Recorded amlodipine 5 mg tablet 5 mg PO DAILY #30 tabs 04/06/22 ondansetron HCl 4 mg tablet 4 mg PO Q6H PRN Nausea #60 tabs 05/02/22 ciprofloxacin HCl 500 mg tablet 500 mg PO BID #14 tabs 06/27/22 (Cipro) letrozole 2.5 mg tablet 2.5 mg PO DAILY #60 tabs 11/23/22 palbociclib 100 mg capsule 100 mg PO DAILY #21 caps 12/21/22 cyclobenzaprine 10 mg tablet 10 mg PO TID PRN Pain #30 tabs 04/02/23 tramadol 50 mg tablet 50 mg PO Q8H PRN Pain #60 tabs 04/03/23 Magic Mouthwash 5 ml PO 4-5XD #240 mL 04/11/23 Diphen/Lido/Antacid 1:1:1 240 mL suspension hydrocodone 5 mg-acetaminophen 325 1 tab PO Q8H PRN severe pain 04/15/23 mg tablet (scale score 7-10) #7 tabs clotrimazole 10 mg harpal 10 mg mucous membrane 5XD #50 tabs 04/26/23 Allergies Allergy/AdvReac Type Severity Reaction Status Date / Time latex Allergy Mild Rash Verified 12/10/22 13:18 Review of Systems Review of Systems: Constitutional: No Fever, + Chills, +fatigue ENT/Mouth: + sore throat, + Swallowing Difficulty Cardiovascular: No Chest Pain, No SOB Respiratory: No Cough, No Sputum, No Wheezing Gastrointestinal: No Nausea, No Vomiting, No Diarrhea, No Constipation, No Abdominal pain Genitourinary: No Dysuria, No Urinary Frequency Musculoskeletal: No joint pain, No Myalgias, No Joint Swelling Skin: + Skin Lesions, No rash Neuro: + Weakness, + lightheadedness, No Numbness, No Paresthesias Yes all other systems are reviewed and are negative Constitutional: Constitutional: Reports as per [facility] Past Medical History Attestation statement: The following information was validated with the patient. Source: old records reviewed Medical History Abscess of breast, right Breast CA Psoriasis Surgical History History of tubal ligation Family History Family History Sister Breast cancer Father Liver cancer Maternal Uncle Brain cancer Mother Congestive heart failure Social History Social History Household Members: Children Household Members Other:: son Housing: Apartment Are you a primary care rep to a significant other at home: No Do you presently have visiting nurse or other home services: No Alcohol intake: current Alcohol intake frequency: holidays/special occasions only Patient Tobacco Use Status: Never used Tobacco e-Cigarette/Vaping Use: Never Used Advance Directives: Yes Advance Directives on File: Yes Advance Directives Date on File: 04/02/23 service: No Current occupational status: retired Cognitive needs: No Hearing needs: No Vision needs: No Physical Exam ED Vital Signs: Vital Signs - 24 hr 04/29/23 15:00 04/29/23 15:46 Temperature 98.9 F 98.1 F Pulse Rate 90 81 Respiratory Rate 20 14 Blood Pressure 117/49 L 111/53 L Pulse Oximetry 97 97 Oxygen Delivery Method Room Air Room Air BMI result Body Mass Index 24.0 Vital signs stable Const General: cooperative, no acute distress, alert and awake Orientation/consciousness: patient oriented x3 Limitations: no limitations HENMT Other: + small lesions to posterior oropharynx and single lesion to inferior lip. No ulceration/cellulitis Head: Yes normal to inspection and Yes atraumatic Ears: hearing grossly normal bilaterally General nose exam: Normal external nose present Face and sinus: Yes normal facial exam Mouth: lip abnormal, tongue normal and oropharynx abnormals Throat: Yes uvula midline, No peritonsillar mass and No uvular edema Eyes General: appearance normal, both eyes and all related structures EOM: EOMs intact bilaterally Neck Neck: Yes normal visual inspection Resp Effort & Inspection: normal respiratory effort and no respiratory distress Auscultation: clear to auscultation bilaterally and no rhonchi Cardio Rate: regular rate Rhythm: regular rhythm Heart sounds: S1 normal heart sound present and S2 normal heart sound present GI Inspection: Yes normal to inspection Palpation (GI): Soft to palpation, nontender, no guarding and not rigid Other: + 5cm hematoma/abscess to left groin/inguinal area with central fluctuance and surrounding induration, no pointing or drainage, no crepitus. No evidence of Cris's gangrene. No warmth. ROM to LLE limited secondary to pain General: Yes no CVA tenderness Back/Spine/Pelvis Back: no CVA tenderness Skin Rashes: no rashes Wounds: no wounds Neuro General: patient oriented x3 and tone normal Gait exam (Neuro): Normal gait present Extrem Right lower extremity: normal to inspection and full ROM Left lower extremity: hip/thigh Details: abnormal to inspection (as noted above); abnormal to inspection Course Course Course Narrative: -1700--mild leukocytosis of 13.3. H&H at patient's baseline. Labs otherwise reassuring Medications Administered Discontinued Medications Generic Name Dose Route Start Last Admin Trade Name Freq PRN Reason Stop Dose Admin Sodium Chloride 1,000 mls @ 999 mls/hr 04/29/23 15:30 04/29/23 16:00 Ns IV 04/29/23 16:30 999 mls/hr .Q1H1M OSMAR Administration Medical Decision Making Medical Decision Making [facility] Narrative: 72 year old female with a history of anemia, HTN, and metastatic breast CA presenting to the ED from Oncology c/o worsening hematoma/suspected abscess of the left groin/thigh x2 weeks. Also reports generalized fatigue/weakness, decreased p.o. intake and intermittent lightheadedness. On exam vital signs stable, NAD, physical exam as above with large abscess versus to left inguinal area with central fluctuance and surrounding induration. Mild overlying erythema, no warmth, mildly tender. Evidence of Cris gangrene or lymphadenopathy. Abdomen soft/nontender. Concern for deep abscess vs hemorrhagic hematoma/persistent hematoma. Low suspicion for septic joint/arthritis, diverticulitis, DVT. Rule out metabolic abnormalities including dehydration/infectious etiology. Concern for failure to thrive Plan: EKG, labs, UA, CT pelvis, re-evaluation Please refer to course for remaining clinical decision making, interpretation of labs/imaging results, and discussions with consultants and/or family members. Differential Diagnosis Differential Diagnoses: The differential diagnosis associated with the presentation includes As above Admission/Observation Consideration of admission/observation: Escalation of care including admission/observation considered Lab Data [facility] Lab Attestation statement: I reviewed the patient's lab results. Labs: Lab Results 04/29/23 Range/Units 16:52 Urine Color Yellow Urine Appearance Cloudy Urine pH 6.5 (5.0-9.0) Ur Specific [place] 1.010 (1.005-1.025) Urine Protein 30 (1+) H (Neg-Trace) mg/dL Urine Glucose (UA) Negative (Negative) mg/dL Urine Ketones Negative (Negative) mg/dL Urine Blood Negative (Negative) Urine Nitrite Negative (Negative) Ur Leukocyte Esterase Large (3+) H (Negative) Radiology Impression Discussion of test interpretation with radiology: I have reviewed the radiologist's reading. External Record Review External record reviewed: Inpatient record, Office record, Outpatient record, Prior outpatient labs, Prior outpatient radiology, Primary care record and Outside ED record Tests considered The following testing was considered but not selected: As above Discharge Plan Discharge Clinical Impression: Hematoma, Adult failure to thrive Patient Disposition: Still a Patient Prescriptions: No Action amlodipine 5 mg Tablet 5 mg PO DAILY Qty: 30 0RF Protocol: Hold for SBP< HOLD for SBP < : 90 ondansetron HCl 4 mg Tablet 4 mg PO Q6H PRN (Reason: Nausea) Qty: 60 3RF ciprofloxacin HCl [Cipro] 500 mg Tablet 500 mg PO BID Qty: 14 0RF letrozole 2.5 mg Tablet 2.5 mg PO DAILY Qty: 60 3RF calcium carbonate-vitamin D3 [Calcium + D] 600 mg-5 mcg (200 unit) Tablet 1 tab PO DAILY Patient Comments: pt states she takes 400mg vitamin E (dl, acetate) 180 mg (400 unit) Capsule 180 mg PO DAILY palbociclib 100 mg Capsule 100 mg PO DAILY Qty: 21 6RF Rx Instructions: administer on days 1 through 21 of a 28-day treatment cycle ibuprofen [Motrin] 400 mg Tablet 400 mg PO Q8H PRN (Reason: Pain) cyclobenzaprine 10 mg Tablet 10 mg PO TID PRN (Reason: Pain) Qty: 30 2RF tramadol 50 mg Tablet 50 mg PO Q8H PRN (Reason: Pain) Qty: 60 0RF Magic Mouthwash Diphen/Lido/Antacid 1:1:1 240 mL Suspension 5 ml PO 4-5XD Qty: 240 1RF Rx Instructions: Lidocaine Viscous 2 % 80mL; diphenhydramine 12.5 mg/5 mL 80mL; aluminum-mag hydrox-simeth [id number]/5mL 80mL clotrimazole 10 mg Harpal 10 mg MUCOUS MEMBRANE 5XD Qty: 50 3RF hydrocodone-acetaminophen 5-325 mg tablet 1 tab PO Q8H PRN (Reason: severe pain (scale score 7-10)) Qty: 7 0RF Rx Instructions: Partial Fill upon patient request.
--- NOTE | 2023-04-29 15:17 | ECG_ITS ---
Test Reason : lighteaded Blood Pressure : / mmHG Vent. Rate : 081 BPM Atrial Rate : 081 BPM P-R Int : 152 ms QRS Dur : 088 ms QT Int : 388 ms P-R-T Axes : 051 -09 018 degrees QTc Int : 450 ms Normal sinus rhythm Cannot rule out Anterior infarct (cited on or before 26-MAR-2022) Abnormal ECG When compared with ECG of 26-MAR-2022 17:36, Nonspecific T wave abnormality now evident in Anterior leads Referred By: Violet Mensah Electronically Signed By:Nicolas Ward
[2023-04-29 15:46] VITALS: BP 111/53; PULSE 81; RESP 14; TEMP 36.7; O2SAT 97
[2023-04-29] MEDS: 0.9 % Sodium Chloride 1,000 ML 999 ML IV (16:00)
[2023-04-29 17:02] LABS: Appearance Urine Cloudy; Color Urine Yellow; Glucose Urine UA Negative (Negative); Leukocyte Esterase Urine Large (3+) (Negative); Nitrite Urine Negative (Negative); PH 6.5 (5.0-9.0); UMIC TRIGGER UACC YES; Urine Blood Negative (Negative); Urine Ketones Negative (Negative); Urine Protein 30 (1+) mg/dL (Neg-Trace)
[2023-04-29 18:11] LABS: Bacteria Urine Trace (None Seen); RBC Urine 0-2 /HPF (0-2); UACC Culture Trigger YES; WBC Urine >50 /HPF (0-5)
[2023-04-29] MEDS: iohexoL 350 MG/ML 100 ML INFUS..BTL IV (20:30)
[2023-04-29 21:12] VITALS: BP 123/62; PULSE 97; RESP 16; TEMP 36.8; O2SAT 97
[2023-04-29 23:03] LABS: INTERNATIONAL NORM RATIO 1.2 (0.9-1.1)
[2023-04-29 23:06] LABS: Partial Thromboplastin Time 29.5 SEC (26.0-36.4)
[2023-04-29] MEDS: Dextrose 5 % and Lactated Ring 1,000 ML 80 ML IVCONT (23:45)
[2023-04-30] VITALS (13 sets, daily range): BP systolic 112–138; BP diastolic 49–65; PULSE 80–103; RESP 14–20; TEMP 36.6–37.4; O2SAT 96–99
[2023-04-30] MEDS: Piperacillin Sodium/Tazobactam 3.375 GM in 0.9 % Sodium Chloride 50 ML IV ×4 (00:15→20:35)
[2023-04-30 01:33] LABS: INTERNATIONAL NORM RATIO 1.3 (0.9-1.1); Prothrombin Time 14.7 SEC (10.0-13.1)
[2023-04-30 06:05] LABS: MANUAL DIFF FLAG NO
[2023-04-30 06:09] LABS: Basophils Percent Auto 0.1 % (0-2); Eosinophils Percent Auto 0.1 % (0-4); Imm Gran Abs Auto 0.13 X10*3/uL (0.00-0.03); Imm Gran Pct Auto 1.1 % (0.0-0.4); Lymphocytes Absolute Auto 0.6 X10*3/uL (1.2-4.9); Lymphocytes Percent Auto 5.2 % (20-40); Mean Corpuscular HGB Conc 32.9 g/dl (31.0-35.0); Mean Corpuscular Hemoglobin 32.5 pg (27.0-33.0); Mean Corpuscular Volume 99.1 fL (80.0-98.0); Mean Platelet Volume 9.2 fL (9.4-12.3); Monocytes Absolute Auto 1.6 X10*3/uL (0.1-1.2); Monocytes Percent Auto 13.7 % (2-11); Neutrophils Absolute Auto 9.6 x10*3/uL (2.0-8.3); Neutrophils Percent Auto 79.8 % (45-73); Platelet Count 228 X10*3/uL (160-400); Red Blood Count 2.12 X10*6/uL (4.20-5.50); Red Cell Distribution Width 16.1 % (11.0-16.0); SCAN SMEAR FLAG 1
[2023-04-30 06:24] LABS: Hemoglobin 6.9 g/dl (12.0-16.0)
--- NOTE | 2023-04-30 07:36 | PC.NURSE ---
assumed care of this pt at 0700. pt sleeping at the time of assuming care. D5LR running. pt now awake, Dr. Rodriguez at bedside. pt to remain NPO. pt denies pain. will continue to observe.
--- NOTE | 2023-04-30 07:53 | PM.HPGS ---
History of Present Illness History of Present Illness Date of Service: 04/30/23 Chief complaint: heamtoma and abcess leg Narrative: Minna Knight is a 72 year old female With a history of metastatic breast cancer found to have a hematoma of the left groin which has now become more painful and swollen. Patient subsequently presented to the emergency department for further evaluation. She denies any significant trauma but feels that this may have begun while doing laundry at home. Workup in the emergency department revealed an elevated WBC. CT pelvis is significant for fluid collection in the left groin suggestive of a hematoma/abscess extending close to the skin level. This was felt to be amenable to IR drainage procedure. Patient is admitted to the surgical service for management of the left leg abscess. Patient had repeat laboratories performed this morning. This revealed an H&H which decreased to 6.9/ 21 from 8.2 / 25.1 yesterday. Review of Systems Review of Systems: Yes all other systems are reviewed and are negative Constitutional: Constitutional: Reports body ache(s), Reports fatigue, Denies fever(s), Reports lethargy and Reports poor appetite Cardiovascular: Cardiovascular: Denies chest pain, Denies irregular heart rhythm and Reports dyspnea Respiratory: Respiratory: Reports dyspnea Gastrointestinal: Gastrointestinal: Reports as per HPI Integumentary/Breasts: Skin/Breast: Reports as per HPI Endocrine: Endocrine: Reports fatigue PMFSH Past Medical History Medical History Abscess of breast, right Breast CA Psoriasis Family History Family History Sister Breast cancer Father Liver cancer Maternal Uncle Brain cancer Mother Congestive heart failure Surgical History Surgical History History of tubal ligation Social History Social History Household Members: Children Household Members Other:: son Housing: Apartment Are you a primary home health aide caregiver to a significant other at home: No Do you presently have visiting nurse or other home services: No Alcohol intake: current Alcohol intake frequency: holidays/special occasions only Patient Tobacco Use Status: Never used Tobacco e-Cigarette/Vaping Use: Never Used Advance Directives: Yes Advance Directives on File: Yes Advance Directives Date on File: 04/02/23 service: No Current occupational status: retired Cognitive needs: No Hearing needs: No Vision needs: No Meds Allergies Allergy/AdvReac Type Severity Reaction Status Date / Time latex Allergy Mild Rash Verified 12/10/22 13:18 Active Medications: Current Medications Acetaminophen (Acetaminophen 325 Mg Tablet) 650 mg PO QID PRN PRN Reason: headache, temp > 101 Hydromorphone HCl (Hydromorphone Hcl 0.5 Mg/0.5 Ml Syringe) 0.5 mg IVPUSH Q3H PRN; Protocol PRN Reason: Pain, Severe (Pain Scale 7-10) Dextrose/Lactated Ringer's (D5lr) 1,000 mls @ 80 mls/hr IVCONT .[id number] [facility] Last Infusion: 04/30/23 06:44 Dose: 80 mls/hr Piperacillin Sod/Tazobactam (Sod 3.375 gm/ Sodium Chloride) 50 mls @ 100 mls/hr IV Q6H [facility] Last Infusion: 04/30/23 06:44 Dose: Infused Ondansetron HCl (Ondansetron Hcl 4 Mg/2 Ml Vial) 4 mg IVPUSH QID PRN PRN Reason: Nausea Oxycodone HCl (Oxycodone Hcl Immed Release 5 Mg Tablet) 5 mg PO Q6H PRN PRN Reason: Pain, Moderate(Pain Scale 4-6) Pharmacy Consult (Consult Rx Perform Med Rec) 1 each MISCELLANE ONCE PRN PRN Reason: Consult order Sodium Chloride (0.9 % Sodium Chloride Flush 3 Ml Syringe) [address] [facility] Last Admin: 04/30/23 07:36 Dose: Not Given Zolpidem Tartrate (Zolpidem Tartrate 5 Mg Tablet) 5 mg PO BEDTIME PRN PRN Reason: Insomnia Home Medications Medication Instructions Recorded Confirmed Last Taken Type calcium carbonate 600 mg-vitamin 1 tab PO DAILY 12/10/22 04/01/23 Unknown History D3 5 mcg (200 unit) tablet vitamin E (dl, acetate) 180 mg 180 mg PO DAILY 12/10/22 04/01/23 Unknown History (400 unit) capsule ibuprofen 400 mg tablet 400 mg PO Q8H PRN Pain 04/01/23 04/01/23 Unknown History palbociclib 100 mg capsule 100 mg PO DAILY 04/30/23 Unknown History (Ibrance) Physical Exam Vital Signs: Vital Signs: Last Vital Signs Temp 98.3 F 04/30/23 07:46 Pulse 83 04/30/23 07:46 Resp 19 04/30/23 07:46 BP 112/49 L 04/30/23 07:46 Pulse Ox 97 04/30/23 07:46 O2 Del Method Room Air 04/30/23 07:46 BMI result Body Mass Index 24.0 Const: General: healthy appearing and no acute distress Nutritional Appearance: well nourished Orientation/consciousness: patient oriented x3 HEENT: Head: Yes normocephalic and Yes atraumatic Ears: hearing grossly normal bilaterally Resp: Effort & Inspection: normal respiratory effort GI: Other: Palpation of the left groin reveals an area of swelling at the crease of the leg with light redness surrounding the skin. There is fluctuance just below the skin which is tender to palpation. No pulsation is appreciated. Findings are suggestive of a hematoma/abscess. Inspection: Yes normal to inspection Abdomen image: 1. Site of hematoma/abscess Skin: General skin exam: no rashes or lesions noted Neuro: General: patient oriented x3 Extrem: General: Yes no pedal edema and Yes no calf tenderness Results Results Labs: Short CBC 04/30/23 Range/Units 05:37 WBC 12.0 H (4.8-10.8) X10*3/uL Hgb 6.9 L* (12.0-16.0) g/dl Hct 21.0 L* (37.0-47.0) % Plt Count 228 (160-400) X10*3/uL Urine 04/29/23 Range/Units 16:52 Urine Color Yellow Urine Appearance Cloudy Urine pH 6.5 (5.0-9.0) Ur Specific [place] 1.010 (1.005-1.025) Urine Protein 30 (1+) H (Neg-Trace) mg/dL Urine Glucose (UA) Negative (Negative) mg/dL Assessment and Plan (1) Metastatic breast cancer: Status: Chronic (2) Hematoma: Status: Acute (3) Anemia: Status: Acute Plan 72-year-old female patient with a history of metastatic breast cancer now presenting with a left groin hematoma or infected hematoma resulting from minimal trauma. other possibilities include malignancy from the previously diagnosed metastatic breast cancer. Options include open drainage verses IR. I reviewed the options in detail with the patient she is comfortable with proceeding with an IR drainage. If this is ineffective, OR drainage would be necessary. Patient expressed understanding and agrees with the plan. Patient is also extremely anemic possibly from chronic disease although this may be from the cancer as well. She will be transfused 2 units of blood today. Consultation obtained from Hematology-Oncology. Time Spent With Patient Time: Total time managing care of this patient today ____ minutes. Quality Stroke Does the patient have a stroke diagnosis?: No VTE Prior VTE?: No VTE Risk Level:: Surgical - moderate VTE Device Contraindication: N/A - Device Ordered VTE Drug Contraindication: Treatment Not Tolerated Procedures Date of Service Date of Service: 04/30/23
--- NOTE | 2023-04-30 08:20 | PHA.MEDREC ---
Pharmacy Consult ? Medication Reconciliation Pharmacy has completed the medication reconciliation. Spoke to patient at bedside, able to name medications and timing
--- NOTE | 2023-04-30 09:03 | HO.PM.IMCN ---
History of Present Illness Data of Consult Service Date: 04/30/23 <Mendy Guevara NP - Last Filed: 04/30/23 15:42> Requesting physician: Moe Rodriguez <Mendy Guevara NP - Last Filed: 04/30/23 15:42> Primary Care Provider: Nilda Cope MD <Mendy Guevara NP - Last Filed: 04/30/23 15:42> HPI 72 year old women with hx of anemia, HTN, metastatic breast ca presents to the Ed from Oncology office with worsening left groin hematoma that has been ongoing for over 2 weeks. She had previously been seen in the emergency department and was diagnosed with hematoma and discharged with an Aleksander bandage. She reports worsening redness, swelling, pain, general fatigue, weakness, decreased oral intake and intermittent lightheadedness. She is currently under the care of a technical support specialist/oncologist for breast cancer. Pelvic CT showed interval increase in multiloculated cystic mass in the left groin. She was admitted by general surgery with plan for drainage. <Mendy Guevara NP - Last Filed: 04/30/23 15:42> 72 year old women with hx of anemia, HTN, metastatic breast ca presents to the Ed from Oncology office with worsening left groin hematoma that has been ongoing for over 2 weeks. She had previously been seen in the emergency department and was diagnosed with hematoma and discharged with an Aleksander bandage. She reports worsening redness, swelling, pain, general fatigue, weakness, decreased oral intake and intermittent lightheadedness. She is currently under the care of a technical support specialist/oncologist for breast cancer. Pelvic CT showed interval increase in multiloculated cystic mass in the left groin. She was admitted by general surgery with plan for drainage. <Doug Liu MD - Last Filed: 05/19/23 15:53> Review of Systems Review of Systems: Denies any recent fever chills or decrease in appetite respiratory denies any shortness of breath coverage production cardiovascular Denied chest pain gastrointestinal denies any dysphagia abdominal pain nausea vomiting or diarrhea genitourinary denies any dysuria frequency or hematuria musculoskeletal denies any joint pain or swelling neuropsych denies any weakness or seizures all other systems reviewed are negative Left groin redness and swelling <Mendy Guevara NP - Last Filed: 04/30/23 15:42> [facility] Medical History: Medical History Abscess of breast, right Breast CA Psoriasis <Mendy Guevara NP - Last Filed: 04/30/23 15:42> Family History: Family History Sister Breast cancer Father Liver cancer Maternal Uncle Brain cancer Mother Congestive heart failure <Mendy Guevara NP - Last Filed: 04/30/23 15:42> Surgical History: Surgical History History of tubal ligation <Mendy Guevara NP - Last Filed: 04/30/23 15:42> Social History: Social History Household Members: Children Household Members Other:: son Housing: Apartment Are you a primary manager care management to a significant other at home: No Do you presently have visiting nurse or other home services: No Alcohol intake: current Alcohol intake frequency: holidays/special occasions only Patient Tobacco Use Status: Never used Tobacco e-Cigarette/Vaping Use: Never Used Use of substances other than those prescribed or required for medical reasons: No Have you been hit, kicked, punched, or otherwise hurt by someone within the past year? If so, by whom?: No Do you feel safe in your current relationship?: Yes Is there a partner from a previous relationship who is making you feel unsafe now?: No Advance Directives Date on File: 04/02/23 Do you have thoughts of harming others: None Do you have a plan to hurt others: No Plan Do you have the means to hurt others: No Recently lost weight without trying: No Patient : No service: No Current occupational status: retired Cognitive needs: No Hearing needs: No Vision needs: No <Mendy Guevara NP - Last Filed: 04/30/23 15:42> Meds Allergies/Adverse reactions: Allergies Allergy/AdvReac Type Severity Reaction Status Date / Time latex Allergy Mild Rash Verified 12/10/22 13:18 <Mendy Guevara NP - Last Filed: 04/30/23 15:42> Active Medications: Current Medications Acetaminophen (Acetaminophen 325 Mg Tablet) 650 mg PO QID PRN PRN Reason: headache, temp > 101 Hydromorphone HCl (Hydromorphone Hcl 0.5 Mg/0.5 Ml Syringe) 0.5 mg IVPUSH Q3H PRN; Protocol PRN Reason: Pain, Severe (Pain Scale 7-10) Dextrose/Lactated Ringer's (D5lr) 1,000 mls @ 80 mls/hr IVCONT .[id number] [facility] Last Infusion: 04/30/23 06:44 Dose: 80 mls/hr Piperacillin Sod/Tazobactam (Sod 3.375 gm/ Sodium Chloride) 50 mls @ 100 mls/hr IV Q6H [facility] Last Infusion: 04/30/23 06:44 Dose: Infused Ondansetron HCl (Ondansetron Hcl 4 Mg/2 Ml Vial) 4 mg IVPUSH QID PRN PRN Reason: Nausea Oxycodone HCl (Oxycodone Hcl Immed Release 5 Mg Tablet) 5 mg PO Q6H PRN PRN Reason: Pain, Moderate(Pain Scale 4-6) Pharmacy Consult (Consult Rx Perform Med Rec) 1 each MISCELLANE ONCE PRN PRN Reason: Consult order Sodium Chloride (0.9 % Sodium Chloride Flush 3 Ml Syringe) [facility] Last Admin: 04/30/23 07:36 Dose: Not Given Zolpidem Tartrate (Zolpidem Tartrate 5 Mg Tablet) 5 mg PO BEDTIME PRN PRN Reason: Insomnia <Mendy Guevara NP - Last Filed: 04/30/23 15:42> Home medications: Home Medications Medication Instructions Recorded Confirmed Last Taken Type ibuprofen 400 mg tablet 400 mg PO Q8H PRN Pain 04/01/23 05/14/23 Unknown History acetaminophen 325 mg tablet 650 mg PO Q6H PRN Pain 04/30/23 05/14/23 04/29/23 History letrozole 2.5 mg tablet 2.5 mg PO DAILY@1200 04/30/23 05/14/23 04/29/23 History calcium carbonate 500 mg calcium 500 mg PO DAILY 05/14/23 05/14/23 Unknown History (1,250 mg) tablet <Mendy Guevara NP - Last Filed: 04/30/23 15:42> Physical Exam Vital Signs and Narrative: Vital Signs: Last Vital Signs Temp 98.3 F 04/30/23 07:46 Pulse 83 04/30/23 07:46 Resp 19 04/30/23 07:46 BP 112/49 L 04/30/23 07:46 Pulse Ox 97 04/30/23 07:46 O2 Del Method Room Air 04/30/23 07:46 BMI result Body Mass Index 24.0 <Mendy Guevara NP - Last Filed: 04/30/23 15:42> Appearing in no acute distress head is normocephalic atraumatic eyes pupils are PERRLA sclera is anicteric mouth throat mucous membranes are intact and moist neck is supple no lymphadenopathy, no JVD noted lung sounds are clear to auscultation heart regular rate rhythm, clear S1, S2 positive bowel sounds, abdomen is soft, nontender neuro patient is alert x3, no focal deficits Left groin hematoma <Mendy Guevara NP - Last Filed: 04/30/23 15:42> Skin: Full body images: 1. <Mendy Guevara NP - Last Filed: 04/30/23 15:42> Results Labs CBC and Chem 7: 04/30/23 05:37 <Mendy Guevara NP - Last Filed: 04/30/23 15:42> Labs: Laboratory Results - last 24 hr 04/29/23 04/29/23 04/30/23 16:52 22:54 01:10 MCV MCH MCHC RDW Plt Count MPV Immature Gran % (Auto) Neut % (Auto) Lymph % (Auto) [place] % (Auto) Eos % (Auto) Baso % (Auto) Lymph # (Auto) [place] # (Auto) Eos # (Auto) Baso # (Auto) Abs Immat Gran (auto) Absolute Neuts (auto) Absolute Nucleated RBC Nucleated RBC % (auto) PT 14.0 H 14.7 H INR 1.2 H 1.3 H APTT 29.5 Urine Color Yellow Urine Appearance Cloudy Urine pH 6.5 Ur Specific [place] 1.010 Urine Protein 30 (1+) H Urine Glucose (UA) Negative Urine Ketones Negative Urine Blood Negative Urine Nitrite Negative Ur Leukocyte Esterase Large (3+) H Urine RBC 0-2 Urine WBC >50 H Ur Squamous Epith Cells 3-5 Urine Bacteria Trace Hyaline Casts 3-5 04/30/23 05:37 MCV 99.1 H MCH 32.5 MCHC 32.9 RDW 16.1 H Plt Count 228 MPV 9.2 L Immature Gran % (Auto) 1.1 H Neut % (Auto) 79.8 H Lymph % (Auto) 5.2 L [place] % (Auto) 13.7 H Eos % (Auto) 0.1 Baso % (Auto) 0.1 Lymph # (Auto) 0.6 L [place] # (Auto) 1.6 H Eos # (Auto) 0.0 Baso # (Auto) 0.0 Abs Immat Gran (auto) 0.13 H Absolute Neuts (auto) 9.6 H Absolute Nucleated RBC 0.000 Nucleated RBC % (auto) 0.0 PT INR APTT Urine Color Urine Appearance Urine pH Ur Specific [place] Urine Protein Urine Glucose (UA) Urine Ketones Urine Blood Urine Nitrite Ur Leukocyte Esterase Urine RBC Urine WBC Ur Squamous Epith Cells Urine Bacteria Hyaline Casts <Mendy Guevara NP - Last Filed: 04/30/23 15:42> Imaging Radiologist's Impressions: Impressions Pelvis CT 04/29/23 20:31 IMPRESSION: Interval increase in the complex multiloculated cystic mass in the left groin with areas of wall enhancement. Rapid change in size favors abscess. Differential would include liquefied hematoma and neoplasm. This would be amenable to ultrasound-guided aspiration. Stable diffuse bone disease. <Mendy Guevara NP - Last Filed: 04/30/23 15:42> Assessment and Plan (1) Abscess of breast, right: Status: Inactive <Mendy Guevara NP - Last Filed: 04/30/23 15:42> 72 year old women admitted to general surgery with anemia secondary to left groin hematoma Anemia secondary to hematoma and chronic HH 6.9/21.0 Plan for IR drainage as per general surgery tx 2 units PRBC, follow CBC and x as necessary continue zosyn for now blood cx pending IV fluids Breast CA currently under the care of Dr. Gonzalez treatment on hold currently due to illness HTN hold amlodipine for now in light of anemia to avoid hypotension Protein calorie malnutrition add ensure to diet DVT prophylaxis with SCD boots attending Dr. Liu Medical consult complete, will continue to follow along <Mendy Guevara NP - Last Filed: 04/30/23 15:42> 72 year old women admitted to general surgery with anemia secondary to left groin hematoma Anemia secondary to hematoma and chronic HH 6.9/21.0 Plan for IR drainage as per general surgery tx 2 units PRBC, follow CBC and x as necessary continue zosyn for now blood cx pending IV fluids Breast CA currently under the care of Dr. Gonzalez treatment on hold currently due to illness HTN hold amlodipine for now in light of anemia to avoid hypotension Protein calorie malnutrition add ensure to diet DVT prophylaxis with SCD boots attending Dr. Liu Medical consult complete, will continue to follow along <Doug Liu MD - Last Filed: 05/19/23 15:53> Time Spent With Patient Time: Total time managing care of this patient today ____ minutes. <Mendy Guevara NP - Last Filed: 04/30/23 15:42>
--- NOTE | 2023-04-30 10:52 | MHC.CM.PN ---
Met with patient and son Osvaldo in regards to discharge planning. Patient lives with her son, ambulates independently and had no services prior to coming to the hospital. Osvaldo currently has a FMLA from work so that he can help his mom. Patient denies the need for services at discharge. Patient currently takes oral chemo and then receives monoclonal injections monthly. PCP verified. Copy of HCP verified to be on file. IMM explained and signed. Osvaldo will transport patient home when medically stable. Continue to monitor for d/c needs.
--- NOTE | 2023-04-30 13:00 | PC.NURSE ---
Prior to starting transfusion pt a+o x4, vss, afebrile, lscta, denies sob/chest pain. all checks and verification done by two RNs.
--- NOTE | 2023-04-30 13:20 | PC.NURSE ---
no change in pre transfusion assessment. pt tolerating transfusion well, no complaints. will continue to monitor.
[2023-04-30] MEDS: Dextrose 5 % and Lactated Ring 1,000 ML 80 ML IVCONT (14:04)
--- NOTE | 2023-04-30 15:40 | PC.NURSE ---
blood transfusion ended, pt tolerated well. vss, one more unit of blood ordered, pt aware. pt assisted to bedside commode. no complaints.
[2023-04-30 16:48] LABS: Hematocrit 25.9 % (37.0-47.0); Hemoglobin 8.6 g/dl (12.0-16.0); Mean Corpuscular HGB Conc 33.2 g/dl (31.0-35.0); Mean Corpuscular Hemoglobin 31.7 pg (27.0-33.0); Mean Corpuscular Volume 95.6 fL (80.0-98.0); Mean Platelet Volume 9.5 fL (9.4-12.3); Platelet Count 233 X10*3/uL (160-400); Red Blood Count 2.71 X10*6/uL (4.20-5.50); Red Cell Distribution Width 16.6 % (11.0-16.0); White Blood Count 12.2 X10*3/uL (4.8-10.8)
--- NOTE | 2023-04-30 18:08 | PC.NURSE ---
second unit of blood transfusing, pt tolerating well. no complaints.
--- NOTE | 2023-04-30 19:26 | PC.NURSE ---
assumed care of patient at 1915 - second unit rbc's still transfusing. pt tolerating well. will administer zosyn abx per mar once blood transfusion is complete. call polanco within reach, pt has no current complaints. will CTM.
[2023-04-30] MEDS: 0.9 % Sodium Chloride Flush 3 ML SYRINGE IVFLUSH ×2 (23:43)
[2023-05-01] VITALS (9 sets, daily range): BP systolic 113–146; BP diastolic 53–72; PULSE 80–93; RESP 15–18; TEMP 36.1–37.2; O2SAT 97–99
[2023-05-01] MEDS: Piperacillin Sodium/Tazobactam 3.375 GM in 0.9 % Sodium Chloride 50 ML IV ×3 (00:34→19:00)
[2023-05-01] MEDS: Dextrose 5 % and Lactated Ring 1,000 ML 80 ML IVCONT (02:00)
--- NOTE | 2023-05-01 10:46 | P.PNGS_ITS ---
Subjective Subjective Date of Service: 05/01/23 Interval history: Patient continues to report left groin pain, not much of an appetite Physical Exam Vital Signs: Vital Signs: Last Vital Signs Temp 97 F 05/01/23 08:17 Pulse 80 05/01/23 08:17 Resp 15 05/01/23 08:17 BP 131/64 05/01/23 08:17 Pulse Ox 97 05/01/23 08:17 O2 Del Method Room Air 05/01/23 08:17 BMI result Body Mass Index 24.0 Const: General: healthy appearing and no acute distress Nutritional Appearance: well nourished Resp: Effort & Inspection: normal respiratory effort GI: Other: Palpation of the left groin reveals an area of swelling at the crease of the leg with light redness surrounding the skin. There is fluctuance just below the skin which is tender to palpation. No pulsation is appreciated. Findings are suggestive of a hematoma/abscess. Inspection: Yes normal to inspection Skin: General skin exam: no rashes or lesions noted Extrem: General: Yes no pedal edema and Yes no calf tenderness Objective Data Active Medications Acetaminophen (Acetaminophen 325 Mg Tablet) 650 mg PO QID PRN PRN Reason: headache, temp > 101 Hydromorphone HCl (Hydromorphone Hcl 0.5 Mg/0.5 Ml Syringe) 0.5 mg IVPUSH Q3H PRN; Protocol PRN Reason: Pain, Severe (Pain Scale 7-10) Dextrose/Lactated Ringer's (D5lr) 1,000 mls @ 80 mls/hr IVCONT .[id number] [facility] Last Admin: 05/01/23 02:00 Dose: 80 mls/hr Documented By: SHERRELL Piperacillin Sod/Tazobactam (Sod 3.375 gm/ Sodium Chloride) 50 mls @ 100 mls/hr IV Q6H [facility] Last Infusion: 05/01/23 06:42 Dose: 0 mls/hr Documented By: SHERRELL Ondansetron HCl (Ondansetron Hcl 4 Mg/2 Ml Vial) 4 mg IVPUSH QID PRN PRN Reason: Nausea Oxycodone HCl (Oxycodone Hcl Immed Release 5 Mg Tablet) 5 mg PO Q6H PRN PRN Reason: Pain, Moderate(Pain Scale 4-6) Pharmacy Consult (Consult Rx Perform Med Rec) 1 each MISCELLANE ONCE PRN PRN Reason: Consult order Sodium Chloride (0.9 % Sodium Chloride Flush 3 Ml Syringe) 3 ml IVFLUSH QSHIFT [facility] Last Admin: 05/01/23 08:41 Dose: Not Given Documented By: BECKI Non-Admin Reason: IV Running Zolpidem Tartrate (Zolpidem Tartrate 5 Mg Tablet) 5 mg PO BEDTIME PRN PRN Reason: Insomnia Labs 04/30/23 16:28 Labs: Laboratory Results - last 24 hr 04/30/23 04/30/23 08:46 16:28 MCV 95.6 MCH 31.7 MCHC 33.2 RDW 16.6 H Plt Count 233 MPV 9.5 Absolute Nucleated RBC 0.000 Nucleated RBC % (auto) 0.0 Blood Type A Positive Antibody Screen NEGATIVE Crossmatch See Detail Microbiology Microbiology Results: Microbiology 04/30/23 01:10 Blood Culture - Preliminary Blood - Venous No growth after 24 hours. 04/30/23 01:10 Blood Culture - Preliminary Blood - Venous No growth after 24 hours. 04/29/23 18:13 Urine Culture - Preliminary Urine clean catch - Urine sifuentes top Culture too young to evaluate. Procedures Date of Service Date of Service: 05/01/23 Progress Note: A&P Assessment and plan (1) Anemia: Status: Acute (2) Hematoma: Status: Acute Plan 72-year-old female patient with metastatic breast CA presenting with a right groin hematoma now with redness and increased swelling/pain suggestive of an underlying abscess. She received 2 units PRBCs yesterday and feels stronger today. She is awaiting IR drainage of the left groin abscess. Repeat electrolytes requested by Radiology. WBC remains elevated at 12.2. Continue IV antibiotics. Blood cultures negative to date, urine cultures pending. Time Spent With Patient Time: Total time managing care of this patient today ____ minutes. Quality Stroke Does the patient have a stroke diagnosis?: No VTE Prior VTE?: No VTE Risk Level:: Surgical - moderate VTE Device Contraindication: N/A - Device Ordered VTE Drug Contraindication: Treatment Not Tolerated
[2023-05-01 12:24] LABS: Anion Gap 10 (12-20); Blood Urea Nitrogen 5 mg/dL (9-16); Calcium 7.6 mg/dL (8.4-10.2); Carbon Dioxide 26 mmol/L (22-29); Chloride 107 mmol/L (96-108); Creatinine Clr Calc Pharmacy 62.6; Estimated Glomerular Filt Rate > 60; Glucose Random 117 mg/dL (60-115); Potassium 3.4 mmol/L (3.3-5.1); Sodium 140 mmol/L (135-145)
--- NOTE | 2023-05-01 12:35 | PC.NURSE ---
report given to SS RN. pt aware of plan of care. BERNADETTE RN here to garbage pick up worker pt.
--- NOTE | 2023-05-01 14:44 | HO.RADPN ---
RADIOLOGY Narrative Narrative: Left groin abscess drain placed. 100 mL purulent appearing fluid aspirated. Specimen sent for culture and cytology.
[2023-05-01] MEDS: Lidocaine HCl 1 % MPF 5 ML VIAL SUBCUT (15:17)
--- NOTE | 2023-05-01 16:15 | P.PNIM_ITS ---
Subjective Subjective Date of Service: 05/01/23 Interval History: Tolerated drain groin abscess without issue today. Review of Systems Denies chest pain Denies shortness of breath Denies nausea vomiting diarrhea Denies fever chills Physical Exam Vital Signs: Vital Signs: Last Vital Signs Temp 99 F 05/01/23 15:50 Pulse 89 05/01/23 15:50 Resp 16 05/01/23 15:50 BP 122/53 L 05/01/23 15:50 Pulse Ox 99 05/01/23 15:50 O2 Del Method Room Air 05/01/23 15:50 BMI result Body Mass Index 24.0 Const: Other: Awake alert no acute distress Resp: Other: No S4; positive S1-S2; no S3 murmurs rubs or gallops Cardio: Other: No S4; positive S1-S2; no S3 murmurs rubs or gallops GI: Other: Soft nontender nondistended normoactive bowel sound Extrem: Other: No edema bilaterally Objective Data Active Medications Acetaminophen (Acetaminophen 325 Mg Tablet) 650 mg PO QID PRN PRN Reason: headache, temp > 101 Hydromorphone HCl (Hydromorphone Hcl 0.5 Mg/0.5 Ml Syringe) 0.5 mg IVPUSH Q3H PRN; Protocol PRN Reason: Pain, Severe (Pain Scale 7-10) Dextrose/Lactated Ringer's (D5lr) 1,000 mls @ 80 mls/hr IVCONT .[id number] [facility] Last Admin: 05/01/23 13:23 Dose: Not Given Documented By: BECKI Non-Admin Reason: Off Unit: Surgery Piperacillin Sod/Tazobactam (Sod 3.375 gm/ Sodium Chloride) 50 mls @ 100 mls/hr IV Q6H [facility] Last Admin: 05/01/23 13:24 Dose: Not Given Documented By: BECKI Non-Admin Reason: Off Unit: Surgery Ondansetron HCl (Ondansetron Hcl 4 Mg/2 Ml Vial) 4 mg IVPUSH QID PRN PRN Reason: Nausea Oxycodone HCl (Oxycodone Hcl Immed Release 5 Mg Tablet) 5 mg PO Q6H PRN PRN Reason: Pain, Moderate(Pain Scale 4-6) Pharmacy Consult (Consult Rx Perform Med Rec) 1 each MISCELLANE ONCE PRN PRN Reason: Consult order Sodium Chloride (0.9 % Sodium Chloride Flush 3 Ml Syringe) 3 ml IVFLUSH QSHIFT [facility] Last Admin: 05/01/23 08:41 Dose: Not Given Documented By: BECKI Non-Admin Reason: IV Running Zolpidem Tartrate (Zolpidem Tartrate 5 Mg Tablet) 5 mg PO BEDTIME PRN PRN Reason: Insomnia Labs 04/30/23 16:28 05/01/23 11:41 Labs: Laboratory Results - last 24 hr 04/30/23 04/30/23 05/01/23 08:46 16:28 11:41 MCV 95.6 MCH 31.7 MCHC 33.2 RDW 16.6 H Plt Count 233 MPV 9.5 Absolute Nucleated RBC 0.000 Nucleated RBC % (auto) 0.0 Anion Gap 10 L Estim Creat Clear Calc 62.6 Estimated GFR > 60 Random Glucose 117 H Calcium 7.6 L Blood Type A Positive Antibody Screen NEGATIVE Crossmatch See Detail Microbiology Microbiology Results: Microbiology 04/29/23 18:13 Urine Culture - Final Urine clean catch - Urine sifuentes top 04/30/23 01:10 Blood Culture - Preliminary Blood - Venous No growth after 24 hours. 04/30/23 01:10 Blood Culture - Preliminary Blood - Venous No growth after 24 hours. Assessment and Plan (1) Hematoma: Status: Acute (2) Metastatic breast cancer: Status: Chronic (3) Anemia, chronic disease: Status: Acute (4) Essential hypertension: Status: Acute Plan 72 year old women admitted to general surgery with anemia secondary to left groin hematoma 1.Acute on chronic Anemia -appropriate response for transfusion -abscess drained in interventional radiology notes reviewed -continue Zosyn pending cultures 2.Breast CA -ongoing with Dr. Gonzalez 3.HTN -acceptable control on current therapies -adjust as indicated Boots Full code Time Spent With Patient Time: Total time managing care of this patient today ____ minutes. Quality Stroke Does the patient have a stroke diagnosis?: No VTE Prior VTE?: No VTE Risk Level:: Surgical - moderate VTE Device Contraindication: N/A - Device Ordered VTE Drug Contraindication: Treatment Not Tolerated
--- NOTE | 2023-05-01 17:12 | MHC.EDTECH ---
PT CAME BACK FROM PACU ,VITALS SIGN TAKEN ,PT DRANK 240 ML WATER ,PT WAS ASSISTED UNTO BED TENA ,AND WAS INC OF URINE ,CARE GIVEN ,BEDDING CHANGE ,WARM BLANKETS GIVEN ,THIS PCT CALLED KITCHEN FOR PATIENT DINNER ,PT HAS NO DISTRESS AT THIS TIME .
--- NOTE | 2023-05-01 17:16 | PC.NURSE ---
Addendum entered by Jaden Ochoa RN 05/01/23 17:28: Drain in place. Original Note: pt brought back from by RN. per report 100 cc purulent drainage aspirated from abscess to L groin. pt tolerated procedure well. vss, denies pain at this time.
[2023-05-02] MEDS: Piperacillin Sodium/Tazobactam 3.375 GM in 0.9 % Sodium Chloride 50 ML IV ×5 (00:07→23:47)
[2023-05-02 05:37] LABS: MANUAL DIFF FLAG NO
[2023-05-02 05:40] LABS: Basophils Percent Auto 0.5 % (0-2); Eosinophils Percent Auto 0.4 % (0-4); Hematocrit 31.4 % (37.0-47.0); Hemoglobin 10.6 g/dl (12.0-16.0); Imm Gran Abs Auto 0.34 X10*3/uL (0.00-0.03); Imm Gran Pct Auto 4.4 % (0.0-0.4); Lymphocytes Absolute Auto 1.8 X10*3/uL (1.2-4.9); Lymphocytes Percent Auto 23.7 % (20-40); Mean Corpuscular HGB Conc 33.8 g/dl (31.0-35.0); Mean Corpuscular Hemoglobin 31.5 pg (27.0-33.0); Mean Corpuscular Volume 93.5 fL (80.0-98.0); Mean Platelet Volume 9.5 fL (9.4-12.3); Monocytes Absolute Auto 0.1 X10*3/uL (0.1-1.2); Monocytes Percent Auto 1.7 % (2-11); Neutrophils Absolute Auto 5.4 x10*3/uL (2.0-8.3); Neutrophils Percent Auto 69.3 % (45-73); Platelet Count 196 X10*3/uL (160-400); Red Blood Count 3.36 X10*6/uL (4.20-5.50); Red Cell Distribution Width 18.4 % (11.0-16.0); White Blood Count 7.7 X10*3/uL (4.8-10.8)
[2023-05-02 06:00] VITALS: BP 127/69; PULSE 64; RESP 18; TEMP 37.1; O2SAT 98
--- NOTE | 2023-05-02 06:14 | MHC.EDTECH ---
0600 rounding done ,vitals sign taken ,900 ml urine empty from Pure wick ,pt slept all night ,fresh ice water given .
[2023-05-02 07:30] VITALS: BP 137/65; PULSE 72; RESP 16; TEMP 36.6; O2SAT 98
--- NOTE | 2023-05-02 07:55 | PM.PNGS ---
Subjective Subjective Date of Service: 05/02/23 Interval history: Patient reports feeling improved today with decreased left groin pain. Physical Exam Vital Signs: Vital Signs: Last Vital Signs Temp 97.9 F 05/02/23 07:30 Pulse 72 05/02/23 07:30 Resp 16 05/02/23 07:30 BP 137/65 05/02/23 07:30 Pulse Ox 98 05/02/23 07:30 O2 Del Method Room Air 05/02/23 07:30 BMI result Body Mass Index 24.0 Const: General: no acute distress Nutritional Appearance: well nourished Orientation/consciousness: patient oriented x3 Resp: Effort & Inspection: normal respiratory effort GI: Other: Soft and nondistended. IR drain in left groin producing creamy white fluid. Left groin less distended less red. Skin: Other: Warm, dry, no rash Neuro: General: patient oriented x3 Objective Data Active Medications Acetaminophen (Acetaminophen 325 Mg Tablet) 650 mg PO QID PRN PRN Reason: headache, temp > 101 Amlodipine Besylate (Amlodipine Besylate 5 Mg Tablet) 5 mg PO DAILY [facility]; Protocol Hydromorphone HCl (Hydromorphone Hcl 0.5 Mg/0.5 Ml Syringe) 0.5 mg IVPUSH Q3H PRN; Protocol PRN Reason: Pain, Severe (Pain Scale 7-10) Dextrose/Lactated Ringer's (D5lr) 1,000 mls @ 80 mls/hr IVCONT .[id number] [facility] Last Admin: 05/02/23 01:47 Dose: Not Given Documented By: CHARLES Non-Admin Reason: Patient Condition Contraindication Piperacillin Sod/Tazobactam (Sod 3.375 gm/ Sodium Chloride) 50 mls @ 100 mls/hr IV Q6H [facility] Last Infusion: 05/02/23 06:17 Dose: 0 mls/hr Documented By: CHARLES Letrozole (Letrozole 2.5 Mg Tablet) 2.5 mg PO DAILY@1200 [facility] Ondansetron HCl (Ondansetron Hcl 4 Mg/2 Ml Vial) 4 mg IVPUSH QID PRN PRN Reason: Nausea Oxycodone HCl (Oxycodone Hcl Immed Release 5 Mg Tablet) 5 mg PO Q6H PRN PRN Reason: Pain, Moderate(Pain Scale 4-6) Pharmacy Consult (Consult Rx Perform Med Rec) 1 each MISCELLANE ONCE PRN PRN Reason: Consult order Sodium Chloride (0.9 % Sodium Chloride Flush 3 Ml Syringe) 3 ml IVFLUSH QSHIFT [facility] Last Admin: 05/02/23 01:02 Dose: Not Given Documented By: CHARLES Non-Admin Reason: IV Running Zolpidem Tartrate (Zolpidem Tartrate 5 Mg Tablet) 5 mg PO BEDTIME PRN PRN Reason: Insomnia Labs 05/02/23 05:31 05/01/23 11:41 Labs: Laboratory Results - last 24 hr 05/01/23 05/02/23 11:41 05:31 MCV 93.5 MCH 31.5 MCHC 33.8 RDW 18.4 H Plt Count 196 MPV 9.5 Immature Gran % (Auto) 4.4 H Neut % (Auto) 69.3 Lymph % (Auto) 23.7 [place] % (Auto) 1.7 L Eos % (Auto) 0.4 Baso % (Auto) 0.5 Lymph # (Auto) 1.8 [place] # (Auto) 0.1 Eos # (Auto) 0.0 Baso # (Auto) 0.0 Abs Immat Gran (auto) 0.34 H Absolute Neuts (auto) 5.4 Absolute Nucleated RBC 0.000 Nucleated RBC % (auto) 0.0 Anion Gap 10 L Estim Creat Clear Calc 62.6 Estimated GFR > 60 Random Glucose 117 H Calcium 7.6 L Microbiology Microbiology Results: Microbiology 04/30/23 01:10 Blood Culture - Preliminary Blood - Venous No growth after 48 hours. 04/30/23 01:10 Blood Culture - Preliminary Blood - Venous No growth after 48 hours. 04/29/23 18:13 Urine Culture - Final Urine clean catch - Urine sifuentes top Procedures Date of Service Date of Service: 05/02/23 Progress Note: A&P Assessment and plan (1) Hematoma: Status: Acute (2) Abscess of groin, left: Status: Acute Plan Patient found to have abscess of the left groin, 1 day following IR drainage. Wound cultures sent as well as cytology. Patient symptomatically improved today. WBC is normal today. H&H improved. Continue IV antibiotics. Await culture results. Time Spent With Patient Time: Total time managing care of this patient today ____ minutes. Quality Stroke Does the patient have a stroke diagnosis?: No VTE Prior VTE?: No VTE Risk Level:: Surgical - moderate VTE Device Contraindication: N/A - Device Ordered VTE Drug Contraindication: Treatment Not Tolerated
[2023-05-02] MEDS: amLODIPine Besylate 5 MG TABLET PO (08:47)
[2023-05-02] MEDS: 0.9 % Sodium Chloride Flush 3 ML SYRINGE IVFLUSH ×3 (09:11→20:52)
[2023-05-02 10:13] VITALS: BP 136/62; PULSE 81; RESP 18; TEMP 36.4; O2SAT 96
--- NOTE | 2023-05-02 12:19 | P.PNIM_ITS ---
Subjective Subjective Date of Service: 05/02/23 Interval History: Feels better after drainage. No acute issues Review of Systems Denies chest pain Denies shortness of breath Denies nausea vomiting diarrhea Denies fever chills Physical Exam Vital Signs: Vital Signs: Last Vital Signs Temp 97.5 F 05/02/23 10:13 Pulse 81 05/02/23 10:13 Resp 18 05/02/23 10:13 BP 136/62 05/02/23 10:13 Pulse Ox 96 05/02/23 10:13 O2 Del Method Room Air 05/02/23 10:13 BMI result Body Mass Index 24.0 Const: Other: Awake alert no acute distress Resp: Other: No S4; positive S1-S2; no S3 murmurs rubs or gallops Cardio: Other: No S4; positive S1-S2; no S3 murmurs rubs or gallops GI: Other: Soft nontender nondistended normoactive bowel sound Extrem: Other: No edema bilaterally Objective Data Active Medications Acetaminophen (Acetaminophen 325 Mg Tablet) 650 mg PO QID PRN PRN Reason: headache, temp > 101 Amlodipine Besylate (Amlodipine Besylate 5 Mg Tablet) 5 mg PO DAILY [facility]; Prot ocol Last Admin: 05/02/23 08:47 Dose: 5 mg Documented By: JANA Hydromorphone HCl (Hydromorphone Hcl 0.5 Mg/0.5 Ml Syringe) 0.5 mg IVPUSH Q3H PRN; Protocol PRN Reason: Pain, Severe (Pain Scale 7-10) Piperacillin Sod/Tazobactam (Sod 3.375 gm/ Sodium Chloride) 50 mls @ 100 mls/hr IV Q6H [facility] Last Admin: 05/02/23 11:52 Dose: 100 mls/hr Documented By: DABA Letrozole (Letrozole 2.5 Mg Tablet) 2.5 mg PO DAILY@1200 [facility] Ondansetron HCl (Ondansetron Hcl 4 Mg/2 Ml Vial) 4 mg IVPUSH QID PRN PRN Reason: Nausea Oxycodone HCl (Oxycodone Hcl Immed Release 5 Mg Tablet) 5 mg PO Q6H PRN PRN Reason: Pain, Moderate(Pain Scale 4-6) Pharmacy Consult (Consult Rx Perform Med Rec) 1 each MISCELLANE ONCE PRN PRN Reason: Consult order Sodium Chloride (0.9 % Sodium Chloride Flush 3 Ml Syringe) 3 ml IVFLUSH QSHIFT [facility] Last Admin: 05/02/23 09:11 Dose: 3 ml Documented By: JANA Zolpidem Tartrate (Zolpidem Tartrate 5 Mg Tablet) 5 mg PO BEDTIME PRN PRN Reason: Insomnia Labs 05/02/23 05:31 05/01/23 11:41 Labs: Laboratory Results - last 24 hr 05/01/23 05/02/23 11:41 05:31 MCV 93.5 MCH 31.5 MCHC 33.8 RDW 18.4 H Plt Count 196 MPV 9.5 Immature Gran % (Auto) 4.4 H Neut % (Auto) 69.3 Lymph % (Auto) 23.7 [place] % (Auto) 1.7 L Eos % (Auto) 0.4 Baso % (Auto) 0.5 Lymph # (Auto) 1.8 [place] # (Auto) 0.1 Eos # (Auto) 0.0 Baso # (Auto) 0.0 Abs Immat Gran (auto) 0.34 H Absolute Neuts (auto) 5.4 Absolute Nucleated RBC 0.000 Nucleated RBC % (auto) 0.0 Anion Gap 10 L Estim Creat Clear Calc 62.6 Estimated GFR > 60 Random Glucose 117 H Calcium 7.6 L Microbiology Microbiology Results: Microbiology 05/01/23 Unknown Gram Stain - Final Groin, Left Routine Culture - Preliminary Staphylococcus aureus Anaerobic Culture - Preliminary Culture in progress. 04/30/23 01:10 Blood Culture - Preliminary Blood - Venous No growth after 48 hours. 04/30/23 01:10 Blood Culture - Preliminary Blood - Venous No growth after 48 hours. 04/29/23 18:13 Urine Culture - Final Urine clean catch - Urine sifuentes top Assessment and Plan (1) Anemia, chronic disease: Status: Acute (2) Hematoma: Status: Acute Plan 72 year old women admitted to general surgery with anemia secondary to left groin hematoma 1.Acute on chronic Anemia -appropriate response for transfusion -abscess drained in interventional radiology notes reviewed -continue Zosyn pending cultures 2.Breast CA -ongoing with Dr. Gonzalez 3.HTN -acceptable control on current therapies -adjust as indicated Boots Full code Time Spent With Patient Time: Total time managing care of this patient today ____ minutes. Quality Stroke Does the patient have a stroke diagnosis?: No VTE Prior VTE?: No VTE Risk Level:: Surgical - moderate VTE Device Contraindication: N/A - Device Ordered VTE Drug Contraindication: Treatment Not Tolerated
[2023-05-02] MEDS: Letrozole 2.5 MG TABLET PO (13:13)
[2023-05-02] MEDS: Acetaminophen 325 MG TABLET 650 MG PO ×2 (13:16→20:50)
[2023-05-02 15:30] VITALS: BP 126/59; PULSE 74; RESP 16; TEMP 36.2; O2SAT 99
[2023-05-02 19:21] VITALS: BP 126/62; PULSE 71; RESP 16; TEMP 36.4; O2SAT 98
[2023-05-02 19:25] VITALS: BP 119/63; PULSE 75; RESP 16; TEMP 36.7; O2SAT 97
[2023-05-03 02:48] VITALS: BP 157/67; PULSE 68; RESP 16; TEMP 36.6; O2SAT 96
[2023-05-03] MEDS: Piperacillin Sodium/Tazobactam 3.375 GM in 0.9 % Sodium Chloride 50 ML IV ×4 (05:50→23:54)
[2023-05-03] MEDS: Acetaminophen 325 MG TABLET 650 MG PO ×2 (05:56→18:23)
[2023-05-03 07:27] VITALS: BP 139/74; PULSE 69; RESP 16; TEMP 36.1; O2SAT 98
--- NOTE | 2023-05-03 07:53 | PM.PNGS ---
Subjective Subjective Date of Service: 05/03/23 Interval history: Feels improved with decreased left inguinal pain and swelling. Denies fever or chills. Physical Exam Vital Signs: Vital Signs: Last Vital Signs Temp 97.0 F 05/03/23 07:27 Pulse 69 05/03/23 07:27 Resp 16 05/03/23 07:27 BP 139/74 05/03/23 07:27 Pulse Ox 98 05/03/23 07:27 O2 Del Method Room Air 05/03/23 07:27 BMI result Body Mass Index 24.0 Const: Other: Awake and alert, respiratory distress Resp: Other: Breathing comfortably on room air. GI: Other: IR drain continues to produce creamy white/greenish fluid. Minimal swelling remains in the right groin. Palpation (GI): Soft to palpation, nontender, no guarding and not rigid Extrem: General: Yes normal to inspection Objective Data Active Medications Acetaminophen (Acetaminophen 325 Mg Tablet) 650 mg PO QID PRN PRN Reason: headache, temp > 101 Last Admin: 05/03/23 05:56 Dose: 650 mg Documented By: JONATHON Amlodipine Besylate (Amlodipine Besylate 5 Mg Tablet) 5 mg PO DAILY ON [facility] OF [facility]; Protocol Last Admin: 05/02/23 08:47 Dose: 5 mg Documented By: JANA Hydromorphone HCl (Hydromorphone Hcl 0.5 Mg/0.5 Ml Syringe) 0.5 mg IVPUSH Q3H PRN; Protocol PRN Reason: Pain, Severe (Pain Scale 7-10) Piperacillin Sod/Tazobactam (Sod 3.375 gm/ Sodium Chloride) 50 mls @ 100 mls/hr IV Q6H ON LICENSE OF [facility] Last Infusion: 05/03/23 06:25 Dose: 0 mls/hr Documented By: JONATHON Vancomycin HCl 1,500 mg/ (Sodium Chloride) 500 mls @ 333.333 mls/hr IV ONCE ONE Stop: 05/03/23 09:14 Letrozole (Letrozole 2.5 Mg Tablet) 2.5 mg PO DAILY@1200 [facility] Last Admin: 05/02/23 13:13 Dose: 2.5 mg Documented By: DILLANNM Ondansetron HCl (Ondansetron Hcl 4 Mg/2 Ml Vial) 4 mg IVPUSH QID PRN PRN Reason: Nausea Oxycodone HCl (Oxycodone Hcl Immed Release 5 Mg Tablet) 5 mg PO Q6H PRN PRN Reason: Pain, Moderate(Pain Scale 4-6) Pharmacy Consult (Consult Rx Perform Med Rec) 1 each MISCELLANE ONCE PRN PRN Reason: Consult order Pharmacy Consult (Consult Rx Vancomycin Dosing) 1 each MISCELLANE DAILY PRN PRN Reason: Consult order Sodium Chloride (0.9 % Sodium Chloride Flush 3 Ml Syringe) 3 ml IVFLUSH QSHIFT ON LICENSE OF [facility] Last Admin: 05/02/23 20:52 Dose: 3 ml Documented By: CARMINEQC Zolpidem Tartrate (Zolpidem Tartrate 5 Mg Tablet) 5 mg PO BEDTIME PRN PRN Reason: Insomnia Labs 05/02/23 05:31 05/01/23 11:41 Microbiology Microbiology Results: Microbiology 05/01/23 Unknown Gram Stain - Final Groin, Left Routine Culture - Final Staphylococcus aureus Anaerobic Culture - Preliminary Culture in progress. Procedures Date of Service Date of Service: 05/03/23 Progress Note: A&P Assessment and plan (1) Abscess of groin, left: Status: Acute Plan 72-year-old female patient presenting with a left groin abscess, s/p IR drainage placement. Overall the patient is improved within normal WBC and improved cellulitis. Initial cultures revealed Staph aureus. Will add vancomycin pending sensitivities. Cytology pending. Time Spent With Patient Time: Total time managing care of this patient today ____ minutes. Quality Stroke Does the patient have a stroke diagnosis?: No VTE Prior VTE?: No VTE Risk Level:: Surgical - moderate VTE Device Contraindication: N/A - Device Ordered VTE Drug Contraindication: Treatment Not Tolerated
[2023-05-03 08:59] LABS: Creatinine Clr Calc Pharmacy 62.6; Estimated Glomerular Filt Rate > 60
[2023-05-03] MEDS: amLODIPine Besylate 5 MG TABLET PO (09:09)
[2023-05-03] MEDS: oxyCODONE HCl Immed Release 5 MG TABLET PO (09:09)
[2023-05-03] MEDS: 0.9 % Sodium Chloride Flush 3 ML SYRINGE IVFLUSH ×3 (09:10→20:06)
[2023-05-03] MEDS: vancomycin HCL 1,500 MG in 0.9 % Sodium Chloride 500 ML 333.33 MG IV (09:10)
--- NOTE | 2023-05-03 09:31 | PHA.PROG ---
Admission Date/Time: April 29, 2023 23:58 Indication: SKIN & STRUCTURE Weight in k.503 kg Adjusted body weight in K.221 [place] body weight in K.7 Obesity Dosing Indication % IBW: 24.0 Serum Creatinine - Last 168 Hours 05/01/23 05/03/23 11:41 08:37 Creatinine 0.68 0.68 Estimated CrCl and GFR - Last 168 Hours 05/01/23 05/03/23 11:41 08:37 Estim Creat Clear Calc 62.6 62.6 Estimated GFR > 60 > 60 Vancomycin Loading Dose: 1500 MG Current Vancomycin Dosing Regimen: 750 MG Q24 HOURS Vancomycin Monitoring using AUC goal of 400 - 600 range with trough as surrogate marker: EXPECT AUC 441 WITH TROUGH 14.1 AFTER 4TH DOSE Date and Time for next Vancomycin Level to be drawn: 05/06 @0700 Pharmacist Comments on Vancomycin Plan: Vancomycin dosing will take advantage of [employer] as a clinical decision support tool that uses Bayesian modeling to calculate individual patient's pharmacokinetic parameters and forecast the patient's drug concentration time course with the target goal AUC 24 range of 400 - 600 mg/L/hr.
[2023-05-03] MEDS: Letrozole 2.5 MG TABLET PO (12:13)
--- NOTE | 2023-05-03 13:25 | HO.PM.IMPN ---
Subjective Subjective Date of Service: 05/03/23 Interval History: Mild discomfort at drainage site otherwise no acute issues Review of Systems Denies chest pain Denies shortness of breath Denies nausea vomiting diarrhea Denies fever chills Physical Exam Vital Signs: Vital Signs: Last Vital Signs Temp 97.0 F 05/03/23 07:27 Pulse 69 05/03/23 07:27 Resp 16 05/03/23 07:27 BP 139/74 05/03/23 07:27 Pulse Ox 98 05/03/23 07:27 O2 Del Method Room Air 05/03/23 07:27 BMI result Body Mass Index 24.0 Const: Other: Awake alert no acute distress Resp: Other: No S4; positive S1-S2; no S3 murmurs rubs or gallops Cardio: Other: No S4; positive S1-S2; no S3 murmurs rubs or gallops GI: Other: Soft nontender nondistended normoactive bowel sound Extrem: Other: No edema bilaterally Objective Data Active Medications Acetaminophen (Acetaminophen 325 Mg Tablet) 650 mg PO QID PRN PRN Reason: headache, temp > 101 Last Admin: 05/03/23 05:56 Dose: 650 mg Documented By: JONATHON Amlodipine Besylate (Amlodipine Besylate 5 Mg Tablet) 5 mg PO DAILY [facility]; Protocol Last Admin: 05/03/23 09:09 Dose: 5 mg Documented By: ALEC Hydromorphone HCl (Hydromorphone Hcl 0.5 Mg/0.5 Ml Syringe) 0.5 mg IVPUSH Q3H PRN; Protocol PRN Reason: Pain, Severe (Pain Scale 7-10) Piperacillin Sod/Tazobactam (Sod 3.375 gm/ Sodium Chloride) 50 mls @ 100 mls/hr IV Q6H [facility] Last Infusion: 05/03/23 13:07 Dose: 0 mls/hr Documented By: ALEC Vancomycin HCl 750 mg/ Sodium (Chloride) 265 mls @ 265 mls/hr IV Q24H [facility] Letrozole (Letrozole 2.5 Mg Tablet) 2.5 mg PO DAILY@1200 [facility] Last Admin: 05/03/23 12:13 Dose: 2.5 mg Documented By: ALEC Ondansetron HCl (Ondansetron Hcl 4 Mg/2 Ml Vial) 4 mg IVPUSH QID PRN PRN Reason: Nausea Oxycodone HCl (Oxycodone Hcl Immed Release 5 Mg Tablet) 5 mg PO Q6H PRN PRN Reason: Pain, Moderate(Pain Scale 4-6) Last Admin: 05/03/23 09:09 Dose: 5 mg Documented By: ALEC Pharmacy Consult (Consult Rx Perform Med Rec) 1 each MISCELLANE ONCE PRN PRN Reason: Consult order Pharmacy Consult (Consult Rx Vancomycin Dosing) 1 each MISCELLANE DAILY PRN PRN Reason: Consult order Sodium Chloride (0.9 % Sodium Chloride Flush 3 Ml Syringe) 3 ml IVFLUSH QSHIFT [facility] Last Admin: 05/03/23 09:10 Dose: 3 ml Documented By: ALEC Zolpidem Tartrate (Zolpidem Tartrate 5 Mg Tablet) 5 mg PO BEDTIME PRN PRN Reason: Insomnia Labs 05/02/23 05:31 05/03/23 08:37 Labs: Laboratory Results - last 24 hr 05/03/23 08:37 Estim Creat Clear Calc 62.6 Estimated GFR > 60 Microbiology Microbiology Results: Microbiology 05/01/23 Unknown Gram Stain - Final Groin, Left Routine Culture - Final Staphylococcus aureus Anaerobic Culture - Preliminary Culture in progress. Assessment and Plan (1) Abscess of groin, left: Status: Acute (2) Cellulitis of breast: Status: Acute Plan 72 year old women admitted to general surgery with anemia secondary to left groin hematoma 1. Left groin abscess -cultures grew MSSA -consult which to oral doxy upon discharge 2..Acute on chronic Anemia -appropriate response for transfusion -follow clinically 2.Breast CA -ongoing with Dr. Gonzalez 3.HTN -acceptable control on current therapies -adjust as indicated Boots Full code Time Spent With Patient Time: Total time managing care of this patient today ____ minutes. Quality Stroke Does the patient have a stroke diagnosis?: No VTE Prior VTE?: No VTE Risk Level:: Surgical - moderate VTE Device Contraindication: N/A - Device Ordered VTE Drug Contraindication: Treatment Not Tolerated
[2023-05-03 15:28] VITALS: BP 150/69; PULSE 81; RESP 18; TEMP 36.1; O2SAT 97
[2023-05-03] MEDS: Artificial Tears 15 ML DROPS 2 DROP EYE-BOTH (18:24)
[2023-05-03 19:37] VITALS: BP 157/77; PULSE 89; RESP 19; TEMP 36.2; O2SAT 95
[2023-05-04] MEDS: Acetaminophen 325 MG TABLET 650 MG PO ×3 (00:16→21:30)
[2023-05-04 03:21] VITALS: BP 139/67; PULSE 72; RESP 16; TEMP 36.1; O2SAT 99
[2023-05-04] MEDS: Piperacillin Sodium/Tazobactam 3.375 GM in 0.9 % Sodium Chloride 50 ML IV ×4 (06:01→23:42)
[2023-05-04 07:19] LABS: Creatinine Clr Calc Pharmacy 65.5; Estimated Glomerular Filt Rate > 60
[2023-05-04 07:50] VITALS: BP 146/65; PULSE 70; RESP 18; TEMP 36.3; O2SAT 97
[2023-05-04] MEDS: amLODIPine Besylate 5 MG TABLET PO (09:00)
[2023-05-04] MEDS: vancomycin HCL 750 MG in 0.9 % Sodium Chloride 250 ML 265 MG IV ×2 (09:01→20:06)
[2023-05-04] MEDS: 0.9 % Sodium Chloride Flush 3 ML SYRINGE IVFLUSH ×3 (09:02→20:19)
--- NOTE | 2023-05-04 10:20 | PM.PNGS ---
Subjective Subjective Date of Service: 05/04/23 Interval history: feels much better main complain is poor appetite no events reported drain in place on left groin Physical Exam Vital Signs: Vital Signs: Last Vital Signs Temp 97.3 F 05/04/23 07:50 Pulse 70 05/04/23 07:50 Resp 18 05/04/23 07:50 BP 146/65 H 05/04/23 07:50 Pulse Ox 97 05/04/23 07:50 O2 Del Method Room Air 05/04/23 07:50 BMI result Body Mass Index 24.0 Const: General: comfortable and no acute distress Resp: Effort & Inspection: normal respiratory effort Cardio: Rate: regular rate GI: Other: ecchymoses on left groin, IR drain in place, scanty purulent output Palpation (GI): Soft to palpation, not firm, nontender and no guarding Objective Data Active Medications Acetaminophen (Acetaminophen 325 Mg Tablet) 650 mg PO QID PRN PRN Reason: headache, temp > 101 Last Admin: 05/04/23 09:00 Dose: 650 mg Documented By: RANDALL Amlodipine Besylate (Amlodipine Besylate 5 Mg Tablet) 5 mg PO DAILY [facility]; Protocol Last Admin: 05/04/23 09:00 Dose: 5 mg Documented By: RANDALL Artificial Tears (Artificial Tears 15 Ml Drops) 2 drop EYE-BOTH Q4H PRN PRN Reason: Dry Eyes Last Admin: 05/03/23 18:24 Dose: 2 drop Documented By: XOCHILT Hydromorphone HCl (Hydromorphone Hcl 0.5 Mg/0.5 Ml Syringe) 0.5 mg IVPUSH Q3H PRN; Protocol PRN Reason: Pain, Severe (Pain Scale 7-10) Piperacillin Sod/Tazobactam (Sod 3.375 gm/ Sodium Chloride) 50 mls @ 100 mls/hr IV Q6H [facility] Last Infusion: 05/04/23 06:38 Dose: 0 mls/hr Documented By: TAMIKO Vancomycin HCl 750 mg/ Sodium (Chloride) 265 mls @ 265 mls/hr IV Q24H [facility] Last Admin: 05/04/23 09:01 Dose: 265 mls/hr Documented By: RANDALL Letrozole (Letrozole 2.5 Mg Tablet) 2.5 mg PO DAILY@1200 [facility] Last Admin: 05/03/23 12:13 Dose: 2.5 mg Documented By: ALEC Ondansetron HCl (Ondansetron Hcl 4 Mg/2 Ml Vial) 4 mg IVPUSH QID PRN PRN Reason: Nausea Oxycodone HCl (Oxycodone Hcl Immed Release 5 Mg Tablet) 5 mg PO Q6H PRN PRN Reason: Pain, Moderate(Pain Scale 4-6) Last Admin: 05/03/23 09:09 Dose: 5 mg Documented By: ALEC Pharmacy Consult (Consult Rx Perform Med Rec) 1 each MISCELLANE ONCE PRN PRN Reason: Consult order Pharmacy Consult (Consult Rx Vancomycin Dosing) 1 each MISCELLANE DAILY PRN PRN Reason: Consult order Sodium Chloride (0.9 % Sodium Chloride Flush 3 Ml Syringe) 3 ml IVFLUSH QSHIFT [facility] Last Admin: 05/04/23 09:02 Dose: 3 ml Documented By: RANDALL Zolpidem Tartrate (Zolpidem Tartrate 5 Mg Tablet) 5 mg PO BEDTIME PRN PRN Reason: Insomnia Labs 05/02/23 05:31 05/04/23 05:51 Labs: Laboratory Results - last 24 hr 05/04/23 05:51 Estim Creat Clear Calc 65.5 Estimated GFR > 60 Microbiology Microbiology Results: Microbiology 05/01/23 Unknown Gram Stain - Final Groin, Left Routine Culture - Final Staphylococcus aureus Anaerobic Culture - Preliminary Culture in progress. Procedures Date of Service Date of Service: 05/04/23 Progress Note: A&P Assessment and plan (1) Abscess of groin, left: Status: Acute Assessment and Plan: drain in place cultures show S. aureus, NOT methicillin resistant looks well ok to dc home on PO abx ffup with Dr. Rodriguez for removal of drain Time Spent With Patient Time: Total time managing care of this patient today ____ minutes. Quality Stroke Does the patient have a stroke diagnosis?: No VTE Prior VTE?: No VTE Risk Level:: Surgical - moderate VTE Device Contraindication: N/A - Device Ordered VTE Drug Contraindication: Treatment Not Tolerated
--- NOTE | 2023-05-04 10:32 | HE.PHANOTE ---
Vancomycin- Adjusting dose to 750 mg q12h (from q24h) for predicted auc of 472. continnue with next level at 05/05/23 @0700
--- NOTE | 2023-05-04 11:33 | HO.PM.IMPN ---
Subjective Subjective Date of Service: 05/04/23 Interval History: Culture noted. Still with poor p.o. intake in the backdrop of constant nausea Review of Systems Denies chest pain Denies shortness of breath Admits nausea Denies vomiting diarrhea Denies fever chills Physical Exam Vital Signs: Vital Signs: Last Vital Signs Temp 97.3 F 05/04/23 07:50 Pulse 70 05/04/23 07:50 Resp 18 05/04/23 07:50 BP 146/65 H 05/04/23 07:50 Pulse Ox 97 05/04/23 07:50 O2 Del Method Room Air 05/04/23 07:50 BMI result Body Mass Index 24.0 Const: Other: Awake alert no acute distress Resp: Other: No S4; positive S1-S2; no S3 murmurs rubs or gallops Cardio: Other: No S4; positive S1-S2; no S3 murmurs rubs or gallops GI: Other: Soft nontender nondistended normoactive bowel sound Extrem: Other: No edema bilaterally Objective Data Active Medications Acetaminophen (Acetaminophen 325 Mg Tablet) 650 mg PO QID PRN PRN Reason: headache, temp > 101 Last Admin: 05/04/23 09:00 Dose: 650 mg Documented By: RANDALL Amlodipine Besylate (Amlodipine Besylate 5 Mg Tablet) 5 mg PO DAILY [facility]; Protocol Last Admin: 05/04/23 09:00 Dose: 5 mg Documented By: RANDALL Artificial Tears (Artificial Tears 15 Ml Drops) 2 drop EYE-BOTH Q4H PRN PRN Reason: Dry Eyes Last Admin: 05/03/23 18:24 Dose: 2 drop Documented By: XOCHILT Hydromorphone HCl (Hydromorphone Hcl 0.5 Mg/0.5 Ml Syringe) 0.5 mg IVPUSH Q3H PRN; Protocol PRN Reason: Pain, Severe (Pain Scale 7-10) Piperacillin Sod/Tazobactam (Sod 3.375 gm/ Sodium Chloride) 50 mls @ 100 mls/hr IV Q6H [facility] Last Infusion: 05/04/23 06:38 Dose: 0 mls/hr Documented By: ODRISLicha Vancomycin HCl 750 mg/ Sodium (Chloride) 265 mls @ 265 mls/hr IV Q12H [facility] Letrozole (Letrozole 2.5 Mg Tablet) 2.5 mg PO DAILY@1200 [facility] Last Admin: 05/03/23 12:13 Dose: 2.5 mg Documented By: ALEC Ondansetron HCl (Ondansetron Hcl 4 Mg/2 Ml Vial) 4 mg IVPUSH QID PRN PRN Reason: Nausea Oxycodone HCl (Oxycodone Hcl Immed Release 5 Mg Tablet) 5 mg PO Q6H PRN PRN Reason: Pain, Moderate(Pain Scale 4-6) Last Admin: 05/03/23 09:09 Dose: 5 mg Documented By: ALEC Pharmacy Consult (Consult Rx Perform Med Rec) 1 each MISCELLANE ONCE PRN PRN Reason: Consult order Pharmacy Consult (Consult Rx Vancomycin Dosing) 1 each MISCELLANE DAILY PRN PRN Reason: Consult order Sodium Chloride (0.9 % Sodium Chloride Flush 3 Ml Syringe) 3 ml IVFLUSH QSHIFT [facility] Last Admin: 05/04/23 09:02 Dose: 3 ml Documented By: RANDALL Zolpidem Tartrate (Zolpidem Tartrate 5 Mg Tablet) 5 mg PO BEDTIME PRN PRN Reason: Insomnia Labs 05/02/23 05:31 05/04/23 05:51 Labs: Laboratory Results - last 24 hr 05/04/23 05:51 Estim Creat Clear Calc 65.5 Estimated GFR > 60 Microbiology Microbiology Results: Microbiology 05/01/23 Unknown Gram Stain - Final Groin, Left Routine Culture - Final Staphylococcus aureus Anaerobic Culture - Preliminary Culture in progress. Assessment and Plan (1) Abscess of groin, left: Status: Acute (2) Anemia: Status: Acute (3) Metastatic breast cancer: Status: Chronic Plan 72 year old women admitted to general surgery with anemia secondary to left groin hematoma 1. Left groin abscess -cultures grew MSSA... Will switch to IV doxy given ongoing nausea -will continue times 24 hours given high risk for outpatient failure 2..Acute on chronic Anemia -appropriate response for transfusion -follow clinically 2.Breast CA -ongoing with Dr. Gonzalez 3.HTN -acceptable control on current therapies -adjust as indicated Boots Full code Time Spent With Patient Time: Total time managing care of this patient today ____ minutes. Quality Stroke Does the patient have a stroke diagnosis?: No VTE Prior VTE?: No VTE Risk Level:: Surgical - moderate VTE Device Contraindication: N/A - Device Ordered VTE Drug Contraindication: Treatment Not Tolerated
[2023-05-04] MEDS: Letrozole 2.5 MG TABLET PO (11:59)
[2023-05-04] MEDS: Artificial Tears 15 ML DROPS 2 DROP EYE-BOTH (12:05)
[2023-05-04 16:00] VITALS: BP 126/66; PULSE 85; RESP 18; TEMP 36.3; O2SAT 98
[2023-05-04 19:46] VITALS: BP 129/62; PULSE 73; RESP 20; TEMP 36.8; O2SAT 97
[2023-05-04 23:46] VITALS: BMI 22.3
[2023-05-05 03:26] VITALS: BP 150/79; PULSE 74; RESP 18; TEMP 36.3; O2SAT 96
[2023-05-05] MEDS: Piperacillin Sodium/Tazobactam 3.375 GM in 0.9 % Sodium Chloride 50 ML IV (05:36)
[2023-05-05 06:17] LABS: Creatinine Clr Calc Pharmacy 60.9; Estimated Glomerular Filt Rate > 60
[2023-05-05 07:33] VITALS: BP 154/68; PULSE 70; RESP 18; TEMP 36.2; O2SAT 98
[2023-05-05] MEDS: amLODIPine Besylate 5 MG TABLET PO (08:13)
[2023-05-05] MEDS: 0.9 % Sodium Chloride Flush 3 ML SYRINGE IVFLUSH ×3 (08:14→21:33)
[2023-05-05] MEDS: vancomycin HCL 750 MG in 0.9 % Sodium Chloride 250 ML 265 MG IV (08:15)
[2023-05-05] MEDS: Doxycycline Monohydrate 100 MG CAPSULE PO ×2 (09:38→21:33)
--- NOTE | 2023-05-05 09:54 | PM.PNGS ---
Subjective Subjective Date of Service: 05/07/23 Interval history: feels better says her appetite is not back no events reported Physical Exam Vital Signs: Vital Signs: Last Vital Signs Temp 97.2 F 05/05/23 07:33 Pulse 70 05/05/23 07:33 Resp 18 05/05/23 07:33 BP 154/68 H 05/05/23 07:33 Pulse Ox 98 05/05/23 07:33 O2 Del Method Room Air 05/05/23 07:33 BMI result Body Mass Index 22.3 Const: General: comfortable and no acute distress Cardio: Rate: regular rate GI: Other: drain in place left groin, pruurlent output, scanty Palpation (GI): Soft to palpation Objective Data Active Medications Acetaminophen (Acetaminophen 325 Mg Tablet) 650 mg PO QID PRN PRN Reason: headache, temp > 101 Last Admin: 05/04/23 21:30 Dose: 650 mg Documented By: OLYA Amlodipine Besylate (Amlodipine Besylate 5 Mg Tablet) 5 mg PO DAILY [facility]; Protocol Last Admin: 05/05/23 08:13 Dose: 5 mg Documented By: SHOAIB Artificial Tears (Artificial Tears 15 Ml Drops) 2 drop EYE-BOTH Q4H PRN PRN Reason: Dry Eyes Last Admin: 05/04/23 12:05 Dose: 2 drop Documented By: RANDALL Doxycycline Monohydrate (Doxycycline Monohydrate 100 Mg Capsule) 100 mg PO BID [facility] Last Admin: 05/05/23 09:38 Dose: 100 mg Documented By: SHOAIB Hydromorphone HCl (Hydromorphone Hcl 0.5 Mg/0.5 Ml Syringe) 0.5 mg IVPUSH Q3H PRN; Protocol PRN Reason: Pain, Severe (Pain Scale 7-10) Letrozole (Letrozole 2.5 Mg Tablet) 2.5 mg PO DAILY@1200 [facility] Last Admin: 05/04/23 11:59 Dose: 2.5 mg Documented By: RANDALL Ondansetron HCl (Ondansetron Hcl 4 Mg/2 Ml Vial) 4 mg IVPUSH QID PRN PRN Reason: Nausea Pharmacy Consult (Consult Rx Perform Med Rec) 1 each MISCELLANE ONCE PRN PRN Reason: Consult order Pharmacy Consult (Consult Rx Vancomycin Dosing) 1 each MISCELLANE DAILY PRN PRN Reason: Consult order Sodium Chloride (0.9 % Sodium Chloride Flush 3 Ml Syringe) 3 ml IVFLUSH QSHIFT [facility] Last Admin: 05/05/23 08:14 Dose: 3 ml Documented By: SHOAIB Labs 05/02/23 05:31 05/05/23 05:24 Labs: Laboratory Results - last 24 hr 05/05/23 05:24 Estim Creat Clear Calc 60.9 Estimated GFR > 60 Microbiology Microbiology Results: Microbiology 05/01/23 Unknown Gram Stain - Final Groin, Left Routine Culture - Final Staphylococcus aureus Anaerobic Culture - Preliminary Culture in progress. 04/30/23 01:10 Blood Culture - Final Blood - Venous No growth after 5 days. 04/30/23 01:10 Blood Culture - Final Blood - Venous No growth after 5 days. Procedures Date of Service Date of Service: 05/07/23 Progress Note: A&P Assessment and plan (1) Abscess of groin, left: Status: Acute Assessment and Plan: S/P IR drainage doing well no fever cellulitis much improved ok to dc home with IR drain, abx ffup with Dr. Rodriguez for removal of drain Time Spent With Patient Time: Total time managing care of this patient today ____ minutes. Quality Stroke Does the patient have a stroke diagnosis?: No VTE Prior VTE?: No VTE Risk Level:: Surgical - moderate VTE Device Contraindication: N/A - Device Ordered VTE Drug Contraindication: Treatment Not Tolerated
[2023-05-05] MEDS: Letrozole 2.5 MG TABLET PO (12:03)
--- NOTE | 2023-05-05 13:56 | P.PNIM_ITS ---
Subjective Subjective Date of Service: 05/05/23 Interval History: Nauseous overnight. Antibiotics continued IV. Able to take small amounts of food today Review of Systems Denies chest pain Denies shortness of breath Admits nausea Denies vomiting diarrhea Denies fever chills Physical Exam Vital Signs: Vital Signs: Last Vital Signs Temp 97.2 F 05/05/23 07:33 Pulse 70 05/05/23 07:33 Resp 18 05/05/23 07:33 BP 154/68 H 05/05/23 07:33 Pulse Ox 98 05/05/23 07:33 O2 Del Method Room Air 05/05/23 07:33 BMI result Body Mass Index 22.3 Const: Other: Awake alert no acute distress Resp: Other: No S4; positive S1-S2; no S3 murmurs rubs or gallops Cardio: Other: No S4; positive S1-S2; no S3 murmurs rubs or gallops GI: Other: Soft nontender nondistended normoactive bowel sound Extrem: Other: No edema bilaterally Objective Data Active Medications Acetaminophen (Acetaminophen 325 Mg Tablet) 650 mg PO QID PRN PRN Reason: headache, temp > 101 Last Admin: 05/04/23 21:30 Dose: 650 mg Documented By: OLYA Amlodipine Besylate (Amlodipine Besylate 5 Mg Tablet) 5 mg PO DAILY [facility]; Protocol Last Admin: 05/05/23 08:13 Dose: 5 mg Documented By: SHOAIB Artificial Tears (Artificial Tears 15 Ml Drops) 2 drop EYE-BOTH Q4H PRN PRN Reason: Dry Eyes Last Admin: 05/04/23 12:05 Dose: 2 drop Documented By: RANDALL Doxycycline Monohydrate (Doxycycline Monohydrate 100 Mg Capsule) 100 mg PO BID [facility] Last Admin: 05/05/23 09:38 Dose: 100 mg Documented By: SHOAIB Hydromorphone HCl (Hydromorphone Hcl 0.5 Mg/0.5 Ml Syringe) 0.5 mg IVPUSH Q3H PRN; Protocol PRN Reason: Pain, Severe (Pain Scale 7-10) Letrozole (Letrozole 2.5 Mg Tablet) 2.5 mg PO DAILY@1200 [facility] Last Admin: 05/05/23 12:03 Dose: 2.5 mg Documented By: SHOAIB Ondansetron HCl (Ondansetron Hcl 4 Mg/2 Ml Vial) 4 mg IVPUSH QID PRN PRN Reason: Nausea Pharmacy Consult (Consult Rx Perform Med Rec) 1 each MISCELLANE ONCE PRN PRN Reason: Consult order Sodium Chloride (0.9 % Sodium Chloride Flush 3 Ml Syringe) 3 ml IVFLUSH QSHIFT [facility] Last Admin: 05/05/23 08:14 Dose: 3 ml Documented By: SHOAIB Labs 05/02/23 05:31 05/05/23 05:24 Labs: Laboratory Results - last 24 hr 05/05/23 05:24 Estim Creat Clear Calc 60.9 Estimated GFR > 60 Microbiology Microbiology Results: Microbiology 05/01/23 Unknown Gram Stain - Final Groin, Left Routine Culture - Final Staphylococcus aureus Anaerobic Culture - Preliminary Culture in progress. 04/30/23 01:10 Blood Culture - Final Blood - Venous No growth after 5 days. 04/30/23 01:10 Blood Culture - Final Blood - Venous No growth after 5 days. Assessment and Plan (1) Abscess of groin, left: Status: Acute (2) Anemia: Status: Acute Plan 72 year old women admitted to general surgery with anemia secondary to left groin hematoma 1. Left groin abscess -cultures grew MSSA... Will switch to po doxy -will continue times 24 hours given high risk for outpatient failure 2..Acute on chronic Anemia -appropriate response for transfusion -follow clinically 2.Breast CA -ongoing with Dr. Gonzalez 3.HTN -acceptable control on current therapies -adjust as indicated Boots Full code Time Spent With Patient Time: Total time managing care of this patient today ____ minutes. Quality Stroke Does the patient have a stroke diagnosis?: No VTE Prior VTE?: No VTE Risk Level:: Surgical - moderate VTE Device Contraindication: N/A - Device Ordered VTE Drug Contraindication: Treatment Not Tolerated
[2023-05-05] MEDS: Acetaminophen 325 MG TABLET 650 MG PO (14:22)
[2023-05-05 15:29] VITALS: BP 159/68; PULSE 70; RESP 18; TEMP 36.3; O2SAT 98
[2023-05-05 20:00] VITALS: BP 167/74; PULSE 67; RESP 18; TEMP 36.2; O2SAT 99
[2023-05-06 03:11] VITALS: BP 152/78; PULSE 87; RESP 18; TEMP 36.1; O2SAT 98
[2023-05-06 07:24] LABS: Creatinine Clr Calc Pharmacy 62.6; Estimated Glomerular Filt Rate > 60
[2023-05-06 07:30] VITALS: BP 160/67; PULSE 74; RESP 20; TEMP 35.7; O2SAT 100
[2023-05-06 07:37] LABS: Vancomycin Trough 14.1 mcg/mL (10.0-20.0)
[2023-05-06] MEDS: Doxycycline Monohydrate 100 MG CAPSULE PO (07:49)
[2023-05-06] MEDS: amLODIPine Besylate 5 MG TABLET PO (07:49)
[2023-05-06] MEDS: Artificial Tears 15 ML DROPS 2 DROP EYE-BOTH (07:49)
[2023-05-06] MEDS: 0.9 % Sodium Chloride Flush 3 ML SYRINGE IVFLUSH (07:49)
[2023-05-06] MEDS: cephALEXin 500 MG CAPSULE PO (08:41)
--- NOTE | 2023-05-06 08:43 | P.F2F_ITS ---
Service Date Service Date: 05/06/23 Encounter Date of encounter: 05/06/23 Encounter: wound check left groin Reasons for Services Signs and symptoms assessed: redness and swelling left groin, PEDRO PABLO drain intact Reason for care home: wound care and other ( assessment of drain management) Overseeing Care: Moe Rodriguez Homebound: Leaving the home is medically contraindicated at this time without the asist of a device and/or another person due th the listed conditions above and below. Reason homebound: unsteady gait / fall risk, pain with ambulation and unable to drive Homebound supporting statement: patient with drain in place left groin, unsteady with ambulation Certification: Based on the above findings, I certify that this patient is confined to the home and needs intermittent care home care, physical therapy and/or speech therapy, or continues to need occupational therapy. The patient is under my care, and I have initiated the establishment of the plan of care. The patient will be followed by a physician who will periodically review the plan of care. Time Spent With Patient Time: Total time managing care of this patient today ____ minutes.
--- NOTE | 2023-05-06 09:52 | PM.PNGS ---
Subjective Subjective Date of Service: 05/06/23 Interval history: Patient feels much improved with minimal left groin pain. She mainly complains of pain from the tape on her skin. Physical Exam Vital Signs: Vital Signs: Last Vital Signs Temp 96.2 F L 05/06/23 07:30 Pulse 74 05/06/23 07:30 Resp 20 05/06/23 07:30 BP 160/67 H 05/06/23 07:30 Pulse Ox 100 05/06/23 07:30 O2 Del Method Room Air 05/06/23 07:30 BMI result Body Mass Index 22.3 Const: General: no acute distress and well developed Orientation/consciousness: patient oriented x3 GI: Other: IR drain is intact draining scant amount of purulent material. Skin of the left groin is minimally red swollen, much improved overall. No rash noted from Tegaderm. Skin: Other: Warm, dry, no rash Neuro: General: patient oriented x3 Extrem: Other: no edema Objective Data Active Medications Acetaminophen (Acetaminophen 325 Mg Tablet) 650 mg PO QID PRN PRN Reason: headache, temp > 101 Last Admin: 05/05/23 14:22 Dose: 650 mg Documented By: SHOAIB Amlodipine Besylate (Amlodipine Besylate 5 Mg Tablet) 5 mg PO DAILY [facility]; Protocol Last Admin: 05/06/23 07:49 Dose: 5 mg Documented By: HEMA Artificial Tears (Artificial Tears 15 Ml Drops) 2 drop EYE-BOTH Q4H PRN PRN Reason: Dry Eyes Last Admin: 05/06/23 07:49 Dose: 2 drop Documented By: HEMA Cephalexin HCl (Cephalexin 500 Mg Capsule) 500 mg PO Q6H [facility] Last Admin: 05/06/23 08:41 Dose: 500 mg Documented By: HEMA Hydromorphone HCl (Hydromorphone Hcl 0.5 Mg/0.5 Ml Syringe) 0.5 mg IVPUSH Q3H PRN; Protocol PRN Reason: Pain, Severe (Pain Scale 7-10) Letrozole (Letrozole 2.5 Mg Tablet) 2.5 mg PO DAILY@1200 [facility] Last Admin: 05/05/23 12:03 Dose: 2.5 mg Documented By: SHOAIB Ondansetron HCl (Ondansetron Hcl 4 Mg/2 Ml Vial) 4 mg IVPUSH QID PRN PRN Reason: Nausea Pharmacy Consult (Consult Rx Perform Med Rec) 1 each MISCELLANE ONCE PRN PRN Reason: Consult order Sodium Chloride (0.9 % Sodium Chloride Flush 3 Ml Syringe) 3 ml IVFLUSH QSHIFT [facility] Last Admin: 05/06/23 07:49 Dose: 3 ml Documented By: HEMA Labs 05/02/23 05:31 05/06/23 06:53 Labs: Laboratory Results - last 24 hr 05/06/23 05/06/23 06:53 06:53 Estim Creat Clear Calc 62.6 Estimated GFR > 60 Vancomycin Trough 14.1 Microbiology Microbiology Results: Microbiology 05/01/23 Unknown Gram Stain - Final Groin, Left Routine Culture - Final Staphylococcus aureus Anaerobic Culture - Final Procedures Date of Service Date of Service: 05/06/23 Progress Note: A&P Assessment and plan (1) Abscess of groin, left: Status: Acute Plan patient feels much improved. Cultures revealed sensitive Staph aureus. Patient now on Keflex p.o.. plan for discharge to home with drain in place. VNA to help with drain care. She should follow up in the office in 1-2 weeks for wound check and drain removal. She expressed understanding and agrees with the plan. Time Spent With Patient Time: Total time managing care of this patient today ____ minutes. No Severe Sepsis: No Severe Sepsis Quality Stroke Does the patient have a stroke diagnosis?: No VTE Prior VTE?: No VTE Risk Level:: Surgical - moderate VTE Device Contraindication: N/A - Device Ordered VTE Drug Contraindication: Treatment Not Tolerated
--- NOTE | 2023-05-06 09:55 | P.DS_ITS ---
DS: Providers Provider Date of Service: 05/06/23 Date of admission: 04/29/23 23:58 Date of discharge: 05/06/23 Primary care physician: Nilda Cope MD Admitting clinician: Moe Rodriguez Consults: 04/30/23 07:12 Consult to Hematology / Oncology Routine Consulting Provider: Shasta Zambrano Reason for consultation: Anemia, Breast Ca, Leg abscess 04/30/23 08:36 Consult to Hospitalist Routine Comment: Consulting Provider: Hospitalist Reason For Exam: anemia, breast ca, hematoma, med management Discharging clinician: Moe Rodriguez DS: Diagnosis Discharge Diagnosis (1) Abscess of groin, left: Status: Acute DS: Summary Hospital Course Hospital Course: Minna Knight is a 72 year old female? With a history of metastatic breast cancer found to have a hematoma of the left groin which has now become more painful and swollen.? Patient subsequently presented to the emergency department for further evaluation.? She denies any significant trauma but feels that this may have begun while doing laundry at home.? Workup in the emergency department revealed an elevated WBC.? CT pelvis is significant for fluid collection in the left groin suggestive of a hematoma/abscess extending close to the skin level.? This was felt to be amenable to IR drainage procedure.? Patient is admitted to the surgical service for management of the left leg abscess. laboratories revealed an H&H which decreased to 6.9/ 21 from 8.2 / 25.1 On 04/30/2023 she was admitted to the surgical service for IV antibiotics and drainage of this fluid collection. She received 2 units of packed RBCs. Consultation was Requested from Hematology-Oncology and hospitalist. Patient was subsequently drained under ultrasound guidance and a large purulence collection drained. A drainage tube was left in place and connected to bulb suction. Following this procedure the patient felt improved with improved WBC and decreased left groin pain. Cultures and sensitivity eventually revealed a sensitive Staph aureus infection. After several days of IV antibiotic she was converted to p.o. Keflex q.i.d. 500 mg. On the day of discharge, 05/06/2023 patient feels much improved with no pain, fever or chills. She feels ready for discharge to home. She will be discharged to home on p.o. antibiotics for another 10 days. She will follow-up in the office in approximately 1 week. The drain will be left in place and VNA consulted for drain care. She is instructed to call for fever, chills, nausea, vomiting, or other concerns. Time spent discussing smoking cessation with patient: 3 to 10 minutes Status at Discharge Functional status at discharge: independent ambulation Time Spent with Patient Time attestation: Total time managing care of this patient today ____ minutes. Discharge coordination time: Less than 30 minutes Quality: Safe Use of Opioids Does Pt have an Active Cancer Diagnosis on the Problem List?: Yes Opioid Measure Date for [facility] Report: 04/06/23 Opioid Measure Time for [facility] Report: 10:00 Quality: Stroke Does the patient have a stroke diagnosis?: No Physical Exam Vital Signs: Vital Signs: Last Vital Signs Temp 96.2 F L 05/06/23 07:30 Pulse 74 05/06/23 07:30 Resp 20 05/06/23 07:30 BP 160/67 H 05/06/23 07:30 Pulse Ox 100 05/06/23 07:30 O2 Del Method Room Air 05/06/23 07:30 BMI result Body Mass Index 22.3 Const: General: no acute distress and well developed Orientation/consciousness: patient oriented x3 GI: Other: IR drain is intact draining scant amount of purulent material. Skin of the left groin is minimally red swollen, much improved overall. No rash noted from Tegaderm. Skin: Other: Warm, dry, no rash Neuro: General: patient oriented x3 Extrem: Other: no edema DS: Data Data Completed and Pending Completed studies during hospitalization [Text1]: Procedures Drainage of Right Breast with Drainage Device, Percutaneous Approach (03/26/22) Drainage of Right Breast, Open Approach (03/26/22) Drainage of Right Breast, Percutaneous Approach (03/26/22) Excision of Duodenum, Via Natural or Artificial Opening Endoscopic, Diagnostic (03/26/22) Excision of Esophagogastric Junction, Via Natural or Artificial Opening Endoscopic, Diagnostic (03/26/22) Excision of Stomach, Pylorus, Via Natural or Artificial Opening Endoscopic, D iagnostic (03/26/22) Insertion of Infusion Device into Superior Vena Cava, Percutaneous Approach (03/26/22) Transfusion of Nonautologous Red Blood Cells into Peripheral Vein, Percutaneous Approach (03/26/22) Pending studies at discharge: Pending at discharge 05/01/23 14:41 Cytology [PTH] Routine Labs on day of discharge: Laboratory Results - last 24 hr 05/06/23 05/06/23 06:53 06:53 Creatinine 0.68 Estim Creat Clear Calc 62.6 Estimated GFR > 60 Vancomycin Trough 14.1 Discharge Plan Discharge Anticipated Discharge Date/Time: 05/06/23 08:38 Patient Disposition: Home Health Service Discharge Diagnosis: Abscess left groin Referrals: Nilda Cope MD [Primary Care Provider] - 1 Week Shasta Zambarno MD [Physician] - 1 Week Moe Rodriguez MD [Physician] - 1 Week Discharge Medications: New cephalexin 500 mg Capsule 500 mg PO Q6H Qty: 40 0RF Continued amlodipine 5 mg Tablet 5 mg PO DAILY Qty: 30 0RF Protocol: Hold for SBP< HOLD for SBP < : 90 ibuprofen 400 mg Tablet 400 mg PO Q8H PRN (Reason: Pain) acetaminophen 325 mg Tablet 650 mg PO Q6H PRN (Reason: Pain) letrozole 2.5 mg tablet 2.5 mg PO DAILY@1200 Discharge Orders: Discharge Order (Routine); Ordered 05/06/23 Ordered By: Moe Rodriguez Diet: Advance to usual diet Activity on Discharge: No heavy lifting Stand Alone Forms: Patient Portal Discharge page Activity Restrictions/Additional Instructions: empty of record drainage from left groin bulge at least daily antibiotics: Keflex 500 mg q.i.d. times 10 days follow-up in office in 1-2 weeks for wound check and possible drain removal call for increased pain, redness, fever or chills. Follow-up with Dr. Zambrano and PMD Care Plan Goals: return to normal left groin with no redness or swelling Health Concerns: pain and swelling left groin Plan of Treatment: IV converted to oral antibiotics, IR drainage of abscess Assessment: abscess left groin
[2023-05-06] MEDS: Acetaminophen 325 MG TABLET 650 MG PO (10:19)
--- NOTE | 2023-05-06 10:48 | HO.PM.IMPN ---
Subjective Subjective Date of Service: 05/06/23 Interval History: feels well, drain with pus, redness resolved, no fever due for Prolia injection Review of Systems Review of Systems: Yes all other systems are reviewed and are negative Physical Exam Vital Signs: Vital Signs: Last Vital Signs Temp 96.2 F L 05/06/23 07:30 Pulse 74 05/06/23 07:30 Resp 20 05/06/23 07:30 BP 160/67 H 05/06/23 07:30 Pulse Ox 100 05/06/23 07:30 O2 Del Method Room Air 05/06/23 07:30 BMI result Body Mass Index 22.3 Gen: in no acute distress HEENT: sclera anicteric, moist mucus membranes Neck: supple Lungs: clear to auscultation bilaterally Heart: regular rate and rhythm, no murmurs Abd: soft, non-tender, non-distended Ext: no edema Skin: warm/well-perfused Neuro: alert and oriented x3, no focal findings Psych: appropriate affect Objective Data Active Medications Acetaminophen (Acetaminophen 325 Mg Tablet) 650 mg PO QID PRN PRN Reason: headache, temp > 101 Last Admin: 05/06/23 10:19 Dose: 650 mg Documented By: HEMA Amlodipine Besylate (Amlodipine Besylate 5 Mg Tablet) 5 mg PO DAILY [facility]; Protocol Last Admin: 05/06/23 07:49 Dose: 5 mg Documented By: HEMA Artificial Tears (Artificial Tears 15 Ml Drops) 2 drop EYE-BOTH Q4H PRN PRN Reason: Dry Eyes Last Admin: 05/06/23 07:49 Dose: 2 drop Documented By: HEMA Cephalexin HCl (Cephalexin 500 Mg Capsule) 500 mg PO Q6H [facility] Last Admin: 05/06/23 08:41 Dose: 500 mg Documented By: HEMA Hydromorphone HCl (Hydromorphone Hcl 0.5 Mg/0.5 Ml Syringe) 0.5 mg IVPUSH Q3H PRN; Protocol PRN Reason: Pain, Severe (Pain Scale 7-10) Letrozole (Letrozole 2.5 Mg Tablet) 2.5 mg PO DAILY@1200 OSMAR Last Admin: 05/05/23 12:03 Dose: 2.5 mg Documented By: SHOAIB Ondansetron HCl (Ondansetron Hcl 4 Mg/2 Ml Vial) 4 mg IVPUSH QID PRN PRN Reason: Nausea Pharmacy Consult (Consult Rx Perform Med Rec) 1 each MISCELLANE ONCE PRN PRN Reason: Consult order Sodium Chloride (0.9 % Sodium Chloride Flush 3 Ml Syringe) 3 ml IVFLUSH QSHIFT [facility] Last Admin: 05/06/23 07:49 Dose: 3 ml Documented By: HEMA Labs 05/02/23 05:31 05/06/23 06:53 Labs: Laboratory Results - last 24 hr 05/06/23 05/06/23 06:53 06:53 Estim Creat Clear Calc 62.6 Estimated GFR > 60 Vancomycin Trough 14.1 Microbiology Microbiology Results: Microbiology 05/01/23 Unknown Gram Stain - Final Groin, Left Routine Culture - Final Staphylococcus aureus Anaerobic Culture - Final Assessment and Plan (1) Abscess of groin, left: Status: Acute (2) Anemia: Status: Acute Plan 72yo F with metastatic breast CA admitted to general surgery with left inguinal abscess/hematoma//cellulitis # MSSA cellulitis/hematoma/abscess - d/c on cefadroxil x10d, drain management as per Gen Surg # ER+ breast CA - letrozole # 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 Quality Stroke Does the patient have a stroke diagnosis?: No VTE Prior VTE?: No VTE Risk Level:: Surgical - moderate VTE Device Contraindication: N/A - Device Ordered VTE Drug Contraindication: Treatment Not Tolerated
--- NOTE | 2023-05-06 11:10 | MHC.CM.PN ---
Addendum entered by Anel Cesar 05/06/23 11:17: CM MET WITH PT TO DISCUSS DC PLANNING AND [facility] PT CONFIRMS HER SON WILL BE AT HOME WITH HER FOLLOWING DC SHE IS AWARE [facility] WILL FOLLOW UP WITH HER DIRECTLY TO ARRANGE SOC SHE SAYS SHE WILL CALL HER SON FOR TRANSPORT ONCE SHE HAS ALL OF HER DC PAPERWORK/INSTRUCTIONS Original Note: PT WILL DC HOME TODAY WITH [facility] FAM[facility] TO TRANSPORT
[2023-05-06] MEDS: Letrozole 2.5 MG TABLET PO (11:28)
[2023-05-06 12:03] LABS: Albumin Level 2.8 g/dL (3.5-5.0); Anion Gap 12 (12-20); Blood Urea Nitrogen 7 mg/dL (9-16); Carbon Dioxide 23 mmol/L (22-29); Chloride 109 mmol/L (96-108); Glucose Random 91 mg/dL (60-115); Sodium 141 mmol/L (135-145)
== END 2023-05-06 13:18 | disposition home health service (06) | DRG 603 ==
LOC: HO.ED 17:14 → HO.EDOVER 04-30 00:15 → HO.S3 05-02 09:10
PROVIDERS: Hospitalist; Nurse Practitioner Acute Care; Physician Assistant; Radiology Diagnostic Radiology; Admitting Provider Surgery; Emergency Provider Student in an Organized Health Care Education/Training Program; PCP Internal Medicine; Visit Provider Family Medicine
PROC: 0J9C30Z Drainage of Pelvic Region Subcutaneous Tissue and Fascia with Drainage Device, Percutaneous Approach (ICD-10-PCS; principal; 2023-05-01 13:30)
DX: L02.214 Cutaneous abscess of groin (principal); C79.51 Secondary malignant neoplasm of bone; E46 Unspecified protein-calorie malnutrition; C50.911 Malignant neoplasm of unspecified site of right female breast; D63.0 Anemia in neoplastic disease; D64.9 Anemia, unspecified; B95.61 Methicillin susceptible Staphylococcus aureus infection as the cause of diseases classified elsewhere; L40.9 Psoriasis, unspecified; Z68.22 Body mass index [BMI] 22.0-22.9, adult; Z91.040 Latex allergy status; Z79.811 Long term (current) use of aromatase inhibitors; Z79.899 Other long term (current) drug therapy
CPT/HCPCS: 10160; 36415; 72193; 76942; 80048; 80202; 81001; 81003; 82040; 82565; 85025; 85027; 85610; 85730; 86850; 86900; 86901; 86923; 87040; 87070; 87073; 87077; 87086; 87186; 87205; 88112; 88304; 93005; 99285; C1729; J2543; J3370; J3371; P9016; Q9967

== ENCOUNTER → 2023-05-23 13:10 | Outpatient (BNVA) | payer MEDICARE, MEDICAID, SELFPAY | PROVIDERS: PCP Internal Medicine; Visit Provider Surgery | DX: Z48.1 Encounter for planned postprocedural wound closure (principal); Z87.2 Personal history of diseases of the skin and subcutaneous tissue | CPT/HCPCS: 99212 ==

== ENCOUNTER 2023-05-29 10:31 | Outpatient (REF) | payer MEDICARE, MEDICAID, SELFPAY | END 2023-05-29 10:32 | disposition home or self-care (01) | LOC: HO.HMGCLDS 10:31 | PROVIDERS: PCP Internal Medicine; Visit Provider Internal Medicine | DX: E87.6 Hypokalemia (principal) | CPT/HCPCS: 36415; 80048; 83735 ==

== ENCOUNTER 2023-06-18 08:44 | Outpatient (REF) | payer MEDICARE, MEDICAID, SELFPAY ==
--- NOTE | ~2023-06-18 | PE_ITS ---
EXAMINATION: Fluorine-18 FDG PET/CT Scan CLINICAL INDICATION: Subsequent treatment management. Restaging of breast cancer at upper outer quadrant of the right breast. PROCEDURE: 65 minutes following the intravenous administration of 17.3 mCi of fluorine 18 FDG, images from the base of the skull to the mid thighs were obtained using a combined PET/CT scanner with CT scan based attenuation correction. No intravenous contrast was administered. Transverse, coronal, sagittal, and volume reconstruction projections were obtained. The patient's blood glucose as determined by a finger stick, was 78 mg/dl immediately prior to injection. The radiotracer was injected intravenously through left forearm superficial vein, without any complications. Total CT exam dose-length product 274.72 mGy-cm * These CT images were obtained using dose optimization techniques as appropriate, variously including the following: Automated exposure control * Adjustment of mA and/or kV according to patient size (this includes techniques or standardized protocols for targeted exams where dose is matched to indication/reason for exam; i.e. extremities or head) * Use of iterative reconstruction technique COMPARISON: PET CT study done on 08/28/[address] of the abdomen and pelvis done on 04/15/2023. FINDINGS: NECK AND VISUALIZED HEAD: Linear bilaterally symmetric muscular activities are likely physiologic. No FDG avid, pathologically enlarged abnormal lymphadenopathy identified, unchanged. Persistent stable mild mucoperiosteal thickening at both maxillary sinuses without FDG avidity, unchanged. THORAX: Multiple near symmetric bilateral costochondral linear activity likely represent motion related artifacts, new since prior study. Asymmetric linear FDG avidity is noted involving the pectoralis minor muscle at the right chest wall, likely related to positioning. No evidence of any discrete mass identified in the region of the right breast. No FDG avid axillary or internal mammary lymphadenopathy on either side. No FDG avid lung nodule and/or mass. The tracheobronchial tree is patent. No evidence of pleural effusion. Non-FDG avid mild pericardial effusion however is present, unchanged. ABDOMEN AND PELVIS: No FDG avid focal liver, splenic or adrenal disease. The gallbladder, biliary tree and pancreas appear unremarkable. There are no FDG avid retroperitoneal, mesenteric and/or pelvic lymphadenopathy. In the region of the proximal left groin, ill-defined asymmetric soft tissue fullness/mass associated with mild FDG avidity is noted with SUV max of 4.2 (229/311). Given the ill-defined nature of the abnormality, the size cannot be accurately measured however, grossly measures 5.6 x 2.9 cm (598/813), new since the prior study. MUSCULOSKELETAL: Please see the above description for asymmetric FDG avid soft tissue fullness/mass at left groin, of indeterminate etiology, new since the prior study. Extensive persistent stable mixed lytic, sclerotic abnormality involving the entire visualized axial and appendicular skeleton without any FDG avidity appear stable the prior study dated 08/28/2022. VASCULAR: Calcific atherosclerotic disease of the aorta and its branches without aneurysm formation, unchanged. SUV max OF MEDIASTINAL BLOOD POOL: 3.6 SUV max OF LIVER: 3.9 PET/PET CT fusion skull to thigh IMPRESSION: 1. Interval development of an ill-defined asymmetric left groin soft tissue fullness/mass associated with mild FDG avidity is seen with SUV max of 4.2, of indeterminate etiology. Clinical correlation and appropriate management including biopsy may be considered for further clarification. 2. Persistent stable extensive mixed lytic, sclerotic abnormality within the osseous skeleton without any FDG avidity, most consistent with inactive metastatic disease, appear similar to prior study dated 08/28/2022. 3. Bilateral linear muscular activity as well as near symmetric increased radiotracer activities along the costotransverse junction bilaterally within the chest likely represent physiologic changes.
== END 2023-06-18 08:45 | disposition home or self-care (01) ==
LOC: HO.PET 08:44
PROVIDERS: PCP Internal Medicine; Visit Provider Internal Medicine
DX: Z13.89 Encounter for screening for other disorder (principal)

== ENCOUNTER 2024-03-10 06:59 | Outpatient (REF) | payer MEDICARE, MEDICAID, SELFPAY ==
--- NOTE | ~2024-03-10 | PE_ITS ---
EXAMINATION: Fluorine-18 FDG PET/CT Scan CLINICAL INDICATION: Subsequent treatment management. Malignant neoplasm of right breast, restaging. PROCEDURE: 58 minutes following the intravenous administration of 17.8 mCi of fluorine 18 FDG, images from the base of the skull to the mid thighs were obtained using a combined PET/CT scanner with CT scan based attenuation correction. No oral contrast was administered. No intravenous contrast was administered. Transverse, coronal, sagittal, and volume reconstruction projections were obtained. The patient's blood glucose as determined by a finger stick, was 99 mg/dl immediately prior to injection. Total CT exam dose-length product 481.52 mGy-cm * These CT images were obtained using dose optimization techniques as appropriate, variously including the following: Automated exposure control * Adjustment of mA and/or kV according to patient size (this includes techniques or standardized protocols for targeted exams where dose is matched to indication/reason for exam; i.e. extremities or head) * Use of iterative reconstruction technique COMPARISON: The previous PET CT scans dated 06/18/2023 and 08/28/2022 are available for comparison. FINDINGS: (Slice numbers described in this report are numbered superiorly to inferiorly with slice #1 in the head) NECK AND VISUALIZED HEAD: There is a small focus of mildly increased FDG activity in the right lobe of the thyroid gland, SUVmax 3.2, slice 60/267. A subtle subcentimeter hypodense nodule is probably present at this site on the CT images, but this is not well delineated. Other foci of abnormal FDG activity are noted. The distribution of FDG activity is physiological. There is no cervical lymphadenopathy. There is almost complete opacification of the maxillary sinuses bilaterally. This is much more extensive no mucosal thickening present on the prior 06/18/2023 study. There is no associated abnormal FDG activity. THORAX: An FDG avid focus in the right axilla abutting the chest wall in the pectoralis minor muscle present on the prior study is no longer present. There is weak FDG activity associated with posterior lower lobe atelectasis or scarring, more prominent on the right. No suspicious pulmonary nodules or discrete foci of FDG activity are present. There is no pleural or pericardial fluid, or pneumothorax. ABDOMEN AND PELVIS: There are no foci of abnormal FDG activity in the abdomen or pelvis. There is mild FDG activity in the gastrointestinal tract without a suspicious focal component. There is diverticulosis without evidence of diverticulitis. The hollow viscera are otherwise unremarkable. The liver, gallbladder, and spleen are unremarkable. The kidneys, adrenal glands and pancreas are unremarkable. The pelvic organs are unremarkable. There is no retroperitoneal, mesenteric, pelvic or inguinal lymphadenopathy. MUSCULOSKELETAL: Increased FDG activity in a soft tissue density in the left groin present on the 06/18/[address] scan is no longer present. There is some increased soft tissue density in this region but no associated abnormal FDG activity is now present.There are now no foci of abnormal FDG activity present in the osseous structures. Diffuse mixed sclerotic and lytic lesions persist throughout the visualized skeleton with extensive abnormalities in the spine, pelvis, and sternum, multiple ribs, the scapulae bilaterally and both clavicles. The CT appearance is unchanged from the 06/18/2023 and 08/28/2022 prior studies. Mild degenerative changes and a minimal grade 1 anterolisthesis of L4 on L5 are also unchanged from prior studies. VASCULAR: Scattered vascular calcifications are present. Reference SUVmax Levels: Mediastinal Blood Pool: 1.8, Slice 87/267 Liver: 2.5, Slice 124/267 PET/PET CT fusion skull to thigh IMPRESSION: 1. FDG avid soft tissue lesions in the high right axilla and left inguinal region present on the 06/18/2023 PET/CT scan have resolved. There is now no abnormal FDG activity in either of these regions. The findings suggest resolution of inflammatory lesions previously present at these sites. 2. Diffuse mixed sclerotic and lytic lesions throughout the visualized osseous structures with no associated abnormal FDG activity and unchanged from the prior 2 PET/CT most likely represent healed osseous metastases. 3. A small mildly FDG avid right thyroid nodule is noted. The mild FDG intensity and small size suggests a nonaggressive lesion. This could be further characterized with thyroid ultrasonography, if clinically indicated.
== END 2024-03-10 07:00 | disposition home or self-care (01) ==
LOC: HO.PET 06:59
PROVIDERS: PCP Internal Medicine; Visit Provider Internal Medicine
DX: Z13.89 Encounter for screening for other disorder (principal)

== ENCOUNTER 2024-07-04 09:14 | Outpatient (AMB) | payer MEDICARE, MEDICAID, SELFPAY ==
[2024-07-04 09:53] VITALS: BP 110/60; PULSE 88; TEMP 36.8; O2SAT 97; BMI 19.9
--- NOTE | 2024-07-04 09:53 | AM.OFFWIN_ITS ---
Intake Vital Signs 07/04/24 09:53 Height 5 ft 4 in Weight 116 lb BMI 19.9 BP 110/60 Blood Pressure Location Rt brachial Position Sitting Pulse 88 Pulse Source Pulse Oximeter Temp 98.3 F Temp Source Oral Pulse Oximetry (%) 97 Oxygen Delivery Method Room Air Intake Visit Reasons: EP ?sinus Intake Note: pt is here for possible sinus infection Patient Tobacco Use Status: Never used Tobacco Allergies latex Allergy (Mild, Verified 07/10/24 09:19) Rash Do you need a note to return to daycare/school/sports/work: No HPI EP ?sinus HPI Details Patient is a 74-year-old female who is being treated for breast cancer, and reports she started with upper respiratory infection symptoms about 3 weeks ago. No COVID testing at the time. She reports that her swelling to the sinus and eye area has improved, and she is taking [id number] medication as well as doing sinus irrigation to help with mucus production, however she still has productive mucus from her nose. No significant cough, shortness of breath, chest discomfort, weakness or dizziness, severe headache, myalgias or malaise, nausea vomiting or diarrhea, or other significant associated symptoms. [facility] Medical History (Updated 07/10/24 @ 10:00 by Nilda Cope MD) Adult failure to thrive Hematoma Breast CA Abscess of breast, right Anemia Cellulitis of breast Abscess of breast, right Psoriasis Surgical History History of incision and drainage (05/01/23) History of tubal ligation Family History Sister Breast cancer Father Liver cancer Maternal Uncle Brain cancer Mother Congestive heart failure Social History Household Members: Children Household Members Other:: son Housing: Apartment Are you a primary healthcare consultant to a significant other at home: No Do you presently have visiting nurse or other home services: No Alcohol intake: current Alcohol intake frequency: holidays/special occasions only Patient Tobacco Use Status: Never used Tobacco e-Cigarette/Vaping Use: Never Used Advance Directives Date on File: 04/02/23 service: No Current occupational status: retired Cognitive needs: No Hearing needs: No Vision needs: No Review of Systems Const All systems reviewed & are unremarkable except as noted in HPI and below Physical Exam Vital Signs: Last Vital Signs Temp 98.3 F 07/04/24 09:53 Pulse 88 07/04/24 09:53 BP 110/60 07/04/24 09:53 Pulse Ox 97 07/04/24 09:53 Oxygen Delivery Method Room Air 07/04/24 09:53 BMI result Body Mass Index 19.9 Const General: cooperative, healthy appearing, comfortable, no acute distress, alert, awake, Physically active, anxious, tired appearing and well groomed; No in dist ress, diaphoretic, ill appearing, intoxicated appearing or poor hygiene Nutritional Appearance: thin Orientation/consciousness: patient oriented x3 Limitations: no limitations HEENT Head: Yes normal to inspection, Yes normocephalic and Yes atraumatic Ears: hearing grossly normal bilaterally, external ears normal, TM's normal bilaterally and EAC's normal General nose exam: Normal external nose present, Normal nares present, No nasal polyps present, Normal nasal mucous membranes and turbinates present, Normal septum present and No nasal discharge present Face and sinus: Yes sinus tenderness (Maxillary and frontal) Mouth: Normal oral and palatal mucosa present, lip normal and tongue normal Throat: Yes posterior oropharynx normal, No peritonsillar mass, No postnasal drainage, No uvular edema and No cobblestoning Eyes General: appearance normal, both eyes and all related structures Neck Neck: Yes normal visual inspection, Yes no lymphadenopathy, Yes trachea midline, Yes supple and No anterior neck swelling Resp Effort & Inspection: normal respiratory effort, able to speak in complete sentences, no audible wheezes, no cough, no grunting, not labored, no nasal flaring, no retractions and symmetric chest movement Cardio Rate: regular rate Skin Other: Good color, warm and dry Neuro General: patient oriented x3 Psych Appearance: grossly normal Mental Status: mental status grossly normal Speech and movement: Normal speech and movement present Affect: normal affect Attitude: cooperative Thought process: Normal thought process present Insight: Good insight present (Psych) Judgement: Good judgement present (Psych) Assessment & Plan Assessment & Plan (1) Chronic sinusitis: Code(s): J32.9 - Chronic sinusitis, unspecified Qualifiers: Sinusitis location: maxillary Qualified Code(s): J32.0 - Chronic maxi llary sinusitis Plan Patient is a 74-year-old female who was being treated for breast cancer, and reports she has had sinus pressure persistently for the last few weeks since apparent upper respiratory infection. She reports that she is feeling anxious emotional and stressed with everything right now . She is almost a month out with symptoms, so viral testing not done today. She is actually starting to do better, but has persistent chronic productive phlegm. I wrote her for a course of Augmentin, and she can continue [id number] acetaminophen which helped for her when she used it in the past, as well as guaifenesin to help with the mucus production. She knows to take adequate fluids in order to help facilitate this. We discussed adequate sleep and trying to cope with her stressors to help her immune system. She has appointment in a few days to follow up and talk more about anxiety with her provider. She will monitor symptoms and follow up sooner as needed, or can go to the emergency department with worrisome symptoms. Medications: New amoxicillin-pot clavulanate 875-125 mg 1 tab PO BID 14 tabs 0RF 7 days Coding Level of Care Code Est Pt Level 4 (12783) Diagnoses Chronic maxillary sinusitis J32.0 Sinusitis location: maxillary
== END 2024-07-04 10:29 | disposition home or self-care (01) ==
PROVIDERS: PCP Internal Medicine; Visit Provider Physician Assistant Medical
DX: J32.0 Chronic maxillary sinusitis (principal)
CPT/HCPCS: 99214

== ENCOUNTER 2024-07-10 09:13 | Outpatient (AMB) | payer MEDICARE, MEDICAID, SELFPAY ==
[2024-07-10 09:15] VITALS: BP 114/66; PULSE 105; O2SAT 98; BMI 19.6
--- NOTE | 2024-07-10 09:15 | MHC.PC.OV ---
Vital Signs 07/10/24 09:15 Height 5 ft 4 in Weight 114 lb BMI 19.6 BP 114/66 Blood Pressure Location Rt brachial Position Sitting Pulse 105 H Pulse Source Pulse Oximeter Pulse Oximetry (%) 98 Oxygen Delivery Method Room Air Intake Visit Reasons: Anxiety Intake Note: Pt is here today for a sick visit. Pt c/o anxiety. Allergies latex Allergy (Mild, Verified 07/10/24 09:19) Rash Medication List - Last Reconciled 07/10/24 by Nilda Cope MD acetaminophen 650 mg PO Q6H PRN amlodipine 5 mg See Protocol PO DAILY apremilast (Otezla) 30 mg PO DAILY biotin 1,000 mcg PO DAILY calcium carbonate 500 mg PO DAILY ibuprofen 400 mg PO Q8H PRN letrozole 2.5 mg PO DAILY@1200 lorazepam 0.5 mg PO BEDTIME PRN palbociclib (Ibrance) 100 mg PO DAILY Tobacco use date assessed: 07/10/24 Fall risk assessment: No Falls in past year Last assessed Fall Risk: 07/10/24 Dental Screening Dental Screen Date: 07/10/24 Did you have a dental visit in the last 12 months?: Yes Did you have a dental problem in the last 6 months where you did not have access to dental care?: No Was dental information given to patient?: Patient has dentist HPI Anxiety HPI Details Pt presents with complaint of increased stress related to her son depression and hospitalization in April. She reports decreased appetite and about 10 lb weight loss since April. She denies suicidal ideation. Patient has been taking lorazepam as needed for insomnia. She had a visit with a counselor but is not interested in continuing psychotherapy. Patient is currently undergoing treatment for metastatic right breast cancer on letrozole and Ibrance since 2021 with negative PET scan in 02/2024 [facility] Medical History (Updated 07/10/24 @ 10:00 by Nilda Cope MD) Adult failure to thrive Hematoma Breast CA Abscess of breast, right Anemia Cellulitis of breast Abscess of breast, right Psoriasis Surgical History History of incision and drainage (05/01/23) History of tubal ligation Family History Sister Breast cancer Father Liver cancer Maternal Uncle Brain cancer Mother Congestive heart failure Social History Household Members: Children Household Members Other:: son Housing: Apartment Are you a primary healthcare representative to a significant other at home: No Do you presently have visiting nurse or other home services: No Alcohol intake: current Alcohol intake frequency: holidays/special occasions only Patient Tobacco Use Status: Never used Tobacco e-Cigarette/Vaping Use: Never Used Advance Directives Date on File: 04/02/23 service: No Current occupational status: retired Cognitive needs: No Hearing needs: No Vision needs: No Questionnaire PHQ-9 Over the last 2 weeks, how often have you been bothered by any of the following problems? 1. Little interest or pleasure in doing things: not at all 2. Feeling down, depressed, or hopeless: not at all 3. Trouble falling or staying asleep, or sleeping too much: not at all 4. Feeling tired or having little energy: not at all 5. Poor appetite or overeating: several days 6. Feeling bad about yourself - or that you are a failure or have let yourself or your family down: not at all 7. Trouble concentrating on things, such as reading the newspaper or watching television: not at all 8. Moving or speaking so slowly that other people could have noticed. Or the opposite - being so fidgety or restless that you have been moving around a lot more than usual: not at all 9. Thoughts that you would be better off or of hurting yourself in some way: not at all Total score: 1 Depression Screening Interpretation: Negative Depression Screening Done: Yes Source: Developed by Drs. Ced Doshi, Ramya Schneider, Alfred Ash and colleagues, with an educational madhu from [employer]. Thrive Questionnaire Date Thrive assessed: 07/10/24 I am a: Patient What is your living situation today?: I choose not to answer this question Within the past 12 months, did the food you bought not last and you didn't have the money to get more?: I choose not to answer this question Within the past 12 months, did you worry whether your food would run out before you got money to buy more?: I choose not to answer this question Do you have trouble paying for medicines?: I choose not to answer this question Do you have trouble getting transportation to medical appointments?: I choose not to answer this question Do you have trouble paying your heating and electricity bill?: No Do you have trouble taking care of your child, family member or friend?: I choose not to answer this question Do you have trouble with day-to-day activities such as bathing, preparing meals, shopping, managing finances, etc.?: No Are you currently unemployed and looking for a job?: No Are you interested in more education?: No Please select the resources that you would like help with: None Currently or been in a relationship where the following occur: I choose not to answer THRIVE Score: 0 AUDIT C Alcohol Use Questionnaire (AUDIT-C) 1. How often do you have a drink containing alcohol?: Never 3. How often do you have six or more drinks on one occasion?: Never Total Score: 0 CHARITY-7 AMB Questionnaire CHARITY-7 Date CHARITY - 7 assessed: 07/10/24 Feeling nervous, anxious, or on edge: 0 = Not at all Not being able to stop or control worryin = Not at all Worrying too much about different things: 0 = Not at all Trouble relaxin = Not at all Being so restless that it is hard to sit still: 0 = Not at all Becoming easily annoyed or irritable: 0 = Not at all Feeling afraid as if something awful might happen: 0 = Not at all Total CHARITY-7 score (0-4 normal; 5-9 mild; 10-14 moderate; 15-21 severe): 0 Source: Developed by Drs. Ced Doshi, Ramya Schneider, Alfred Ash and colleagues, with an educational madhu from [employer]. CHARITY-7 Assessment Billing CHARITY-7 Assessment Tool: CHARITY-7 Assessment 83769 Review of Systems Const All systems reviewed & are unremarkable except as noted in HPI and below Reports no additional complaints Eyes Reports no additional complaints ENT Reports no additional complaints Card Reports no additional complaints Resp Reports no additional complaints GI Reports no additional complaints Reports no additional complaints Physical exam (Primary Care) Vital Signs: Last Vital Signs Pulse 105 H 07/10/24 09:15 BP 114/66 07/10/24 09:15 Pulse Ox 98 07/10/24 09:15 Oxygen Delivery Method Room Air 07/10/24 09:15 BMI result Body Mass Index 19.6 Tobacco/Smoking Status: Tobacco use Status Tobacco use date assessed 07/10/24 07/10/24 09:23 Patient Tobacco Use Status Never used Tobacco 07/10/24 09:23 e-Cigarette/Vaping Use Never Used 07/10/24 09:16 PHQ-9: PHQ-9 Score PHQ-9: Total score 1 07/10/24 09:23 Depression Screening Interpretation: Negative Thrive Assessment: Date of Thrive Assessment Date Thrive assessed 07/10/24 07/10/24 09:23 Currently or been in a relationship where the following occur: I choose not to answer Const General: no acute distress HENMT Head: Yes normal to inspection Throat: Yes posterior oropharynx normal Eyes General: appearance normal, both eyes and all related structures Neck Neck: Yes supple Resp Effort & Inspection: normal respiratory effort Auscultation: clear to auscultation bilaterally Cardio Rhythm: regular rhythm Heart sounds: S1 normal heart sound present and S2 normal heart sound present Assessment and Plan Assessment & Plan (1) Breast CA: Comment: right, metastatic to bones and stomach since04/15, on Letrozole and Ibrance, negative PET CT 02/2024 f/u [facility] oncology Code(s): C50.919 - Malignant neoplasm of unspecified site of unspecified female breast Plan: F/U with oncology (2) Anxiety: Code(s): F41.9 - Anxiety disorder, unspecified Plan: Stress management and coping skills discussed with the patient. She is not interesting to follow-up with psychotherapy, Zoloft 25 mg daily will be started and patient will follow-up in 1 month. She was advised to increase nutritional food intake and at nutritional supplement at least once a day between meals. Medications: New sertraline 25 mg PO DAILY 30 tabs 3RF Coding Level of Care Code Est Pt Level 4 (86634) Diagnoses Breast CA C50.919 Anxiety F41.9 Additional Codes CHARITY-7 Assessment Billing - CHARITY-7 Assessment Tool: CHARITY-7 Assessment 36732 ([id number])
== END 2024-07-10 10:02 | disposition home or self-care (01) ==
PROVIDERS: PCP Internal Medicine; Visit Provider Internal Medicine
DX: C50.919 Malignant neoplasm of unspecified site of unspecified female breast (principal); F41.9 Anxiety disorder, unspecified
CPT/HCPCS: 99214

== ENCOUNTER 2024-08-06 09:35 | Outpatient (AMB) | payer MEDICARE, MEDICAID, SELFPAY ==
[2024-08-06 09:43] VITALS: BP 104/58; BMI 19.6
--- NOTE | 2024-08-06 09:43 | A.OFFPC_ITS ---
Vital Signs 08/06/24 09:43 Height 5 ft 4 in Weight 114 lb BMI 19.6 BP 104/58 L Blood Pressure Location Rt brachial Position Sitting Intake Visit Reasons: 1 month follow up Intake Note: Pt is here today for 1 month follow up visit. Allergies latex Allergy (Mild, Verified 08/06/24 10:01) Rash Tobacco use date assessed: 07/10/24 Dental Screening Dental Screen Date: 07/10/24 HPI 1 month follow up HPI Details Patient presents for the follow-up of anxiety and depression feeling better on 25 mg of Zoloft. Patient denies any further weight loss and has been eating 3 meals a day. She reports intermittent insomnia and has been prescribed lorazepam by Oncology to take as needed. Hypertension is controlled on amlodipine [facility] Medical History (Updated 08/06/24 @ 10:32 by Nilda Cope MD) Adult failure to thrive Hematoma Breast CA Abscess of breast, right Anemia Cellulitis of breast Abscess of breast, right Psoriasis Surgical History History of incision and drainage (05/01/23) History of tubal ligation Family History Sister Breast cancer Father Liver cancer Maternal Uncle Brain cancer Mother Congestive heart failure Social History Household Members: Children Household Members Other:: son Housing: Apartment Are you a primary healthcare analyst to a significant other at home: No Do you presently have visiting nurse or other home services: No Alcohol intake: current Alcohol intake frequency: holidays/special occasions only Patient Tobacco Use Status: Never used Tobacco e-Cigarette/Vaping Use: Never Used Advance Directives Date on File: 04/02/23 service: No Current occupational status: retired Cognitive needs: No Hearing needs: No Vision needs: No Questionnaire PHQ-9 Over the last 2 weeks, how often have you been bothered by any of the following problems? 3. Trouble falling or staying asleep, or sleeping too much: not at all 4. Feeling tired or having little energy: not at all 7. Trouble concentrating on things, such as reading the newspaper or watching television: not at all Source: Developed by Ramya MooreW. Wyatt, Alfred Ash and colleagues, with an educational madhu from [employer]. Thrive Questionnaire Date Thrive assessed: 07/10/24 I am a: Patient What is your living situation today?: I choose not to answer this question Within the past 12 months, did the food you bought not last and you didn't have the money to get more?: I choose not to answer this question Within the past 12 months, did you worry whether your food would run out before you got money to buy more?: I choose not to answer this question Do you have trouble paying for medicines?: I choose not to answer this question Do you have trouble getting transportation to medical appointments?: I choose not to answer this question Do you have trouble paying your heating and electricity bill?: No Do you have trouble taking care of your child, family member or friend?: I choose not to answer this question Do you have trouble with day-to-day activities such as bathing, preparing meals, shopping, managing finances, etc.?: No Are you currently unemployed and looking for a job?: No Are you interested in more education?: No Please select the resources that you would like help with: None Currently or been in a relationship where the following occur: I choose not to answer THRIVE Score: 0 AUDIT C Alcohol Use Questionnaire (AUDIT-C) 1. How often do you have a drink containing alcohol?: Never Total Score: 0 CHARITY-7 AMB Questionnaire CHARITY-7 Date CHARITY - 7 assessed: 07/10/24 Feeling nervous, anxious, or on edge: 0 = Not at all Not being able to stop or control worryin = Not at all Worrying too much about different things: 0 = Not at all Trouble relaxin = Not at all Being so restless that it is hard to sit still: 0 = Not at all Becoming easily annoyed or irritable: 0 = Not at all Feeling afraid as if something awful might happen: 0 = Not at all Total CHARITY-7 score (0-4 normal; 5-9 mild; 10-14 moderate; 15-21 severe): 0 Source: Developed by Ramya Moore, Alfred Ash and colleagues, with an educational madhu from [employer]. Review of Systems Const All systems reviewed & are unremarkable except as noted in HPI and below Eyes Reports no additional complaints Card Reports no additional complaints Resp Reports no additional complaints GI Reports no additional complaints Reports no additional complaints Physical exam (Primary Care) Vital Signs: Last Vital Signs BP 104/58 L 08/06/24 09:43 BMI result Body Mass Index 19.6 Tobacco/Smoking Status: Tobacco use Status Tobacco use date assessed 07/10/24 08/06/24 09:44 Patient Tobacco Use Status Never used Tobacco 08/06/24 09:44 e-Cigarette/Vaping Use Never Used 08/06/24 09:44 Thrive Assessment: Date of Thrive Assessment Date Thrive assessed 07/10/24 08/06/24 09:44 Currently or been in a relationship where the following occur: I choose not to answer Const General: no acute distress Eyes General: appearance normal, both eyes and all related structures Resp Effort & Inspection: normal respiratory effort Auscultation: clear to auscultation bilaterally Cardio Rhythm: regular rhythm Heart sounds: S1 normal heart sound present and S2 normal heart sound present GI Inspection: Yes normal to inspection Palpation (GI): Soft to palpation Assessment and Plan Assessment & Plan (1) Anxiety: Code(s): F41.9 - Anxiety disorder, unspecified Plan: Increase sertraline to 50 mg, stress management and mindfulness discussed with the patient. (2) Metastatic breast cancer: Code(s): C50.919 - Malignant neoplasm of unspecified site of unspecified female breast Plan: Follow-up with oncology (3) HTN (hypertension): Comment: Follows up with Nephrology Code(s): I10 - Essential (primary) hypertension Plan: Continue Amlodipine Medications: New sertraline 50 mg PO DAILY 90 tabs 0RF Refilled amlodipine 5 mg PO DAILY 30 tabs 0RF Discontinued sertraline Discontinued Reason: Doctor's Order 25 mg PO DAILY 30 tabs 3RF Coding Level of Care Code Est Pt Level 3 (71257) Diagnoses Anxiety F41.9 Metastatic breast cancer C50.919 HTN (hypertension) I10
== END 2024-08-06 10:33 | disposition home or self-care (01) ==
PROVIDERS: PCP Internal Medicine; Visit Provider Internal Medicine
DX: F41.9 Anxiety disorder, unspecified (principal); C50.919 Malignant neoplasm of unspecified site of unspecified female breast; I10 Essential (primary) hypertension
CPT/HCPCS: 99213

== ENCOUNTER 2025-02-03 11:32 | Outpatient (REF) | payer MEDICARE, MEDICAID, SELFPAY ==
--- OUTSIDE RECORDS SUMMARY | 2025-02-03 13:40 | XMS_ITS | Encounter Summary ---
Author Organization [facility] Address [address] [place] [address] Care Team Providers Care Snuff Maker Name Role Phone Nilda Cope MD Primary Care Provider [phone] Reason for Referral * Imaging (Routine) - Closed Specialty Diagnoses / Procedures Referred By Samuel hansen Referred To Contact Radiology Diagnoses Invasive lobular carcinoma of right breast in female (CMS/HCC) Procedures PET CT Skull to Mid Thigh Subsequent Shasta Zambrano MD [address] [place] [address] HEMATOLOGY / [place] [address] Phone: tel: fax: [facility] Referral ID Status Reason Start Date Expiration Date Visits Re quested Visits Authorized [id number] Closed 12/30/2024 12/30/2025 1 1 Reason for Visit * Imaging (Routine) - Closed Specialty Diagnoses / Procedures Referred By Samuel hansen Referred To Contact Radiology Diagnoses Invasive lobular carcinoma of right breast in female (CMS/HCC) Procedures PET CT Skull to Mid Thigh Subsequent Shasta Zambrano MD [address] [place] [address] HEMATOLOGY / [place] [address] Phone: tel: fax: [facility] Referral ID Status Reason Start Date Expiration Date Visits Re quested Visits Authorized [id number] Closed 12/30/2024 12/30/2025 1 1 Encounter Details Date Type Department Care Team (Latest Contact Info) Description 01/06/2025 8:34 AM EST - 01/06/2025 11:59 PM EST Hospital Encounter [facility] PET Scan [address] [place] [id number] Invasive lobular carcinoma of right breast in female (CMS/HCC) Discharge Disposition: Home or Self Care Social History Tobacco Use Types Packs/Day Years Used Date Smoking Tobacco: Never Assessed Comments Unknown Sex and Gender Information Value Date Recorded Sex Assigned at Female 01/05/2025 11:29 AM EST Legal Sex Female 1:18 PM EST Gender Identity Not on file Sexual Orientation Straight 01/05/2025 11 :29 AM EST documented as of this encounter Discharge Disposition Disposition Code Departure Means Destination Home or Self Care documented in this encounter Plan of Treatment Not on file documented as of this encounter Procedures Procedure Name Priority Date/Time Associated Diagnosis Comments PET CT SKULL TO MID THIGH SUBSEQUENT Routine 01/06/2025 11:55 AM EST Invasive lobular carcinoma of right breast in female (CMS/HCC) documented in this encounter Results * PET CT Skull to Mid Thigh Subsequent (01/06/2025 11:55 AM EST) Anatomical Region Laterality Modality Body Radiographic Iman ging 01/11/2025 3:58 AM EST Impressions 01/11/2025 4:44 AM EST 1. ??Nonspecific FDG activity along the stomach body/antrum 2. ??Mildly FDG avid right axillary lymph nodes 3. ??Persistent focal uptake in the right thyroid lobe; similar to prior. ??Further evaluation with thyroid ultrasound would be helpful. 4. ??Focal FDG activity along the left gracilis muscle either representing muscle strain or postinflammatory change. Please note: The CT was acquired at a low radiation dose settings. ??The images are of nondiagnostic quality and used solely for purposes of attenuation correction and slice localization for the PET scan. ??If a diagnostic CT study is desired it must be ordered separately. -------- FINAL REPORT -------- Dictated By: Ashanti Antonio Dictated Date: 01/11/2025 03:58 ET Assigned Physician: Ashanti Antonio Reviewed and Electronically Signed By: Ashanti Antonio Signed Date: 01/11/2025 04:44 ET Workstation ID: [id number] Transcribed By: Self Edit Transcribed Date: 01/11/2025 03:58 ET Narrative 01/11/2025 4:44 AM EST INDICATION: Metastatic right breast cancer to the stomach, bones and not in the left lung. TECHNIQUE: FDG PET-CT imaging was performed from the skull bases through the thighs in a single acquisition with data set reconstructed in axial, coronal, and sagittal planes at the computer workstation with fused data from both the PET imaging study and attenuation correction CT. The CT portion of the examination was done strictly for attenuation correction and is not a true diagnostic CT examination. DLP: ??333 mGy-cm Radiopharmaceutical: 13.8 mCi of F-18 FDG IV. Blood glucose: 85 mg/dl. COMPARISON: Outside PET/CT February 2024 FINDINGS: HEAD AND NECK: Thyroid gland is heterogeneous in appearance with a dominant 23 x 17 mm nodule in the left thyroid gland. ??Persistent focus of FDG activity in the right thyroid lobe SUV max 2.8 (previously 3.2). Complete opacification of the maxillary sinuses without significant FDG activity. ??No FDG avid cervical lymphadenopathy. THORAX: Right axillary lymph nodes measuring up to SUV Max 1.4 (contralateral left SUV max 0.8). No FDG avid thoracic lymphadenopathy. Interval clearing of previously seen opacities in the lower lobes of both lungs with few remaining tree-in-bud/centrilobular groundglass nodules without significant FDG activity (SUV max 0.8) likely representing stigmata of postinfectious/postinflammatory etiology. Trace pericardial effusion. ABDOMEN/PELVIS: Nonspecific focal FDG activity along the stomach body/antrum SUV max 3.4. ??No FDG avid abdominal or pelvic lymphadenopathy. MUSCULOSKELETAL: Focal FDG activity involving the left gracilis muscle SUV max 5.6 with surrounding myofascial subcutaneous stranding. Innumerable sclerotic and lytic lesions throughout the axial and appendicular skeleton without significant FDG activity. ??Grade 1 anterolisthesis of L4 on L5. Procedure Note Ashanti Antonio MD - 01/11/2025 INDICATION: Metastatic right breast cancer to the stomach, bones and notin the left lung. TECHNIQUE: FDG PET-CT imaging was performed from the skull bases throughthe thighs in a single acquisition with data set reconstructed in axial,coronal, and sagittal planes at the computer workstation with fused datafrom both the PET imaging study and attenuation correction CT. The CTportion of the examination was done strictly for attenuation correctionand is not a true diagnostic CT examination. DLP: 333 mGy-cm Radiopharmaceutical: 13.8 mCi of F-18 FDG IV. Blood glucose: 85 mg/dl. COMPARISON: Outside PET/CT February 2024 FINDINGS: HEAD AND NECK: Thyroid gland is heterogeneous in appearance with adominant 23 x 17 mm nodule in the left thyroid gland. Persistent focus ofFDG activity in the right thyroid lobe SUV max 2.8 (previously 3.2). Complete opacification of the maxillary sinuses without significant FDGactivity. No FDG avid cervical lymphadenopathy. THORAX: Right axillary lymph nodes measuring up to SUV Max 1.4(contralateral left SUV max 0.8). No FDG avid thoracic lymphadenopathy. Interval clearing of previously seen opacities in the lower lobes of bothlungs with few remaining tree-in-bud/centrilobular groundglass noduleswithout significant FDG activity (SUV max 0.8) likely representingstigmata of postinfectious/postinflammatory etiology. Trace pericardial effusion. ABDOMEN/PELVIS: Nonspecific focal FDG activity along the stomachbody/antrum SUV max 3.4. No FDG avid abdominal or pelviclymphadenopathy. MUSCULOSKELETAL: Focal FDG activity involving the left gracilis muscle SUVmax 5.6 with surrounding myofascial subcutaneous stranding. Innumerable sclerotic and lytic lesions throughout the axial andappendicular skeleton without significant FDG activity. Grade 1anterolisthesis of L4 on L5. IMPRESSION: 1. Nonspecific FDG activity along the stomach body/antrum 2. Mildly FDG avid right axillary lymph nodes 3. Persistent focal uptake in the right thyroid lobe; similar to prior.Further evaluation with thyroid ultrasound would be helpful. 4. Focal FDG activity along the left gracilis muscle either representingmuscle strain or postinflammatory change. Please note: The CT was acquired at a low radiation dose settings. The images are ofnondiagnostic quality and used solely for purposes of attenuationcorrection and slice localization for the PET scan. If a diagnostic CTstudy is desired it must be ordered separately. -------- FINAL REPORT -------- Dictated By: Ashanti Antonio Dictated Date: 01/11/2025 03:58 ET Assigned Physician: Ashanti Antonio Reviewed and Electronically Signed By: Ashanti Antonio Signed Date: 01/11/2025 04:44 ET Workstation ID: [id number] Transcribed By: Self Edit Transcribed Date: 01/11/2025 03:58 ET Shasta Zambrano MD IMG NM PROCEDURES Final Result documented in this encounter Visit Diagnoses Diagnosis Invasive lobular carcinoma of right breast in female (CMS/HCC) documented in this encounter Administered Medications Inactive Administered Medications - up to 3 most recent administrations Medication Order MAR Action Action Date Dose Rate Site F-18 FDG pet diag radio-isotope injection 13.8 millicurie 13.8 millicurie, intravenous, Once in imaging, Starting on Sat01/06/25 at 1040, For 1 dose Given 01/06/2025 10:40 AM EST 13.8 millicuries Left Antecubital documented in this encounter Orders Medications Ordered That Jayjay ht Not Have Been Administered Count Last Ordered Date First Ordered Date F-18 FDG pet diag radio-isot ope injection 13.8 millicurie 1 01/06/2025 documented in this encounter Care Teams Snuff Maker Relationship Specialty Start Date End Date Nilda Cope MD [address] [place] [address] PCP - General Internal Medicine 01/05/25 documented as of this encounter
--- OUTSIDE RECORDS SUMMARY | 2025-02-03 13:40 | XMS_ITS | Clinical Summary ---
Author Organization [facility] Address [address] [place] [address] Phone Care Team Providers Care Rice Cleaning Machine Tender Name Role Phone Nilda Cope MD Primary Care Provider [phone] Encounters Date Type Department Care Team Description 01/06/2025 8:34 AM EST - 01/06/2025 11:59 PM EST Hospital Encounter [facility] PET Scan [address] [place] [address] Invasive lobular carcinoma of right breast in female (CMS/HCC) Discharge Disposition: Home or Self Care from Last 3 Months Social History Tobacco Use Types Packs/Day Years Used Date Smoking Tobacco: Never Assessed Comments Unknown Sex and Gender Information Value Date Recorded Sex Assigned at Female 01/05/2025 11:29 AM EST Legal Sex Female 1:18 PM EST Gender Identity Not on file Sexual Orientation Straight 01/05/2025 11 :29 AM EST Plan of Treatment Health Maintenance Due Date Last Done Comments DTaP,Tdap,and Td Vaccines (1 - Tdap) 1969 Pneumococcal Vaccine: 50+ Years (1 of 2 - PCV) 1969 Zoster Vaccines (1 of 2) 1969 COVID-19 Vaccine (3 - Pfizer risk series) 01/16/2022 12/19/2021, 11/28/2021 RSV Immunization Patients 60 + Years Old (1 - 1-dose 75+ series) 2023 Influenza Vaccine (#1) 2024 Depression Screening 12/30/2024 Falls Risk Assessment 12/30/2024 Hepatitis C Screening 12/30/2024 Medicare Annual Wellness Visit 12/30/2024 Osteoporosis Screening (Bone Density Screening) 12/30/2024 Social Influencers of Health Screening 12/30/2024 HIB Vaccines Aged Out No longer eligi ble based on patient's age to complete this topic HPV Vaccines Aged Out No longer eligi ble based on patient's age to complete this topic Hepatitis A Vaccines Aged Out No long er eligible based on patient's age to complete this topic Hepatitis B Vaccines Aged Out No long er eligible based on patient's age to complete this topic IPV Vaccines Aged Out No longer eligi ble based on patient's age to complete this topic MMR Vaccines Aged Out No longer eligi ble based on patient's age to complete this topic Meningococcal ACWY Vaccine Aged Out N o longer eligible based on patient's age to complete this topic Meningococcal B Vacine Aged Out No lo nger eligible based on patient's age to complete this topic RSV Immunization Patients Under 20 months Aged Out No longer eligible b ased on patient's age to complete this topic Varicella Vaccines Aged Out No longer eligible based on patient's age to complete this topic Procedures Procedure Name Priority Date/Time Associated Diagnosis Comments PET CT SKULL TO MID THIGH SUBSEQUENT Routine 01/06/2025 11:55 AM EST Invasive lobular carcinoma of right breast in female (CMS/HCC) from Last 3 Months Results * PET CT Skull to Mid [...] Signed Date: 01/11/2025 04:44 ET Workstation ID: [id number] Transcribed By: Self Edit Transcribed Date: 01/11/2025 [...] Signed Date: 01/11/2025 04:44 ET Workstation ID: [id number] Transcribed By: Self Edit Transcribed Date: 01/11/2025 03:58 ET Shasta Zambrano MD IMG NM PROCEDURES Final Result from Last 3 Months Insurance MEDICARE MEDICAID - [place] Care Teams Rice Cleaning Machine Tender Relationship Specialty Start Date End Date Nilda Cope MD [address] [place] [address] PCP - General Internal Medicine 01/05/25
--- OUTSIDE RECORDS SUMMARY | 2025-02-03 13:40 | XMS_ITS | Clinical Summary ---
Author Organization [facility] Facility Address [address] [place] [address] Care Team Providers Care Title I Assistant Name Role Phone Shasta Zambrano MD Primary Care Provider [phone] Allergies No known active allergies Medications letrozole (FEMARA) 2.5 MG chemo tablet Take 2.5 mg by mouth 1 (one) time each day 06/21/2022 Active Palbociclib (Ibrance) 100 MG tablet Take by mouth Active Calcium Carb-Cholecalcif ellie (CALCIUM 1000 + D PO) Take by mouth Active amLODIPine (NORVASC) 5 MG tablet Take 1 tablet (5 mg total) by mouth 1 (one) time each day 90 tablet 3 08/19/2023 Active Active Problems No known active problems Family History Medical History Relation Comments Cancer Father Heart disease Mother Relation Status Comments Father Mother Social History Tobacco Use Types Packs/Day Years Used Date Smoking Tobacco: Never Smokeless Tobacco: Never Tobacco Cessation:Counseling Given: Not Answered Alcohol Use Standard Drinks/Week Comments Not Currently 0 (1 standard drink = 0.6 oz pur e alcohol) Comments Unknown Sex and Gender Information Value Date Recorded Sex Assigned at Not on file Legal Sex Female 11:17 AM EDT Gender Identity Not on file Sexual Orientation Not on file Last Filed Vital Signs Vital Sign Reading Time Taken Comments Blood Pressure 140/80 08/19/2023 2:37 PM EDT Pulse 74 08/19/2023 2:37 PM EDT Temperature - - Respiratory Rate - - Oxygen Saturation 99% 08/19/2023 2:37 PM EDT Inhaled Oxygen Concentration - - Weight 60.1 kg (132 lb 6.4 oz) 08/19/2023 2:37 P M EDT Height - - Body Mass Index - - Plan of Treatment Health Maintenance Due Date Last Done Comments Pneumococcal Vaccine: 65+ Ye ars (1 of 2 - PCV) 1956 Influenza Vaccine (#1) 2024 Hepatitis B Vaccine Aged Out No longe r eligible based on patient's age to complete this topic Insurance [place] Care Teams Title I Assistant Relationship Specialty Start Date End Date Shasta Zambrano MD [address] [place] [address] PCP - General Hematology and Oncology 06/26/22
[2025-02-05 21:19] LABS: TS Negative Control Passed; TS Panel A 0; TS Panel B 0; TS Positive Control Passed; TSpotTB Negative (Negative)
== END 2025-02-03 11:33 | disposition home or self-care (01) ==
LOC: HO.HMGCLDS 11:32
PROVIDERS: PCP Internal Medicine; Visit Provider Physician Assistant Medical
DX: L40.0 Psoriasis vulgaris (principal)
CPT/HCPCS: 36415; 86481

== ENCOUNTER 2025-08-11 10:32 | Outpatient (REF) | payer MEDICARE, MEDICAID, SELFPAY ==
--- OUTSIDE RECORDS SUMMARY | 2025-08-11 12:58 | XMS_ITS | Clinical Summary ---
Author Organization [facility] Address [address] [place] [phone] Phone Care Team Providers Care Speech Therapist Early Intervention Name Role Phone Nilda Cope MD Primary Care Provider [phone] Social History Tobacco Use Types Packs/Day Years [...] risk series) 01/16/2022 12/19/2021, 11/28/2021 RSV Immunization Adult Patients (1 - 1-dose 75+ series) 2023 Depression Screening 11/25/2024 Falls Risk Assessment 12/30/2024 Hepatitis C Screening 12/30/2024 Medicare Annual Wellness Visit 12/30/2024 Osteoporosis Screening (Bone Density Screening) 12/30/2024 Social Influencers of Health Screening 12/30/2024 Influenza Vaccine (#1) 2025 HIB Vaccines Aged Out No longer eligi [...] age to complete this topic Meningococcal B Vaccine Aged Out No l onger eligible based on patient's age to complete this topic RSV Immunization Patients Under 20 months Aged Out No longer eligible b ased on patient's age to complete this topic Varicella Vaccines Aged Out No longer eligible based on patient's age to complete this topic Insurance MEDICARE [place] - [place] Care Teams Speech Therapist Early Intervention Relationship Specialty Start Date End Date Nilda Cope MD PCP - General Internal Medicine 01/05/25
--- OUTSIDE RECORDS SUMMARY | 2025-08-11 12:58 | XMS_ITS | Clinical Summary ---
Author Organization [facility] Facility Address [address] [place] [address] Care Team Providers Care Sample Processor Name Role Phone Shasta Zambrano MD Primary Care Provider [phone] Allergies No known active allergies Medications letrozole [...] Due Date Last Done Comments Pneumococcal Vaccine: 50+ Ye ars (1 of 2 - PCV) 1967 Influenza Vaccine (#1) 2025 Hepatitis B Vaccine Aged Out No longe r eligible based on patient's age to complete this topic Insurance Medicare Medicaid [place] Care Teams Sample Processor Relationship Specialty Start Date End Date Shasta Zambrano MD [address] [place] [address] PCP - General Hematology and Oncology 06/26/22
[2025-08-11 14:05] LABS: Alanine Aminotransferase 15 U/L (0-31); Albumin Level 4.3 g/dL (3.5-5.0); Alkaline Phosphatase 59 U/L (39-117); Aspartate Amino Transferase 37 U/L (5-31); Total Protein 8.2 g/dL (6.5-8.0)
[2025-08-12 21:48] LABS: Anti Nuclear Antibody Pattern Nuclear, Speckled; Anti Nuclear Antibody Screen POSITIVE (NEGATIVE); Anti Nuclear Antibody Titer 1:320 titer
[2025-08-18 16:09] LABS: MDA5 Ab <11 SI (<11); NXP-2 (MJ) Ab <11 SI (<11); SRP Ab <11 SI (<11)
== END 2025-08-11 10:33 | disposition home or self-care (01) ==
LOC: HO.HMGCLDS 10:32
PROVIDERS: PCP Internal Medicine; Visit Provider Physician Assistant Medical
DX: L30.9 Dermatitis, unspecified (principal)
CPT/HCPCS: 36415; 80076; 80307; 82085; 82550; 84182; 85652; 86038; 86039; 86140; 86235